=== PATIENT | male | born 1970 | race Caucasian/White ===

== ENCOUNTER 2019-12-05 03:57 | Inpatient (IN) ==
[2019-12-05] MEDS ORDERED: MoRPHine SULFATE 4 MG/ML 1 ML CARP\\VIAL IV STA (04:03)
[2019-12-05] MEDS ORDERED: SODIUM CHLORIDE 0.9% 1000ML 1,000 ML IV ONE ×2 (04:03→04:27)
[2019-12-05] MEDS ORDERED: ONDANSETRON INJ 2 MG/ML 2 ML VIAL IV STA (04:03)
--- NOTE | 2019-12-05 04:09 | Emergency Department Note ---
History of Present Illness General Chief complaint: Abdominal Pain Stated complaint: ABDOMINAL PAIN History of Present Illness This 49 yo presents to the ER complaining of severe abdominal pain with nausea and vomiting today Location: Abdomen Quality: Crampy Severity: Severe Duration: Today Timing: Today Context: Patient was concerned and came in by EMS Modifying factors: better with nothing; worse with activity Patient has an ileostomy from a history of ulcerative colitis. Patient states he only uses medical marijuana and Zoloft for his anxiety. Patient denies chest pain, dyspnea, fevers, flulike illness. He states normal production of his ostomy bag. Home Medications Home Medications Medication Instructions Recorded Confirmed Type Medical Marijuana 1 inh INHALATION DIRECTED PRN 12/05/19 12/05/19 History sertraline 50 mg PO DAILY 12/05/19 12/05/19 History Allergies Allergy/AdvReac Type Severity Reaction Status Date / Time No Known Allergies Allergy Unverified 12/05/19 04:36 Past Med/Surg History Medical History Ulcerative colitis (Chronic) Surgical History H/O ileostomy (Chronic) Social History Preferred Language: Serbian Feels Safe at Home: Yes Smoking Status: Never smoker Hx Substance Use: Yes (Medical marijuana) Review of Systems A total of 10 systems reviewed and were otherwise negative Physical Exam Vital Signs Vital Signs - 24 hr 12/05/19 04:04 12/05/19 04:54 12/05/19 04:58 Temperature 37.4 C Temperature Source Oral Pulse Rate 55 L 68 65 Pulse Rate from SpO2 Sensor 70 Respiratory Rate 20 17 20 Respiratory Effort / Characteristics Non-Labored Respiratory Depth Normal Blood Pressure 120/58 L 139/92 Blood Pressure Mean 78 101 Pulse Oximetry 100 100 100 Oxygen Delivery Method Room Air Room Air Sepsis Recent Fever Within 48 Hours No Sepsis New/Unexplained Change in Mental Status No Sepsis Action Taken by Nursing No Action Required VITALS: Vitals are noted on the nurse's note and reviewed by myself. Vital signs stable. GENERAL: White male who appears in pain, in no acute distress, nondiaphoretic, well-developed well-nourished. SKIN: Capillary reflex less than 2 seconds. HEENT: Normocephalic. PERRLA. EOMI. Nares patent. Mucous membranes moist. Neck is supple without nuchal rigidity. HEART: Regular rate and rhythm LUNGS: Clear to auscultation bilaterally without wheezes, rales or rhonchi. No retractions or accessory muscle use. ABDOMEN: Positive bowel sounds x 4. Normal tympanic percussion. Soft, ileostomy bag right lower quadrant, diffusely tender to palpation with increased pain in the left lower quadrant, without masses or organomegaly. Lester sign negative. No guarding or rebound tenderness. No CVA tenderness MUSCULOSKELETAL: No gross musculoskeletal defects. NEURO: Patient was alert and oriented to person place and time. No focal neurological deficits. Course Administered Medications Sodium Chloride (Nss 1000ml) 1,000 mls @ 999 mls/hr IV .Q1H1M ONE Stop: 12/05/19 05:27 Last Admin: 12/05/19 04:51 Dose: 999 mls/hr Documented by: [id number] Ioversol (Optiray 320 100ml) 100 ml IV ONCE PRN PRN Reason: Interaction Checking Stop: 12/09/19 04:32 Last Admin: 12/05/19 04:33 Dose: 93 ml Documented by: [id number] Discontinued Medications Hydromorphone HCl (Dilaudid) 0.5 mg IV NOW STA Stop: 12/05/19 04:49 Last Admin: 12/05/19 04:51 Dose: 0.5 mg Documented by: [id number] Sodium Chloride (Nss 1000ml) 1,000 mls @ 999 mls/hr IV .Q1H1M ONE Stop: 12/05/19 05:03 Last Admin: 12/05/19 04:13 Dose: 999 mls/hr Documented by: [id number] Morphine Sulfate (Morphine Sulfate) 4 mg IV NOW STA Stop: 12/05/19 04:04 Last Admin: 12/05/19 04:11 Dose: 4 mg Documented by: [id number] Ondansetron HCl (Zofran) 4 mg IV NOW STA Stop: 12/05/19 04:04 Last Admin: 12/05/19 04:51 Dose: 4 mg Documented by: [id number] Medical Decision Making Medical Records Attestation: I reviewed the patient's medical records. Home Medications Current Medication List: was personally reviewed by me Laboratory Data Attestation: I reviewed the patient's lab results. Result diagrams: 12/05/19 04:07 12/05/19 04:07 Lab Results 12/05/19 12/05/19 12/05/19 Range/Units 04:07 04:07 04:10 WBC 15.73 H (4.8-10.8) K/uL RBC 5.17 (4.7-6.1) M/uL Hgb 16.7 (14.0-18.0) g/dL POC Hgb (14.0-18.0) g/dl Hct 45.8 (42-52) % POC Hct (42-52) % MCV 88.6 (80-100) fL MCH 32.3 (25-34) pg MCHC 36.5 H (32-36) g/dL RDW Std Deviation 43.1 (36.4-46.3) fL RDW Coeff of Denise 13.3 (11.5-14.5) % Plt Count 268 (130-400) K/uL MPV 8.7 (7.4-10.4) fL Immature Gran % (Auto) 0.3 % Neut % (Auto) 91.5 % Lymph % (Auto) 5.5 % Screven % (Auto) 2.6 % Eos % (Auto) 0.0 % Baso % (Auto) 0.1 % Neut # (Auto) 14.39 H (1.4-6.5) K/uL Lymph # (Auto) 0.87 L (1.2-3.4) K/uL Screven # (Auto) 0.41 (0.11-0.59) K/uL Eos # (Auto) 0.00 (0-0.5) K/uL Baso # (Auto) 0.01 (0-0.2) K/uL Immature Gran # (Auto) 0.05 H (0.00-0.02) K/uL POC Sodium (135-144) mmol/L Sodium 139 (136-145) mmol/L POC Potassium (3.3-5.0) mmol/L Potassium 3.5 (3.5-5.1) mmol/L POC Chloride (101-112) mmol/L Chloride 105 (98-107) mmol/L Carbon Dioxide 19 L (21-32) mmol/L POC Total CO2 (24-31) mmol/L Anion Gap 15.0 H (3-11) POC Anion Gap (16-25) mmol/L POC BUN (7-18) mg/dl BUN 15 (7-18) mg/dl Creatinine 1.66 H (0.6-1.4) mg/dl POC Creatinine (0.6-1.3) mg/dl Est Cr Clr Drug Dosing 56.8 ml/min Est GFR ( Amer) 56.0 Est GFR (Non-Af Amer) 48.4 BUN/Creatinine Ratio 9.2 L (10-20) Glucose 155 H (70-99) mg/dl POC Glucose (other) (70-99) mg/dl POC Lactic Acid Bipin 3.92 H (0.90-1.70) mmol/L Calcium 9.1 (8.5-10.1) mg/dl POC Ioniz Calcium Tian (1.12-1.32) mmol/l Total Bilirubin 0.7 (0.2-1) mg/dl AST 25 (15-37) U/L ALT 37 (12-78) U/L Alkaline Phosphatase 86 (45-117) U/L Troponin I < 0.015 (0-0.045) ng/ml Total Protein 8.1 (6.4-8.2) gm/dl Albumin 4.1 (3.4-5.0) gm/dl Globulin 4.0 (2.5-4.0) gm/dl Albumin/Globulin Ratio 1.0 (0.9-2) Lipase 119 (73-393) U/L 12/05/19 Range/Units 04:11 WBC (4.8-10.8) K/uL RBC (4.7-6.1) M/uL Hgb (14.0-18.0) g/dL POC Hgb 17.0 (14.0-18.0) g/dl Hct (42-52) % POC Hct 50 (42-52) % MCV (80-100) fL MCH (25-34) pg MCHC (32-36) g/dL RDW Std Deviation (36.4-46.3) fL RDW Coeff of Denise (11.5-14.5) % Plt Count (130-400) K/uL MPV (7.4-10.4) fL Immature Gran % (Auto) % Neut % (Auto) % Lymph % (Auto) % Screven % (Auto) % Eos % (Auto) % Baso % (Auto) % Neut # (Auto) (1.4-6.5) K/uL Lymph # (Auto) (1.2-3.4) K/uL Screven # (Auto) (0.11-0.59) K/uL Eos # (Auto) (0-0.5) K/uL Baso # (Auto) (0-0.2) K/uL Immature Gran # (Auto) (0.00-0.02) K/uL POC Sodium 138 (135-144) mmol/L Sodium (136-145) mmol/L POC Potassium 3.4 (3.3-5.0) mmol/L Potassium (3.5-5.1) mmol/L POC Chloride 102 (101-112) mmol/L Chloride (98-107) mmol/L Carbon Dioxide (21-32) mmol/L POC Total CO2 17 L (24-31) mmol/L Anion Gap (3-11) POC Anion Gap 24.0 (16-25) mmol/L POC BUN 16 (7-18) mg/dl BUN (7-18) mg/dl Creatinine (0.6-1.4) mg/dl POC Creatinine 1.4 H (0.6-1.3) mg/dl Est Cr Clr Drug Dosing ml/min Est GFR ( Amer) Est GFR (Non-Af Amer) BUN/Creatinine Ratio (10-20) Glucose (70-99) mg/dl POC Glucose (other) 161 H (70-99) mg/dl POC Lactic Acid Bipin (0.90-1.70) mmol/L Calcium (8.5-10.1) mg/dl POC Ioniz Calcium Tian 1.12 (1.12-1.32) mmol/l Total Bilirubin (0.2-1) mg/dl AST (15-37) U/L ALT (12-78) U/L Alkaline Phosphatase (45-117) U/L Troponin I (0-0.045) ng/ml Total Protein (6.4-8.2) gm/dl Albumin (3.4-5.0) gm/dl Globulin (2.5-4.0) gm/dl Albumin/Globulin Ratio (0.9-2) Lipase (73-393) U/L Imaging Data Attestation: I personally reviewed and interpreted this imaging study as follows: Blood Pressure Blood Pressure Findings: Normal blood pressure MDM Narrative Prior records/ancillary studies reviewed. Triage Nursing notes reviewed. Additional history obtained from EMS. The patient's history was concerning for abdominal pain. Differential diagnosis: Etiologies such as appendicitis, diverticulitis, PUD, biliary pathology, UTI, pancreatitis, obstruction, mesenteric ischemia, aortic pathology, infections, inflammatory bowel disease, renal colic, as well as others were entertained. Physical examination findings: As above. ER treatment provided: An order was placed for continuous cardiac monitoring. The monitor shows a rate of 50-100 with a normal sinus rhythm. IV fluids, morphine, Zofran On reassessment the patient felt better. Diagnostics interpreted by me: ECG: Ordered for upper abdominal pain EKG: Normal sinus, normal axis, no acute ST-T wave changes, rate of 55. Impression sinus bradycardia interpreted by myself I think arrhythmia is unlikely. EKG shows normal sinus rhythm with no interval abnormalities such as QT prolongation or WPW. There are no findings to suggest Brugada syndrome. Cardiac monitoring in the emergency department reveals no tachycardic or bradycardic dysrhythmia. Hypertrophic cardiomyopathy was consi dered but there are no clear historical elements pointing toward this. EKG is not suggestive. The QRS voltage is not extremely large and there are no suggestive Q waves. The labs revealed leukocytosis, elevated lactic. Creatinine 1.6 Imaging studies: CT ABDOMEN & PELVIS With Contrast: 2 cm hiatal hernia. Mild fatty infiltration of the liver. No focal liver lesion is seen. The gallbladder, pancreas, spleen, adrenal glands, and kidneys are unremarkable. No hydronephrosis or ureterolithiasis is seen. There is a right lower quadrant ileostomy. The colon has been resected. No dilated bowel loops are present. Possible mild wall thickening involving the proximal jejunum. No definite surrounding inflammation. This is nonspecific. Scattered gas fluid levels in the distal small bowel suggest mild ileus. The urinary bladder is partially distended. Skeletal structures are unremarkable. Radiologist: Ryne Still MD Consultation: A consultation was placed with Dr. Fields, hospitalist. The case was discussed and diagnostics were reviewed. The patient was evaluated in the ER for further treatment. Exam and history seem consistent with intractable abdominal pain, ileus and nausea vomiting. Patient was told severe amount of pain. he was given several rounds of pain meds. He has a high lactic acid. Patient will be evaluated by medicine for possible admission. By the evaluation outlined above emergent etiologies such as appendicitis, diverticulitis, PUD, biliary pathology, UTI, pancreatitis, obstruction, aortic pathology, infections, inflammatory bowel disease, renal colic, as well as others were deemed relatively unlikely. The pt informed about the findings as listed above. All questions were answered and pleased with the treatment. The chart was completed utilizing [employer] Speech voice recognition software. Grammatical errors, random word insertions, pronoun errors, and incomplete sentences are an occassional consequence of this system due to software limitations, ambient noise, and hardware issues. Any formal questions or concerns about the content, text, or information contained within the body of this dictation should be directly addressed to the physician assistant office manager for clarification. Impression & Plan Intractable abdominal pain, Nausea & vomiting, Ileus Discharge Plan Visit Data Chief Complaint: Abdominal Pain Stated Complaint: ABDOMINAL PAIN ED Provider: Willie Huffman ED Midlevel Provider: Vijaya Mixon Discharge Problem: Intractable abdominal pain, Nausea & vomiting, Ileus Patient Disposition: Being Evaluated by Hospitalist Condition: Fair Forms Stand Alone Forms: My [employer] Prescriptions Prescriptions: No Action sertraline 50 mg Tablet 50 mg PO DAILY RF: 0 Medical Marijuana 1 inh inhalation DIRECTED PRN (Reason: prn) RF: 0 Referrals Referrals: PCP,NO [Physician] -
[2019-12-05 04:15] LABS: Basophils # (auto) 0.01 K/uL (0-0.2); Basophils % (auto) 0.1 %; Hematocrit (blood only) 45.8 % (42-52); Hemoglobin 16.7 g/dL (14.0-18.0); Immature Granulocytes # (auto) 0.05 K/uL (0.00-0.02); Immature Granulocytes % (auto) 0.3 %; Lymphocytes # (auto) 0.87 K/uL (1.2-3.4); Lymphocytes % (auto) 5.5 %; Mean Corpuscular Hemoglobin 32.3 pg (25-34); Mean Corpuscular Hgb Conc 36.5 g/dL (32-36); Mean Corpuscular Volume 88.6 fL (80-100); Mean Platelet Volume 8.7 fL (7.4-10.4); Monocytes # (auto) 0.41 K/uL (0.11-0.59); Monocytes % (auto) 2.6 %; Neutrophils # (auto) 14.39 K/uL (1.4-6.5); Neutrophils % (auto) 91.5 %; Platelet Count 268 K/uL (130-400); RDW Coefficient of Variation 13.3 % (11.5-14.5); RDW Standard Deviation 43.1 fL (36.4-46.3); Red Blood Count 5.17 M/uL (4.7-6.1); White Blood Count 15.73 K/uL (4.8-10.8)
[2019-12-05 04:24] LABS: iSTAT Creatinine 1.4 mg/dl (0.6-1.3); iSTAT Ionized Calcium 1.12 mmol/l (1.12-1.32); iSTAT Potassium 3.4 mmol/L (3.3-5.0)
[2019-12-05] MEDS ORDERED: IOVERSOL 100ml IV PRN (04:33)
[2019-12-05 04:34] LABS: Alanine Aminotransferase 37 U/L (12-78); Albumin Level 4.1 gm/dl (3.4-5.0); Aspartate Aminotransferase 25 U/L (15-37); BUN Creatinine Ratio 9.2 (10-20); Blood Urea Nitrogen 15 mg/dl (7-18); Calcium 9.1 mg/dl (8.5-10.1); Carbon Dioxide 19 mmol/L (21-32); Chloride 105 mmol/L (98-107); Creatinine Clr Calc Pharmacy 56.8 ml/min; Est GFR (Non-African American) 48.4; Glucose 155 mg/dl (70-99); Lipase 119 U/L (73-393); Potassium 3.5 mmol/L (3.5-5.1); Sodium 139 mmol/L (136-145)
[2019-12-05 04:39] LABS: Alkaline Phosphatase 86 U/L (45-117); Bilirubin,Total 0.7 mg/dl (0.2-1); Total Protein 8.1 gm/dl (6.4-8.2); Troponin I < 0.015 ng/ml (0-0.045)
[2019-12-05] MEDS ORDERED: HYDROmorphone INJ 0.5 MG/0.5 ML SYR IV STA (04:48)
[2019-12-05] MEDS ORDERED: ACETAMINOPHEN 1000 MG/100 ML IV IV STA (05:08)
[2019-12-05] MEDS ORDERED: LACTATED RINGER'S 1,000 ML IV ONE (05:13)
--- NOTE | 2019-12-05 05:57 | History & Physical Report ---
Date of Service December 05, 2019 Assessment & Plan (1) Abdominal pain: hx ulcerative colitis status post surgery ([facility] 2009) Patient nontoxic ARF, AGMA secondary to illness Hyperglycemia rule out DM anxiety/mood disorder, at baseline OBS GMF Baseline UA, monitor creatinine/lactic acid response to IVF Clear liquids for now GI consult RE abdominal pain, abnormal CT, history IBD Check hemoglobin A1c DVT prophylaxis with Heparin subcu Full code Text document was generated using [employer] voice recognition software. It may contain grammatical or spelling errors. Kindly contact undersigned for clarification of any documentation item in question. History of Present Illness Chief Complaint: Abdominal pain Primary Care Provider: Tj Linder PA-C History obtained from patient and records. Medical history significant for ulcerative colitis status post surgery ([facility] 2009), anxiety/mood disorder, hx lattice degeneration/retinal defect as per records, past alcohol abuse as per records. Patient woke up last night with achy abdominal pain going to his chest and back with nausea and bilious emesis. No fever, no chills. No changes with ostomy output. Intractable discomfort at the ER. Medical History as above Surgical History : Eye surgery, colectomy/ileostomy Family History : IBD, alcoholism, OCD Personal/Social history : non-smoker, past alcohol abuse as per records, admits to cannabis intake at home Allergies Allergy/AdvReac Type Severity Reaction Status Date / Time No Known Allergies Allergy Unverified 12/05/19 04:36 Home Medications Home Medications Medication Instructions Recorded Confirmed Type Medical Marijuana 1 inh INHALATION DIRECTED PRN 12/05/19 12/05/19 History sertraline 50 mg PO DAILY 12/05/19 12/05/19 History Past Med/Surg History Medical History Ulcerative colitis (Chronic) Surgical History H/O ileostomy (Chronic) Social History Preferred Language: Korean Communication Ability: Effective Leather Scraper Required: No Beliefs That Will Affect Care: None Current Living Situation: Alone Feels Safe at Home: Yes Safety Concerns: Feels Safe At This Time Smoking Status: Never smoker Hx Alcohol Use: Yes Alcohol type: wine Hx Substance Use: Yes substance use type: marijuana Review of Systems Review of Systems: As per HPI, all 10 systems reviewed, all other ROS negative Physical Exam Physical Exam: GENERAL: Slightly uncomfortable, slightly anxious, no respiratory distress SKIN: Normal color, warm HEENT: Alopecia, pink palpebral conjunctivae, no ptosis, dry buccal mucosa NECK : Supple, no tenderness CHEST : CTA, no tenderness HEART : RRR, no obvious murmurs ABDOMEN: Some distention, ostomy noted, hypogastric tenderness EXTREMITIES : No LE swelling/tenderness, no other conspicuous deformities noted NEUROLOGIC : Coherent, no facial asymmetry, no other gross focality Results & Data Results & Data ([facility]) Vital Signs (Past 12 Hours) Vital Signs Temp Pulse Resp BP Pulse Ox 12/05/19 05:30 20 119/75 100 12/05/19 05:00 92 H 21 107/94 100 12/05/19 04:58 65 20 100 12/05/19 04:54 68 17 139/92 100 12/05/19 04:04 37.4 C 55 L 20 120/58 L 100 Laboratory Results Laboratory Results WBC 15.73 K/uL (4.8-10.8) H 12/05/19 04:07 RBC 5.17 M/uL (4.7-6.1) 12/05/19 04:07 Hgb 16.7 g/dL (14.0-18.0) 12/05/19 04:07 POC Hgb 17.0 g/dl (14.0-18.0) 12/05/19 04:11 Hct 45.8 % (42-52) 12/05/19 04:07 POC Hct 50 % (42-52) 12/05/19 04:11 MCV 88.6 fL (80-100) 12/05/19 04:07 MCH 32.3 pg (25-34) 12/05/19 04:07 MCHC 36.5 g/dL (32-36) H 12/05/19 04:07 RDW Std Deviation 43.1 fL (36.4-46.3) 12/05/19 04:07 RDW Coeff of Denise 13.3 % (11.5-14.5) 12/05/19 04:07 Plt Count 268 K/uL (130-400) 12/05/19 04:07 MPV 8.7 fL (7.4-10.4) 12/05/19 04:07 Immature Gran % (Auto) 0.3 % 12/05/19 04:07 Neut % (Auto) 91.5 % 12/05/19 04:07 Lymph % (Auto) 5.5 % 12/05/19 04:07 Towns % (Auto) 2.6 % 12/05/19 04:07 Eos % (Auto) 0.0 % 12/05/19 04:07 Baso % (Auto) 0.1 % 12/05/19 04:07 Neut # (Auto) 14.39 K/uL (1.4-6.5) H 12/05/19 04:07 Lymph # (Auto) 0.87 K/uL (1.2-3.4) L 12/05/19 04:07 Towns # (Auto) 0.41 K/uL (0.11-0.59) 12/05/19 04:07 Eos # (Auto) 0.00 K/uL (0-0.5) 12/05/19 04:07 Baso # (Auto) 0.01 K/uL (0-0.2) 12/05/19 04:07 Immature Gran # (Auto) 0.05 K/uL (0.00-0.02) H 12/05/19 04:07 POC Sodium 138 mmol/L (135-144) 12/05/19 04:11 Sodium 139 mmol/L (136-145) 12/05/19 04:07 POC Potassium 3.4 mmol/L (3.3-5.0) 12/05/19 04:11 Potassium 3.5 mmol/L (3.5-5.1) 12/05/19 04:07 POC Chloride 102 mmol/L (101-112) 12/05/19 04:11 Chloride 105 mmol/L (98-107) 12/05/19 04:07 Carbon Dioxide 19 mmol/L (21-32) L 12/05/19 04:07 POC Total CO2 17 mmol/L (24-31) L 12/05/19 04:11 Anion Gap 15.0 (3-11) H 12/05/19 04:07 POC Anion Gap 24.0 mmol/L (16-25) 12/05/19 04:11 POC BUN 16 mg/dl (7-18) 12/05/19 04:11 BUN 15 mg/dl (7-18) 12/05/19 04:07 Creatinine 1.66 mg/dl (0.6-1.4) H 12/05/19 04:07 POC Creatinine 1.4 mg/dl (0.6-1.3) H 12/05/19 04:11 Est Cr Clr Drug Dosing 56.8 ml/min 12/05/19 04:07 Est GFR ( Amer) 56.0 12/05/19 04:07 Est GFR (Non-Af Amer) 48.4 12/05/19 04:07 BUN/Creatinine Ratio 9.2 (10-20) L 12/05/19 04:07 Glucose 155 mg/dl (70-99) H 12/05/19 04:07 POC Glucose (other) 161 mg/dl (70-99) H 12/05/19 04:11 POC Lactic Acid Bipin 4.83 mmol/L (0.90-1.70) H 12/05/19 04:38 Calcium 9.1 mg/dl (8.5-10.1) 12/05/19 04:07 POC Ioniz Calcium Tian 1.12 mmol/l (1.12-1.32) 12/05/19 04:11 Total Bilirubin 0.7 mg/dl (0.2-1) 12/05/19 04:07 AST 25 U/L (15-37) 12/05/19 04:07 ALT 37 U/L (12-78) 12/05/19 04:07 Alkaline Phosphatase 86 U/L (45-117) 12/05/19 04:07 Troponin I < 0.015 ng/ml (0-0.045) 12/05/19 04:07 Total Protein 8.1 gm/dl (6.4-8.2) 12/05/19 04:07 Albumin 4.1 gm/dl (3.4-5.0) 12/05/19 04:07 Globulin 4.0 gm/dl (2.5-4.0) 12/05/19 04:07 Albumin/Globulin Ratio 1.0 (0.9-2) 12/05/19 04:07 Lipase 119 U/L (73-393) 12/05/19 04:[address] abdomen pelvis initial read : hiatal hernia, right lower quadrant ileostomy, status post colon resection. Mild wall thickening involving proximal jejunum. Scattered gas fluid levels distal small bowel suggesting mild ileus. Partially distended urinary bladder. Chest x-ray as per my interpretation no congestion
--- NOTE | 2019-12-05 06:38 | CT Scan Report ---
CT OF THE ABDOMEN AND PELVIS WITH CONTRAST CLINICAL HISTORY: Severe lower abdominal pain. COMPARISON STUDY: None. TECHNIQUE: Following IV administration of 93 mL of Optiray-320, axial images of the abdomen and pelvi s were obtained from the lung bases to the proximal femurs. Images were reviewed in the axial, sagitt al, and coronal planes. IV contrast was administered without complication. Automated exposure contro l was utilized for the study. A dose lowering technique was utilized adhering to the principles of A ZARINA. CT DOSE: 342.33 mGy.cm FINDINGS: A small hiatal hernia is noted. No pneumatosis, free air or portal venous gas is present. T he liver, spleen, adrenal glands, kidneys and pancreas are unremarkable. Apparent mild wall thickenin g of several jejunal loops is likely due to underdistention. The patient is status post total proctoc olectomy with right lower quadrant ileostomy. No definite bowel wall thickening is noted. There is no evidence for a bowel obstruction. Fat-containing bilateral deformities are noted. There is no absces s. No lymphadenopathy is present. Major vasculature is patent. There is no hydronephrosis. No biliary or pancreatic ductal dilatation is present. IMPRESSION: 1. No acute process within the abdomen or pelvis. 2. 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 No bowel obstruction. No de finite bowel wall thickening. Apparent mild jejunal wall thickening is likely due to underdistention. 3. Fat-containing bilateral inguinal hernias. ACT 112: Negative or not required by law. Electronically signed by: Cullen Cano M.D. 12/05/2019 6:37 AM
--- NOTE | 2019-12-05 07:48 | XRay Report ---
XR chest 1V portable HISTORY: renal failure COMPARISON: None. FINDINGS: The lungs are clear. Cardiac silhouette is normal in size. No pleural effusions. No pneumot horax. IMPRESSION: No acute process. ACT 112: Negative or not required by law. Electronically signed by: Kyrie Ho M.D. 12/05/2019 7:47 AM
[2019-12-05] MEDS ORDERED: PROMETHAZINE HCL 12.5 MG in SODIUM CHLORIDE 0.9% 50 ML IV PRN (09:03)
[2019-12-05] MEDS ORDERED: ACETAMINOPHEN 325 MG TAB PO PRN (09:03)
[2019-12-05] MEDS ORDERED: LORazepam 0.5 MG/1 ML VIAL IV PRN (09:03)
[2019-12-05] MEDS ORDERED: HYDROmorphone INJ 0.5 MG/0.5 ML SYR IV PRN (09:03)
[2019-12-05 09:04] LABS: Appearance Urine Clear (Clear); Bilirubin Urine Negative (Negative); Blood Urine Negative (Negative); Color Urine Yellow; Glucose Urine UA Negative (Negative); Ketones Urine 1+ (Negative); Leukocyte Esterase Urine Negative (Negative); Nitrite Urine Negative (Negative); Protein Urine Negative (Negative); Specific Gravity Urine > 1.045 (1.000-1.030); Urobilinogen Urine Negative (Negative)
[2019-12-05 09:13] LABS: Amphetamines+Metham, Urine Neg (Neg); Barbiturates, Urine Neg (Neg); Benzodiazepine, Urine Neg (Neg); Cocaine, Urine Neg (Neg); MDMA (Ecstacy), Urine Neg (Neg); Methadone, Urine Neg (Neg); Opiate, Urine Pos (Neg); Phencyclidine, Urine Neg (Neg)
[2019-12-05] MEDS: LACTATED RINGER'S 1,000 ML IV SCH ×2 (09:25→22:23)
[2019-12-05] MEDS: HEPARIN SOD 5,000 UNIT/0.5 ML VIAL SQ SCH ×3 (10:34→21:35)
[2019-12-05] MEDS: SERTRALINE HCL 50 MG TABLET PO SCH (10:34)
--- NOTE | 2019-12-05 10:42 | Gastrointestinal Consultation ---
Date of Consultation December 05, 2019 Assessment & Plan (1) Abdominal pain: 49 year old male with history of anxiety, depression, marijuana use, ulcerative colitis s/p colectomy with end ileostomy in 2007 after admission for IBD flare complicated by a perforation admitted w/ 48 hours of abdominal pain, nausea and bilious emesis. CTAP w/ jejunal wall thickening otherwise negative. DDX discussed to include cannabinoid hyperemesis, medication side effects etc NPO for bowel rest IV PPI BID Stool culture, c.diff Anti emetics PRN Analgesia PRN Endoscopy, timing to be determined Marijuana cessation NSAID cessation Thank you for allowing us to participate in the care of this patient. Please c all with any acute changes, questions or concerns. Please see addendum below with additional recommendation from my supervising physician. (2) Nausea & vomiting: Supervising Physician Co-Signing Physician Notes Saw and evaluated the patient. He presents with nausea and vomiting in the setting of recently starting an antidepressant. Patient does have a history of inflammatory bowel disease and underwent a subtotal colectomy at [facility] several years ago. Physical examination Obvious distress, patient mentions being in pain multiple times asking for different pain medication Impression: Patient presenting with nausea and vomiting which could be related to use of cannabis or perhaps Zoloft. Patient can be left n.p.o. at midnight we could certainly provide upper endoscopy if symptoms are persisting tomorrow History of Present Illness Reason for Consultation: abd pain Requesting Physician: Loni Attending Physician: Blake Ivey MD History of Present Illness 49 year old male with history of anxiety, depression, marijuana use, ulcerative colitis s/p colectomy with end ileostomy in 2007 after admission for IBD flare complicated by a perforation. Pathology at that time showed severe UC w/o dysplasia. Has not been see by GI since. Notes in the past 48 hours generalized abd pain, nausea, vomiting w/ bilious emesis. No change in output from ostomy. Denies any black or bloody emesis. No diarrhea. No black or bloody stools. No fever, chills, CP, SOB. Started Zoloft about 2 weeks ago Using marijuana 1-2 times a week No ETOH No other new meds CTAP: No acute process within the abdomen or pelvis.. 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 No bowel obstruction. No definite bowel wall thickening. Apparent mild jejunal wall thickening is likely due to underdistention.Fat-containing bilateral inguinal hernias. Allergies Allergy/AdvReac Type Severity Reaction Status Date / Time No Known Allergies Allergy Unverified 12/05/19 04:36 Home Medications Home Medications Medication Instructions Recorded Confirmed Type Medical Marijuana 1 inh INHALATION DIRECTED PRN 12/05/19 12/05/19 History sertraline 50 mg PO DAILY 12/05/19 12/05/19 History Patient History Medical History Ulcerative colitis (Chronic) Surgical History H/O ileostomy (Chronic) Social History Preferred Language: Danish Communication Ability: Effective Power Technician Required: No Beliefs That Will Affect Care: None Current Living Situation: Alone Feels Safe at Home: Yes Safety Concerns: Feels Safe At This Time Smoking Status: Never smoker Hx Alcohol Use: Yes Alcohol type: wine Hx Substance Use: Yes substance use type: marijuana Review of Systems Constitutional: no chills, no fatigue and no weakness Respiratory: no cough and no dyspnea Cardiovascular: no chest pain and no dyspnea Gastrointestinal: + abdominal pain and + nausea; no coffee ground emesis, no blood in stools and no melena Physical Exam Constitutional: well developed, well nourished and + ill appearing; no acute distress pt appears uncomfortable, holding emesis bag Neck: trachea midline Respiratory: normal respiratory effort Gastrointestinal (Abdomen): Percussion/Palpation: abdomen soft Skin: no rashes, warm and dry Results & Data ([facility]) Vital Signs (Past 12 Hours) Vital Signs Temp Pulse Resp BP Pulse Ox 12/05/19 07:30 146/92 H 98 12/05/19 07:00 136/111 H 98 12/05/19 06:30 89 20 139/91 99 12/05/19 06:00 20 140/92 98 12/05/19 05:30 20 119/75 100 12/05/19 05:00 92 H 21 107/94 100 12/05/19 04:58 65 20 100 12/05/19 04:54 68 17 139/92 100 12/05/19 04:04 37.4 C 55 L 20 120/58 L 100 Laboratory Results 12/05/19 12/05/19 12/05/19 Range/Units 10:42 10:42 08:30 WBC (4.8-10.8) K/uL RBC (4.7-6.1) M/uL Hgb (14.0-18.0) g/dL POC Hgb (14.0-18.0) g/dl Hct (42-52) % POC Hct (42-52) % MCV (80-100) fL MCH (25-34) pg MCHC (32-36) g/dL RDW Std Deviation (36.4-46.3) fL RDW Coeff of Denise (11.5-14.5) % Plt Count (130-400) K/uL MPV (7.4-10.4) fL Immature Gran % (Auto) % Neut % (Auto) % Lymph % (Auto) % Holt % (Auto) % Eos % (Auto) % Baso % (Auto) % Neut # (Auto) (1.4-6.5) K/uL Lymph # (Auto) (1.2-3.4) K/uL Holt # (Auto) (0.11-0.59) K/uL Eos # (Auto) (0-0.5) K/uL Baso # (Auto) (0-0.2) K/uL Immature Gran # (Auto) (0.00-0.02) K/uL VBG pH Pending VBG pCO2 Pending VBG pO2 Pending VBG HCO3 Pending VBG O2 Saturation Pending VBG Base Excess Pending POC Sodium (135-144) mmol/L Sodium (136-145) mmol/L POC Potassium (3.3-5.0) mmol/L Potassium (3.5-5.1) mmol/L POC Chloride (101-112) mmol/L Chloride (98-107) mmol/L Carbon Dioxide (21-32) mmol/L POC Total CO2 (24-31) mmol/L Anion Gap (3-11) POC Anion Gap (16-25) mmol/L POC BUN (7-18) mg/dl BUN (7-18) mg/dl Creatinine (0.6-1.4) mg/dl POC Creatinine (0.6-1.3) mg/dl Est Cr Clr Drug Dosing ml/min Est GFR ( Amer) Est GFR (Non-Af Amer) BUN/Creatinine Ratio (10-20) Glucose (70-99) mg/dl POC Glucose (other) (70-99) mg/dl Estimat Average Glucose Hemoglobin A1c POC Lactic Acid Bipin (0.90-1.70) mmol/L Lactate Pending Calcium (8.5-10.1) mg/dl POC Ioniz Calcium Tian (1.12-1.32) mmol/l Magnesium (1.8-2.4) mg/dl Total Bilirubin (0.2-1) mg/dl AST (15-37) U/L ALT (12-78) U/L Alkaline Phosphatase (45-117) U/L Troponin I (0-0.045) ng/ml Total Protein (6.4-8.2) gm/dl Albumin (3.4-5.0) gm/dl Globulin (2.5-4.0) gm/dl Albumin/Globulin Ratio (0.9-2) Lipase (73-393) U/L Urine Color Urine Appearance (Clear) Urine pH (4.5-7.5) Ur Specific [place] (1.000-1.030) Urine Protein (Negative) Urine Glucose (UA) (Negative) Urine Ketones (Negative) Urine Blood (Negative) Urine Nitrite (Negative) Urine Bilirubin (Negative) Urine Urobilinogen (Negative) Ur Leukocyte Esterase (Negative) Urine Opiates Screen (Neg) U Codeine Confrm GC/MS Pending Ur Morphine (GC/MS) Pending Ur Hydrocodone (GC/MS) Pending Ur Norhydrocodone Pending Ur Noroxycodone Pending Urine Oxycodone (GC/MS) Pending U Oxymorphone GC/MS Pending Ur Methadone, Qual (Neg) Ur Hydromorphone (GC/MS) Pending Urine Barbiturates (Neg) Ur Phencyclidine (PCP) (Neg) U Amphetamin/Meth Scrn (Neg) MDMA (Ecstasy) Screen (Neg) U Benzodiazepines Scrn (Neg) Ur Cocaine Metabolite (Neg) U Marijuana (THC) Screen (Neg) U Marijuana THC Carboxy Pending Drug Screen Comment Pending 12/05/19 12/05/19 12/05/19 Range/Units 08:30 08:30 04:38 WBC (4.8-10.8) K/uL RBC (4.7-6.1) M/uL Hgb (14.0-18.0) g/dL POC Hgb (14.0-18.0) g/dl Hct (42-52) % POC Hct (42-52) % MCV (80-100) fL MCH (25-34) pg MCHC (32-36) g/dL RDW Std Deviation (36.4-46.3) fL RDW Coeff of Denise (11.5-14.5) % Plt Count (130-400) K/uL MPV (7.4-10.4) fL Immature Gran % (Auto) % Neut % (Auto) % Lymph % (Auto) % Holt % (Auto) % Eos % (Auto) % Baso % (Auto) % Neut # (Auto) (1.4-6.5) K/uL Lymph # (Auto) (1.2-3.4) K/uL Holt # (Auto) (0.11-0.59) K/uL Eos # (Auto) (0-0.5) K/uL Baso # (Auto) (0-0.2) K/uL Immature Gran # (Auto) (0.00-0.02) K/uL VBG pH VBG pCO2 VBG pO2 VBG HCO3 VBG O2 Saturation VBG Base Excess POC Sodium (135-144) mmol/L Sodium (136-145) mmol/L POC Potassium (3.3-5.0) mmol/L Potassium (3.5-5.1) mmol/L POC Chloride (101-112) mmol/L Chloride (98-107) mmol/L Carbon Dioxide (21-32) mmol/L POC Total CO2 (24-31) mmol/L Anion Gap (3-11) POC Anion Gap (16-25) mmol/L POC BUN (7-18) mg/dl BUN (7-18) mg/dl Creatinine (0.6-1.4) mg/dl POC Creatinine (0.6-1.3) mg/dl Est Cr Clr Drug Dosing ml/min Est GFR ( Amer) Est GFR (Non-Af Amer) BUN/Creatinine Ratio (10-20) Glucose (70-99) mg/dl POC Glucose (other) (70-99) mg/dl Estimat Average Glucose Hemoglobin A1c POC Lactic Acid Bipin 4.83 H (0.90-1.70) mmol/L Lactate Calcium (8.5-10.1) mg/dl POC Ioniz Calcium Tian (1.12-1.32) mmol/l Magnesium (1.8-2.4) mg/dl Total Bilirubin (0.2-1) mg/dl AST (15-37) U/L ALT (12-78) U/L Alkaline Phosphatase (45-117) U/L Troponin I (0-0.045) ng/ml Total Protein (6.4-8.2) gm/dl Albumin (3.4-5.0) gm/dl Globulin (2.5-4.0) gm/dl Albumin/Globulin Ratio (0.9-2) Lipase (73-393) U/L Urine Color Yellow Urine Appearance Clear (Clear) Urine pH 5.0 (4.5-7.5) Ur Specific [place] > 1.045 H (1.000-1.030) Urine Protein Negative (Negative) Urine Glucose (UA) Negative (Negative) Urine Ketones 1+ H (Negative) Urine Blood Negative (Negative) Urine Nitrite Negative (Negative) Urine Bilirubin Negative (Negative) Urine Urobilinogen Negative (Negative) Ur Leukocyte Esterase Negative (Negative) Urine Opiates Screen Pos H (Neg) U Codeine Confrm GC/MS Ur Morphine (GC/MS) Ur Hydrocodone (GC/MS) Ur Norhydrocodone Ur Noroxycodone Urine Oxycodone (GC/MS) U Oxymorphone GC/MS Ur Methadone, Qual Neg (Neg) Ur Hydromorphone (GC/MS) Urine Barbiturates Neg (Neg) Ur Phencyclidine (PCP) Neg (Neg) U Amphetamin/Meth Scrn Neg (Neg) MDMA (Ecstasy) Screen Neg (Neg) U Benzodiazepines Scrn Neg (Neg) Ur Cocaine Metabolite Neg (Neg) U Marijuana (THC) Screen Pos H (Neg) U Marijuana THC Carboxy Drug Screen Comment 12/05/19 12/05/19 12/05/19 Range/Units 04:11 04:10 04:07 WBC (4.8-10.8) K/uL RBC (4.7-6.1) M/uL Hgb (14.0-18.0) g/dL POC Hgb 17.0 (14.0-18.0) g/dl Hct (42-52) % POC Hct 50 (42-52) % MCV (80-100) fL MCH (25-34) pg MCHC (32-36) g/dL RDW Std Deviation (36.4-46.3) fL RDW Coeff of Denise (11.5-14.5) % Plt Count (130-400) K/uL MPV (7.4-10.4) fL Immature Gran % (Auto) % Neut % (Auto) % Lymph % (Auto) % Holt % (Auto) % Eos % (Auto) % Baso % (Auto) % Neut # (Auto) (1.4-6.5) K/uL Lymph # (Auto) (1.2-3.4) K/uL Holt # (Auto) (0.11-0.59) K/uL Eos # (Auto) (0-0.5) K/uL Baso # (Auto) (0-0.2) K/uL Immature Gran # (Auto) (0.00-0.02) K/uL VBG pH VBG pCO2 VBG pO2 VBG HCO3 VBG O2 Saturation VBG Base Excess POC Sodium 138 (135-144) mmol/L Sodium (136-145) mmol/L POC Potassium 3.4 (3.3-5.0) mmol/L Potassium (3.5-5.1) mmol/L POC Chloride 102 (101-112) mmol/L Chloride (98-107) mmol/L Carbon Dioxide (21-32) mmol/L POC Total CO2 17 L (24-31) mmol/L Anion Gap (3-11) POC Anion Gap 24.0 (16-25) mmol/L POC BUN 16 (7-18) mg/dl BUN (7-18) mg/dl Creatinine (0.6-1.4) mg/dl POC Creatinine 1.4 H (0.6-1.3) mg/dl Est Cr Clr Drug Dosing ml/min Est GFR ( Amer) Est GFR (Non-Af Amer) BUN/Creatinine Ratio (10-20) Glucose (70-99) mg/dl POC Glucose (other) 161 H (70-99) mg/dl Estimat Average Glucose Hemoglobin A1c POC Lactic Acid Bipin 3.92 H (0.90-1.70) mmol/L Lactate Calcium (8.5-10.1) mg/dl POC Ioniz Calcium Tian 1.12 (1.12-1.32) mmol/l Magnesium 1.7 L (1.8-2.4) mg/dl Total Bilirubin (0.2-1) mg/dl AST (15-37) U/L ALT (12-78) U/L Alkaline Phosphatase (45-117) U/L Troponin I (0-0.045) ng/ml Total Protein (6.4-8.2) gm/dl Albumin (3.4-5.0) gm/dl Globulin (2.5-4.0) gm/dl Albumin/Globulin Ratio (0.9-2) Lipase (73-393) U/L Urine Color Urine Appearance (Clear) Urine pH (4.5-7.5) Ur Specific [place] (1.000-1.030) Urine Protein (Negative) Urine Glucose (UA) (Negative) Urine Ketones (Negative) Urine Blood (Negative) Urine Nitrite (Negative) Urine Bilirubin (Negative) Urine Urobilinogen (Negative) Ur Leukocyte Esterase (Negative) Urine Opiates Screen (Neg) U Codeine Confrm GC/MS Ur Morphine (GC/MS) Ur Hydrocodone (GC/MS) Ur Norhydrocodone Ur Noroxycodone Urine Oxycodone (GC/MS) U Oxymorphone GC/MS Ur Methadone, Qual (Neg) Ur Hydromorphone (GC/MS) Urine Barbiturates (Neg) Ur Phencyclidine (PCP) (Neg) U Amphetamin/Meth Scrn (Neg) MDMA (Ecstasy) Screen (Neg) U Benzodiazepines Scrn (Neg) Ur Cocaine Metabolite (Neg) U Marijuana (THC) Screen (Neg) U Marijuana THC Carboxy Drug Screen Comment 12/05/19 12/05/19 12/05/19 Range/Units 04:07 04:07 04:07 WBC 15.73 H (4.8-10.8) K/uL RBC 5.17 (4.7-6.1) M/uL Hgb 16.7 (14.0-18.0) g/dL POC Hgb (14.0-18.0) g/dl Hct 45.8 (42-52) % POC Hct (42-52) % MCV 88.6 (80-100) fL MCH 32.3 (25-34) pg MCHC 36.5 H (32-36) g/dL RDW Std Deviation 43.1 (36.4-46.3) fL RDW Coeff of Denise 13.3 (11.5-14.5) % Plt Count 268 (130-400) K/uL MPV 8.7 (7.4-10.4) fL Immature Gran % (Auto) 0.3 % Neut % (Auto) 91.5 % Lymph % (Auto) 5.5 % Holt % (Auto) 2.6 % Eos % (Auto) 0.0 % Baso % (Auto) 0.1 % Neut # (Auto) 14.39 H (1.4-6.5) K/uL Lymph # (Auto) 0.87 L (1.2-3.4) K/uL Holt # (Auto) 0.41 (0.11-0.59) K/uL Eos # (Auto) 0.00 (0-0.5) K/uL Baso # (Auto) 0.01 (0-0.2) K/uL Immature Gran # (Auto) 0.05 H (0.00-0.02) K/uL VBG pH VBG pCO2 VBG pO2 VBG HCO3 VBG O2 Saturation VBG Base Excess POC Sodium (135-144) mmol/L Sodium 139 (136-145) mmol/L POC Potassium (3.3-5.0) mmol/L Potassium 3.5 (3.5-5.1) mmol/L POC Chloride (101-112) mmol/L Chloride 105 (98-107) mmol/L Carbon Dioxide 19 L (21-32) mmol/L POC Total CO2 (24-31) mmol/L Anion Gap 15.0 H (3-11) POC Anion Gap (16-25) mmol/L POC BUN (7-18) mg/dl BUN 15 (7-18) mg/dl Creatinine 1.66 H (0.6-1.4) mg/dl POC Creatinine (0.6-1.3) mg/dl Est Cr Clr Drug Dosing 56.8 ml/min Est GFR ( Amer) 56.0 Est GFR (Non-Af Amer) 48.4 BUN/Creatinine Ratio 9.2 L (10-20) Glucose 155 H (70-99) mg/dl POC Glucose (other) (70-99) mg/dl Estimat Average Glucose Pending Hemoglobin A1c Pending POC Lactic Acid Bipin (0.90-1.70) mmol/L Lactate Calcium 9.1 (8.5-10.1) mg/dl POC Ioniz Calcium Tian (1.12-1.32) mmol/l Magnesium (1.8-2.4) mg/dl Total Bilirubin 0.7 (0.2-1) mg/dl AST 25 (15-37) U/L ALT 37 (12-78) U/L Alkaline Phosphatase 86 (45-117) U/L Troponin I < 0.015 (0-0.045) ng/ml Total Protein 8.1 (6.4-8.2) gm/dl Albumin 4.1 (3.4-5.0) gm/dl Globulin 4.0 (2.5-4.0) gm/dl Albumin/Globulin Ratio 1.0 (0.9-2) Lipase 119 (73-393) U/L Urine Color Urine Appearance (Clear) Urine pH (4.5-7.5) Ur Specific [place] (1.000-1.030) Urine Protein (Negative) Urine Glucose (UA) (Negative) Urine Ketones (Negative) Urine Blood (Negative) Urine Nitrite (Negative) Urine Bilirubin (Negative) Urine Urobilinogen (Negative) Ur Leukocyte Esterase (Negative) Urine Opiates Screen (Neg) U Codeine Confrm GC/MS Ur Morphine (GC/MS) Ur Hydrocodone (GC/MS) Ur Norhydrocodone Ur Noroxycodone Urine Oxycodone (GC/MS) U Oxymorphone GC/MS Ur Methadone, Qual (Neg) Ur Hydromorphone (GC/MS) Urine Barbiturates (Neg) Ur Phencyclidine (PCP) (Neg) U Amphetamin/Meth Scrn (Neg) MDMA (Ecstasy) Screen (Neg) U Benzodiazepines Scrn (Neg) Ur Cocaine Metabolite (Neg) U Marijuana (THC) Screen (Neg) U Marijuana THC Carboxy Drug Screen Comment
[2019-12-05 11:02] LABS: Base Excess VBG -1.5 mEq/L; HCO3 VBG 23 mmol/L; PCO2 VBG 37 mmHg (38-50); PO2 VBG 24 mmHg; pH VBG 7.41 (7.36-7.41)
[2019-12-05 11:03] LABS: Oxygen Saturation VBG < 60.0 %
[2019-12-05 11:17] LABS: BUN Creatinine Ratio 9.9 (10-20); Blood Urea Nitrogen 15 mg/dl (7-18); C Reactive Protein < 0.29 mg/dl (0-0.29); Calcium 8.5 mg/dl (8.5-10.1); Carbon Dioxide 22 mmol/L (21-32); Chloride 108 mmol/L (98-107); Creatinine Clr Calc Pharmacy 62.9 ml/min; Est GFR (African American) 63.3; Est GFR (Non-African American) 54.7; Glucose 122 mg/dl (70-99); Potassium 3.7 mmol/L (3.5-5.1); Sodium 139 mmol/L (136-145)
[2019-12-05] MEDS: HYDROmorphone INJ 0.5 MG/0.5 ML SYR IV PRN ×3 (11:46→20:54)
[2019-12-05] MEDS: MAGNESIUM SULFATE / D5W 1 GM/100 ML BAG IV SCH ×2 (11:47→16:14)
[2019-12-05] MEDS: POTASSIUM CHLORIDE / WTR 10 MEQ/100 ML PLCT IV SCH ×5 (11:47→23:45)
[2019-12-05 11:52] LABS: Estimated Average Glucose 105 mg/dl; Hemoglobin A1C 5.3 % (4.5-5.6)
[2019-12-05 12:29] LABS: Basophils # (auto) 0.01 K/uL (0-0.2); Basophils % (auto) 0.1 %; Hemoglobin 15.8 g/dL (14.0-18.0); Immature Granulocytes # (auto) 0.03 K/uL (0.00-0.02); Immature Granulocytes % (auto) 0.2 %; Lymphocytes # (auto) 0.65 K/uL (1.2-3.4); Mean Corpuscular Hemoglobin 32.2 pg (25-34); Mean Corpuscular Hgb Conc 35.9 g/dL (32-36); Mean Corpuscular Volume 89.6 fL (80-100); Mean Platelet Volume 8.8 fL (7.4-10.4); Monocytes # (auto) 0.49 K/uL (0.11-0.59); Monocytes % (auto) 3.8 %; Neutrophils # (auto) 11.78 K/uL (1.4-6.5); Neutrophils % (auto) 90.9 %; Platelet Count 219 K/uL (130-400); RDW Coefficient of Variation 13.4 % (11.5-14.5); RDW Standard Deviation 44.1 fL (36.4-46.3); Red Blood Count 4.91 M/uL (4.7-6.1); White Blood Count 12.96 K/uL (4.8-10.8)
[2019-12-05] MEDS: ACETAMINOPHEN 1,000 MG/100 ML VIAL IV PRN ×2 (13:39→23:56)
[2019-12-05] MEDS: PROCHLORPERAZINE 5 MG in SYRINGE 4 ML IV PRN (14:11)
[2019-12-05 17:39] LABS: BUN Creatinine Ratio 9.5 (10-20); Calcium 8.3 mg/dl (8.5-10.1); Est GFR (African American) 62.3; Est GFR (Non-African American) 53.8; Magnesium 2.6 mg/dl (1.8-2.4); Potassium 3.6 mmol/L (3.5-5.1)
--- NOTE | 2019-12-05 18:59 | Electrocardiogram Report ---
Test Reason : Blood Pressure : / mmHG Vent. Rate : 055 BPM Atrial Rate : 055 BPM P-R Int : 138 ms QRS Dur : 088 ms QT Int : 474 ms P-R-T Axes : 062 069 069 degrees QTc Int : 453 ms Sinus bradycardia with sinus arrhythmia Incomplete right bundle branch block Otherwise normal ECG No previous ECGs available Confirmed by Parmjit Devries ([id number]) on 12/05/2019 6:58:49 PM Referred By: REFERRED SELF Confirmed By:[place]
[2019-12-05] MEDS ORDERED: POTASSIUM CHLORIDE 20 MEQ TABCR PO STA (19:02)
[2019-12-05] MEDS ORDERED: CONSULT PHARMACY STA (19:18)
--- NOTE | 2019-12-05 19:24 | Hospitalist Progress Note ---
Date of Service December 05, 2019 Assessment & Plan Admission and Anticipated Discharge Date Admission Date: December 05, 2019 Subjective Patient seen examined, complains of abdominal pain. Says that maybe Tylenol in ED helped. 0.25 IV Dilaudid did not help for long. Describes pain around his ileostomy. Also states that he cannot take any p.o. otherwise his abdomen starts to hurt more. CT abdomen pelvis negative. GI evaluation pending. Lactic acid persistently elevated despite IV fluids. Will repeat, and will repeat CBC. I will replace electrolytes. We will continue to closely monitor. Stool culture and C. difficile ordered. Elevated white blood cell count, with neutrophil predominance, will consider starting on antibiotics. Results & Data Results & Data ([facility]) Vital Signs (Past 12 Hours) Vital Signs Temp Pulse Resp BP BP Pulse Ox 12/05/19 15:09 37.3 C 64 18 147/86 H 98 12/05/19 08:50 37.0 C 84 16 143/92 H 100 12/05/19 07:30 146/92 H 98
[2019-12-05] MEDS ORDERED: PIPERACILL/TAZOBAC CONSULT ACTIVE PRN (19:27)
[2019-12-05] MEDS ORDERED: PIPERACILLIN/TAZOBACTAM 3.375 GM in DEXTROSE 5% 100 ML IV ONE (19:30)
[2019-12-05] MEDS: PANTOprazole 40 MG in SYRINGE 0 ML IV SCH (20:51)
[2019-12-05] MEDS ORDERED: PANTOprazole 40 MG in SYRINGE 0 ML IV SCH (21:00)
[2019-12-05] MEDS ORDERED: Nursing to Pharmacy Communication SCH (22:45)
[2019-12-06] MEDS: PIPERACILLIN/TAZOBACTAM 3.375 GM in DEXTROSE 5% 100 ML IV SCH ×3 (01:02→17:38)
[2019-12-06] MEDS: HYDROmorphone INJ 0.5 MG/0.5 ML SYR IV PRN ×3 (01:07→14:46)
[2019-12-06] MEDS: PROCHLORPERAZINE 5 MG in SYRINGE 4 ML IV PRN ×2 (01:25→16:39)
[2019-12-06] MEDS: LACTATED RINGER'S 1,000 ML IV SCH (03:41)
[2019-12-06] MEDS: HEPARIN SOD 5,000 UNIT/0.5 ML VIAL SQ SCH ×3 (05:32→21:03)
[2019-12-06] MEDS: NSS + 20MEQ KCL 20 MEQ/1,000 ML BAG IV SCH ×2 (05:32→21:02)
[2019-12-06 07:13] LABS: Basophils # (auto) 0.01 K/uL (0-0.2); Basophils % (auto) 0.1 %; Hematocrit (blood only) 41.9 % (42-52); Hemoglobin 14.7 g/dL (14.0-18.0); Immature Granulocytes # (auto) 0.04 K/uL (0.00-0.02); Immature Granulocytes % (auto) 0.3 %; Lymphocytes # (auto) 1.39 K/uL (1.2-3.4); Lymphocytes % (auto) 10.7 %; Mean Corpuscular Hemoglobin 31.6 pg (25-34); Mean Corpuscular Hgb Conc 35.1 g/dL (32-36); Mean Corpuscular Volume 90.1 fL (80-100); Mean Platelet Volume 8.7 fL (7.4-10.4); Monocytes % (auto) 9.3 %; Neutrophils # (auto) 10.31 K/uL (1.4-6.5); Neutrophils % (auto) 79.6 %; Platelet Count 213 K/uL (130-400); RDW Coefficient of Variation 13.7 % (11.5-14.5); RDW Standard Deviation 44.6 fL (36.4-46.3); Red Blood Count 4.65 M/uL (4.7-6.1); White Blood Count 12.95 K/uL (4.8-10.8)
[2019-12-06 07:45] LABS: BUN Creatinine Ratio 11.6 (10-20); Blood Urea Nitrogen 14 mg/dl (7-18); C Reactive Protein < 0.29 mg/dl (0-0.29); Calcium 8.2 mg/dl (8.5-10.1); Carbon Dioxide 24 mmol/L (21-32); Chloride 109 mmol/L (98-107); Creatinine Clr Calc Pharmacy 77.3 ml/min; Est GFR (African American) 81.3; Est GFR (Non-African American) 70.2; Glucose 100 mg/dl (70-99); Phosphorus 2.7 mg/dl (2.5-4.9); Potassium 3.7 mmol/L (3.5-5.1); Sodium 139 mmol/L (136-145)
[2019-12-06] MEDS: ACETAMINOPHEN 1,000 MG/100 ML VIAL IV PRN (08:09)
[2019-12-06] MEDS: SERTRALINE HCL 50 MG TABLET PO SCH (08:13)
[2019-12-06] MEDS: PANTOprazole 40 MG in SYRINGE 0 ML IV SCH ×2 (08:34→21:03)
--- NOTE | 2019-12-06 08:58 | Anesthesiology Consultation ---
Date of Service December 06, 2019 Assessment & Plan (1) Encounter for pre-operative examination: Chart Review Chart Review: Acceptable Risk for Surgery Consults Requested none ASA ASA2 Proposed Anesthesia Anesthesia Type: MAC Risk / Benefits Reviewed With: PT / POA / Parent / Guardian, Accepts Plan and Informed Consent Obtained History Surgery Operation Date: 12/06/19 16:30 Proposed Procedures p Esophagogastroduodenoscopy Dr Ady Garsia Height/Weight Height: 5 ft 10 in Weight: 73.9 kg Allergies Allergy/AdvReac Type Severity Reaction Status Date / Time No Known Allergies Allergy Unverified 12/05/19 04:36 Medications Home Medications Medication Instructions Recorded Confirmed Last Taken Medical Marijuana 1 inh INHALATION DIRECTED PRN 12/05/19 12/05/19 Unknown sertraline 50 mg PO DAILY 12/05/19 12/05/19 Unknown Active Medications Generic Name Dose Route Start Last Admin Trade Name Freq PRN Reason Stop Dose Admin Heparin Sodium (Porcine) 5,000 units 12/05/19 09:03 12/06/19 05:32 Heparin Sodium (Porcine) SQ 01/04/20 09:02 Not Given Q8 FAUSTINO Hydromorphone HCl 0.5 mg 12/05/19 10:48 12/06/19 06:38 Dilaudid IV 12/19/19 09:02 0.5 mg Q4H PRN Administration Pain Promethazine HCl 12.5 mg/ 50.5 mls @ 202 mls/hr 12/05/19 09:03 12/05/19 11:12 Sodium Chloride IV 01/04/20 09:02 Infused Q6H PRN Infusion Nausea And Vomiting Acetaminophen 1,000 mg in 100 mls @ 400 mls/hr 12/05/19 10:55 12/06/19 08:33 Ofirmev IV 12/08/19 10:54 Infused Q8H PRN Infusion Moderate Pain Prochlorperazine 5 mg/ Syringe 5 mls @ 5 mls/min 12/05/19 11:52 12/06/19 01:25 IV 01/04/20 11:51 5 mls/min Q4H PRN Administration Nausea And Vomiting Piperacillin Sod/Tazobactam 115 mls @ 28.75 mls/hr 12/06/19 02:00 12/06/19 05:02 Sod 3.375 gm/ Dextrose IV 12/16/19 01:59 Infused Q8H FAUSTINO Infusion Protocol Pantoprazole Sodium 40 mg/ 10 mls @ 5 mls/min 12/05/19 20:00 12/06/19 08:34 Syringe IV 01/04/20 19:59 5 mls/min BID FAUSTINO Administration Potassium Chloride/Sodium Chloride 20 meq in 1,000 mls @ 60 mls/hr 12/06/19 04:45 12/06/19 05:32 Normal Saline W/20 Meq Kcl IV 01/05/20 04:44 60 mls/hr .[id number] FAUSTINO Administration Sertraline HCl 50 mg 12/05/19 09:03 12/06/19 08:13 Zoloft PO 01/04/20 09:02 Not Given DAILY FAUSTINO Past Medical History Medical History Ulcerative colitis (Chronic) Exercise / Class Metabolic Activity II 4-5 Yardwork/Stairs/Walk up hill Past Surgical History Surgical History H/O ileostomy (Chronic) Past Anesthesia History No Hx of Anesthesia Complications and No Family Hx of Anesthesia Complications History of PONV No Hx of PONV and No Hx of Motion Sickness Social History Smoking Status: Never smoker Hx Alcohol Use: Yes Alcohol type: wine alcohol intake frequency: a few times a week Hx Substance Use: Yes substance use type: marijuana Physical Exam Vital Signs Last Vital Signs Temp 99.3 F 12/06/19 10:36 Pulse 82 12/06/19 10:36 Resp 18 12/06/19 10:36 BP 137/89 12/06/19 10:36 Pulse Ox 100 12/06/19 10:36 ENMT Mouth: no dentition abnormality Thyromental Distance: > or= 3.5 Finger Breadths Mallampati Class: II Neck normal visual inspection Respiratory normal respiratory effort Auscultation: lungs clear to auscultation bilaterally Cardiovascular Rate/Rhythm: regular rate and regular rhythm Testing Laboratory Results 12/06/19 06:54 12/06/19 06:54 Hemoglobin A1c 5.3 % (4.5-5.6) 12/05/19 04:07 Urine Color Yellow 12/05/19 08:30 Urine Appearance Clear (Clear) 12/05/19 08:30 Urine pH 5.0 (4.5-7.5) 12/05/19 08:30 Ur Specific [place] > 1.045 (1.000-1.030) H 12/05/19 08:30 Urine Protein Negative (Negative) 12/05/19 08:30 Urine Glucose (UA) Negative (Negative) 12/05/19 08:30 Urine Ketones 1+ (Negative) H 12/05/19 08:30 Urine Nitrite Negative (Negative) 12/05/19 08:30 Ur Leukocyte Esterase Negative (Negative) 12/05/19 08:30 Electrocardiogram Date: 12/05/19 Sinus bradycardia with sinus arrhythmia, rate 55 bpm Incomplete right bundle branch block Otherwise normal ECG No previous ECGs available Confirmed by Parmjit Devries ([id number]) on 12/05/2019 6:58:49 PM Chest X-Ray Date: 12/05/19 Findings: + NAD
--- NOTE | 2019-12-06 08:59 | Gastroenterology Progress Note ---
Date of Service December 06, 2019 Assessment & Plan (1) Abdominal pain: 49 year old male with history of anxiety, depression, marijuana use, ulcerative colitis s/p colectomy with end ileostomy in 2007 after admission for IBD flare complicated by a perforation admitted w/ 48 hours of abdominal pain, nausea and bilious emesis. CTAP w/ jejunal wall thickening otherwise negative. DDX discussed to include cannabinoid hyperemesis, medication side effects etc NPO for EGD IV PPI BID Please see prior consultation for additional recommendations Marijuana cessation NSAID cessation Thank you for allowing us to participate in the care of this patient. Please call with any acute changes, questions or concerns. Please see addendum below with additional recommendation from my supervising physician. (2) Nausea & vomiting: Admission and Anticipated Discharge Date Admission Date: December 05, 2019 Supervising Physician Co-Signing Physician Notes I saw and evaluated the patient. He notes that his nausea and vomiting are improved overnight. We are planning to proceed with upper endoscopy to look for evidence of peptic ulcer disease. The risks have been discussed with the patient to include bleeding, infection, perforation and need for follow-up studies. Subjective No vomiting today Less epigastric pain No black or bloody stools Review of Systems Constitutional: no fever, no chills and no fatigue Respiratory: no cough and no dyspnea Cardiovascular: no chest pain and no dyspnea Gastrointestinal: + abdominal pain; no blood in stools and no melena Physical Exam Constitutional: no acute distress and not ill appearing Neck: trachea midline Respiratory: normal respiratory effort Cardiovascular: Rate/Rhythm: regular rhythm Gastrointestinal (Abdomen): Percussion/Palpation: + abdomen tender and abdomen soft Results & Data ([facility]) Vital Signs (Past 12 Hours) Vital Signs Temp Pulse Resp BP BP Pulse Ox 12/06/19 07:10 37.5 C 54 L 19 136/80 99 12/06/19 06:32 133/82 12/05/19 23:37 37.3 C 71 14 123/80 99
--- NOTE | 2019-12-06 10:35 | Hospitalist Progress Note ---
Date of Service December 06, 2019 Assessment & Plan (1) Abdominal pain: hx ulcerative colitis status post surgery ([facility] 2009) Patient nontoxic GI consult RE abdominal pain, history IBD Plan for upper endoscopy by GI CT abdomen - negative Persistent nausea Initially npo, now on clear liquid diet, pt is tolerating ARF, AGMA secondary to illness Baseline UA, monitor creatinine/lactic acid response to IVF Anxiety/mood disorder, at baseline -recently started on zoloft, also uses medical marijuana -both medications can be possibly causing nausea -hot shower seems to be helping w/ nausea Hyperglycemia rule out DM Current hemoglobin A1c 5.3% DVT prophylaxis with Heparin subcu Full code Admission and Anticipated Discharge Date Admission Date: December 05, 2019 Subjective Pt started on IV zosyn d/t persistent elevated lactic acid. Lactic acid now normalized. Abd. pain and nausea only somewhat improved. Plan for upper endoscopy today by GI. No fever, chills, chest pain, shortness of breath. Review of Systems Review of Systems: All systems reviewed & are unremarkable except as noted in HPI & below Constitutional: no fever and no chills Respiratory: no cough and no dyspnea Cardiovascular: no chest pain and no palpitations Gastrointestinal: + abdominal pain and + nausea; no vomiting and no blood in stools Physical Exam Physical Exam: GENERAL: young male slightly uncomfortable d/t pain,in no respiratory distress SKIN: Normal color, warm HEENT: NC/AT, pink palpebral conjunctivae, EOMI NECK : Supple, no tenderness CHEST : CTAB no wheezing, rhonchi, crackles HEART : RRR, no obvious murmurs ABDOMEN: Some distention, ostomy noted, hypogastric tenderness to palpation EXTREMITIES : No LE swelling/tenderness, moves extremities spontaneously NEUROLOGIC : alert and oriented x3, no facial asymmetry, speech fluent, moves extremities spontaneously Results & Data Results & Data ([facility]) Vital Signs (Past 12 Hours) Vital Signs Temp Pulse Resp BP BP Pulse Ox 12/06/19 07:10 37.5 C 54 L 19 136/80 99 12/06/19 06:32 133/82 12/05/19 23:37 37.3 C 71 14 123/80 99 Laboratory Results 12/06/19 12/06/19 12/06/19 Range/Units 06:54 06:54 06:54 WBC 12.95 H (4.8-10.8) K/uL RBC 4.65 L (4.7-6.1) M/uL Hgb 14.7 (14.0-18.0) g/dL Hct 41.9 L (42-52) % MCV 90.1 (80-100) fL MCH 31.6 (25-34) pg MCHC 35.1 (32-36) g/dL RDW Std Deviation 44.6 (36.4-46.3) fL RDW Coeff of Denise 13.7 (11.5-14.5) % Plt Count 213 (130-400) K/uL MPV 8.7 (7.4-10.4) fL Immature Gran % (Auto) 0.3 % Neut % (Auto) 79.6 % Lymph % (Auto) 10.7 % Howard % (Auto) 9.3 % Eos % (Auto) 0.0 % Baso % (Auto) 0.1 % Neut # (Auto) 10.31 H (1.4-6.5) K/uL Lymph # (Auto) 1.39 (1.2-3.4) K/uL Howard # (Auto) 1.20 H (0.11-0.59) K/uL Eos # (Auto) 0.00 (0-0.5) K/uL Baso # (Auto) 0.01 (0-0.2) K/uL Immature Gran # (Auto) 0.04 H (0.00-0.02) K/uL ESR 2 (0-14) mm/hr VBG pH (7.36-7.41) VBG pCO2 (38-50) mmHg VBG pO2 mmHg VBG HCO3 mmol/L VBG O2 Saturation % VBG Base Excess mEq/L Barometric Pressure mm/Hg Sodium 139 (136-145) mmol/L Potassium 3.7 (3.5-5.1) mmol/L Chloride 109 H (98-107) mmol/L Carbon Dioxide 24 (21-32) mmol/L Anion Gap 6.0 (3-11) BUN 14 (7-18) mg/dl Creatinine 1.22 D (0.6-1.4) mg/dl Est Cr Clr Drug Dosing 77.3 ml/min Est GFR ( Amer) 81.3 Est GFR (Non-Af Amer) 70.2 BUN/Creatinine Ratio 11.6 (10-20) Glucose 100 H (70-99) mg/dl Estimat Average Glucose mg/dl Hemoglobin A1c (4.5-5.6) % Lactate (0.4-2.0) mmol/L Calcium 8.2 L (8.5-10.1) mg/dl Phosphorus 2.7 (2.5-4.9) mg/dl Magnesium (1.8-2.4) mg/dl C-Reactive Protein < 0.29 (0-0.29) mg/dl Ethyl Alcohol mg/dL (0-3) mg/dl 12/05/19 12/05/19 12/05/19 Range/Units 19:15 17:13 17:13 WBC (4.8-10.8) K/uL RBC (4.7-6.1) M/uL Hgb (14.0-18.0) g/dL Hct (42-52) % MCV (80-100) fL MCH (25-34) pg MCHC (32-36) g/dL RDW Std Deviation (36.4-46.3) fL RDW Coeff of Denise (11.5-14.5) % Plt Count (130-400) K/uL MPV (7.4-10.4) fL Immature Gran % (Auto) % Neut % (Auto) % Lymph % (Auto) % Howard % (Auto) % Eos % (Auto) % Baso % (Auto) % Neut # (Auto) (1.4-6.5) K/uL Lymph # (Auto) (1.2-3.4) K/uL Howard # (Auto) (0.11-0.59) K/uL Eos # (Auto) (0-0.5) K/uL Baso # (Auto) (0-0.2) K/uL Immature Gran # (Auto) (0.00-0.02) K/uL ESR (0-14) mm/hr VBG pH (7.36-7.41) VBG pCO2 (38-50) mmHg VBG pO2 mmHg VBG HCO3 mmol/L VBG O2 Saturation % VBG Base Excess mEq/L Barometric Pressure mm/Hg Sodium 138 (136-145) mmol/L Potassium 3.6 (3.5-5.1) mmol/L Chloride 109 H (98-107) mmol/L Carbon Dioxide 19 L (21-32) mmol/L Anion Gap 10.0 (3-11) BUN 15 (7-18) mg/dl Creatinine 1.52 H (0.6-1.4) mg/dl Est Cr Clr Drug Dosing 62.0 ml/min Est GFR ( Amer) 62.3 Est GFR (Non-Af Amer) 53.8 BUN/Creatinine Ratio 9.5 L (10-20) Glucose 132 H (70-99) mg/dl Estimat Average Glucose mg/dl Hemoglobin A1c (4.5-5.6) % Lactate 1.6 3.6 H* (0.4-2.0) mmol/L Calcium 8.3 L (8.5-10.1) mg/dl Phosphorus 3.0 (2.5-4.9) mg/dl Magnesium 2.6 H (1.8-2.4) mg/dl C-Reactive Protein (0-0.29) mg/dl Ethyl Alcohol mg/dL (0-3) mg/dl 12/05/19 12/05/19 12/05/19 Range/Units 12:02 10:47 10:42 WBC 12.96 H (4.8-10.8) K/uL RBC 4.91 (4.7-6.1) M/uL Hgb 15.8 (14.0-18.0) g/dL Hct 44.0 (42-52) % MCV 89.6 (80-100) fL MCH 32.2 (25-34) pg MCHC 35.9 (32-36) g/dL RDW Std Deviation 44.1 (36.4-46.3) fL RDW Coeff of Denise 13.4 (11.5-14.5) % Plt Count 219 (130-400) K/uL MPV 8.8 (7.4-10.4) fL Immature Gran % (Auto) 0.2 % Neut % (Auto) 90.9 % Lymph % (Auto) 5.0 % Howard % (Auto) 3.8 % Eos % (Auto) 0.0 % Baso % (Auto) 0.1 % Neut # (Auto) 11.78 H (1.4-6.5) K/uL Lymph # (Auto) 0.65 L (1.2-3.4) K/uL Howard # (Auto) 0.49 (0.11-0.59) K/uL Eos # (Auto) 0.00 (0-0.5) K/uL Baso # (Auto) 0.01 (0-0.2) K/uL Immature Gran # (Auto) 0.03 H (0.00-0.02) K/uL ESR 2 (0-14) mm/hr VBG pH 7.41 (7.36-7.41) VBG pCO2 37 L (38-50) mmHg VBG pO2 24 mmHg VBG HCO3 23 mmol/L VBG O2 Saturation < 60.0 % VBG Base Excess -1.5 mEq/L Barometric Pressure 736.7 mm/Hg Sodium (136-145) mmol/L Potassium (3.5-5.1) mmol/L Chloride (98-107) mmol/L Carbon Dioxide (21-32) mmol/L Anion Gap (3-11) BUN (7-18) mg/dl Creatinine (0.6-1.4) mg/dl Est Cr Clr Drug Dosing ml/min Est GFR ( Amer) Est GFR (Non-Af Amer) BUN/Creatinine Ratio (10-20) Glucose (70-99) mg/dl Estimat Average Glucose mg/dl Hemoglobin A1c (4.5-5.6) % Lactate (0.4-2.0) mmol/L Calcium (8.5-10.1) mg/dl Phosphorus (2.5-4.9) mg/dl Magnesium (1.8-2.4) mg/dl C-Reactive Protein (0-0.29) mg/dl Ethyl Alcohol mg/dL (0-3) mg/dl 12/05/19 12/05/19 12/05/19 Range/Units 10:42 10:42 10:42 WBC (4.8-10.8) K/uL RBC (4.7-6.1) M/uL Hgb (14.0-18.0) g/dL Hct (42-52) % MCV (80-100) fL MCH (25-34) pg MCHC (32-36) g/dL RDW Std Deviation (36.4-46.3) fL RDW Coeff of Denise (11.5-14.5) % Plt Count (130-400) K/uL MPV (7.4-10.4) fL Immature Gran % (Auto) % Neut % (Auto) % Lymph % (Auto) % Howard % (Auto) % Eos % (Auto) % Baso % (Auto) % Neut # (Auto) (1.4-6.5) K/uL Lymph # (Auto) (1.2-3.4) K/uL Howard # (Auto) (0.11-0.59) K/uL Eos # (Auto) (0-0.5) K/uL Baso # (Auto) (0-0.2) K/uL Immature Gran # (Auto) (0.00-0.02) K/uL ESR (0-14) mm/hr VBG pH (7.36-7.41) VBG pCO2 (38-50) mmHg VBG pO2 mmHg VBG HCO3 mmol/L VBG O2 Saturation % VBG Base Excess mEq/L Barometric Pressure mm/Hg Sodium 139 (136-145) mmol/L Potassium 3.7 (3.5-5.1) mmol/L Chloride 108 H (98-107) mmol/L Carbon Dioxide 22 (21-32) mmol/L Anion Gap 9.0 (3-11) BUN 15 (7-18) mg/dl Creatinine 1.50 H (0.6-1.4) mg/dl Est Cr Clr Drug Dosing 62.9 ml/min Est GFR ( Amer) 63.3 Est GFR (Non-Af Amer) 54.7 BUN/Creatinine Ratio 9.9 L (10-20) Glucose 122 H (70-99) mg/dl Estimat Average Glucose mg/dl Hemoglobin A1c (4.5-5.6) % Lactate 3.1 H* (0.4-2.0) mmol/L Calcium 8.5 (8.5-10.1) mg/dl Phosphorus (2.5-4.9) mg/dl Magnesium (1.8-2.4) mg/dl C-Reactive Protein < 0.29 (0-0.29) mg/dl Ethyl Alcohol mg/dL < 3.0 (0-3) mg/dl 07/16/20 07/16/20 Range/Units 04:07 04:07 WBC (4.8-10.8) K/uL RBC (4.7-6.1) M/uL Hgb (14.0-18.0) g/dL Hct (42-52) % MCV (80-100) fL MCH (25-34) pg MCHC (32-36) g/dL RDW Std Deviation (36.4-46.3) fL RDW Coeff of Denise (11.5-14.5) % Plt Count (130-400) K/uL MPV (7.4-10.4) fL Immature Gran % (Auto) % Neut % (Auto) % Lymph % (Auto) % Howard % (Auto) % Eos % (Auto) % Baso % (Auto) % Neut # (Auto) (1.4-6.5) K/uL Lymph # (Auto) (1.2-3.4) K/uL Howard # (Auto) (0.11-0.59) K/uL Eos # (Auto) (0-0.5) K/uL Baso # (Auto) (0-0.2) K/uL Immature Gran # (Auto) (0.00-0.02) K/uL ESR (0-14) mm/hr VBG pH (7.36-7.41) VBG pCO2 (38-50) mmHg VBG pO2 mmHg VBG HCO3 mmol/L VBG O2 Saturation % VBG Base Excess mEq/L Barometric Pressure mm/Hg Sodium (136-145) mmol/L Potassium (3.5-5.1) mmol/L Chloride (98-107) mmol/L Carbon Dioxide (21-32) mmol/L Anion Gap (3-11) BUN (7-18) mg/dl Creatinine (0.6-1.4) mg/dl Est Cr Clr Drug Dosing ml/min Est GFR ( Amer) Est GFR (Non-Af Amer) BUN/Creatinine Ratio (10-20) Glucose (70-99) mg/dl Estimat Average Glucose 105 mg/dl Hemoglobin A1c 5.3 (4.5-5.6) % Lactate (0.4-2.0) mmol/L Calcium (8.5-10.1) mg/dl Phosphorus (2.5-4.9) mg/dl Magnesium 1.7 L (1.8-2.4) mg/dl C-Reactive Protein (0-0.29) mg/dl Ethyl Alcohol mg/dL (0-3) mg/dl Medications Administered Current Inpatient Medications Acetaminophen (Tylenol) 650 mg PO Q4H PRN PRN Reason: pain/fever Stop: 01/04/20 09:02 Heparin Sodium (Porcine) (Heparin Sodium (Porcine)) 5,000 units SQ Q8 FAUSTINO Stop: 01/04/20 09:02 Last Admin: 12/06/19 05:32 Dose: Not Given Documented by: Hydromorphone HCl (Dilaudid) 0.5 mg IV Q4H PRN PRN Reason: Pain Stop: 12/19/19 09:02 Last Admin: 12/06/19 06:38 Dose: 0.5 mg Documented by: Lorazepam (Ativan) 0.5 mg in 1 mls @ 1 mls/min IV Q4H PRN PRN Reason: Anxiety/Agitation Stop: 01/04/20 09:02 Promethazine HCl 12.5 mg/ (Sodium Chloride) 50.5 mls @ 202 mls/hr IV Q6H PRN PRN Reason: Nausea And Vomiting Stop: 01/04/20 09:02 Last Infusion: 12/05/19 11:12 Dose: Infused Documented by: Acetaminophen (Ofirmev) 1,000 mg in 100 mls @ 400 mls/hr IV Q8H PRN PRN Reason: Moderate Pain Stop: 12/08/19 10:54 Last Infusion: 12/06/19 08:33 Dose: Infused Documented by: Prochlorperazine 5 mg/ Syringe 5 mls @ 5 mls/min IV Q4H PRN PRN Reason: Nausea And Vomiting Stop: 01/04/20 11:51 Last Admin: 12/06/19 01:25 Dose: 5 mls/min Documented by: Piperacillin Sod/Tazobactam (Sod 3.375 gm/ Dextrose) 115 mls @ 28.75 mls/hr IV Q8H FAUSTINO; Protocol Stop: 12/16/19 01:59 Last Infusion: 12/06/19 05:02 Dose: Infused Documented by: Pantoprazole Sodium 40 mg/ (Syringe) 10 mls @ 5 mls/min IV BID FAUSTINO Stop: 01/04/20 19:59 Last Admin: 12/06/19 08:34 Dose: 5 mls/min Documented by: Potassium Chloride/Sodium Chloride (Normal Saline W/20 Meq Kcl) 20 meq in 1,000 mls @ 60 mls/hr IV .[id number] FAUSTINO Stop: 01/05/20 04:44 Last Admin: 12/06/19 05:32 Dose: 60 mls/hr Documented by: Potassium Chloride (K Nathen / Wtr) 10 meq in 100 mls @ 100 mls/hr IV Q1H STA Stop: 12/06/19 11:31 Miscellaneous Information (Consult) 1 ea N/A UD PRN PRN Reason: Consult Stop: 01/04/20 19:26 Sertraline HCl (Zoloft) 50 mg PO DAILY [facility] Stop: 01/04/20 09:02 Last Admin: 12/06/19 08:13 Dose: Not Given Documented by: Tramadol HCl (Ultram) 25 - 50 mg PO Q4H PRN PRN Reason: Pain Stop: 01/04/20 09:02
--- NOTE | 2019-12-06 10:46 | History & Physical Bridge Note ---
Date of Service December 06, 2019 History & Physical Bridge Note I have examined the patient, reviewed the History & Physical and in the interval since the performance of the History & Physical I have noted the following changes of clinical significance: no changes noted
[2019-12-06] MEDS ORDERED: PROPOFOL IV EMULSION 10 MG/ML 20 ML VIAL IV ONE (10:57)
[2019-12-06] MEDS ORDERED: LIDOCAINE HCL 2% 2 ML VIAL/AMP(20MG/ML) INFIL ONE (10:57)
[2019-12-06] MEDS ORDERED: KETAMINE HCL INJ 50 MG/ML 10 ML VIAL ONE (11:05)
--- NOTE | 2019-12-06 11:15 | GI REPORT ---
Patient Name: Tim Trent Procedure Date: 12/06/2019 10:43 AM Date of : 1970 Admit Type: Inpatient Age: 49 Gender: Male Attending MD: Marquez Garsia DO Procedure: Upper GI endoscopy Providers: Marquez Garsia DO Referring MD: Blake Ivey Md Indications: Nausea with vomiting Medicines: Monitored Anesthesia Care Complications: No immediate complications. Estimated blood loss: Minimal. Estimated Blood Loss: Estimated blood loss was minimal. Procedure: Pre-Anesthesia Assessment: - Prior to the procedure, a History and Physical was performed, and patient medications, allergies and sensitivities were reviewed. The patient's tolerance of previous anesthesia was reviewed. - The risks and benefits of the procedure and the sedation options and risks were discussed with the patient. All questions were answered and informed consent was obtained. - Patient identification and proposed procedure were verified prior to the procedure by the physician, the nurse and the timber inspector. The procedure was verified in the procedure room. - Pre-procedure physical examination revealed no contraindications to sedation. - ASA Grade Assessment: II - A patient with mild systemic disease. - After reviewing the risks and benefits, the patient was deemed in satisfactory condition to undergo the procedure. - The anesthesia plan was to use monitored anesthesia care (MAC). - Immediately prior to administration of medications, the patient was re-assessed for adequacy to receive sedatives. - The heart rate, respiratory rate, oxygen saturations, blood pressure, adequacy of pulmonary ventilation, and response to care were monitored throughout the procedure. - The physical status of the patient was re-assessed after the procedure. After obtaining informed consent, the endoscope was passed under direct vision. Throughout the procedure, the patient's blood pressure, pulse, and oxygen saturations were monitored continuously. The Endoscope was introduced through the mouth, and advanced to the third part of duodenum. The upper GI endoscopy was accomplished without difficulty. The patient tolerated the procedure well. Findings: The upper third of the esophagus and middle third of the esophagus were normal. The esophagus and gastroesophageal junction were examined with white light. There were esophageal mucosal changes suspicious for Cuevas's esophagus. These changes involved the mucosa at the upper extent of the gastric folds (40 cm from the incisors) extending to the Z-line (38 cm from the incisors). Circumferential salmon-colored mucosa was present from 38 to 40 cm. The maximum longitudinal extent of these esophageal mucosal changes was 2 cm in length. The pathology specimen was placed into Bottle C. Estimated blood loss was minimal. A small hiatal hernia was found. The proximal extent of the gastric folds (end of tubular esophagus) was 40 cm from the incisors. The hiatal narrowing was 42 cm from the incisors. The Z-line was 38 cm from the incisors. The entire examined stomach was normal. Biopsies were taken with a cold forceps for histology. Biopsies were taken with a cold forceps for histology. The pathology specimen was placed into Bottle B. Estimated blood loss was minimal. The examined duodenum was normal. Biopsies were taken with a cold forceps for histology. The pathology specimen was placed into Bottle A. Estimated blood loss was minimal. Impression: - Normal upper third of esophagus and middle third of esophagus. - Esophageal mucosal changes suspicious for Cuevas's esophagus. - Small hiatal hernia. - Normal stomach. Biopsied. - Normal examined duodenum. Biopsied. Recommendation: - Return patient to hospital keys for ongoing care. - Advance diet as tolerated today. - Use Prilosec (omeprazole) 20 mg PO daily. -Symptoms likely related to cannabis use or perhaps Zoloft. Marquez Garsia D.O. Marquez Garsia, 12/06/2019 11:14:53 AM This report has been signed electronically. Note Initiated On: 12/06/2019 10:43 AM Number of Addenda: 0 I attest to the content of the Intraoperative Record and orders documented therein, exceptions below {[id number]}
--- NOTE | 2019-12-06 11:16 | Communication Note ---
Date of Service: December 06, 2019 The patient underwent upper endoscopy this afternoon. Findings were notable for evidence of short segment Cuevas's esophagus, a 2 cm hiatal hernia, otherwise normal appearance to stomach and small intestine. I suspect that the patient's symptoms are related to either use of cannabis or perhaps Zoloft. Recommendations Omeprazole 20 mg/day Repeat upper endoscopy in 3 years if biopsies are consistent with Cuevas's esophagus Consider discontinuation of Zoloft and cannabis use Clinic follow-up with gastroenterology as needed Please call with any questions or concerns, GI to sign off
--- NOTE | 2019-12-06 11:48 | Anesthesiology Progress Note ---
Date of Service December 06, 2019 Anesthesia Post Procedure Vital Signs Vital Signs: Temp Pulse Resp BP BP Pulse Ox 12/06/19 11:30 65 18 141/99 H 100 12/06/19 11:15 81 15 152/98 H 100 12/06/19 10:36 99.3 F 82 18 137/89 100 12/06/19 07:10 99.5 F 54 L 19 136/80 99 12/06/19 06:32 133/82 12/05/19 23:37 99.1 F 71 14 123/80 99 12/05/19 15:09 99.1 F 64 18 147/86 H 98 Pain Intensity Abdomen: Pain Intensity: 2 Transfer of Care Handoff Completed per policy Notes Mental Status: alert / awake / arousable and participated in evaluation Patient Amnestic to Procedure: Yes Nausea / Vomiting: adequately controlled Pain: adequately controlled Airway Patency, RR, SpO2: stable & adequate BP & HR: stable & adequate Hydration State: stable & adequate Anesthetic Complications: no major complications apparent and Pt Satisfied with anesthetic care
[2019-12-06] MEDS: POTASSIUM CHLORIDE / WTR 10 MEQ/100 ML PLCT IV SCH ×3 (12:16→15:11)
[2019-12-06] MEDS ORDERED: POTASSIUM CHLORIDE 20 MEQ TABCR PO STA (16:42)
[2019-12-06] MEDS: TRAMADOL HCL 50 MG TABLET PO PRN (23:45)
[2019-12-07] MEDS: PIPERACILLIN/TAZOBACTAM 3.375 GM in DEXTROSE 5% 100 ML IV SCH ×2 (03:05→11:50)
[2019-12-07] MEDS: TRAMADOL HCL 50 MG TABLET PO PRN ×2 (05:06→10:01)
[2019-12-07] MEDS: HEPARIN SOD 5,000 UNIT/0.5 ML VIAL SQ SCH (06:17)
[2019-12-07 08:39] LABS: Hematocrit (blood only) 43.4 % (42-52); Hemoglobin 15.2 g/dL (14.0-18.0); Immature Granulocytes # (auto) 0.02 K/uL (0.00-0.02); Immature Granulocytes % (auto) 0.2 %; Lymphocytes # (auto) 1.08 K/uL (1.2-3.4); Lymphocytes % (auto) 10.5 %; Mean Corpuscular Hemoglobin 31.5 pg (25-34); Mean Platelet Volume 8.7 fL (7.4-10.4); Monocytes # (auto) 1.08 K/uL (0.11-0.59); Monocytes % (auto) 10.5 %; Neutrophils # (auto) 8.13 K/uL (1.4-6.5); Neutrophils % (auto) 78.8 %; Platelet Count 215 K/uL (130-400); RDW Coefficient of Variation 13.4 % (11.5-14.5); RDW Standard Deviation 44.2 fL (36.4-46.3); Red Blood Count 4.82 M/uL (4.7-6.1); White Blood Count 10.31 K/uL (4.8-10.8)
[2019-12-07 09:04] LABS: BUN Creatinine Ratio 9.7 (10-20); Calcium 8.1 mg/dl (8.5-10.1); Creatinine Clr Calc Pharmacy 81.3 ml/min; Est GFR (African American) 86.4; Est GFR (Non-African American) 74.6
[2019-12-07] MEDS ORDERED: POTASSIUM CHLORIDE 20 MEQ TABCR PO STA (09:28)
--- NOTE | 2019-12-07 09:30 | Hospitalist Progress Note ---
Date of Service December 07, 2019 Assessment & Plan (1) Abdominal pain: 49 year old male with history of anxiety, depression, marijuana use, ulcerative colitis s/p colectomy with end ileostomy in 2007 after admission for IBD flare complicated by a perforation admitted w/ 48 hours of abdominal pain, nausea and bilious emesis. CTAP w/ jejunal wall thickening otherwise negative. DDX discussed to include cannabinoid hyperemesis, medication side effects etc Hx ulcerative colitis status post surgery ([facility] 2009) CT abdomen - jejunal thickening, otherwise negative GI consulted RE abdominal pain, history IBD Pt now s/p upper endoscopy by GI (12/06/19) - Findings were notable for evidence of short segment Cuevas's esophagus, a 2 cm hiatal hernia, otherwise normal appearance to stomach and small intestine. Biopsies were obtained. Suspect that the patient's symptoms are related to either use of cannabis or perhaps Zoloft. Recommendations Omeprazole 20 mg/day Repeat upper endoscopy in 3 years if biopsies are consistent with Cuevas's esophagus Consider discontinuation of Zoloft and cannabis use Clinic follow-up with gastroenterology as needed Presented w/nausea Initially npo, now tolerating clear liquid diet and low fat diet Per GI nausea and abd. pain likely d/t marijuana use and possibly zoloft use Recommend marijuana cessation ARF, AGMA secondary to illness Cr 1.5 on admission, now down to 1.1 UA-negative lactic acid normalized Anxiety/mood disorder, at baseline -recently started on zoloft, also uses medical marijuana -both medications can be possibly causing nausea -hot shower seems to be helping w/ nausea Hyperglycemia rule out DM Current hemoglobin A1c 5.3% DVT prophylaxis with Heparin subcu Full code Admission and Anticipated Discharge Date Admission Date: December 05, 2019 Subjective Pt is feeling well today. Asking about going home. tolerated low fat diet w/o nausea or abd. pain. No fever, chills, chest pain, shortness of breath. Review of Systems Review of Systems: All systems reviewed & are unremarkable except as noted in HPI & below Constitutional: no fever and no chills Respiratory: no cough and no dyspnea Cardiovascular: no chest pain and no palpitations Gastrointestinal: no abdominal pain, no nausea and no vomiting Physical Exam Physical Exam: GENERAL: young male laying in bed,in no distress SKIN: Normal color, warm HEENT: NC/AT, pink palpebral conjunctivae, EOMI NECK : Supple, no tenderness CHEST : CTAB no wheezing, rhonchi, crackles HEART : RRR, no obvious murmurs ABDOMEN: bowel sounds present, no tenderness to palpation, ostomy present EXTREMITIES : No LE swelling/tenderness, moves extremities spontaneously NEUROLOGIC : alert and oriented x3, no facial asymmetry, speech fluent, moves extremities spontaneously Results & Data Results & Data ([facility]) Vital Signs (Past 12 Hours) Vital Signs Temp Pulse Resp BP Pulse Ox 12/07/19 07:40 37.1 C 58 L 16 151/85 H 100 12/06/19 23:17 36.6 C 57 L 14 136/86 99 Laboratory Results 12/07/19 12/07/19 Range/Units 08:14 08:14 WBC 10.31 (4.8-10.8) K/uL RBC 4.82 (4.7-6.1) M/uL Hgb 15.2 (14.0-18.0) g/dL Hct 43.4 (42-52) % MCV 90.0 (80-100) fL MCH 31.5 (25-34) pg MCHC 35.0 (32-36) g/dL RDW Std Deviation 44.2 (36.4-46.3) fL RDW Coeff of Denise 13.4 (11.5-14.5) % Plt Count 215 (130-400) K/uL MPV 8.7 (7.4-10.4) fL Immature Gran % (Auto) 0.2 % Neut % (Auto) 78.8 % Lymph % (Auto) 10.5 % [place] % (Auto) 10.5 % Eos % (Auto) 0.0 % Baso % (Auto) 0.0 % Neut # (Auto) 8.13 H (1.4-6.5) K/uL Lymph # (Auto) 1.08 L (1.2-3.4) K/uL [place] # (Auto) 1.08 H (0.11-0.59) K/uL Eos # (Auto) 0.00 (0-0.5) K/uL Baso # (Auto) 0.00 (0-0.2) K/uL Immature Gran # (Auto) 0.02 (0.00-0.02) K/uL Sodium 138 (136-145) mmol/L Potassium 3.0 L D (3.5-5.1) mmol/L Chloride 107 (98-107) mmol/L Carbon Dioxide 25 (21-32) mmol/L Anion Gap 7.0 (3-11) BUN 11 (7-18) mg/dl Creatinine 1.16 (0.6-1.4) mg/dl Est Cr Clr Drug Dosing 81.3 ml/min Est GFR ( Amer) 86.4 Est GFR (Non-Af Amer) 74.6 BUN/Creatinine Ratio 9.7 L (10-20) Glucose 94 (70-99) mg/dl Calcium 8.1 L (8.5-10.1) mg/dl Medications Administered Current Inpatient Medications Acetaminophen (Tylenol) 650 mg PO Q4H PRN PRN Reason: pain/fever Stop: 01/04/20 09:02 Heparin Sodium (Porcine) (Heparin Sodium (Porcine)) 5,000 units SQ Q8 FAUSTINO Stop: 01/04/20 09:02 Last Admin: 12/07/19 06:17 Dose: Not Given Documented by: Hydromorphone HCl (Dilaudid) 0.5 mg IV Q4H PRN PRN Reason: Pain Stop: 12/19/19 09:02 Last Admin: 12/06/19 14:46 Dose: 0.5 mg Documented by: Lorazepam (Ativan) 0.5 mg in 1 mls @ 1 mls/min IV Q4H PRN PRN Reason: Anxiety/Agitation Stop: 01/04/20 09:02 Promethazine HCl 12.5 mg/ (Sodium Chloride) 50.5 mls @ 202 mls/hr IV Q6H PRN PRN Reason: Nausea And Vomiting Stop: 01/04/20 09:02 Last Infusion: 12/05/19 11:12 Dose: Infused Documented by: Acetaminophen (Ofirmev) 1,000 mg in 100 mls @ 400 mls/hr IV Q8H PRN PRN Reason: Moderate Pain Stop: 12/08/19 10:54 Last Infusion: 12/06/19 08:33 Dose: Infused Documented by: Prochlorperazine 5 mg/ Syringe 5 mls @ 5 mls/min IV Q4H PRN PRN Reason: Nausea And Vomiting Stop: 01/04/20 11:51 Last Admin: 12/06/19 16:39 Dose: 5 mls/min Documented by: Piperacillin Sod/Tazobactam (Sod 3.375 gm/ Dextrose) 115 mls @ 28.75 mls/hr IV Q8H FAUSTINO; Protocol Stop: 12/16/19 01:59 Last Infusion: 12/07/19 07:05 Dose: Infused Documented by: Pantoprazole Sodium 40 mg/ (Syringe) 10 mls @ 5 mls/min IV BID FAUSTINO Stop: 01/04/20 19:59 Last Admin: 12/06/19 21:03 Dose: 5 mls/min Documented by: Potassium Chloride/Sodium Chloride (Normal Saline W/20 Meq Kcl) 20 meq in 1,000 mls @ 60 mls/hr IV .[id number] FAUSTINO Stop: 01/05/20 04:44 Last Admin: 12/06/19 21:02 Dose: 60 mls/hr Documented by: Miscellaneous Information (Consult) 1 ea N/A UD PRN PRN Reason: Consult Stop: 01/04/20 19:26 Potassium Chloride (Klor-Con M20) 40 meq PO NOW STA Stop: 12/07/19 09:29 Sertraline HCl (Zoloft) 50 mg PO DAILY FAUSTINO Stop: 01/04/20 09:02 Last Admin: 12/06/19 08:13 Dose: Not Given Documented by: Tramadol HCl (Ultram) 25 - 50 mg PO Q4H PRN PRN Reason: Pain Stop: 01/04/20 09:02 Last Admin: 12/07/19 05:06 Dose: 50 mg Documented by:
[2019-12-07] MEDS: PANTOprazole 40 MG in SYRINGE 0 ML IV SCH (10:02)
[2019-12-07] MEDS: POTASSIUM CHLORIDE / WTR 10 MEQ/100 ML PLCT IV SCH ×2 (10:03→11:22)
[2019-12-07 10:37] LABS: Magnesium 2.1 mg/dl (1.8-2.4); Phosphorus 2.4 mg/dl (2.5-4.9)
--- NOTE | 2019-12-07 13:44 | Discharge Summary ---
Date of Service December 07, 2019 Admission HPI Per Admitting Provider History obtained from patient and records. Medical history significant for ulcerative colitis status post surgery ([facility], [place] 2009), anxiety/mood disorder, hx lattice degeneration/retinal defect as per records, past alcohol abuse as per records. Patient woke up last night with achy abdominal pain going to his chest and back with nausea and bilious emesis. No fever, no chills. No changes with ostomy output. Intractable discomfort at the ER. Medical History as above Surgical History : Eye surgery, colectomy/ileostomy Family History : IBD, alcoholism, OCD Personal/Social history : non-smoker, past alcohol abuse as per records, admits to cannabis intake at home Admission Exam Per Admitting Provider GENERAL: Slightly uncomfortable, slightly anxious, no respiratory distress SKIN: Normal color, warm HEENT: Alopecia, pink palpebral conjunctivae, no ptosis, dry buccal mucosa NECK : Supple, no tenderness CHEST : CTA, no tenderness HEART : RRR, no obvious murmurs ABDOMEN: Some distention, ostomy noted, hypogastric tenderness EXTREMITIES : No LE swelling/tenderness, no other conspicuous deformities noted NEUROLOGIC : Coherent, no facial asymmetry, no other gross focality Principal Diagnosis Abdominal pain, nausea secondary to medication/marijuana use Possible Cuevas's esophagus KEYANNA Discharge Exam GENERAL: young male laying in bed,in no distress SKIN: Normal color, warm HEENT: NC/AT, pink palpebral conjunctivae, EOMI NECK : Supple, no tenderness CHEST : CTAB no wheezing, rhonchi, crackles HEART : RRR, no obvious murmurs ABDOMEN: bowel sounds present, no tenderness to palpation, ostomy present EXTREMITIES : No LE swelling/tenderness, moves extremities spontaneously NEUROLOGIC : alert and oriented x3, no facial asymmetry, speech fluent, moves extremities spontaneously Discharge Data Allergies Allergy/AdvReac Type Severity Reaction Status Date / Time No Known Allergies Allergy Unverified 12/05/19 04:36 Consultations 12/05/19 05:05 ED Decision to Admit Stat 12/05/19 09:03 Consult Gastroenterology Routine Procedures Performed Operation Date: 12/06/19 16:30 Actual Procedures p EGD Biopsy Cytology - Marquez Garsia Ordered Studies 12/05/19 04:03 CT abd pelvis IV con only Urgent IMPRESSION: 1. No acute process within the abdomen or pelvis. 2. 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 No bowel obstruction. No definite bowel wall thickening. Apparent mild jejunal wall thickening is likely due to underdistention. 3. Fat-containing bilateral inguinal hernias. Hospital Course (1) Abdominal pain: 49 year old male with history of anxiety, depression, marijuana use, ulcerative colitis s/p colectomy with end ileostomy in 2007 after admission for IBD flare complicated by a perforation admitted w/ 48 hours of abdominal pain, nausea and bilious emesis. CTAP w/ jejunal wall thickening otherwise negative. DDX discussed to include cannabinoid hyperemesis, medication side effects etc Hx ulcerative colitis status post surgery ([facility] 2009) CT abdomen - jejunal thickening, otherwise negative GI consulted RE abdominal pain, history IBD Pt now s/p upper endoscopy by GI (12/06/19) - Findings were notable for evidence of short segment Cuevas's esophagus, a 2 cm hiatal hernia, otherwise normal appearance to stomach and small intestine. Biopsies were obtained. Suspect that the patient's symptoms are related to either use of cannabis or perhaps Zoloft. Recommendations Omeprazole 20 mg/day Repeat upper endoscopy in 3 years if biopsies are consistent with Cuevas's esophagus Consider discontinuation of Zoloft and cannabis use Clinic follow-up with gastroenterology as needed Presented w/nausea Initially npo, now tolerating clear liquid diet and low fat diet Per GI nausea and abd. pain likely d/t marijuana use and possibly zoloft use Recommend marijuana cessation ARF, AGMA secondary to illness Cr 1.5 on admission, now down to 1.1 UA-negative lactic acid normalized Anxiety/mood disorder, at baseline -recently started on zoloft, also uses medical marijuana -both medications can be possibly causing nausea -hot shower seems to be helping w/ nausea Hyperglycemia rule out DM Current hemoglobin A1c 5.3% Total Time Total Time Spent Total Time Spent (In Minutes): 35 Total Time Includes: Examination of the Patient, Discharge Planning, Medication Reconciliation and Communication With Other Providers Discharge Plan Discharge Items Patient Disposition: Home - Self-Care Reason For Visit: ABDOMINAL PAIN,ARF Discharge Diagnosis: Abdominal pain, nausea secondary to medication/marijuana use Possible Cuevas's esophagus KEYANNA Activity: Per Instructions section Non-emergency contact: Primary Care Provider and Transcriber Call non-emergency contact if: you have any medication questions and your symptoms worsen Follow-up/Referrals: Tj Linder PA-C [Primary Care Provider] - Diet: Low Fiber and Low Fat Addtl Attending Provider Instructions: Follow-up with primary care provider within 1 week. Take Prilosec as prescribed. Biopsy was done during your endoscopic procedure by gastroenterology, results of your biopsy should be available when you see your primary care doctor. For pain, take Tylenol 1000 mg 3 times a day. For more severe pain, take tramadol as prescribed. For next couple of days, recommend low fiber, low-fat diet. It was recommended to stop using Zoloft and marijuana medications as these can cause nausea and abdominal discomfort. Pending Studies at Discharge: Yes Studies:: Biopsy from endoscopy Stand-Alone Forms: My [facility], Opioid Pain Management, Smoking Cessation Medications and DC Order Prescriptions: New tramadol 50 mg Tablet 25 mg PO Q4H PRN (Reason: pain (scale score 4-6)) Qty: 10 RF: 0 omeprazole 20 mg capsule,delayed release(DR/EC) 20 mg PO DAILY Qty: 30 RF: 0 Discontinued sertraline 50 mg Tablet 50 mg PO DAILY RF: 0 Medical Marijuana 1 inh inhalation DIRECTED PRN (Reason: Pain) RF: 0 Discharge Orders: Discharge Order (Routine); Ordered 12/07/19 Ordered By: Blake Childs/Other Patient Handouts: Low-Fiber Diet Admission Data Admit Date/Time: 12/05/19 19:09 Attending Provider: Blake Ivey Admit Provider: Quinn Fields Primary Care Provider: Tj Linder Other Providers: Marquez Garsia ; Ryne Flor Other Interventions: Discharge Summary Assessment (RN) Last Done: 12/07/19 15:13 DC Date/Time DO NOT enter until pt leaves facility: 12/07/19 16:05
[2019-12-07 16:43] LABS: Codeine Urine NEGATIVE ng/mL (<50); Hydrocodone Urine NEGATIVE ng/mL (<50); Hydromor Urine 254 ng/mL (<50); Marijuana Quant, GCMS Urine 647 ng/mL (<5); Morphine Urine 2290 ng/mL (<50); Norhydrocodone Conf Ur NEGATIVE ng/mL (<50); Noroxycodone Urine NEGATIVE ng/mL (<50); Oxycodone Urine NEGATIVE ng/mL (<50); Oxymorph Urine NEGATIVE ng/mL (<50)
== END 2019-12-07 16:05 | disposition home or self-care (01) | DRG 392 ==
LOC: 3W 03:57 → ED 03:57 → 3W 07:59

== ENCOUNTER 2023-01-03 10:27 | Inpatient (IN) ==
--- NOTE | 2023-01-03 10:44 | Emergency Department Note ---
Impression & Plan Opioid use with withdrawal, Headache, Transaminitis ED Provider Note NAME: ABILIO COREAS AGE: 52 SEX: M : 1970 ARRIVES VIA: Walk-In INFORMANT: Patient, ED PROVIDER(S): Michael Mackey MD CHIEF COMPLAINT: Detox request MEDICAL DECISION MAKING: Patient presents for detox request likely from poppyseed associated tea con sistent with opiate abuse. The patient did have blood work obtained along with urinalysis urine drug screen salicylate Tylenol and alcohol levels. Patient was medically cleared and referrals made for detox facilities. Patient has a normal white count and hemoglobin. Platelet count is unremarkabl e. Kidney function slight elevation in creatinine 1.42. The patient was ordered IV fluids. Mild transaminitis but normal bilirubin. TSH is elevated so free T4 was added. Urinalysis negative for blood or infection patient is toxicology screen is positive for opiates consistent with his poppy tea that he drinks. The patient did start to feel as though he was having some associated symptoms of withdrawal and it was reported that he was having some intermittent garbled speech with associated headache. When I assessed the patient patient was not have any acute symptoms at that time. CT head and CT angiography of the head and neck ordered and patient was ordered IV Ativan IV fluids Zofran and clonidine. I did speak the on-call hospitalist service LESVIA Moreno and the patient was admitted by Dr. Jackson. Patient's CT of the head and CT angiography of the head and neck are negative. Prior /Outside records reviewed: I reviewed a discharge summary from Dr. Brito from November 2019. Patient does have prior history of ulcerative colitis status post surgery anxiety mood disorder. Patient was admitted at that time for abdominal pain nausea and bilious emesis. Patient CT at that time which showed an jejunal wall thickening. Differential diagnosis: Overdose, toxicologic, infection, hypoglycemia, electrolyte abnormalities, cardiac sources, intracerebral event, neurologic, trauma, as well as other pathologies. Diagnostics, as interpreted by me: ECG: None Cardiac monitoring: An order was placed for continuous cardiac monitoring. The monitor shows a rate of 68 with sinus rhythm. Patient was placed on pulse oximetry Medical decision rules: None Imaging studies: See below I informally reviewed the patient's CT noncontrast of the head which does not show obvious ICH. HPI: Patient presents for detox request. The patient states that he drinks 6 to 8 cups twice daily of a poppyseed associated tea which he has been drinking for 10 years. The patient did try to transition from this to medical marijuana back in 2019 but resumed his poppyseed tea when COVID began. Patient denies any SI HI or AVH. The patient states that his sleep and appetite have been poor. Patient does feel safe at home. He is currently unemployed and states that his parents did accompany him here today. Patient does use medical marijuana. The patient has occasionally used alcohol but is not used in several days. Patient denies any chest pains or shortness of breath. He does have occasional nausea but no vomiting. The patient would like to seek rehabilitation and detox treatm ent PAST MEDICAL HISTORY: See Below PAST SURGICAL HISTORY: See Below SOCIAL HISTORY: See Below HOME MEDICATIONS: See Below ALLERGIES: See Below VITALS: See Below PHYSICAL EXAMINATION: GENERAL: NAD, non-toxic. EYE EXAM: Normal conjunctiva. PERRL, no anisocoria and EOM's grossly intact w/o pain. OROPHARYNX: Moist mucus membranes, grossly normal dentition. NECK: Supple, no nuchal rigidity, no adenopathy, non-tender. No signs of meningismus. FROM of the neck with good chin to chest and neck extension. No stridor. LUNGS: Clear to auscultation. Normal chest wall mechanics. HEART: NSR, no MRG. ABDOMEN: Abdomen soft, non-tender, no masses, no rebound or guarding. BACK: No CVA TTP. SKIN: No rashes and no bruising. UPPER EXTREMITIES: Upper extremities are grossly normal. LOWER EXTREMITIES: Grossly normal, no edema. NEURO EXAM: A&O x3, cranial nerves II-XII grossly intact, normal speech, moves all 4 extremities. Psych: Denies SI HI or AVH. 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: No Beliefs That Will Affect Care: None Current Living Situation: Alone Feels Safe at Home: Yes Assistive Devices: None Allergies Allergies Allergy/AdvReac Type Severity Reaction Status Date / Time No Known Allergies Allergy Unverified 12/05/19 04:36 Home Meds Previous Rx's Medication Instructions Recorded omeprazole 20 mg capsule,delayed 20 mg PO DAILY #30 caps 12/07/19 release tramadol 50 mg tablet 25 mg PO Q4H PRN pain (scale score 12/07/19 4-6) #10 tabs Results & Data (ED) Vital Signs Vital Signs - 24 hr 01/03/23 10:31 01/03/23 11:28 01/03/23 11:16 Temperature 36.7 C Temperature Source Temporal Artery Scan Pulse Rate 87 Pulse Rate [Apical] 86 Pulse Rhythm Regular Pulse Rhythm [Apical] Pulse Strength Normal Pulse Strength [Apical] Respiratory Rate 18 16 Respiratory Effort / Characteristics Non-Labored Spontaneous Non-Labored Spontaneous Respiratory Depth Normal Normal Respiratory Pattern Regular Regular Blood Pressure 162/104 H Blood Pressure [Right Arm] 173/121 H Blood Pressure Mean 123 Blood Pressure Mean [Right Arm] 138 Blood Pressure Position Sitting Blood Pressure Position [Right Arm] Pulse Oximetry 100 99 100 Oxygen Delivery Method Room Air Room Air Room Air Sepsis Recent Fever Within 48 Hours No Sepsis New/Unexplained Change in Mental Status No Sepsis Action Taken by Nursing No Action Required 01/03/23 11:47 01/03/23 10:45 01/03/23 13:00 Temperature Temperature Source Pulse Rate 85 84 Pulse Rate [Apical] 78 Pulse Rhythm Pulse Rhythm [Apical] Regular Pulse Strength Pulse Strength [Apical] Normal Respiratory Rate 16 Respiratory Effort / Characteristics Non-Labored Spontaneous Respiratory Depth Normal Respiratory Pattern Regular Blood Pressure Blood Pressure [Right Arm] 176/126 H Blood Pressure Mean Blood Pressure Mean [Right Arm] 142 Blood Pressure Position Blood Pressure Position [Right Arm] Sitting Pulse Oximetry 100 100 Oxygen Delivery Method Room Air Room Air Sepsis Recent Fever Within 48 Hours Sepsis New/Unexplained Change in Mental Status Sepsis Action Taken by Nursing 01/03/23 14:30 01/03/23 15:23 01/03/23 15:29 Temperature Temperature Source Pulse Rate 78 Pulse Rate [Apical] 86 Pulse Rhythm Pulse Rhythm [Apical] Pulse Strength Pulse Strength [Apical] Respiratory Rate 18 Respiratory Effort / Characteristics Non-Labored Spontaneous Respiratory Depth Normal Respiratory Pattern Regular Blood Pressure Blood Pressure [Right Arm] 138/99 Blood Pressure Mean Blood Pressure Mean [Right Arm] 112 Blood Pressure Position Blood Pressure Position [Right Arm] Pulse Oximetry 98 93 Oxygen Delivery Method Room Air Room Air Sepsis Recent Fever Within 48 Hours Sepsis New/Unexplained Change in Mental Status Sepsis Action Taken by Nursing 01/03/23 16:17 Temperature Temperature Source Pulse Rate Pulse Rate [Apical] 76 Pulse Rhythm Pulse Rhythm [Apical] Pulse Strength Pulse Strength [Apical] Respiratory Rate 19 Respiratory Effort / Characteristics Respiratory Depth Respiratory Pattern Blood Pressure Blood Pressure [Right Arm] 133/90 Blood Pressure Mean Blood Pressure Mean [Right Arm] 104 Blood Pressure Position Blood Pressure Position [Right Arm] Pulse Oximetry 95 Oxygen Delivery Method Room Air Sepsis Recent Fever Within 48 Hours Sepsis New/Unexplained Change in Mental Status Sepsis Action Taken by Nursing Laboratory Data 01/03/23 11:24 01/03/23 11:24 Lab Results 01/03/23 01/03/23 01/03/23 Range/Units 11:00 11:00 11:14 WBC (4.8-10.8) K/ul RBC (4.70-6.10) M/uL Hgb (14.0-18.0) g/dl Hct (42.0-52.0) % MCV (80.0-100.0) fL MCH (25.0-34.0) pg MCHC (32.0-36.0) g/dL RDW Std Deviation (36.4-46.3) fL RDW Coeff of Denise (11.5-14.5) % Plt Count (130-400) K/uL MPV (9.4-12.4) fL Immature Gran % (Auto) % Neut % (Auto) % Lymph % (Auto) % Fisher % (Auto) % Eos % (Auto) % Baso % (Auto) % Neut # (Auto) (1.40-6.50) K/uL Lymph # (Auto) (1.2-3.4) K/uL Fisher # (Auto) (0.11-0.59) K/uL Eos # (Auto) (0-0.50) K/uL Baso # (Auto) (0-0.2) K/uL Immature Gran # (Auto) (0.01-0.20) K/uL Sodium (136-145) mmol/L Potassium (3.5-5.1) mmol/L Chloride (98-107) mmol/L Carbon Dioxide (21-32) mmol/L Anion Gap (3-11) BUN (6-23) mg/dl Creatinine (0.6-1.4) mg/dl Est Cr Clr Drug Dosing ml/min Est GFR ( Amer) ml/min Est GFR (Non-Af Amer) ml/min BUN/Creatinine Ratio (10-20) Glucose (70-99(Fasting)) mg/dl Calcium (8.6-10.3) mg/dl Total Bilirubin (0.2-1.0) mg/dl AST (13-39) U/L ALT (7-52) U/L Alkaline Phosphatase (34-104) U/L Total Protein (6.0-8.3) gm/dl Albumin (3.4-5.0) gm/dl Globulin (2.5-4.0) gm/dl Albumin/Globulin Ratio (0.9-2) TSH (0.300-4.500) uIu/ml Free T4 (0.61-1.60) ng/dl Urine Color Yellow Urine Appearance Clear (Clear) Urine pH 6.5 (4.5-7.5) Ur Specific Alden 1.017 (1.000-1.030) Urine Protein Negative (Negative) Urine Glucose (UA) Negative (Negative) Urine Ketones Negative (Negative) Urine Blood Negative (Negative) Urine Nitrite Negative (Negative) Urine Bilirubin Negative (Negative) Urine Urobilinogen Negative (Negative) Ur Leukocyte Esterase Negative (Negative) Salicylates (3.0-30) mg/dl Urine Opiates Screen Pos H (Neg) Ur Methadone, Qual Neg (Neg) Acetaminophen (10-30) ug/ml Urine Barbiturates Neg (Neg) Ur Phencyclidine (PCP) Neg (Neg) U Amphetamin/Meth Scrn Neg (Neg) MDMA (Ecstasy) Screen Neg (Neg) U Benzodiazepines Scrn Pos H (Neg) Ur Cocaine Metabolite Neg (Neg) U Marijuana (THC) Screen Pos H (Neg) Ethyl Alcohol mg/dL (<10.0) mg/dl SARS-CoV-2, RNA, NAAT NEGATIVE (NEGATIVE) 01/03/23 01/03/23 01/03/23 Range/Units 11:24 11:24 11:24 WBC 5.09 (4.8-10.8) K/ul RBC 4.47 L (4.70-6.10) M/uL Hgb 15.7 (14.0-18.0) g/dl Hct 44.9 (42.0-52.0) % MCV 100.4 H (80.0-100.0) fL MCH 35.1 H (25.0-34.0) pg MCHC 35.0 (32.0-36.0) g/dL RDW Std Deviation 44.8 (36.4-46.3) fL RDW Coeff of Denise 11.9 (11.5-14.5) % Plt Count 210 (130-400) K/uL MPV 8.9 L (9.4-12.4) fL Immature Gran % (Auto) 0.4 % Neut % (Auto) 54.4 % Lymph % (Auto) 27.9 % Fisher % (Auto) 16.5 % Eos % (Auto) 0.2 % Baso % (Auto) 0.6 % Neut # (Auto) 2.77 (1.40-6.50) K/uL Lymph # (Auto) 1.42 (1.2-3.4) K/uL Fisher # (Auto) 0.84 H (0.11-0.59) K/uL Eos # (Auto) 0.01 (0-0.50) K/uL Baso # (Auto) 0.03 (0-0.2) K/uL Immature Gran # (Auto) 0.02 (0.01-0.20) K/uL Sodium 136 (136-145) mmol/L Potassium 4.0 (3.5-5.1) mmol/L Chloride 99 (98-107) mmol/L Carbon Dioxide 32 (21-32) mmol/L Anion Gap 5 (3-11) BUN 14 (6-23) mg/dl Creatinine 1.42 H (0.6-1.4) mg/dl Est Cr Clr Drug Dosing 64.3 ml/min Est GFR ( Amer) 66.3 ml/min Est GFR (Non-Af Amer) 57.2 ml/min BUN/Creatinine Ratio 9.9 L (10-20) Glucose 72 (70-99(Fasting)) mg/dl Calcium 9.6 (8.6-10.3) mg/dl Total Bilirubin 0.7 (0.2-1.0) mg/dl AST 59 H (13-39) U/L ALT 55 H (7-52) U/L Alkaline Phosphatase 75 (34-104) U/L Total Protein 7.4 (6.0-8.3) gm/dl Albumin 4.2 (3.4-5.0) gm/dl Globulin 3.2 (2.5-4.0) gm/dl Albumin/Globulin Ratio 1.3 (0.9-2) TSH 6.751 H (0.300-4.500) uIu/ml Free T4 0.86 (0.61-1.60) ng/dl Urine Color Urine Appearance (Clear) Urine pH (4.5-7.5) Ur Specific Alden (1.000-1.030) Urine Protein (Negative) Urine Glucose (UA) (Negative) Urine Ketones (Negative) Urine Blood (Negative) Urine Nitrite (Negative) Urine Bilirubin (Negative) Urine Urobilinogen (Negative) Ur Leukocyte Esterase (Negative) Salicylates (3.0-30) mg/dl Urine Opiates Screen (Neg) Ur Methadone, Qual (Neg) Acetaminophen (10-30) ug/ml Urine Barbiturates (Neg) Ur Phencyclidine (PCP) (Neg) U Amphetamin/Meth Scrn (Neg) MDMA (Ecstasy) Screen (Neg) U Benzodiazepines Scrn (Neg) Ur Cocaine Metabolite (Neg) U Marijuana (THC) Screen (Neg) Ethyl Alcohol mg/dL (<10.0) mg/dl SARS-CoV-2, RNA, NAAT (NEGATIVE) 01/03/23 01/03/23 Range/Units 11:24 11:24 WBC (4.8-10.8) K/ul RBC (4.70-6.10) M/uL Hgb (14.0-18.0) g/dl Hct (42.0-52.0) % MCV (80.0-100.0) fL MCH (25.0-34.0) pg MCHC (32.0-36.0) g/dL RDW Std Deviation (36.4-46.3) fL RDW Coeff of Denise (11.5-14.5) % Plt Count (130-400) K/uL MPV (9.4-12.4) fL Immature Gran % (Auto) % Neut % (Auto) % Lymph % (Auto) % Fisher % (Auto) % Eos % (Auto) % Baso % (Auto) % Neut # (Auto) (1.40-6.50) K/uL Lymph # (Auto) (1.2-3.4) K/uL Fisher # (Auto) (0.11-0.59) K/uL Eos # (Auto) (0-0.50) K/uL Baso # (Auto) (0-0.2) K/uL Immature Gran # (Auto) (0.01-0.20) K/uL Sodium (136-145) mmol/L Potassium (3.5-5.1) mmol/L Chloride (98-107) mmol/L Carbon Dioxide (21-32) mmol/L Anion Gap (3-11) BUN (6-23) mg/dl Creatinine (0.6-1.4) mg/dl Est Cr Clr Drug Dosing ml/min Est GFR ( Amer) ml/min Est GFR (Non-Af Amer) ml/min BUN/Creatinine Ratio (10-20) Glucose (70-99(Fasting)) mg/dl Calcium (8.6-10.3) mg/dl Total Bilirubin (0.2-1.0) mg/dl AST (13-39) U/L ALT (7-52) U/L Alkaline Phosphatase (34-104) U/L Total Protein (6.0-8.3) gm/dl Albumin (3.4-5.0) gm/dl Globulin (2.5-4.0) gm/dl Albumin/Globulin Ratio (0.9-2) TSH (0.300-4.500) uIu/ml Free T4 (0.61-1.60) ng/dl Urine Color Urine Appearance (Clear) Urine pH (4.5-7.5) Ur Specific Alden (1.000-1.030) Urine Protein (Negative) Urine Glucose (UA) (Negative) Urine Ketones (Negative) Urine Blood (Negative) Urine Nitrite (Negative) Urine Bilirubin (Negative) Urine Urobilinogen (Negative) Ur Leukocyte Esterase (Negative) Salicylates < 3.0 L (3.0-30) mg/dl Urine Opiates Screen (Neg) Ur Methadone, Qual (Neg) Acetaminophen < 3 L (10-30) ug/ml Urine Barbiturates (Neg) Ur Phencyclidine (PCP) (Neg) U Amphetamin/Meth Scrn (Neg) MDMA (Ecstasy) Screen (Neg) U Benzodiazepines Scrn (Neg) Ur Cocaine Metabolite (Neg) U Marijuana (THC) Screen (Neg) Ethyl Alcohol mg/dL < 10.0 (<10.0) mg/dl SARS-CoV-2, RNA, NAAT (NEGATIVE) Administered Medications Discontinued Medications Acetaminophen (Acetaminophen 500 Mg Tab) 1,000 mg PO NOW STA Stop: 01/03/23 13:29 Last Admin: 01/03/23 13:46 Dose: Not Given Documented By: Clonidine HCl (Clonidine Hcl 0.1 Mg Tab) 0.2 mg PO NOW ONE Stop: 01/03/23 13:41 Last Admin: 01/03/23 13:53 Dose: 0.2 mg Documented By: Sodium Chloride (Nss) 500 mls @ 999 mls/hr IV .Q31M FAUSTINO Stop: 01/03/23 14:00 Last Infusion: 01/03/23 14:24 Dose: 0 mls/hr Documented By: Admin: 01/03/23 13:53 Dose: 999 mls/hr Documented By: Magnesium Sulfate/Dextrose (Magnesium Sulfate / D5w) 1 gm in 100 mls @ 100 mls/hr IV NOW ONE Stop: 01/03/23 14:27 Last Admin: 01/03/23 14:45 Dose: Not Given Documented By: Ioversol (Ioversol 350 Mg 125ml Prefilled Syringe) 117 ml IV ONCE ONE Stop: 01/03/23 15:16 Last Admin: 01/03/23 15:10 Dose: 117 ml Documented By: TRACE Lorazepam (Lorazepam 2 Mg/1 Ml Vial) 1 mg IV NOW STA Stop: 01/03/23 13:41 Last Admin: 01/03/23 13:54 Dose: 1 mg Documented By: Ondansetron HCl (Ondansetron Inj 2 Mg/Ml 2 Ml Vial) 4 mg IV NOW STA Stop: 01/03/23 13:29 Last Admin: 01/03/23 13:55 Dose: 4 mg Documented By: Imaging Data Radiologist's Impression: Head CT 01/03/23 13:28 CT angio neck with con, CT angio head w con, CT head/brain wo con CLINICAL HISTORY: garbled speech, ward TECHNIQUE: Contiguous axial CT images of the head were acquired from the base of the skull to the vertex without intravenous contrast administration. CT angiography of the head and neck was performed following intravenous administration of iodinated contrast. Coronal and sagittal MIPS were obtained from the axial data set and were submitted for review. Automated dose lowering techniques and/or adjustment according to patient size were utilized for this examination. All measurements were calculated based on NASCET criteria. CT DOSE: 885.44 mGy.cm Comparison: None available at the time of this dictation. FINDINGS: CT head: There is no acute intracranial hemorrhage or evidence of acute territorial infarction. No shift of the midline structures, mass effect, or extra-axial abnormalities are shown. Lungs and soft tissues are unremarkable. CTA Neck: A 3 vessel aortic arch is shown. There is no significant atherosclerotic plaque in the aortic arch or the origins of the innominate, left common carotid, and left subclavian arteries. The common carotid, external carotid, cervical segments of the internal carotid arteries, and the cervical segments of the vertebral arteries are patent without hemodynamically significant stenosis. The left vertebral artery is dominant. CTA Head: The anterior and posterior cerebral circulations are patent. No hemodynamically significant stenosis, aneurysm, dissection, or arteriovenous malformation is shown. IMPRESSION: 1. No acute intracranial hemorrhage, evidence of acute territorial infarction, or other acute intracranial disease process. 2. No occlusion, hemodynamically significant stenosis, or dissection in the major cervical arteries. 3. No occlusion, hemodynamically significant stenosis, aneurysm, dissection, or arteriovenous malformation in the major intracranial arteries. Assessment of stenosis of the internal carotid arteries is based on NASCET criteria. ACT 112: Negative or not required by law. Electronically signed by: Jozef Carrasco M.D. 01/03/2023 3:29 PM Head CTA 01/03/23 13:28 CT angio neck with con, CT angio head w con, CT head/brain wo con CLINICAL HISTORY: garbled speech, ward TECHNIQUE: Contiguous axial CT images of the head were acquired from the base of the skull to the vertex without intravenous contrast administration. CT angiography of the head and neck was performed following intravenous administration of iodinated contrast. Coronal and sagittal MIPS were obtained from the axial data set and were submitted for review. Automated dose lowering techniques and/or adjustment according to patient size were utilized for this examination. All measurements were calculated based on NASCET criteria. CT DOSE: 885.44 mGy.cm Comparison: None available at the time of this dictation. FINDINGS: CT head: There is no acute intracranial hemorrhage or evidence of acute territorial infarction. No shift of the midline structures, mass effect, or extra-axial abnormalities are shown. Lungs and soft tissues are unremarkable. CTA Neck: A 3 vessel aortic arch is shown. There is no significant atherosclerotic plaque in the aortic arch or the origins of the innominate, left common carotid, and left subclavian arteries. The common carotid, external carotid, cervical segments of the internal carotid arteries, and the cervical s egments of the vertebral arteries are patent without hemodynamically significant stenosis. The left vertebral artery is dominant. CTA Head: The anterior and posterior cerebral circulations are patent. No hemodynamically significant stenosis, aneurysm, dissection, or arteriovenous malformation is shown. IMPRESSION: 1. No acute intracranial hemorrhage, evidence of acute territorial infarction, or other acute intracranial disease process. 2. No occlusion, hemodynamically significant stenosis, or dissection in the zaria or cervical arteries. 3. No occlusion, hemodynamically significant stenosis, aneurysm, dissection, or arteriovenous malformation in the major intracranial arteries. Assessment of stenosis of the internal carotid arteries is based on NASCET criteria. ACT 112: Negative or not required by law. Electronically signed by: Jozef Carrasco M.D. 01/03/2023 3:29 PM Neck CTA 01/03/23 13:28 CT angio neck with con, CT angio head w con, CT head/brain wo con CLINICAL HISTORY: ed robison TECHNIQUE: Contiguous axial CT images of the head were acquired from the base of the skull to the vertex without intravenous contrast administration. CT angiography of the head and neck was performed following intravenous administration of iodinated contrast. Coronal and sagittal MIPS were obtained from the axial data set and were submitted for review. Automated dose lowering techniques and/or adjustment according to patient size were utilized for this examination. All measurements were calculated based on NASCET criteria. CT DOSE: 885.44 mGy.cm Comparison: None available at the time of this dictation. FINDINGS: CT head: There is no acute intracranial hemorrhage or evidence of acute territorial infarction. No shift of the midline structures, mass effect, or extra-axial abnormalities are shown. Lungs and soft tissues are unremarkable. CTA Neck: A 3 vessel aortic arch is shown. There is no significant atherosclerotic plaque in the aortic arch or the origins of the innominate, left common carotid, and left subclavian arteries. The common carotid, external carotid, cervical segments of the internal carotid arteries, and the cervical segments of the vertebral arteries are patent without hemodynamically significant stenosis. The left vertebral artery is dominant. CTA Head: The anterior and posterior cerebral circulations are patent. No hemodynamically significant stenosis, aneurysm, dissection, or arteriovenous malformation is shown. IMPRESSION: 1. No acute intracranial hemorrhage, evidence of acute territorial infarction, or other acute intracranial disease process. 2. No occlusion, hemodynamically significant stenosis, or dissection in the major cervical arteries. 3. No occlusion, hemodynamically significant stenosis, aneurysm, dissection, or arteriovenous malformation in the major intracranial arteries. Assessment of stenosis of the internal carotid arteries is based on NASCET criteria. ACT 112: Negative or not required by law. Electronically signed by: Jozef Carrasco M.D. 01/03/2023 3:29 PM Discharge Plan Visit Data Chief Complaint: Detox Request Stated Complaint: MENTAL HEALTH EVAL ED Provider: Michael Mackey Discharge Problem: Opioid use with withdrawal, Headache, Transaminitis Forms Stand Alone Forms: [facility], Suicide Prevention Resources Prescriptions Prescriptions: No Action tramadol 50 mg Tablet 25 mg PO Q4H PRN (Reason: pain (scale score 4-6)) Qty: 10 0RF omeprazole 20 mg capsule,delayed release(DR/EC) 20 mg PO DAILY Qty: 30 0RF Referrals Referrals: Tj Linder PA-C [Primary Care Provider] -
[2023-01-03 11:20] LABS: Appearance Urine Clear (Clear); Bilirubin Urine Negative (Negative); Blood Urine Negative (Negative); Color Urine Yellow; Glucose Urine UA Negative (Negative); Ketones Urine Negative (Negative); Leukocyte Esterase Urine Negative (Negative); Nitrite Urine Negative (Negative); Protein Urine Negative (Negative); Specific Gravity Urine 1.017 (1.000-1.030); Urobilinogen Urine Negative (Negative); pH Urine 6.5 (4.5-7.5)
[2023-01-03 11:53] LABS: Amphetamines+Metham, Urine Neg (Neg); Barbiturates, Urine Neg (Neg); Benzodiazepine, Urine Pos (Neg); Cocaine, Urine Neg (Neg); MDMA (Ecstacy), Urine Neg (Neg); Methadone, Urine Neg (Neg); Opiate, Urine Pos (Neg); Phencyclidine, Urine Neg (Neg)
[2023-01-03 11:59] LABS: Basophils # (auto) 0.03 K/uL (0-0.2); Basophils % (auto) 0.6 %; Eosinophils # (auto) 0.01 K/uL (0-0.50); Eosinophils % (auto) 0.2 %; Hematocrit (blood only) 44.9 % (42.0-52.0); Hemoglobin 15.7 g/dl (14.0-18.0); Immature Granulocytes # (auto) 0.02 K/uL (0.01-0.20); Immature Granulocytes % (auto) 0.4 %; Lymphocytes # (auto) 1.42 K/uL (1.2-3.4); Lymphocytes % (auto) 27.9 %; Mean Corpuscular Hemoglobin 35.1 pg (25.0-34.0); Mean Corpuscular Volume 100.4 fL (80.0-100.0); Mean Platelet Volume 8.9 fL (9.4-12.4); Monocytes # (auto) 0.84 K/uL (0.11-0.59); Monocytes % (auto) 16.5 %; Neutrophils # (auto) 2.77 K/uL (1.40-6.50); Neutrophils % (auto) 54.4 %; Platelet Count 210 K/uL (130-400); RDW Coefficient of Variation 11.9 % (11.5-14.5); RDW Standard Deviation 44.8 fL (36.4-46.3); Red Blood Count 4.47 M/uL (4.70-6.10); White Blood Count 5.09 K/ul (4.8-10.8)
[2023-01-03 12:03] LABS: Albumin Level 4.2 gm/dl (3.4-5.0); Bilirubin,Total 0.7 mg/dl (0.2-1.0); Calcium 9.6 mg/dl (8.6-10.3)
[2023-01-03 12:09] LABS: Albumin Globulin Ratio 1.3 (0.9-2); BUN Creatinine Ratio 9.9 (10-20); Creatinine Clr Calc Pharmacy 64.3 ml/min; Est GFR (African American) 66.3 ml/min; Est GFR (Non-African American) 57.2 ml/min; Globulin 3.2 gm/dl (2.5-4.0); Total Protein 7.4 gm/dl (6.0-8.3)
[2023-01-03 12:10] LABS: Acetaminophen < 3 ug/ml (10-30); Salicylate < 3.0 mg/dl (3.0-30)
[2023-01-03 12:18] LABS: Thyroid Stimulating Hormone 6.751 uIu/ml (0.300-4.500)
[2023-01-03] MEDS ORDERED: ACETAMINOPHEN 500 MG TAB PO STA (13:28)
[2023-01-03] MEDS ORDERED: ONDANSETRON INJ 2 MG/ML 2 ML VIAL IV STA (13:28)
[2023-01-03] MEDS ORDERED: MAGNESIUM SULFATE / D5W 1 GM/100 ML BAG IV ONE (13:28)
[2023-01-03] MEDS ORDERED: SODIUM CHLORIDE 0.9% 500 ML IV SCH (13:30)
[2023-01-03 13:32] LABS: T4 Free Thyroxine 0.86 ng/dl (0.61-1.60)
[2023-01-03] MEDS ORDERED: LORazepam 2 MG/1 ML VIAL IV STA (13:40)
[2023-01-03] MEDS ORDERED: cloNIDine HCL 0.1 MG TAB PO ONE (13:40)
--- NOTE | 2023-01-03 14:24 | History & Physical Report ---
Date of Service January 03, 2023 Assessment & Plan (1) Opioid use with withdrawal: (2) H/O ileostomy: (3) Depression with anxiety: Plan 52 year old male presented to the ED with request to detox from opioids, with HANSON and HTN urgency. Patient has plans to start withdrawal treatment at [facility] in [place] starting on . BP 176/126. Mild KEYANNA creatinine 1.42, Baseline creatinine 1.20 from 2019 outpatient records. TSH 6.751. UDS (+) for opiates, benzos, marijuana. Reports taking Valium prescribed from dental procedure and drinking 4-8 oz of vodka with his tea intermittently. Abdominal pelvis CT negative for SBO; bilateral inguinal hernias and status post total proctoco lectomy with right lower quadrant ileostomy present. CT head negative for acute intracranial process. Lives alone, no children and has increased anxiety and depression. Outpatient records from psychiatry date back to 2019 through telemedicine at [facility]. He was seeing somebody consistently Dr. Mansfield more than 20 years ago. 1 mg Ativan given in ED; Catapress 0.2 mg x1 in ED with good response, IV fluids, Zofran PRN, AWSS scale Opioid use with withdrawal: Admit to PCU tele Plans for inpt rehab at [facility] starting on UDS: (+) opioids, (+) benzo, (+) marijuana Ingesting poppy seed tea x10 years for treatment of his anxiety and depression Ativan 1 mg IV x1 in ED; Ativan 1 mg PRN fall and seizure precaution; not tremulous Zofran PRN IVF at 100mL/hr x2 bags; reassess in AM HTN urgency: BP 217/115 on arrival ED administered 0.2 PO Catapress; with good response Current BP 138/99 Hydralazine x1 PRN for BP > 180; RN to notify provider if administer Alcohol use: Unreliable alcohol use; states he puts 4-8oz of vodka in his poppy tea daily on the weekends, but thinks he had some yesterday Ordered Folic Acid and Thiamine IV daily Ativan 1 mg IV PRN once with provider notification Gabapentin taper AWSS scale with fall and seizure precaution KEYANNA: Creatinine 1.42; Baseline creatinine 1.20 from 2019 outpatient records. Received 1 LNSB in ED: continue 0.9 @ 100mL/hour x2 bags and reassess BMP in AM Depression and Anxiety: Outpatient records from psychiatry date back to 2019 through telemedicine at [facility]. He was seeing somebody consistently Dr. Mansfield more than 20 years ago. He had lived in [place] for the last 10 years. 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 He has been on Effexor in the past and has also tried Prozac, Lexapro and Paxil without positive effect. Was started on Zoloft in 2019 and Hydroxyzine for insomnia. No SI/SA, Ingesting poppy seed tea x10 years for treatment of his anxiety and depression [facility] for depression and anxiety management H/O total proctocolectomy s/p RLQ ileostomy: Surgery 2007 Noticed a bleeding 'bump' on his stoma; WOCN to evaluate No functional issues; dressing changed 01/02/23 Disposition: PCP: Dr. Tj Linder Code Status: Full Code VTE Prophyalxis: Lovenox SQ I spent a total of 87 minutes coordinating, documenting, and providing care for this patient excluding time spent in the performance of separately billed services. All of the aforementioned completed while collaborating with the assigned attending physician for a full treatment plan. Please see their addendum for further details. History of Present Illness Chief Complaint: opioid detox Primary Care Provider: Tj Linder PA-C Mr. Trent is a 52 year old male that presented to the ED with request to detox from opioids. Patient has plans to start withdrawal treatment at [facility] in [place] starting on , but came to the ED today with garbled speech and HTN urgency. BP 176/126. Mild KEYANNA creatinine 1.42, TSH 6.751. UDS (+) for opiates, benzos, marijuana. He stated that he has not had a consistent job or insurance so has not been to the doctor since 2019. He has been able to start medical Marijuana (RHO tincture carpujet) and takes Valium that he received a small amount from a prescription from a dental procedure. No leukocytosis, mild KEYANNA creatinine 1.43; Baseline creatinine 1.20 from [address] outpatient records. 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 CT head negative for acute intracranial process. Lives alone, no children and has increased anxiety and depression. Outpatient records from psychiatry date back to 2019 through telemedicine at [facility]. He was seeing somebody consistently Dr. Mansfield more than 20 years ago. He had lived in [place] for the last 10 years. 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 Reports taking Valium prescribed from dental procedure and drinking 4-8 oz of vodka with his tea intermittently. Denies tobacco or other illicit drug use. He has been on Effexor in the past and has also tried Prozac, Lexapro and Paxil without positive effect. Was started on Zoloft in 2019 and Hydroxyzine for insomnia but is not currently taking any other medications besides Valium and poppy tea. Denies opioid use despite UDS positive. Pt denies SI, SA, visual or auditory hallucinations. Sometimes he sees "shadows" but they are not frightening to him. 1 mg Ativan given in ED; Catapres PO started for hypertensive urgency, IV fluids and Zofran administered. Patient will be admitted for BP management and withdrawal symptoms. Will continue IV fluids and AWSS scale with withdrawal precautions and PRN. At the bedside, patient AAOx4 CN II-XII intact. No garbled speech; pinpoint pupils, no tremulous noted. RLQ ostomy covered with non- transparent bag. Indicates he has a 'lump' on his stoma and is receptive to WOCN evaluation. Patient will be admitted for further evaluation and management. Please see A/P for further details. Allergies Allergy/AdvReac Type Severity Reaction Status Date / Time No Known Allergies Allergy Unverified 12/05/19 04:36 Home Medications Medication Instructions Recorded Confirmed Type omeprazole 20 mg capsule,delayed 20 mg PO DAILY #30 caps 12/07/19 Rx release tramadol 50 mg tablet 25 mg PO Q4H PRN pain (scale score 12/07/19 Rx 4-6) #10 tabs Past Med/Surg History Medical History (Updated 01/03/23 @ 16:31 by Michael Mackey MD) Depression with anxiety Opioid use with withdrawal Ulcerative colitis Surgical History H/O ileostomy Family History (Updated 01/03/23 @ 15:51 by LESVIA Soria) Other Asthma Depression Social History Smoking Status: Former smoker Tobacco Type: E-cigarettes / Vaping Hx Alcohol Use: Yes Alcohol type: hard liquor Hx Substance Use: Yes Last Used Substance Other:: drinking tea out of poppy, valium prescribed for dental work. 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: No Beliefs That Will Affect Care: None Current Living Situation: Alone Other Information That Helps Us Care for You: No Feels Safe at Home: Yes Safety Concerns: Feels Safe At This Time Assistive Devices: Contacts and Glasses Review of Systems Review of Systems: Neuro: (-) Falls, trauma, slurred speech(-) tremors HEENT: (-) HANSON, dizziness, dysphagia, visual or auditory changes CV: (-) CP, palpitations, swelling Resp: (-) SOB GI: (-) appetite changes, N/V/D, bowel changes : (-) urinary changes Skin: (-) rashes Psych: (-) anxiety, depression Physical Exam Physical Exam: Neuro: AAOx4, pinpoint pupils react to light and accommodate, no aphagia, memory changes, CNII-XII grossly intact HEENT: head normocephalic, moist mucus membranes CV: S1/S2, (-) M/G/R, (-) edema, cap refill < 3 seconds Resp: Lungs CTA in all perea. On RA GI: Abdomen S/NT/ND, Ax4 bowel sounds, (-) CVA tenderness (+) RLQ ostomy; bag just changed yesterday Musculoskeletal: 5/5 B/L UE strength, 5/5 B/L LE strength. No gait disturbance Skin: (-) rashes , (-) erythema. Psych: euthymic, but flat and anxious mood Results & Data Results & Data Vital Signs (Past 12 Hours) Vital Signs Temp Pulse Pulse Resp BP BP Pulse Ox 01/03/23 13:00 78 16 176/126 H 100 01/03/23 10:45 84 100 01/03/23 11:47 85 01/03/23 11:16 86 16 173/121 H 100 01/03/23 11:28 99 01/03/23 10:31 36.7 C 87 18 162/104 H 100 O2 Del Method 01/03/23 13:00 Room Air 01/03/23 10:45 Room Air 01/03/23 11:47 01/03/23 11:16 Room Air 01/03/23 11:28 Room Air 01/03/23 10:31 Room Air Laboratory Results Short CBC 01/03/23 Range/Units 11:24 WBC 5.09 (4.8-10.8) K/ul Hgb 15.7 (14.0-18.0) g/dl Hct 44.9 (42.0-52.0) % Plt Count 210 (130-400) K/uL BMP 01/03/23 11:24 Sodium 136 Potassium 4.0 Chloride 99 Carbon Dioxide 32 BUN 14 Creatinine 1.42 H Glucose 72 Calcium 9.6 Liver Function 01/03/23 Range/Units 11:24 Total Bilirubin 0.7 (0.2-1.0) mg/dl AST 59 H (13-39) U/L ALT 55 H (7-52) U/L Alkaline Phosphatase 75 (34-104) U/L Albumin 4.2 (3.4-5.0) gm/dl Urine 01/03/23 Range/Units 11:00 Urine Color Yellow Urine Appearance Clear (Clear) Urine pH 6.5 (4.5-7.5) Ur Specific [place] 1.017 (1.000-1.030) Urine Protein Negative (Negative) Urine Glucose (UA) Negative (Negative) Diagnostic Findings Head CT 01/03/23 13:28 CT angio neck with con, CT angio head w con, CT head/brain wo con CLINICAL HISTORY: garbled speech, hanson TECHNIQUE: Contiguous axial CT images of the head were acquired from the base of the skull to the vertex without intravenous contrast administration. CT angiography of the head and neck was performed following intravenous administration of iodinated contrast. Coronal and sagittal MIPS were obtained from the axial data set and were submitted for review. Automated dose lowering techniques and/or adjustment according to patient size were utilized for this examination. All measurements were calculated based on NASCET criteria. CT DOSE: 885.44 mGy.cm Comparison: None available at the time of this dictation. FINDINGS: CT head: There is no acute intracranial hemorrhage or evidence of acute territorial infarction. No shift of the midline structures, mass effect, or extra-axial abnormalities are shown. Lungs and soft tissues are unremarkable. CTA Neck: A 3 vessel aortic arch is shown. There is no significant atherosclerotic plaque in the aortic arch or the origins of the innominate, left common carotid, and left subclavian arteries. The common carotid, external carotid, cervical segments of the internal carotid arteries, and the cervical segments of the vertebral arteries are patent without hemodynamically significant stenosis. The left vertebral artery is dominant. CTA Head: The anterior and posterior cerebral circulations are patent. No hemodynamically significant stenosis, aneurysm, dissection, or arteriovenous malformation is shown. IMPRESSION: 1. No acute intracranial hemorrhage, evidence of acute territorial infarction, or other acute intracranial disease process. 2. No occlusion, hemodynamically significant stenosis, or dissection in the major cervical arteries. 3. No occlusion, hemodynamically significant stenosis, aneurysm, dissection, or arteriovenous malformation in the major intracranial arteries. Assessment of stenosis of the internal carotid arteries is based on NASCET criteria. ACT 112: Negative or not required by law. Electronically signed by: Jozef Carrasco M.D. 01/03/2023 3:29 PM Head CTA 01/03/23 13:28 CT angio neck with con, CT angio head w con, CT head/brain wo con CLINICAL HISTORY: garbled speech, hanson TECHNIQUE: Contiguous axial CT images of the head were acquired from the base of the skull to the vertex without intravenous contrast administration. CT angiography of the head and neck was performed following intravenous administration of iodinated contrast. Coronal and sagittal MIPS were obtained from the axial data set and were submitted for review. Automated dose lowering techniques and/or adjustment according to patient size were utilized for this examination. All measurements were calculated based on NASCET criteria. CT DOSE: 885.44 mGy.cm Comparison: None available at the time of this dictation. FINDINGS: CT head: There is no acute intracranial hemorrhage or evidence of acute territorial infarction. No shift of the midline structures, mass effect, or extra-axial abnormalities are shown. Lungs and soft tissues are unremarkable. CTA Neck: A 3 vessel aortic arch is shown. There is no significant atherosclerotic plaque in the aortic arch or the origins of the innominate, left common carotid, and left subclavian arteries. The common carotid, external carotid, cervical segments of the internal carotid arteries, and the cervical segments of the vertebral arteries are patent without hemodynamically signific ant stenosis. The left vertebral artery is dominant. CTA Head: The anterior and posterior cerebral circulations are patent. No hemodynamically significant stenosis, aneurysm, dissection, or arteriovenous malformation is shown. IMPRESSION: 1. No acute intracranial hemorrhage, evidence of acute territorial infarction, or other acute intracranial disease process. 2. No occlusion, hemodynamically significant stenosis, or dissection in the major cervical arteries. 3. No occlusion, hemodynamically significant stenosis, aneurysm, dissection, or arteriovenous malformation in the major intracranial arteries. Assessment of stenosis of the internal carotid arteries is based on NASCET criteria. ACT 112: Negative or not required by law. Electronically signed by: Jozef Carrasco M.D. 01/03/2023 3:29 PM Neck CTA 01/03/23 13:28 CT angio neck with con, CT angio head w con, CT head/brain wo con CLINICAL HISTORY: marie bautista, hanson TECHNIQUE: Contiguous axial CT images of the head were acquired from the base of the skull to the vertex without intravenous contrast administration. CT angiography of the head and neck was performed following intravenous administration of iodinated contrast. Coronal and sagittal MIPS were obtained from the axial data set and were submitted for review. Automated dose lowering techniques and/or adjustment according to patient size were utilized for this examination. All measurements were calculated based on NASCET criteria. CT DOSE: 885.44 mGy.cm Comparison: None available at the time of this dictation. FINDINGS: CT head: There is no acute intracranial hemorrhage or evidence of acute territorial infarction. No shift of the midline structures, mass effect, or extra-axial abnormalities are shown. Lungs and soft tissues are unremarkable. CTA Neck: A 3 vessel aortic arch is shown. There is no significant atherosclerotic plaque in the aortic arch or the origins of the innominate, left common carotid, and left subclavian arteries. The common carotid, external carotid, cervical segments of the internal carotid arteries, and the cervical segments of the vertebral arteries are patent without hemodynamically significant stenosis. The left vertebral artery is dominant. CTA Head: The anterior and posterior cerebral circulations are patent. No hemodynamically significant stenosis, aneurysm, dissection, or arteriovenous malformation is shown. IMPRESSION: 1. No acute intracranial hemorrhage, evidence of acute territorial infarction, or other acute intracranial disease process. 2. No occlusion, hemodynamically significant stenosis, or dissection in the major cervical arteries. 3. No occlusion, hemodynamically significant stenosis, aneurysm, dissection, or arteriovenous malformation in the major intracranial arteries. Assessment of stenosis of the internal carotid arteries is based on NASCET criteria. ACT 112: Negative or not required by law. Electronically signed by: Jozef Carrasco M.D. 01/03/2023 3:29 PM Code Status & VTE Plan Code Status Full Code in the event of cardiac or respiratory arrest VTE Prophylaxis Plan VTE Prophylaxis will be ordered: Yes Supervising Physician Co-Signing Physician Notes Pt seen and examined by myself, Hanna Jackson MD on the day of service. Care was coordinated with LESVIA Serna. Please refer to her note for additional information. 52yoM presenting for opioid detoxification after chronic use of poppyseed tea after many years. Also uses occasiionally with alcohol. In no acute distress when examined. AAOx3. RRR AWSS protocol, telemetry monitoring. Hypertensive urgency-Received catapress in the ED and BP in acceptable range. Hydralazine 5mg PRN for SBP>180, with daily lisinopril 10mg. otherwise as above.
[2023-01-03] MEDS ORDERED: POLYETHYLENE (MIRALAX) 17 GM PACK PO PRN (15:05)
[2023-01-03] MEDS ORDERED: MAGNESIUM HYDROXIDE SUSP 30 ML UDC PO PRN (15:05)
[2023-01-03] MEDS ORDERED: ACETAMINOPHEN 325 MG TAB PO PRN (15:05)
[2023-01-03] MEDS ORDERED: IOVERSOL 350 MG 125mL Prefilled Syringe IV ONE (15:15)
[2023-01-03] MEDS ORDERED: LORazepam 2 MG/1 ML VIAL IV PRN (15:27)
[2023-01-03] MEDS ORDERED: GABAPENTIN 600 MG TAB PO ONE (15:27)
[2023-01-03] MEDS ORDERED: GABAPENTIN 1200MG ALCOHOL WITHDRAWAL LOAD PO STA (15:27)
--- NOTE | 2023-01-03 15:30 | CT Scan Report ---
CT angio neck with con, CT angio head w con, CT head/brain wo con CLINICAL HISTORY: garbled speech, ward TECHNIQUE: Contiguous axial CT images of the head were acquired from the base of the skull to the vitaliy ambrose without intravenous contrast administration. CT angiography of the head and neck was performed f ollowing intravenous administration of iodinated contrast. Coronal and sagittal MIPS were obtained fr om the axial data set and were submitted for review. Automated dose lowering techniques and/or adjus tment according to patient size were utilized for this examination. All measurements were calculated based on NASCET criteria. CT DOSE: 885.44 mGy.cm Comparison: None available at the time of this dictation. FINDINGS: CT head: There is no acute intracranial hemorrhage or evidence of acute territorial infarction. No sh ift of the midline structures, mass effect, or extra-axial abnormalities are shown. Lungs and soft tissues are unremarkable. CTA Neck: A 3 vessel aortic arch is shown. There is no significant atherosclerotic plaque in the aor tic arch or the origins of the innominate, left common carotid, and left subclavian arteries. The co mmon carotid, external carotid, cervical segments of the internal carotid arteries, and the cervical segments of the vertebral arteries are patent without hemodynamically significant stenosis. The left vertebral artery is dominant. CTA Head: The anterior and posterior cerebral circulations are patent. No hemodynamically significan t stenosis, aneurysm, dissection, or arteriovenous malformation is shown. IMPRESSION: 1. No acute intracranial hemorrhage, evidence of acute territorial infarction, or other acute intrac ranial disease process. 2. No occlusion, hemodynamically significant stenosis, or dissection in the major cervical arteries. 3. No occlusion, hemodynamically significant stenosis, aneurysm, dissection, or arteriovenous malfor mation in the major intracranial arteries. Assessment of stenosis of the internal carotid arteries is based on NASCET criteria. ACT 112: Negative or not required by law. Electronically signed by: Jozef Carrasco M.D. 01/03/2023 3:29 PM
[2023-01-03] MEDS ORDERED: THIAMINE HCL 100 MG in SYRINGE 9 ML IV ONE (16:00)
[2023-01-03] MEDS ORDERED: FOLIC ACID 1 MG in SYRINGE 9.8 ML IV ONE (16:00)
[2023-01-03] MEDS: SODIUM CHLORIDE 0.9% 1000ML 1,000 ML IV SCH (17:36)
[2023-01-03] MEDS: hydrALAZINE HCL 20 MG/ML VIAL IV PRN (18:10)
[2023-01-03] MEDS ORDERED: lisinopril 10 MG TAB PO STA (19:12)
[2023-01-03] MEDS ORDERED: lisinopril 10 MG TAB PO SCH (19:15)
[2023-01-03] MEDS: GABAPENTIN 600 MG TAB PO SCH (22:26)
[2023-01-04] MEDS: SODIUM CHLORIDE 0.9% 1000ML 1,000 ML IV SCH (03:43)
[2023-01-04] MEDS: GABAPENTIN 600 MG TAB PO SCH ×3 (03:44→20:45)
[2023-01-04] MEDS ORDERED: diazePAM 5 MG TABLET PO ONE (08:06)
[2023-01-04] MEDS: lisinopril 10 MG TAB PO SCH (08:06)
[2023-01-04] MEDS: ENOXAPARIN INJ 40 MG/0.4 ML SYR SQ SCH (08:06)
[2023-01-04] MEDS ORDERED: FOLIC ACID 1 MG in SYRINGE 9.8 ML IV SCH (09:00)
[2023-01-04] MEDS ORDERED: THIAMINE HCL 100 MG in SYRINGE 9 ML IV SCH (09:00)
--- NOTE | 2023-01-04 13:31 | Hospitalist Progress Note ---
Date of Service January 04, 2023 Assessment & Plan (1) Opioid use with withdrawal: (2) H/O ileostomy: (3) Depression with anxiety: Plan 52 year old male presented to the ED with request to detox from opioids, with HANSON and HTN urgency. Patient has plans to start withdrawal treatment at [facility] in [place] starting on . BP 176/126. Mild KEYANNA creatinine 1.42, Baseline creatinine 1.20 from 2019 outpatient records. TSH 6.751. UDS (+) for opiates, benzos, marijuana. Reports taking Valium prescribed from dental procedure and drinking 4-8 oz of vodka with his tea intermittently. Abdominal pelvis CT negative for SBO; bilateral inguinal hernias and status post total proctoco lectomy with right lower quadrant ileostomy present. CT head negative for acute intracranial process. Lives alone, no children and has increased anxiety and depression. Outpatient records from psychiatry date back to 2019 through telemedicine at [facility] [place]. He was seeing somebody consistently Dr. Mansfield more than 20 years ago. 1 mg Ativan given in ED; Catapress 0.2 mg x1 in ED with good response, IV fluids, Zofran PRN, AWSS scale Opioid use with withdrawal: Ingesting poppy seed tea x10 years for treatment of his anxiety and depression UDS: (+) opioids, (+) benzo, (+) marijuana Supportive care with clonidine as needed, Ativan, scheduled Valium, antiemetic. HTN urgency: Likely related with withdrawal. Started on lisinopril. Also on as needed clonidine. Alcohol use: Gabapentin taper AWSS scale with fall and seizure precaution CKD Creatinine at baseline. Monitor Depression and Anxiety: Outpatient records from psychiatry date back to 2019 through telemedicine at [facility] [place]. He had lived in [place] for the last 10 years. 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 He has been on Effexor in the past and has also tried Prozac, Lexapro and Paxil without positive effect. Was started on Zoloft in 2019 and Hydroxyzine for insomnia. No SI/SA, Ingesting poppy seed tea x10 years for treatment of his anxiety and depression [facility] for depression and anxiety management H/O total proctocolectomy s/p RLQ ileostomy: Surgery 2007 Noticed a bleeding 'bump' on his stoma; WOCN to evaluate No functional issues; dressing changed 01/02/23 Disposition: PCP: Dr. Tj Linder Code Status: Full Code VTE Prophyalxis: Lovenox SQ Time spent evaluating patient, direct bedside care, chart review, placing orders, interpretation of diagnostic studies, discussion with consultants, patient, and family members, as well as other required patient management activities is 60 minutes. Please note the above document was generated using voice recognition software. It may contain grammatical, syntax or spelling errors. Any formal questions or concerns about the content, text or information contained within the body of this dictation should be directly addressed to the provider for clarification Admission and Anticipated Discharge Date Admission Date: January 03, 2023 Subjective Patient seen and examined at bedside. Patient reports nausea, vomiting, anxiety, fatigue. Review of Systems Review of Systems: All systems reviewed & are unremarkable except as noted in Subjective Physical Exam Physical Exam: Constitutional: WD/WN, vitals as above, NAD, sitting up in bed, pleasant, conversing easily Respiratory: normal respiratory effort, lungs clear to auscultation, no wheeze, rales, rhonchi. Normal insp/exp effort, no accessory muscle use Cardiovascular: RRR, no murmur, no edema Vessels: no JVD or carotid bruit Chest: normal inspection of chest Abdomen: normal bowel sounds, soft, nontender, no hepatosplenomegaly Musculoskeletal: no cyanosis or clubbing, extremities motor strength 5/5 Skin: no rashes, warm and dry normal turgor Neurologic: PERRL, EOMI, accommodation nl, no face palsy, no dysarthria CN's II- XI intact bilaterally and moves all extremities Psychiatric: A+Ox3, euthymic affect Results & Data Results & Data Vital Signs (Past 12 Hours) Vital Signs Temp Pulse Pulse Resp BP Pulse Ox O2 Del Method 01/04/23 11:56 60 01/04/23 11:33 36.2 C L 77 18 158/114 H 99 Room Air 01/04/23 07:57 36.3 C L 63 16 143/90 H 99 Room Air 01/04/23 02:57 36.7 C 65 18 155/101 H 100 Room Air Laboratory Results Laboratory Results WBC 5.09 K/ul (4.8-10.8) 01/03/23 11:24 RBC 4.47 M/uL (4.70-6.10) L 01/03/23 11:24 Hgb 15.7 g/dl (14.0-18.0) 01/03/23 11:24 Hct 44.9 % (42.0-52.0) 01/03/23 11:24 MCV 100.4 fL (80.0-100.0) H 01/03/23 11:24 MCH 35.1 pg (25.0-34.0) H 01/03/23 11:24 MCHC 35.0 g/dL (32.0-36.0) 01/03/23 11:24 RDW Std Deviation 44.8 fL (36.4-46.3) 01/03/23 11: RDW Coeff of Denise 11.9 % (11.5-14.5) 01/03/23 11:24 Plt Count 210 K/uL (130-400) 01/03/23 11:24 MPV 8.9 fL (9.4-12.4) L 01/03/23 11:24 Immature Gran % (Auto) 0.4 % 01/03/23 11:24 Neut % (Auto) 54.4 % 01/03/23 11:24 Lymph % (Auto) 27.9 % 01/03/23 11:24 [place] % (Auto) 16.5 % 01/03/23 11:24 Eos % (Auto) 0.2 % 01/03/23 11:24 Baso % (Auto) 0.6 % 01/03/23 11:24 Neut # (Auto) 2.77 K/uL (1.40-6.50) 01/03/23 11: Lymph # (Auto) 1.42 K/uL (1.2-3.4) 01/03/23 11:24 [place] # (Auto) 0.84 K/uL (0.11-0.59) H 01/03/23 11:24 Eos # (Auto) 0.01 K/uL (0-0.50) 01/03/23 11:24 Baso # (Auto) 0.03 K/uL (0-0.2) 01/03/23 11: Immature Gran # (Auto) 0.02 K/uL (0.01-0.20) 01/03/23 11:24 Sodium 136 mmol/L (136-145) 01/03/23 11:24 Potassium 4.0 mmol/L (3.5-5.1) 01/03/23 11:24 Chloride 99 mmol/L (98-107) 01/03/23 11:24 Carbon Dioxide 32 mmol/L (21-32) 01/03/23 11:24 Anion Gap 5 (3-11) 01/03/23 11:24 BUN 14 mg/dl (6-23) 01/03/23 11:24 Creatinine 1.42 mg/dl (0.6-1.4) H 01/03/23 11:24 Est Cr Clr Drug Dosing 64.3 ml/min 01/03/23 11:24 Est GFR ( Amer) 66.3 ml/min 01/03/23 11:24 Est GFR (Non-Af Amer) 57.2 ml/min 01/03/23 11:24 BUN/Creatinine Ratio 9.9 (10-20) L 01/03/23 11:24 Glucose 72 mg/dl (70-99(Fasting)) 01/03/23 11:24 Calcium 9.6 mg/dl (8.6-10.3) 01/03/23 11:24 Total Bilirubin 0.7 mg/dl (0.2-1.0) 01/03/23 11:24 AST 59 U/L (13-39) H 01/03/23 11:24 ALT 55 U/L (7-52) H 01/03/23 11:24 Alkaline Phosphatase 75 U/L (34-104) 01/03/23 11:24 Total Protein 7.4 gm/dl (6.0-8.3) 01/03/23 11:24 Albumin 4.2 gm/dl (3.4-5.0) 01/03/23 11:24 Globulin 3.2 gm/dl (2.5-4.0) 01/03/23 11:24 Albumin/Globulin Ratio 1.3 (0.9-2) 01/03/23 11:24 Vitamin B12 468 pg/ml (180-914) 01/03/23 11:24 TSH 6.751 uIu/ml (0.300-4.500) H 01/03/23 11:24 Free T4 0.86 ng/dl (0.61-1.60) 01/03/23 11:24 Urine Color Yellow 01/03/23 11:00 Urine Appearance Clear (Clear) 01/03/23 11:00 Urine pH 6.5 (4.5-7.5) 01/03/23 11:00 Ur Specific [place] 1.017 (1.000-1.030) 01/03/23 11:00 Urine Protein Negative (Negative) 01/03/23 11:00 Urine Glucose (UA) Negative (Negative) 01/03/23 11:00 Urine Ketones Negative (Negative) 01/03/23 11:00 Urine Blood Negative (Negative) 01/03/23 11:00 Urine Nitrite Negative (Negative) 01/03/23 11:00 Urine Bilirubin Negative (Negative) 01/03/23 11:00 Urine Urobilinogen Negative (Negative) 01/03/23 11:00 Ur Leukocyte Esterase Negative (Negative) 01/03/23 11:00 Salicylates < 3.0 mg/dl (3.0-30) L 01/03/23 11:24 Urine Opiates Screen Pos (Neg) H 01/03/23 11:00 Ur Methadone, Qual Neg (Neg) 01/03/23 11:00 Acetaminophen < 3 ug/ml (10-30) L 01/03/23 11:24 Urine Barbiturates Neg (Neg) 01/03/23 11:00 Ur Phencyclidine (PCP) Neg (Neg) 01/03/23 11:00 U Amphetamin/Meth Scrn Neg (Neg) 01/03/23 11:00 MDMA (Ecstasy) Screen Neg (Neg) 01/03/23 11:00 U Benzodiazepines Scrn Pos (Neg) H 01/03/23 11:00 Ur Cocaine Metabolite Neg (Neg) 01/03/23 11:00 U Marijuana (THC) Screen Pos (Neg) H 01/03/23 11:00 Ethyl Alcohol mg/dL < 10.0 mg/dl (<10.0) 01/03/23 11:24 SARS-CoV-2, RNA, NAAT NEGATIVE (NEGATIVE) 01/03/23 11:[address] 01/03/23 13:28 CT angio neck with con, CT angio head w con, CT head/brain wo con CLINICAL HISTORY: garbled speech, hanson TECHNIQUE: Contiguous axial CT images of the head were acquired from the base of the skull to the vertex without intravenous contrast administration. CT angiography of the head and neck was performed following intravenous administration of iodinated contrast. Coronal and sagittal MIPS were obtained from the axial data set and were submitted for review. Automated dose lowering techniques and/or adjustment according to patient size were utilized for this examination. All measurements were calculated based on NASCET criteria. CT DOSE: 885.44 mGy.cm Comparison: None available at the time of this dictation. FINDINGS: CT head: There is no acute intracranial hemorrhage or evidence of acute territorial infarction. No shift of the midline structures, mass effect, or extra-axial abnormalities are shown. Lungs and soft tissues are unremarkable. CTA Neck: A 3 vessel aortic arch is shown. There is no significant atherosclerotic plaque in the aortic arch or the origins of the innominate, left common carotid, and left subclavian arteries. The common carotid, external carotid, cervical segments of the internal carotid arteries, and the cervical segments of the vertebral arteries are patent without hemodynamically significant stenosis. The left vertebral artery is dominant. CTA Head: The anterior and posterior cerebral circulations are patent. No hemodynamically significant stenosis, aneurysm, dissection, or arteriovenous malformation is shown. IMPRESSION: 1. No acute intracranial hemorrhage, evidence of acute territorial infarction, or other acute intracranial disease process. 2. No occlusion, hemodynamically significant stenosis, or dissection in the major cervical arteries. 3. No occlusion, hemodynamically significant stenosis, aneurysm, dissection, or arteriovenous malformation in the major intracranial arteries. Assessment of stenosis of the internal carotid arteries is based on NASCET criteria. ACT 112: Negative or not required by law. Electronically signed by: Jozef Carrasco M.D. 01/03/2023 3:29 PM Head CTA 01/03/23 13:28 CT angio neck with con, CT angio head w con, CT head/brain wo con CLINICAL HISTORY: garbled speech, hanson TECHNIQUE: Contiguous axial CT images of the head were acquired from the base of the skull to the vertex without intravenous contrast administration. CT angiography of the head and neck was performed following intravenous administration of iodinated contrast. Coronal and sagittal MIPS were obtained from the axial data set and were submitted for review. Automated dose lowering techniques and/or adjustment according to patient size were utilized for this examination. All measurements were calculated based on NASCET criteria. CT DOSE: 885.44 mGy.cm Comparison: None available at the time of this dictation. FINDINGS: CT head: There is no acute intracranial hemorrhage or evidence of acute territorial infarction. No shift of the midline structures, mass effect, or extra-axial abnormalities are shown. Lungs and soft tissues are unremarkable. CTA Neck: A 3 vessel aortic arch is shown. There is no significant atherosclerotic plaque in the aortic arch or the origins of the innominate, left common carotid, and left subclavian arteries. The common carotid, external carotid, cervical segments of the internal carotid arteries, and the cervical segments of the vertebral arteries are patent without hemodynamically significant stenosis. The left vertebral artery is dominant. CTA Head: The anterior and posterior cerebral circulations are patent. No hemodynamically significant stenosis, aneurysm, dissection, or arteriovenous ma lformation is shown. IMPRESSION: 1. No acute intracranial hemorrhage, evidence of acute territorial infarction, or other acute intracranial disease process. 2. No occlusion, hemodynamically significant stenosis, or dissection in the major cervical arteries. 3. No occlusion, hemodynamically significant stenosis, aneurysm, dissection, or arteriovenous malformation in the major intracranial arteries. Assessment of stenosis of the internal carotid arteries is based on NASCET criteria. ACT 112: Negative or not required by law. Electronically signed by: Jozef Carrasco M.D. 01/03/2023 3:29 PM Neck CTA 01/03/23 13:28 CT angio neck with con, CT angio head w con, CT head/brain wo con CLINICAL HISTORY: garbled speech, hanson TECHNIQUE: Contiguous axial CT images of the head were acquired from the base of the skull to the vertex without intravenous contrast administration. CT angiography of the head and neck was performed following intravenous administ ration of iodinated contrast. Coronal and sagittal MIPS were obtained from the axial data set and were submitted for review. Automated dose lowering techniques and/or adjustment according to patient size were utilized for this examination. All measurements were calculated based on NASCET criteria. CT DOSE: 885.44 mGy.cm Comparison: None available at the time of this dictation. FINDINGS: CT head: There is no acute intracranial hemorrhage or evidence of acute territorial infarction. No shift of the midline structures, mass effect, or extra-axial abnormalities are shown. Lungs and soft tissues are unremarkable. CTA Neck: A 3 vessel aortic arch is shown. There is no significant atherosclerotic plaque in the aortic arch or the origins of the innominate, left common carotid, and left subclavian arteries. The common carotid, external carotid, cervical segments of the internal carotid arteries, and the cervical segments of the vertebral arteries are patent without hemodynamically significant stenosis. The left vertebral artery is dominant. CTA Head: The anterior and posterior cerebral circulations are patent. No hemodynamically significant stenosis, aneurysm, dissection, or arteriovenous malformation is shown.
[2023-01-04] MEDS: hydrALAZINE HCL 20 MG/ML VIAL IV PRN (13:42)
[2023-01-04] MEDS: ONDANSETRON INJ 2 MG/ML 2 ML VIAL IV PRN ×2 (13:48→20:49)
[2023-01-04] MEDS ORDERED: diazePAM 5 MG TABLET PO SCH (14:00)
[2023-01-04] MEDS ORDERED: cloNIDine HCL 0.1 MG TAB PO ONE (14:08)
[2023-01-04] MEDS ORDERED: Ativan IV Alcohol Withdrawal--Active Protocol IV PRN (14:08)
[2023-01-04] MEDS ORDERED: LORazepam 2 MG/1 ML VIAL IV PRN ×2 (14:08)
[2023-01-04] MEDS: LORazepam 2 MG/1 ML VIAL IV PRN (14:46)
[2023-01-04] MEDS: diazePAM 5 MG TABLET PO SCH ×2 (14:47→20:48)
[2023-01-04] MEDS: ACETAMINOPHEN 1,000 MG/100 ML VIAL IV PRN (15:17)
[2023-01-04] MEDS: D5W AND LACTATED RINGERS 1,000 ML IV SCH (15:41)
[2023-01-05] MEDS: ACETAMINOPHEN 1,000 MG/100 ML VIAL IV PRN ×3 (00:24→19:28)
[2023-01-05] MEDS: diazePAM 5 MG TABLET PO SCH ×4 (02:22→20:21)
[2023-01-05] MEDS: GABAPENTIN 600 MG TAB PO SCH ×2 (04:40→16:05)
[2023-01-05] MEDS: ALUMINUM/MAGNESIUM SUSP 30 ML UDC PO PRN (05:07)
[2023-01-05] MEDS: ONDANSETRON INJ 2 MG/ML 2 ML VIAL IV PRN ×3 (05:14→20:22)
[2023-01-05] MEDS: D5W AND LACTATED RINGERS 1,000 ML IV SCH ×2 (07:27→16:05)
[2023-01-05] MEDS: ENOXAPARIN INJ 40 MG/0.4 ML SYR SQ SCH (08:09)
[2023-01-05] MEDS: lisinopril 10 MG TAB PO SCH (08:09)
[2023-01-05] MEDS: FOLIC ACID 1 MG TAB PO SCH (08:09)
[2023-01-05 08:38] LABS: Red Blood Count 4.91 M/uL (4.70-6.10); White Blood Count 12.25 K/ul (4.8-10.8)
[2023-01-05 08:39] LABS: Basophils # (auto) 0.01 K/uL (0-0.2); Basophils % (auto) 0.1 %; Hematocrit (blood only) 47.5 % (42.0-52.0); Hemoglobin 17.1 g/dl (14.0-18.0); Immature Granulocytes # (auto) 0.08 K/uL (0.01-0.20); Immature Granulocytes % (auto) 0.7 %; Lymphocytes # (auto) 0.56 K/uL (1.2-3.4); Lymphocytes % (auto) 4.6 %; Mean Corpuscular Hemoglobin 34.8 pg (25.0-34.0); Mean Corpuscular Volume 96.7 fL (80.0-100.0); Monocytes # (auto) 0.72 K/uL (0.11-0.59); Monocytes % (auto) 5.9 %; Neutrophils # (auto) 10.88 K/uL (1.40-6.50); Neutrophils % (auto) 88.7 %; Platelet Count 254 K/uL (130-400); RDW Coefficient of Variation 11.7 % (11.5-14.5); RDW Standard Deviation 41.8 fL (36.4-46.3)
[2023-01-05 08:59] LABS: BUN Creatinine Ratio 11.2 (10-20); Calcium 9.1 mg/dl (8.6-10.3); Est GFR (African American) 77.3 ml/min; Est GFR (Non-African American) 66.7 ml/min; Potassium 3.3 mmol/L (3.5-5.1)
[2023-01-05] MEDS: THIAMINE HCL 100 MG TAB PO SCH (10:00)
[2023-01-05 10:33] LABS: 7-Aminoclonaz, Confirm NEGATIVE ng/mL (<25); Codeine Urine 3420 ng/mL (<50); Hydro-Alp Ur, GC/MS NEGATIVE ng/mL (<25); Hydrocodone Urine NEGATIVE ng/mL (<50); Hydromor Urine NEGATIVE ng/mL (<50); Hydroxyethylflurazepam, Conf NEGATIVE ng/mL (<50); Hydroxymidazolam Ur, GC/MS NEGATIVE ng/mL (<50); Hydroxytriazolam NEGATIVE ng/mL (<50); Lorazepam, Ur GC/MS NEGATIVE ng/mL (<50); Marijuana Quant, GCMS Urine 2931 ng/mL (<5); Morphine Urine >10000 ng/mL (<50); Nordiazepam, Confirm 96 ng/mL (<50); Norhydrocodone Conf Ur NEGATIVE ng/mL (<50); Noroxycodone Urine NEGATIVE ng/mL (<50); Oxazepam Ur, GC/MS 761 ng/mL (<50); Oxycodone Urine 71 ng/mL (<50); Oxymorph Urine NEGATIVE ng/mL (<50); Temazepam, Confirm 477 ng/mL (<50)
[2023-01-05] MEDS ORDERED: POTASSIUM CHLORIDE CRTAB 20 MEQ TABCR PO STA ×2 (11:24→12:34)
[2023-01-05] MEDS ORDERED: cloNIDine HCL 0.1 MG TAB PO ONE (11:24)
--- NOTE | 2023-01-05 12:37 | Hospitalist Progress Note ---
Date of Service January 05, 2023 Assessment & Plan (1) Opioid use with withdrawal: (2) H/O ileostomy: (3) Depression with anxiety: Plan 52 year old male presented to the ED with request to detox from opioids, with HANSON and HTN urgency. Patient has plans to start withdrawal treatment at [facility] in [place] starting on . BP 176/126. Mild KEYANNA creatinine 1.42, Baseline creatinine 1.20 from 2019 outpatient records. TSH 6.751. UDS (+) for opiates, benzos, marijuana. Reports taking Valium prescribed from dental procedure and drinking 4-8 oz of vodka with his tea intermittently. Abdominal pelvis CT negative for SBO; bilateral inguinal hernias and status post total proctoco lectomy with right lower quadrant ileostomy present. CT head negative for acute intracranial process. Lives alone, no children and has increased anxiety and depression. Outpatient records from psychiatry date back to 2019 through telemedicine at [facility]. He was seeing somebody consistently Dr. Mansfield more than 20 years ago. 1 mg Ativan given in ED; Catapress 0.2 mg x1 in ED with good response, IV fluids, Zofran PRN, AWSS scale Opioid use with withdrawal: Ingesting poppy seed tea x10 years for treatment of his anxiety and depression UDS: (+) opioids, (+) benzo, (+) marijuana Supportive care with clonidine as needed, Ativan, scheduled Valium, antiemetic. HTN urgency: Likely related with withdrawal. Started on lisinopril. Also on as needed clonidine. Alcohol use disorder: Gabapentin taper AWSS scale with fall and seizure precaution CKD Creatinine at baseline. Monitor Depression and Anxiety: Outpatient records from psychiatry date back to 2019 through telemedicine at [facility]. He had lived in [place] for the last 10 years. 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 He has been on Effexor in the past and has also tried Prozac, Lexapro and Paxil without positive effect. Was started on Zoloft in 2019 and Hydroxyzine for insomnia. No SI/SA, Ingesting poppy seed tea x10 years for treatment of his anxiety and depression [facility] for depression and anxiety management H/O total proctocolectomy s/p RLQ ileostomy: Surgery 2007 Noticed a bleeding 'bump' on his stoma; WOCN to evaluate No functional issues; dressing changed 01/02/23 Disposition: PCP: Dr. Tj Linder Code Status: Full Code VTE Prophyalxis: Lovenox SQ Dispoplan to transfer to go to [facility] when medically stable. Possible DC in a.m. depending on clinical course. Time spent evaluating patient, direct bedside care, chart review, placing orders, interpretation of diagnostic studies, discussion with consultants, patient, and family members, as well as other required patient management activities is 60 minutes. Please note the above document was generated using voice recognition software. It may contain grammatical, syntax or spelling errors. Any formal questions or concerns about the content, text or information contained within the body of this dictation should be directly addressed to the provider for clarification Admission and Anticipated Discharge Date Admission Date: January 03, 2023 Subjective Patient seen and examined at bedside. He reports feeling slightly better compared to yesterday. Reports fatigue and feeling anxious. Reports Valium is helping. Review of Systems Review of Systems: All systems reviewed & are unremarkable except as noted in Subjective Physical Exam Physical Exam: Constitutional: WD/WN, vitals as above, NAD, sitting up in bed, pleasant, conversing easily Respiratory: normal respiratory effort, lungs clear to auscultation, no wheeze, rales, rhonchi. Normal insp/exp effort, no accessory muscle use Cardiovascular: RRR, no murmur, no edema Vessels: no JVD or carotid bruit Chest: normal inspection of chest Abdomen: Soft, ileostomy in place Musculoskeletal: no cyanosis or clubbing, extremities motor strength 5/5 Skin: no rashes, warm and dry normal turgor Neurologic: PERRL, EOMI, accommodation nl, no face palsy, no dysarthria CN's II- XI intact bilaterally and moves all extremities Psychiatric: A+Ox3, euthymic affect Results & Data Results & Data Vital Signs (Past 12 Hours) Vital Signs Temp Pulse Resp BP BP Pulse Ox O2 Del Method 01/05/23 11:44 36.4 C L 70 20 163/121 H 100 Room Air 01/05/23 08:08 36.7 C 88 20 155/90 H 96 Room Air 01/05/23 02:17 36.9 C 85 16 149/95 H 96 Room Air Laboratory Results Laboratory Results WBC 12.25 K/ul (4.8-10.8) H 01/05/23 08:21 RBC 4.91 M/uL (4.70-6.10) 01/05/23 08:21 Hgb 17.1 g/dl (14.0-18.0) 01/05/23 08:21 Hct 47.5 % (42.0-52.0) 01/05/23 08:21 MCV 96.7 fL (80.0-100.0) 01/05/23 08:21 MCH 34.8 pg (25.0-34.0) H 01/05/23 08:21 MCHC 36.0 g/dL (32.0-36.0) 01/05/23 08: RDW Std Deviation 41.8 fL (36.4-46.3) 01/05/23 08: RDW Coeff of Denise 11.7 % (11.5-14.5) 01/05/23 08:21 Plt Count 254 K/uL (130-400) 01/05/23 08:21 MPV 9.0 fL (9.4-12.4) L 01/05/23 08:21 Immature Gran % (Auto) 0.7 % 01/05/23 08:21 Neut % (Auto) 88.7 % 01/05/23 08:21 Lymph % (Auto) 4.6 % 01/05/23 08:21 [place] % (Auto) 5.9 % 01/05/23 08:21 Eos % (Auto) 0.0 % 01/05/23 08: Baso % (Auto) 0.1 % 01/05/23 08: Neut # (Auto) 10.88 K/uL (1.40-6.50) H 01/05/23 08:21 Lymph # (Auto) 0.56 K/uL (1.2-3.4) L 01/05/23 08:21 [place] # (Auto) 0.72 K/uL (0.11-0.59) H 01/05/23 08:21 Eos # (Auto) 0.00 K/uL (0-0.50) 01/05/23 08:21 Baso # (Auto) 0.01 K/uL (0-0.2) 01/05/23 08:21 Immature Gran # (Auto) 0.08 K/uL (0.01-0.20) 01/05/23 08:21 Sodium 135 mmol/L (136-145) L 01/05/23 08:21 Potassium 3.3 mmol/L (3.5-5.1) L 01/05/23 08:21 Chloride 105 mmol/L (98-107) 01/05/23 08:21 Carbon Dioxide 23 mmol/L (21-32) 01/05/23 08:21 Anion Gap 7 (3-11) 01/05/23 08:21 BUN 14 mg/dl (6-23) 01/05/23 08:21 Creatinine 1.25 mg/dl (0.6-1.4) 01/05/23 08:21 Est Cr Clr Drug Dosing 73.0 ml/min 01/05/23 08:21 Est GFR ( Amer) 77.3 ml/min 01/05/23 08:21 Est GFR (Non-Af Amer) 66.7 ml/min 01/05/23 08:21 BUN/Creatinine Ratio 11.2 (10-20) 01/05/23 08:21 Glucose 146 mg/dl (70-99(Fasting)) H 01/05/23 08:21 Calcium 9.1 mg/dl (8.6-10.3) 01/05/23 08:21 Total Bilirubin 0.7 mg/dl (0.2-1.0) 01/03/23 11:24 AST 59 U/L (13-39) H 01/03/23 11:24 ALT 55 U/L (7-52) H 01/03/23 11:24 Alkaline Phosphatase 75 U/L (34-104) 01/03/23 11:24 Total Protein 7.4 gm/dl (6.0-8.3) 01/03/23 11:24 Albumin 4.2 gm/dl (3.4-5.0) 01/03/23 11:24 Globulin 3.2 gm/dl (2.5-4.0) 01/03/23 11:24 Albumin/Globulin Ratio 1.3 (0.9-2) 01/03/23 11:24 Vitamin B12 468 pg/ml (180-914) 01/03/23 11:24 TSH 6.751 uIu/ml (0.300-4.500) H 01/03/23 11:24 Free T4 0.86 ng/dl (0.61-1.60) 01/03/23 11:24 Urine Color Yellow 01/03/23 11:00 Urine Appearance Clear (Clear) 01/03/23 11:00 Urine pH 6.5 (4.5-7.5) 01/03/23 11:00 Ur Specific [place] 1.017 (1.000-1.030) 01/03/23 11:00 Urine Protein Negative (Negative) 01/03/23 11:00 Urine Glucose (UA) Negative (Negative) 01/03/23 11:00 Urine Ketones Negative (Negative) 01/03/23 11:00 Urine Blood Negative (Negative) 01/03/23 11:00 Urine Nitrite Negative (Negative) 01/03/23 11:00 Urine Bilirubin Negative (Negative) 01/03/23 11:00 Urine Urobilinogen Negative (Negative) 01/03/23 11:00 Ur Leukocyte Esterase Negative (Negative) 01/03/23 11:00 Salicylates < 3.0 mg/dl (3.0-30) L 01/03/23 11:24 Urine Opiates Screen Pos (Neg) H 01/03/23 11:00 U Codeine Confrm GC/MS 3420 ng/mL (<50) H 01/03/23 11:00 Ur Morphine (GC/MS) >05881 ng/mL (<50) H 01/03/23 11:00 Ur Hydrocodone (GC/MS) NEGATIVE ng/mL (<50) 01/03/23 11:00 Ur Norhydrocodone NEGATIVE ng/mL (<50) 01/03/23 11:00 Ur Noroxycodone NEGATIVE ng/mL (<50) 01/03/23 11:00 Urine Oxycodone (GC/MS) 71 ng/mL (<50) H 01/03/23 11:00 U Oxymorphone GC/MS NEGATIVE ng/mL (<50) 01/03/23 11:00 Ur Methadone, Qual Neg (Neg) 01/03/23 11:00 Ur Hydromorphone (GC/MS) NEGATIVE ng/mL (<50) 01/03/23 11:00 Acetaminophen < 3 ug/ml (10-30) L 01/03/23 11:24 Urine Barbiturates Neg (Neg) 01/03/23 11:00 Ur Phencyclidine (PCP) Neg (Neg) 01/03/23 11:00 U Amphetamin/Meth Scrn Neg (Neg) 01/03/23 11:00 MDMA (Ecstasy) Screen Neg (Neg) 01/03/23 11:00 U OH-Alprazolam Confrm NEGATIVE ng/mL (<25) 01/03/23 11:00 U Benzodiazepines Scrn Pos (Neg) H 01/03/23 11:00 7-Amino Clonazepam NEGATIVE ng/mL (<25) 01/03/23 11:00 Ur Nordiazepam Confirm 96 ng/mL (<50) H 01/03/23 11:00 U OH-ethylflurazepam NEGATIVE ng/mL (<50) 01/03/23 11:00 U Lorazepam Cnf GC/MS NEGATIVE ng/mL (<50) 01/03/23 11:00 U Oxazepam Confm GC/MS 761 ng/mL (<50) H 01/03/23 11:00 Ur Temazepam Confirm 477 ng/mL (<50) H 01/03/23 11:00 U OH-Triazolam Confirm NEGATIVE ng/mL (<50) 01/03/23 11:00 U OH-Midazolam Confirm NEGATIVE ng/mL (<50) 01/03/23 11:00 Ur Cocaine Metabolite Neg (Neg) 01/03/23 11:00 U Marijuana (THC) Screen Pos (Neg) H 01/03/23 11:00 U Marijuana THC Carboxy 2931 ng/mL (<5) H 01/03/23 11:00 Drug Screen Comment SEE NOTE 01/03/23 11:00 Ethyl Alcohol mg/dL < 10.0 mg/dl (<10.0) 01/03/23 11:24 SARS-CoV-2, RNA, NAAT NEGATIVE (NEGATIVE) 01/03/23 11:[address] 01/03/23 13:28 CT angio neck with con, CT angio head w con, CT head/brain wo con CLINICAL HISTORY: garbled speech, hanson TECHNIQUE: Contiguous axial CT images of the head were acquired from the base of the skull to the vertex without intravenous contrast administration. CT angiography of the head and neck was performed following intravenous administration of iodinated contrast. Coronal and sagittal MIPS were obtained from the axial data set and were submitted for review. Automated dose lowering techniques and/or adjustment according to patient size were utilized for this examination. All measurements were calculated based on NASCET criteria. CT DOSE: 885.44 mGy.cm Comparison: None available at the time of this dictation. FINDINGS: CT head: There is no acute intracranial hemorrhage or evidence of acute territorial infarction. No shift of the midline structures, mass effect, or extra-axial abnormalities are shown. Lungs and soft tissues are unremarkable. CTA Neck: A 3 vessel aortic arch is shown. There is no significant atherosclerotic plaque in the aortic arch or the origins of the innominate, left common carotid, and left subclavian arteries. The common carotid, external carotid, cervical segments of the internal carotid arteries, and the cervical segments of the vertebral arteries are patent without hemodynamically significant stenosis. The left vertebral artery is dominant. CTA Head: The anterior and posterior cerebral circulations are patent. No hemodynamically significant stenosis, aneurysm, dissection, or arteriovenous malformation is shown. IMPRESSION: 1. No acute intracranial hemorrhage, evidence of acute territorial infarction, or other acute intracranial disease process. 2. No occlusion, hemodynamically significant stenosis, or dissection in the major cervical arteries. 3. No occlusion, hemodynamically significant stenosis, aneurysm, dissection, or arteriovenous malformation in the major intracranial arteries. Assessment of stenosis of the internal carotid arteries is based on NASCET criteria. ACT 112: Negative or not required by law. Electronically signed by: Jozef Carrasco M.D. 01/03/2023 3:29 PM Head CTA 01/03/23 13:28 CT angio neck with con, CT angio head w con, CT head/brain wo con CLINICAL HISTORY: garbled speech, hanson TECHNIQUE: Contiguous axial CT images of the head were acquired from the base of the skull to the vertex without intravenous contrast administration. CT angiography of the head and neck was performed following intravenous administration of iodinated contrast. Coronal and sagittal MIPS were obtained from the axial data set and were submitted for review. Automated dose lowering techniques and/or adjustment according to patient size were utilized for this examination. All measurements were calculated based on NASCET criteria. CT DOSE: 885.44 mGy.cm Comparison: None available at the time of this dictation. FINDINGS: CT head: There is no acute intracranial hemorrhage or evidence of acute territorial infarction. No shift of the midline structures, mass effect, or extra-axial abnormalities are shown. Lungs and soft tissues are unremarkable. CTA Neck: A 3 vessel aortic arch is shown. There is no significant atherosclerotic plaque in the aortic arch or the origins of the innominate, left common carotid, and left subclavian arteries. The common carotid, external carotid, cervical segments of the internal carotid arteries, and the cervical segments of the vertebral arteries are patent without hemodynamically significant stenosis. The left vertebral artery is dominant. CTA Head: The anterior and posterior cerebral circulations are patent. No hemodynamically significant stenosis, aneurysm, dissection, or arteriovenous malformation is shown. IMPRESSION: 1. No acute intracranial hemorrhage, evidence of acute territorial infarction, or other acute intracranial disease process. 2. No occlusion, hemodynamically significant stenosis, or dissection in the major cervical arteries. 3. No occlusion, hemodynamically significant stenosis, aneurysm, dissection, or arteriovenous malformation in the major intracranial arteries. Assessment of stenosis of the internal carotid arteries is based on NASCET criteria. ACT 112: Negative or not required by law. Electronically signed by: Jozef Carrasco M.D. 01/03/2023 3:29 PM Neck CTA 01/03/23 13:28 CT angio neck with con, CT angio head w con, CT head/brain wo con CLINICAL HISTORY: garbled speech, hanson TECHNIQUE: Contiguous axial CT images of the head were acquired from the base of the skull to the vertex without intravenous contrast administration. CT angiography of the head and neck was performed following intravenous administration of iodinated contrast. Coronal and sagittal MIPS were obtained from the axial data set and were submitted for review. Automated dose lowering techniques and/or adjustment according to patient size were utilized for this examination. All measurements were calculated based on NASCET criteria. CT DOSE: 885.44 mGy.cm Comparison: None available at the time of this dictation. FINDINGS: CT head: There is no acute intracranial hemorrhage or evidence of acute territorial infarction. No shift of the midline structures, mass effect, or extra-axial abnormalities are shown. Lungs and soft tissues are unremarkable. CTA Neck: A 3 vessel aortic arch is shown. There is no significant atherosclerotic plaque in the aortic arch or the origins of the innominate, left common carotid, and left subclavian arteries. The common carotid, external carotid, cervical segments of the internal carotid arteries, and the cervical segments of the vertebral arteries are patent without hemodynamically signif icant stenosis. The left vertebral artery is dominant. CTA Head: The anterior and posterior cerebral circulations are patent. No hemodynamically significant stenosis, aneurysm, dissection, or arteriovenous malformation is shown.
[2023-01-05] MEDS: LORazepam 2 MG/1 ML VIAL IV PRN (21:54)
[2023-01-06] MEDS: MELATONIN 3 MG TAB PO PRN ×2 (01:21→23:28)
[2023-01-06] MEDS: PROMETHAZINE HCL 12.5 MG in SODIUM CHLORIDE 0.9% 50 ML IV PRN ×3 (01:22→23:23)
[2023-01-06] MEDS: LORazepam 2 MG/1 ML VIAL IV PRN ×3 (03:18→17:19)
[2023-01-06] MEDS: GABAPENTIN 600 MG TAB PO SCH (04:13)
[2023-01-06] MEDS: D5W AND LACTATED RINGERS 1,000 ML IV SCH ×2 (04:14→17:43)
[2023-01-06 06:49] LABS: Basophils # (auto) 0.02 K/uL (0-0.2); Basophils % (auto) 0.2 %; Hematocrit (blood only) 46.6 % (42.0-52.0); Hemoglobin 16.9 g/dl (14.0-18.0); Immature Granulocytes # (auto) 0.06 K/uL (0.01-0.20); Immature Granulocytes % (auto) 0.5 %; Lymphocytes # (auto) 1.01 K/uL (1.2-3.4); Mean Corpuscular Hemoglobin 34.7 pg (25.0-34.0); Mean Corpuscular Hgb Conc 36.3 g/dL (32.0-36.0); Mean Corpuscular Volume 95.7 fL (80.0-100.0); Mean Platelet Volume 9.5 fL (9.4-12.4); Monocytes # (auto) 1.18 K/uL (0.11-0.59); Monocytes % (auto) 10.5 %; Neutrophils # (auto) 8.96 K/uL (1.40-6.50); Neutrophils % (auto) 79.8 %; Platelet Count 271 K/uL (130-400); RDW Coefficient of Variation 11.7 % (11.5-14.5); Red Blood Count 4.87 M/uL (4.70-6.10); White Blood Count 11.23 K/ul (4.8-10.8)
[2023-01-06] MEDS ORDERED: hydrALAZINE HCL 20 MG/ML VIAL IV PRN (07:32)
[2023-01-06 07:38] LABS: BUN Creatinine Ratio 7.9 (10-20); Calcium 9.2 mg/dl (8.6-10.3); Creatinine Clr Calc Pharmacy 72.4 ml/min; Est GFR (African American) 76.6 ml/min; Est GFR (Non-African American) 66.1 ml/min; Potassium 3.5 mmol/L (3.5-5.1)
[2023-01-06] MEDS: FOLIC ACID 1 MG TAB PO SCH (09:28)
[2023-01-06] MEDS: lisinopril 10 MG TAB PO SCH (09:28)
[2023-01-06] MEDS: THIAMINE HCL 100 MG TAB PO SCH (09:28)
[2023-01-06] MEDS: ENOXAPARIN INJ 40 MG/0.4 ML SYR SQ SCH (09:28)
[2023-01-06] MEDS: diazePAM 5 MG TABLET PO SCH ×2 (09:34→20:02)
[2023-01-06] MEDS ORDERED: diazePAM 5 MG TABLET PO ONE (09:45)
--- NOTE | 2023-01-06 12:05 | Hospitalist Progress Note ---
Date of Service January 06, 2023 Assessment & Plan (1) Opioid use with withdrawal: (2) H/O ileostomy: (3) Depression with anxiety: Plan 52 year old male presented to the ED with request to detox from opioids, with HANSON and HTN urgency. Patient has plans to start withdrawal treatment at [facility] in [place] starting on . BP 176/126. Mild KEYANNA creatinine 1.42, Baseline creatinine 1.20 from 2019 outpatient records. TSH 6.751. UDS (+) for opiates, benzos, marijuana. Reports taking Valium prescribed from dental procedure and drinking 4-8 oz of vodka with his tea intermittently. Abdominal pelvis CT negative for SBO; bilateral inguinal hernias and status post total proctoco lectomy with right lower quadrant ileostomy present. CT head negative for acute intracranial process. Lives alone, no children and has increased anxiety and depression. Outpatient records from psychiatry date back to 2019 through telemedicine at [facility] [place] [facility]. He was seeing somebody consistently Dr. Mansfield more than 20 years ago. 1 mg Ativan given in ED; Catapress 0.2 mg x1 in ED with good response, IV fluids, Zofran PRN, AWSS scale Opioid use with withdrawal: Ingesting poppy seed tea x10 years for treatment of his anxiety and depression UDS: (+) opioids, (+) benzo, (+) marijuana Supportive care with clonidine as needed, Ativan, scheduled Valium; tapering., antiemetic. Also on D5 LR for hydration. HTN urgency: Likely related with withdrawal. Started on lisinopril. Also on as needed clonidine. Alcohol use disorder: Gabapentin taper AWSS scale with fall and seizure precaution CKD Creatinine at baseline. Monitor Depression and Anxiety: Outpatient records from psychiatry date back to 2019 through telemedicine at [facility]. He had lived in [place] for the last 10 years. 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 He has been on Effexor in the past and has also tried Prozac, Lexapro and Paxil without positive effect. Was started on Zoloft in 2019 and Hydroxyzine for insomnia. No SI/SA, Ingesting poppy seed tea x10 years for treatment of his anxiety and depression [facility] for depression and anxiety management H/O total proctocolectomy s/p RLQ ileostomy: Surgery 2007 Disposition: PCP: Dr. Tj Linder Code Status: Full Code VTE Prophyalxis: Lovenox SQ Dispoplan to transfer to go to [facility] when medically stable. Patient currently has opioid withdrawal requiring inpatient care. Please note the above document was generated using voice recognition software. It may contain grammatical, syntax or spelling errors. Any formal questions or concerns about the content, text or information contained within the body of this dictation should be directly addressed to the provider for clarification Admission and Anticipated Discharge Date Admission Date: January 03, 2023 Subjective Since seen and examined at bedside. He reports feeling tired and lethargic. Review of Systems Review of Systems: All systems reviewed & are unremarkable except as noted in Subjective Physical Exam Physical Exam: Constitutional: WD/WN, vitals as above, NAD, sitting up in bed, pleasant, conversing easily Respiratory: normal respiratory effort, lungs clear to auscultation, no wheeze, rales, rhonchi. Normal insp/exp effort, no accessory muscle use Cardiovascular: RRR, no murmur, no edema Vessels: no JVD or carotid bruit Chest: normal inspection of chest Abdomen: Soft, ileostomy in place Musculoskeletal: no cyanosis or clubbing, extremities motor strength 5/5 Skin: no rashes, warm and dry normal turgor Neurologic: PERRL, EOMI, accommodation nl, no face palsy, no dysarthria CN's II- XI intact bilaterally and moves all extremities Psychiatric: A+Ox3, euthymic affect Results & Data Results & Data Vital Signs (Past 12 Hours) Vital Signs Temp Pulse Pulse Resp BP BP Pulse Ox 01/06/23 11:12 37 C 57 L 18 156/101 H 97 01/06/23 07:01 37.1 C 79 18 161/99 H 97 01/06/23 07:24 58 L 01/06/23 03:05 36.9 C 61 20 167/114 H 98 O2 Del Method 01/06/23 11:12 Room Air 01/06/23 07:01 Room Air 01/06/23 07:24 01/06/23 03:05 Room Air Laboratory Results Laboratory Results WBC 11.23 K/ul (4.8-10.8) H 01/06/23 06:18 RBC 4.87 M/uL (4.70-6.10) 01/06/23 06:18 Hgb 16.9 g/dl (14.0-18.0) 01/06/23 06:18 Hct 46.6 % (42.0-52.0) 01/06/23 06:18 MCV 95.7 fL (80.0-100.0) 01/06/23 06:18 MCH 34.7 pg (25.0-34.0) H 01/06/23 06:18 MCHC 36.3 g/dL (32.0-36.0) H 01/06/23 06:18 RDW Std Deviation 41.0 fL (36.4-46.3) 01/06/23 06:18 RDW Coeff of Denise 11.7 % (11.5-14.5) 01/06/23 06:18 Plt Count 271 K/uL (130-400) 01/06/23 06:18 MPV 9.5 fL (9.4-12.4) 01/06/23 06:18 Immature Gran % (Auto) 0.5 % 01/06/23 06:18 Neut % (Auto) 79.8 % 01/06/23 06:18 Lymph % (Auto) 9.0 % 01/06/23 06:18 [place] % (Auto) 10.5 % 01/06/23 06:18 Eos % (Auto) 0.0 % 01/06/23 06:18 Baso % (Auto) 0.2 % 01/06/23 06:18 Neut # (Auto) 8.96 K/uL (1.40-6.50) H 01/06/23 06:18 Lymph # (Auto) 1.01 K/uL (1.2-3.4) L 01/06/23 06:18 [place] # (Auto) 1.18 K/uL (0.11-0.59) H 01/06/23 06:18 Eos # (Auto) 0.00 K/uL (0-0.50) 01/06/23 06:18 Baso # (Auto) 0.02 K/uL (0-0.2) 01/06/23 06:18 Immature Gran # (Auto) 0.06 K/uL (0.01-0.20) 01/06/23 06:18 Sodium 136 mmol/L (136-145) 01/06/23 06:18 Potassium 3.5 mmol/L (3.5-5.1) 01/06/23 06:18 Chloride 107 mmol/L (98-107) 01/06/23 06:18 Carbon Dioxide 23 mmol/L (21-32) 01/06/23 06:18 Anion Gap 6 (3-11) 01/06/23 06:18 BUN 10 mg/dl (6-23) 01/06/23 06:18 Creatinine 1.26 mg/dl (0.6-1.4) 01/06/23 06:18 Est Cr Clr Drug Dosing 72.4 ml/min 01/06/23 06:18 Est GFR ( Amer) 76.6 ml/min 01/06/23 06:18 Est GFR (Non-Af Amer) 66.1 ml/min 01/06/23 06:18 BUN/Creatinine Ratio 7.9 (10-20) L 01/06/23 06:18 Glucose 117 mg/dl (70-99(Fasting)) H 01/06/23 06:18 Calcium 9.2 mg/dl (8.6-10.3) 01/06/23 06:18 Total Bilirubin 0.7 mg/dl (0.2-1.0) 01/03/23 11:24 AST 59 U/L (13-39) H 01/03/23 11:24 ALT 55 U/L (7-52) H 01/03/23 11:24 Alkaline Phosphatase 75 U/L (34-104) 01/03/23 11:24 Total Protein 7.4 gm/dl (6.0-8.3) 01/03/23 11:24 Albumin 4.2 gm/dl (3.4-5.0) 01/03/23 11:24 Globulin 3.2 gm/dl (2.5-4.0) 01/03/23 11:24 Albumin/Globulin Ratio 1.3 (0.9-2) 01/03/23 11:24 Vitamin B12 468 pg/ml (180-914) 01/03/23 11:24 TSH 6.751 uIu/ml (0.300-4.500) H 01/03/23 11:24 Free T4 0.86 ng/dl (0.61-1.60) 01/03/23 11:24 Urine Color Yellow 01/03/23 11:00 Urine Appearance Clear (Clear) 01/03/23 11:00 Urine pH 6.5 (4.5-7.5) 01/03/23 11:00 Ur Specific [place] 1.017 (1.000-1.030) 01/03/23 11:00 Urine Protein Negative (Negative) 01/03/23 11:00 Urine Glucose (UA) Negative (Negative) 01/03/23 11:00 Urine Ketones Negative (Negative) 01/03/23 11:00 Urine Blood Negative (Negative) 01/03/23 11:00 Urine Nitrite Negative (Negative) 01/03/23 11:00 Urine Bilirubin Negative (Negative) 01/03/23 11:00 Urine Urobilinogen Negative (Negative) 01/03/23 11:00 Ur Leukocyte Esterase Negative (Negative) 01/03/23 11:00 Salicylates < 3.0 mg/dl (3.0-30) L 01/03/23 11:24 Urine Opiates Screen Pos (Neg) H 01/03/23 11:00 U Codeine Confrm GC/MS 3420 ng/mL (<50) H 01/03/23 11:00 Ur Morphine (GC/MS) >82065 ng/mL (<50) H 01/03/23 11:00 Ur Hydrocodone (GC/MS) NEGATIVE ng/mL (<50) 01/03/23 11:00 Ur Norhydrocodone NEGATIVE ng/mL (<50) 01/03/23 11:00 Ur Noroxycodone NEGATIVE ng/mL (<50) 01/03/23 11:00 Urine Oxycodone (GC/MS) 71 ng/mL (<50) H 01/03/23 11:00 U Oxymorphone GC/MS NEGATIVE ng/mL (<50) 01/03/23 11:00 Ur Methadone, Qual Neg (Neg) 01/03/23 11:00 Ur Hydromorphone (GC/MS) NEGATIVE ng/mL (<50) 01/03/23 11:00 Acetaminophen < 3 ug/ml (10-30) L 01/03/23 11:24 Urine Barbiturates Neg (Neg) 01/03/23 11:00 Ur Phencyclidine (PCP) Neg (Neg) 01/03/23 11:00 U Amphetamin/Meth Scrn Neg (Neg) 01/03/23 11:00 MDMA (Ecstasy) Screen Neg (Neg) 01/03/23 11:00 U OH-Alprazolam Confrm NEGATIVE ng/mL (<25) 01/03/23 11:00 U Benzodiazepines Scrn Pos (Neg) H 01/03/23 11:00 7-Amino Clonazepam NEGATIVE ng/mL (<25) 01/03/23 11:00 Ur Nordiazepam Confirm 96 ng/mL (<50) H 01/03/23 11:00 U OH-ethylflurazepam NEGATIVE ng/mL (<50) 01/03/23 11:00 U Lorazepam Cnf GC/MS NEGATIVE ng/mL (<50) 01/03/23 11:00 U Oxazepam Confm GC/MS 761 ng/mL (<50) H 01/03/23 11:00 Ur Temazepam Confirm 477 ng/mL (<50) H 01/03/23 11:00 U OH-Triazolam Confirm NEGATIVE ng/mL (<50) 01/03/23 11:00 U OH-Midazolam Confirm NEGATIVE ng/mL (<50) 01/03/23 11:00 Ur Cocaine Metabolite Neg (Neg) 01/03/23 11:00 U Marijuana (THC) Screen Pos (Neg) H 01/03/23 11:00 U Marijuana THC Carboxy 2931 ng/mL (<5) H 01/03/23 11:00 Drug Screen Comment SEE NOTE 01/03/23 11:00 Ethyl Alcohol mg/dL < 10.0 mg/dl (<10.0) 01/03/23 11:24 SARS-CoV-2, RNA, NAAT NEGATIVE (NEGATIVE) 01/03/23 11:[address] 01/03/23 13:28 CT angio neck with con, CT angio head w con, CT head/brain wo con CLINICAL HISTORY: garbled speech, hanson TECHNIQUE: Contiguous axial CT images of the head were acquired from the base of the skull to the vertex without intravenous contrast administration. CT angiography of the head and neck was performed following intravenous administration of iodinated contrast. Coronal and sagittal MIPS were obtained from the axial data set and were submitted for review. Automated dose lowering techniques and/or adjustment according to patient size were utilized for this examination. All measurements were calculated based on NASCET criteria. CT DOSE: 885.44 mGy.cm Comparison: None available at the time of this dictation. FINDINGS: CT head: There is no acute intracranial hemorrhage or evidence of acute territorial infarction. No shift of the midline structures, mass effect, or extra-axial abnormalities are shown. Lungs and soft tissues are unremarkable. CTA Neck: A 3 vessel aortic arch is shown. There is no significant atherosclerotic plaque in the aortic arch or the origins of the innominate, left common carotid, and left subclavian arteries. The common carotid, external carotid, cervical segments of the internal carotid arteries, and the cervical segments of the vertebral arteries are patent without hemodynamically significant stenosis. The left vertebral artery is dominant. CTA Head: The anterior and posterior cerebral circulations are patent. No hemodynamically significant stenosis, aneurysm, dissection, or arteriovenous malformation is shown. IMPRESSION: 1. No acute intracranial hemorrhage, evidence of acute territorial infarction, or other acute intracranial disease process. 2. No occlusion, hemodynamically significant stenosis, or dissection in the major cervical arteries. 3. No occlusion, hemodynamically significant stenosis, aneurysm, dissection, or arteriovenous malformation in the major intracranial arteries. Assessment of stenosis of the internal carotid arteries is based on NASCET criteria. ACT 112: Negative or not required by law. Electronically signed by: Jozef Carrasco M.D. 01/03/2023 3:29 PM Head CTA 01/03/23 13:28 CT angio neck with con, CT angio head w con, CT head/brain wo con CLINICAL HISTORY: garbled speech, hanson TECHNIQUE: Contiguous axial CT images of the head were acquired from the base of the skull to the vertex without intravenous contrast administration. CT angiography of the head and neck was performed following intravenous administration of iodinated contrast. Coronal and sagittal MIPS were obtained from the axial data set and were submitted for review. Automated dose lowering techniques and/or adjustment according to patient size were utilized for this examination. All measurements were calculated based on NASCET criteria. CT DOSE: 885.44 mGy.cm Comparison: None available at the time of this dictation. FINDINGS: CT head: There is no acute intracranial hemorrhage or evidence of acute territorial infarction. No shift of the midline structures, mass effect, or extra-axial abnormalities are shown. Lungs and soft tissues are unremarkable. CTA Neck: A 3 vessel aortic arch is shown. There is no significant atherosclerotic plaque in the aortic arch or the origins of the innominate, left common carotid, and left subclavian arteries. The common carotid, external carotid, cervical segments of the internal carotid arteries, and the cervical segments of the vertebral arteries are patent without hemodynamically significant stenosis. The left vertebral artery is dominant. CTA Head: The anterior and posterior cerebral circulations are patent. No hemodynamically significant stenosis, aneurysm, dissection, or arteriovenous malformation is shown. IMPRESSION: 1. No acute intracranial hemorrhage, evidence of acute territorial infarction, or other acute intracranial disease process. 2. No occlusion, hemodynamically significant stenosis, or dissection in the major cervical arteries. 3. No occlusion, hemodynamically significant stenosis, aneurysm, dissection, or arteriovenous malformation in the major intracranial arteries. Assessment of stenosis of the internal carotid arteries is based on NASCET criteria. ACT 112: Negative or not required by law. Electronically signed by: Jozef Carrasco M.D. 01/03/2023 3:29 PM Neck CTA 01/03/23 13:28 CT angio neck with con, CT angio head w con, CT head/brain wo con CLINICAL HISTORY: garbled speech, hanson TECHNIQUE: Contiguous axial CT images of the head were acquired from the base of the skull to the vertex without intravenous contrast administration. CT angiography of the head and neck was performed following intravenous administration of iodinated contrast. Coronal and sagittal MIPS were obtained from the axial data set and were submitted for review. Automated dose lowering techniques and/or adjustment according to patient size were utilized for this examination. All measurements were calculated based on NASCET criteria. CT DOSE: 885.44 mGy.cm Comparison: None available at the time of this dictation. FINDINGS: CT head: There is no acute intracranial hemorrhage or evidence of acute territorial infarction. No shift of the midline structures, mass effect, or extra-axial abnormalities are shown. Lungs and soft tissues are unremarkable. CTA Neck: A 3 vessel aortic arch is shown. There is no significant atherosclerotic plaque in the aortic arch or the origins of the innominate, left common carotid, and left subclavian arteries. The common carotid, external carotid, cervical segments of the internal carotid arteries, and the cervical segments of the vertebral arteries are patent without hemodynamically significant stenosis. The left vertebral artery is dominant. CTA Head: The anterior and posterior cerebral circulations are patent. No hemodynamically significant stenosis, aneurysm, dissection, or arteriovenous malformation is shown.
[2023-01-06] MEDS: ACETAMINOPHEN 1,000 MG/100 ML VIAL IV PRN ×2 (12:51→21:09)
[2023-01-06] MEDS ORDERED: CYCLOBENZAPRINE HCL 10 MG TAB PO STA (19:31)
[2023-01-07] MEDS ORDERED: hydrOXYzine HCl 25 MG TAB PO STA (01:13)
[2023-01-07] MEDS ORDERED: GABAPENTIN 600 MG TAB PO SCH (04:00)
[2023-01-07] MEDS: ACETAMINOPHEN 1,000 MG/100 ML VIAL IV PRN ×2 (05:06→16:25)
[2023-01-07] MEDS ORDERED: CYCLOBENZAPRINE HCL 10 MG TAB PO STA (07:48)
[2023-01-07] MEDS: D5W AND LACTATED RINGERS 1,000 ML IV SCH ×2 (08:18→20:38)
[2023-01-07] MEDS: diazePAM 5 MG TABLET PO SCH ×3 (08:18→20:38)
[2023-01-07] MEDS: FOLIC ACID 1 MG TAB PO SCH (08:19)
[2023-01-07] MEDS: ENOXAPARIN INJ 40 MG/0.4 ML SYR SQ SCH (08:19)
[2023-01-07] MEDS: lisinopril 10 MG TAB PO SCH (08:19)
[2023-01-07] MEDS: THIAMINE HCL 100 MG TAB PO SCH (08:19)
[2023-01-07 08:39] LABS: Basophils # (auto) 0.03 K/uL (0-0.2); Basophils % (auto) 0.3 %; Hematocrit (blood only) 44.7 % (42.0-52.0); Hemoglobin 16.1 g/dl (14.0-18.0); Immature Granulocytes # (auto) 0.04 K/uL (0.01-0.20); Immature Granulocytes % (auto) 0.4 %; Lymphocytes # (auto) 1.21 K/uL (1.2-3.4); Lymphocytes % (auto) 13.3 %; Mean Corpuscular Hemoglobin 34.5 pg (25.0-34.0); Mean Corpuscular Volume 95.7 fL (80.0-100.0); Mean Platelet Volume 9.3 fL (9.4-12.4); Monocytes % (auto) 9.9 %; Neutrophils # (auto) 6.95 K/uL (1.40-6.50); Neutrophils % (auto) 76.1 %; Platelet Count 246 K/uL (130-400); RDW Coefficient of Variation 11.7 % (11.5-14.5); RDW Standard Deviation 40.8 fL (36.4-46.3); Red Blood Count 4.67 M/uL (4.70-6.10); White Blood Count 9.13 K/ul (4.8-10.8)
[2023-01-07 08:59] LABS: BUN Creatinine Ratio 6.9 (10-20); Creatinine Clr Calc Pharmacy 78.7 ml/min; Est GFR (African American) 84.6 ml/min; Potassium 3.2 mmol/L (3.5-5.1)
[2023-01-07] MEDS ORDERED: POTASSIUM CHLORIDE CRTAB 20 MEQ TABCR PO STA (09:16)
[2023-01-07] MEDS: MAGNESIUM SULFATE / D5W 1 GM/100 ML BAG IV SCH ×2 (10:35→12:40)
--- NOTE | 2023-01-07 12:37 | Hospitalist Progress Note ---
Date of Service January 07, 2023 Assessment & Plan (1) Opioid use with withdrawal: (2) H/O ileostomy: (3) Depression with anxiety: Plan 52 year old male presented to the ED with request to detox from opioids, with HANSON and HTN urgency. Patient has plans to start withdrawal treatment at [facility] in [place] starting on . BP 176/126. Mild KEYANNA creatinine 1.42, Baseline creatinine 1.20 from 2019 outpatient records. TSH 6.751. UDS (+) for opiates, benzos, marijuana. Reports taking Valium prescribed from dental procedure and drinking 4-8 oz of vodka with his tea intermittently. Abdominal pelvis CT negative for SBO; bilateral inguinal hernias and status post total proctoco lectomy with right lower quadrant ileostomy present. CT head negative for acute intracranial process. Lives alone, no children and has increased anxiety and depression. Outpatient records from psychiatry date back to 2019 through [place]medicine [place] [facility] He was seeing somebody consistently Dr. Mansfield more than 20 years ago. 1 mg Ativan given in ED; Catapress 0.2 mg x1 in ED with good response, IV fluids, Zofran PRN, AWSS scale Opioid use with withdrawal: Ingesting poppy seed tea x10 years for treatment of his anxiety and depression UDS: (+) opioids, (+) benzo, (+) marijuana Supportive care with clonidine as needed, Ativan, scheduled Valium; tapering., antiemetic. Also on D5 LR for hydration. HTN urgency: Likely related with withdrawal. Started on lisinopril. Also on as needed clonidine. Alcohol use disorder: Gabapentin taper AWSS scale with fall and seizure precaution CKD Creatinine at baseline. Monitor Depression and Anxiety: Outpatient records from psychiatry date back to 2019 through [place]medicine [place] [facility] He had lived in [place] for the last 10 years. 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 He has been on Effexor in the past and has also tried Prozac, Lexapro and Paxil without positive effect. Was started on Zoloft in 2019 and Hydroxyzine for insomnia. No SI/SA, Ingesting poppy seed tea x10 years for treatment of his anxiety and depression [facility] for depression and anxiety management H/O total proctocolectomy s/p RLQ ileostomy: Surgery 2007 Disposition: PCP: Dr. Tj Linder Code Status: Full Code VTE Prophyalxis: Lovenox SQ Dispoplan to transfer to go to opoid rehab when medically stable. Patient currently has opioid withdrawal requiring inpatient care. Please note the above document was generated using voice recognition software. It may contain grammatical, syntax or spelling errors. Any formal questions or concerns about the content, text or information contained within the body of this dictation should be directly addressed to the provider for clarification Admission and Anticipated Discharge Date Admission Date: January 03, 2023 Subjective Patient seen and examined at bedside. He is lying on the bed comfortably. Continues to report feeling anxious and nauseous. 5 beats of NSVT Review of Systems Review of Systems: All systems reviewed & are unremarkable except as noted in Subjective Physical Exam Physical Exam: Constitutional: WD/WN, vitals as above, NAD, sitting up in bed, pleasant, conversing easily Respiratory: normal respiratory effort, lungs clear to auscultation, no wheeze, rales, rhonchi. Normal insp/exp effort, no accessory muscle use Cardiovascular: RRR, no murmur, no edema Vessels: no JVD or carotid bruit Chest: normal inspection of chest Abdomen: Soft, ileostomy in place Musculoskeletal: no cyanosis or clubbing, extremities motor strength 5/5 Skin: no rashes, warm and dry normal turgor Neurologic: PERRL, EOMI, accommodation nl, no face palsy, no dysarthria CN's II- XI intact bilaterally and moves all extremities Psychiatric: A+Ox3, euthymic affect Results & Data Results & Data Vital Signs (Past 12 Hours) Vital Signs Temp Pulse Pulse Resp BP Pulse Ox O2 Del Method 01/07/23 11:57 37.1 C 82 18 157/96 H 97 Room Air 01/07/23 07:45 37.0 C 51 L 18 170/107 H 97 Room Air 01/07/23 07:09 46 L 01/07/23 03:38 37.1 C 51 L 17 170/113 H 98 Room Air 01/07/23 00:58 36.8 C 57 L 18 158/100 H 100 Room Air Laboratory Results Laboratory Results WBC 9.13 K/ul (4.8-10.8) 01/07/23 08:21 RBC 4.67 M/uL (4.70-6.10) L 01/07/23 08:21 Hgb 16.1 g/dl (14.0-18.0) 01/07/23 08:21 Hct 44.7 % (42.0-52.0) 01/07/23 08:21 MCV 95.7 fL (80.0-100.0) 01/07/23 08:21 MCH 34.5 pg (25.0-34.0) H 01/07/23 08:21 MCHC 36.0 g/dL (32.0-36.0) 01/07/23 08:21 RDW Std Deviation 40.8 fL (36.4-46.3) 01/07/23 08:21 RDW Coeff of Denise 11.7 % (11.5-14.5) 01/07/23 08:21 Plt Count 246 K/uL (130-400) 01/07/23 08:21 MPV 9.3 fL (9.4-12.4) L 01/07/23 08:21 Immature Gran % (Auto) 0.4 % 01/07/23 08:21 Neut % (Auto) 76.1 % 01/07/23 08:21 Lymph % (Auto) 13.3 % 01/07/23 08:21 [place] % (Auto) 9.9 % 01/07/23 08:21 Eos % (Auto) 0.0 % 01/07/23 08:21 Baso % (Auto) 0.3 % 01/07/23 08:21 Neut # (Auto) 6.95 K/uL (1.40-6.50) H 01/07/23 08:21 Lymph # (Auto) 1.21 K/uL (1.2-3.4) 01/07/23 08:21 [place] # (Auto) 0.90 K/uL (0.11-0.59) H 01/07/23 08:21 Eos # (Auto) 0.00 K/uL (0-0.50) 01/07/23 08:21 Baso # (Auto) 0.03 K/uL (0-0.2) 01/07/23 08:21 Immature Gran # (Auto) 0.04 K/uL (0.01-0.20) 01/07/23 08:21 Sodium 136 mmol/L (136-145) 01/07/23 08:21 Potassium 3.2 mmol/L (3.5-5.1) L 01/07/23 08:21 Chloride 106 mmol/L (98-107) 01/07/23 08:21 Carbon Dioxide 24 mmol/L (21-32) 01/07/23 08:21 Anion Gap 6 (3-11) 01/07/23 08:21 BUN 8 mg/dl (6-23) 01/07/23 08:21 Creatinine 1.16 mg/dl (0.6-1.4) 01/07/23 08:21 Est Cr Clr Drug Dosing 78.7 ml/min 01/07/23 08:21 Est GFR ( Amer) 84.6 ml/min 01/07/23 08:21 Est GFR (Non-Af Amer) 73.0 ml/min 01/07/23 08:21 BUN/Creatinine Ratio 6.9 (10-20) L 01/07/23 08:21 Glucose 137 mg/dl (70-99(Fasting)) H 01/07/23 08:21 Calcium 9.0 mg/dl (8.6-10.3) 01/07/23 08:21 Total Bilirubin 0.7 mg/dl (0.2-1.0) 01/03/23 11:24 AST 59 U/L (13-39) H 01/03/23 11:24 ALT 55 U/L (7-52) H 01/03/23 11:24 Alkaline Phosphatase 75 U/L (34-104) 01/03/23 11:24 Total Protein 7.4 gm/dl (6.0-8.3) 01/03/23 11:24 Albumin 4.2 gm/dl (3.4-5.0) 01/03/23 11:24 Globulin 3.2 gm/dl (2.5-4.0) 01/03/23 11:24 Albumin/Globulin Ratio 1.3 (0.9-2) 01/03/23 11:24 Vitamin B12 468 pg/ml (180-914) 01/03/23 11:24 TSH 6.751 uIu/ml (0.300-4.500) H 01/03/23 11:24 Free T4 0.86 ng/dl (0.61-1.60) 01/03/23 11:24 Urine Color Yellow 01/03/23 11:00 Urine Appearance Clear (Clear) 01/03/23 11:00 Urine pH 6.5 (4.5-7.5) 01/03/23 11:00 Ur Specific [place] 1.017 (1.000-1.030) 01/03/23 11:00 Urine Protein Negative (Negative) 01/03/23 11:00 Urine Glucose (UA) Negative (Negative) 01/03/23 11:00 Urine Ketones Negative (Negative) 01/03/23 11:00 Urine Blood Negative (Negative) 01/03/23 11:00 Urine Nitrite Negative (Negative) 01/03/23 11:00 Urine Bilirubin Negative (Negative) 01/03/23 11:00 Urine Urobilinogen Negative (Negative) 01/03/23 11:00 Ur Leukocyte Esterase Negative (Negative) 01/03/23 11:00 Salicylates < 3.0 mg/dl (3.0-30) L 01/03/23 11:24 Urine Opiates Screen Pos (Neg) H 01/03/23 11:00 U Codeine Confrm GC/MS 3420 ng/mL (<50) H 01/03/23 11:00 Ur Morphine (GC/MS) >89891 ng/mL (<50) H 01/03/23 11:00 Ur Hydrocodone (GC/MS) NEGATIVE ng/mL (<50) 01/03/23 11:00 Ur Norhydrocodone NEGATIVE ng/mL (<50) 01/03/23 11:00 Ur Noroxycodone NEGATIVE ng/mL (<50) 01/03/23 11:00 Urine Oxycodone (GC/MS) 71 ng/mL (<50) H 01/03/23 11:00 U Oxymorphone GC/MS NEGATIVE ng/mL (<50) 01/03/23 11:00 Ur Methadone, Qual Neg (Neg) 01/03/23 11:00 Ur Hydromorphone (GC/MS) NEGATIVE ng/mL (<50) 01/03/23 11:00 Acetaminophen < 3 ug/ml (10-30) L 01/03/23 11:24 Urine Barbiturates Neg (Neg) 01/03/23 11:00 Ur Phencyclidine (PCP) Neg (Neg) 01/03/23 11:00 U Amphetamin/Meth Scrn Neg (Neg) 01/03/23 11:00 MDMA (Ecstasy) Screen Neg (Neg) 01/03/23 11:00 U OH-Alprazolam Confrm NEGATIVE ng/mL (<25) 01/03/23 11:00 U Benzodiazepines Scrn Pos (Neg) H 01/03/23 11:00 7-Amino Clonazepam NEGATIVE ng/mL (<25) 01/03/23 11:00 Ur Nordiazepam Confirm 96 ng/mL (<50) H 01/03/23 11:00 U OH-ethylflurazepam NEGATIVE ng/mL (<50) 01/03/23 11:00 U Lorazepam Cnf GC/MS NEGATIVE ng/mL (<50) 01/03/23 11:00 U Oxazepam Confm GC/MS 761 ng/mL (<50) H 01/03/23 11:00 Ur Temazepam Confirm 477 ng/mL (<50) H 01/03/23 11:00 U OH-Triazolam Confirm NEGATIVE ng/mL (<50) 01/03/23 11:00 U OH-Midazolam Confirm NEGATIVE ng/mL (<50) 01/03/23 11:00 Ur Cocaine Metabolite Neg (Neg) 01/03/23 11:00 U Marijuana (THC) Screen Pos (Neg) H 01/03/23 11:00 U Marijuana THC Carboxy 2931 ng/mL (<5) H 01/03/23 11:00 Drug Screen Comment SEE NOTE 01/03/23 11:00 Ethyl Alcohol mg/dL < 10.0 mg/dl (<10.0) 01/03/23 11:24 SARS-CoV-2, RNA, NAAT NEGATIVE (NEGATIVE) 01/03/23 11:[address] 01/03/23 13:28 CT angio neck with con, CT angio head w con, CT head/brain wo con CLINICAL HISTORY: garbled speech, hanson TECHNIQUE: Contiguous axial CT images of the head were acquired from the base of the skull to the vertex without intravenous contrast administration. CT angiography of the head and neck was performed following intravenous administration of iodinated contrast. Coronal and sagittal MIPS were obtained from the axial data set and were submitted for review. Automated dose lowering techniques and/or adjustment according to patient size were utilized for this examination. All measurements were calculated based on NASCET criteria. CT DOSE: 885.44 mGy.cm Comparison: None available at the time of this dictation. FINDINGS: CT head: There is no acute intracranial hemorrhage or evidence of acute territor ial infarction. No shift of the midline structures, mass effect, or extra-axial abnormalities are shown. Lungs and soft tissues are unremarkable. CTA Neck: A 3 vessel aortic arch is shown. There is no significant atherosclerotic plaque in the aortic arch or the origins of the innominate, left common carotid, and left subclavian arteries. The common carotid, external carotid, cervical segments of the internal carotid arteries, and the cervical segments of the vertebral arteries are patent without hemodynamically significant stenosis. The left vertebral artery is dominant. CTA Head: The anterior and posterior cerebral circulations are patent. No hemodynamically significant stenosis, aneurysm, dissection, or arteriovenous malformation is shown. IMPRESSION: 1. No acute intracranial hemorrhage, evidence of acute territorial infarction, or other acute intracranial disease process. 2. No occlusion, hemodynamically significant stenosis, or dissection in the major cervical arteries. 3. No occlusion, hemodynamically significant stenosis, aneurysm, dissection, or arteriovenous malformation in the major intracranial arteries. Assessment of stenosis of the internal carotid arteries is based on NASCET criteria. ACT 112: Negative or not required by law. Electronically signed by: Jozef Carrasco M.D. 01/03/2023 3:29 PM Head CTA 01/03/23 13:28 CT angio neck with con, CT angio head w con, CT head/brain wo con CLINICAL HISTORY: garbled speech, hanson TECHNIQUE: Contiguous axial CT images of the head were acquired from the base of the skull to the vertex without intravenous contrast administration. CT angiography of the head and neck was performed following intravenous administration of iodinated contrast. Coronal and sagittal MIPS were obtained from the axial data set and were submitted for review. Automated dose lowering techniques and/or adjustment according to patient size were utilized for this examination. All measurements were calculated based on NASCET criteria. CT DOSE: 885.44 mGy.cm Comparison: None available at the time of this dictation. FINDINGS: CT head: There is no acute intracranial hemorrhage or evidence of acute territorial infarction. No shift of the midline structures, mass effect, or extra-axial abnormalities are shown. Lungs and soft tissues are unremarkable. CTA Neck: A 3 vessel aortic arch is shown. There is no significant atherosclerotic plaque in the aortic arch or the origins of the innominate, left common carotid, and left subclavian arteries. The common carotid, external ca rotid, cervical segments of the internal carotid arteries, and the cervical segments of the vertebral arteries are patent without hemodynamically significant stenosis. The left vertebral artery is dominant. CTA Head: The anterior and posterior cerebral circulations are patent. No hemodynamically significant stenosis, aneurysm, dissection, or arteriovenous malformation is shown. IMPRESSION: 1. No acute intracranial hemorrhage, evidence of acute territorial infarction, or other acute intracranial disease process. 2. No occlusion, hemodynamically significant stenosis, or dissection in the major cervical arteries. 3. No occlusion, hemodynamically significant stenosis, aneurysm, dissection, or arteriovenous malformation in the major intracranial arteries. Assessment of stenosis of the internal carotid arteries is based on NASCET criteria. ACT 112: Negative or not required by law. Electronically signed by: Jozef Carrasco M.D. 01/03/2023 3:29 PM Neck CTA 01/03/23 13:28 CT angio neck with con, CT angio head w con, CT head/brain wo con CLINICAL HISTORY: garbled speech, hanson TECHNIQUE: Contiguous axial CT images of the head were acquired from the base of the skull to the vertex without intravenous contrast administration. CT angiography of the head and neck was performed following intravenous administration of iodinated contrast. Coronal and sagittal MIPS were obtained from the axial data set and were submitted for review. Automated dose lowering techniques and/or adjustment according to patient size were utilized for this examination. All measurements were calculated based on NASCET criteria. CT DOSE: 885.44 mGy.cm Comparison: None available at the time of this dictation. FINDINGS: CT head: There is no acute intracranial hemorrhage or evidence of acute territorial infarction. No shift of the midline structures, mass effect, or extra-axial abnormalities are shown. Lungs and soft tissues are unremarkable. CTA Neck: A 3 vessel aortic arch is shown. There is no significant atherosclerotic plaque in the aortic arch or the origins of the innominate, left common carotid, and left subclavian arteries. The common carotid, external carotid, cervical segments of the internal carotid arteries, and the cervical segments of the vertebral arteries are patent without hemodynamically significant stenosis. The left vertebral artery is dominant. CTA Head: The anterior and posterior cerebral circulations are patent. No hemodynamically significant stenosis, aneurysm, dissection, or arteriovenous malformation is shown.
[2023-01-07] MEDS: MELATONIN 3 MG TAB PO PRN (20:38)
[2023-01-07] MEDS: OLANZAPINE 2.5 MG TAB PO SCH (20:38)
[2023-01-07] MEDS ORDERED: traZODone HCL 50 MG TAB PO ONE (23:52)
[2023-01-08] MEDS: ACETAMINOPHEN 1,000 MG/100 ML VIAL IV PRN ×2 (03:13→11:52)
[2023-01-08] MEDS: PROMETHAZINE HCL 12.5 MG in SODIUM CHLORIDE 0.9% 50 ML IV PRN (03:38)
[2023-01-08] MEDS ORDERED: hydrOXYzine HCl 25 MG TAB PO STA (05:18)
[2023-01-08 08:05] LABS: BUN Creatinine Ratio 6.6 (10-20); Calcium 9.4 mg/dl (8.6-10.3); Creatinine Clr Calc Pharmacy 75.4 ml/min; Est GFR (African American) 80.4 ml/min; Est GFR (Non-African American) 69.4 ml/min; Magnesium 2.1 mg/dl (1.7-2.4); Potassium 3.4 mmol/L (3.5-5.1)
[2023-01-08] MEDS ORDERED: diazePAM 5 MG TABLET PO SCH (09:00)
[2023-01-08] MEDS: D5W AND LACTATED RINGERS 1,000 ML IV SCH ×2 (09:25→22:20)
[2023-01-08] MEDS: lisinopril 10 MG TAB PO SCH (09:26)
[2023-01-08] MEDS: THIAMINE HCL 100 MG TAB PO SCH (09:26)
[2023-01-08] MEDS: ENOXAPARIN INJ 40 MG/0.4 ML SYR SQ SCH (09:26)
[2023-01-08] MEDS: FOLIC ACID 1 MG TAB PO SCH (09:26)
[2023-01-08] MEDS: POTASSIUM CHLORIDE CRTAB 20 MEQ TABCR PO SCH (09:36)
[2023-01-08] MEDS: diazePAM 5 MG TABLET PO PRN ×2 (09:36→21:19)
[2023-01-08] MEDS ORDERED: OPTIRAY 320 100ml IV ONE (10:10)
--- NOTE | 2023-01-08 10:33 | CT Scan Report ---
ABDOMEN AND PELVIS CT WITH IV CONTRAST CT DOSE: 998.59 mGy.cm HISTORY: hx of abdominal surgery, nausea. Vomiting. TECHNIQUE: Multiaxial CT images of the abdomen and pelvis were performed following the use of intrave nous contrast. A dose lowering technique was utilized adhering to the principles of ALARA. COMPARISON STUDY: Abdomen and pelvis CT 12/05/2019. FINDINGS: A few bibasilar linear densities consistent with subsegmental atelectasis or scarring. Ther e is nodular focus within the right major fissure on image 19 measuring 4 mm. There is a punctate moose cified granuloma within the right lower lobe. No pneumoperitoneum. No pneumatosis. No acute fractures identified. There is a tiny hiatus hernia. Mild bilateral gynecomastia is noted. Small subcutaneous focus of gas and fat stranding within the left side of the anterior abdominal wall. This likely repre sents medication injection. There are small fat-containing bilateral inguinal hernias. Small hypodens e foci within the left hepatic lobe adjacent to the falciform ligament favor areas of focal fat. Othe rwise, the liver, gallbladder, pancreas, spleen, adrenal glands, and kidneys are unremarkable. No ure teral stones. No hydronephrosis. The main portal vein is patent. Normal caliber abdominal aorta. No r etroperitoneal or pelvic lymphadenopathy. No pelvic free fluid. The bladder is unremarkable. Postoper ative changes consistent with a total proctocolectomy with the right lower quadrant ileostomy. There is a small parastomal hernia containing a few loops of small bowel. No bowel wall thickening or obstr uction. IMPRESSION: 1. No acute process within the abdomen or pelvis. 2. Postoperative changes consistent with prior total proctocolectomy. There is a small parastomal her monica containing a few loops of small bowel. No evidence for a bowel obstruction. 4. A 4 mm subpleural nodule along the right major fissure. Please refer to below summary of Fleischner criteria recommendations for follow-up of incidental CT n odules (Eric Waters, Guidelines for management of small pulmonary nodules detected on CT scans: A sta tement from the Fleischner Society, Radiology 237: [id number] 2548.) SOLID NODULES Solitary nodule size: <6 mm * Low risk patients: no follow-up needed * high risk patients: optional CT at 12 months Solitary nodule size: 6-8 mm * Low risk patients: follow-up at 6-12 months, then consider further follow-up at 18-24 months * high risk patients: initial follow-up CT at 6-12 months and then at 18-24 months if no change Solitary nodule size: >8 mm * either low or high risk patients - consider follow-up CT at 3 months, and/or CT-PET, and/or biopsy Multiple nodules size: <6 mm * Low risk patients: no routine follow-up * high risk patients: optional CT at 12 months Multiple nodules size: 6-8 mm * Low risk patients: follow-up at 3-6 months, then consider further follow-up at 18-24 months * high risk patients: follow-up at 3-6 months, then at 18-24 months if no change Multiple nodules size: >8 mm * Low risk patients: follow-up at 3-6 months, then consider further follow-up at 18-24 months * high risk patients: follow-up at 3-6 months, then at 18-24 months if no change Note: newly detected indeterminate nodule in persons 35 years of age or older. * Low risk patients: minimal or absent history of smoking and/or other known risk factors * high risk patients: history of smoking or of other known risk factors (e.g. first degree relative with lung cancer, or exposure to asbestos, radon, uranium) * if a nodule up to 8 mm is partly solid or is ground glass further follow-up is required after 24 m onths to exclude possible slow growing adenocarcinoma (LIANG) SUBSOLID NODULES Solitary pure ground-glass nodule * nodule size <6 mm - no CT follow-up required * nodule size >=6 mm - follow-up CT at 6-12 months, then every 2 years until 5 years Solitary part-solid nodule * nodule size <6 mm - no CT follow-up required * nodule size >=6 mm - follow-up CT at 3-6 months. If unchanged, and solid component remains <6 mm, then annual follow-up for 5 years Multiple subsolid nodules * nodule size <6 mm - follow-up CT at 3-6 months, consider further follow-up at 2 and 4 years if sta ble * nodule size >=6 mm - follow-up CT at 3-6 months, subsequent management based on the most suspiciou s nodule(s) ACT 112: Positive. There are findings on this exam that require communication between the performing entity and the patient following Patient Test Result Information Act ([place] Act 112) guidelines. Electronically signed by: Kyrie Ho M.D. 01/08/2023 10:31 AM
[2023-01-08] MEDS: ALUMINUM/MAGNESIUM SUSP 30 ML UDC PO PRN (13:27)
--- NOTE | 2023-01-08 13:56 | Hospitalist Progress Note ---
Date of Service January 08, 2023 Assessment & Plan (1) Opioid use with withdrawal: (2) H/O ileostomy: (3) Depression with anxiety: Plan 52 year old male presented to the ED with request to detox from opioids, with HANSON and HTN urgency. Patient has plans to start withdrawal treatment at [facility] in [place] starting on . BP 176/126. Mild KEYANNA creatinine 1.42, Baseline creatinine 1.20 from 2019 outpatient records. TSH 6.751. UDS (+) for opiates, benzos, marijuana. Reports taking Valium prescribed from dental procedure and drinking 4-8 oz of vodka with his tea intermittently. Abdominal pelvis CT negative for SBO; bilateral inguinal hernias and status post total proctoco lectomy with right lower quadrant ileostomy present. CT head negative for acute intracranial process. Lives alone, no children and has increased anxiety and depression. Outpatient records from psychiatry date back to 2019 through telemedicine at [facility]. He was seeing somebody consistently Dr. Mansfield more than 20 years ago. 1 mg Ativan given in ED; Catapress 0.2 mg x1 in ED with good response, IV fluids, Zofran PRN, AWSS scale Opioid use with withdrawal: Ingesting poppy seed tea x10 years for treatment of his anxiety and depression UDS: (+) opioids, (+) benzo, (+) marijuana Supportive care with clonidine as needed, Ativan, Valium, antiemetic. Also on D5 LR for hydration. Also started on Zyprexa for persistent nausea HTN urgency: Likely related with withdrawal. Started on lisinopril. Also on as needed clonidine. Alcohol use disorder: Gabapentin taper AWSS scale with fall and seizure precaution CKD Creatinine at baseline. Monitor Depression and Anxiety: Outpatient records from psychiatry date back to 2019 through telemedicine at [facility]. He had lived in [place] for the last 10 years. 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 He has been on Effexor in the past and has also tried Prozac, Lexapro and Paxil without positive effect. Was started on Zoloft in 2019 and Hydroxyzine for insomnia. No SI/SA, Ingesting poppy seed tea x10 years for treatment of his anxiety and depression [facility] for depression and anxiety management H/O total proctocolectomy s/p RLQ ileostomy: Surgery 2008 Reported nausea and vomiting. CT abdomen and pelvis does not show any acute process in the abdomen/pelvis. An incidental 4 mm subpleural nodule seen along the right major fissure. Patient will need follow-up CT chest in 12 months. Disposition: PCP: Dr. Tj Linder Code Status: Full Code VTE Prophyalxis: Lovenox SQ Dispoplan to transfer to go to opoid rehab when medically stable. Patient currently has opioid withdrawal requiring inpatient care. Please note the above document was generated using voice recognition software. It may contain grammatical, syntax or spelling errors. Any formal questions or concerns about the content, text or information contained within the body of this dictation should be directly addressed to the provider for clarification Admission and Anticipated Discharge Date Admission Date: January 03, 2023 Subjective Patient seen and examined at bedside. Continues to report fatigue and tiredness. Requesting more Ativan and Valium Review of Systems Review of Systems: All systems reviewed & are unremarkable except as noted in Subjective Physical Exam Physical Exam: Constitutional: WD/WN, vitals as above, NAD, sitting up in bed, pleasant, conversing easily Respiratory: normal respiratory effort, lungs clear to auscultation, no wheeze, rales, rhonchi. Normal insp/exp effort, no accessory muscle use Cardiovascular: RRR, no murmur, no edema Vessels: no JVD or carotid bruit Chest: normal inspection of chest Abdomen: Soft, ileostomy in place Musculoskeletal: no cyanosis or clubbing, extremities motor strength 5/5 Skin: no rashes, warm and dry normal turgor Neurologic: PERRL, EOMI, accommodation nl, no face palsy, no dysarthria CN's II- XI intact bilaterally and moves all extremities Psychiatric: A+Ox3, euthymic affect Results & Data Results & Data Vital Signs (Past 12 Hours) Vital Signs Temp Pulse Pulse Resp BP Pulse Ox O2 Del Method 01/08/23 12:10 37 C 73 16 168/107 H 96 Room Air 01/08/23 10:37 Room Air 01/08/23 07:54 36.6 C 57 L 16 171/115 H 100 Room Air 01/08/23 03:00 36.9 C 54 L 21 179/109 H 100 Room Air Laboratory Results Laboratory Results WBC 9.13 K/ul (4.8-10.8) 01/07/23 08:21 RBC 4.67 M/uL (4.70-6.10) L 01/07/23 08:21 Hgb 16.1 g/dl (14.0-18.0) 01/07/23 08:21 Hct 44.7 % (42.0-52.0) 01/07/23 08:21 MCV 95.7 fL (80.0-100.0) 01/07/23 08:21 MCH 34.5 pg (25.0-34.0) H 01/07/23 08:21 MCHC 36.0 g/dL (32.0-36.0) 01/07/23 08:21 RDW Std Deviation 40.8 fL (36.4-46.3) 01/07/23 08:21 RDW Coeff of Denise 11.7 % (11.5-14.5) 01/07/23 08:21 Plt Count 246 K/uL (130-400) 01/07/23 08:21 MPV 9.3 fL (9.4-12.4) L 01/07/23 08:21 Immature Gran % (Auto) 0.4 % 01/07/23 08:21 Neut % (Auto) 76.1 % 01/07/23 08:21 Lymph % (Auto) 13.3 % 01/07/23 08:21 Yancey % (Auto) 9.9 % 01/07/23 08:21 Eos % (Auto) 0.0 % 01/07/23 08:21 Baso % (Auto) 0.3 % 01/07/23 08:21 Neut # (Auto) 6.95 K/uL (1.40-6.50) H 01/07/23 08:21 Lymph # (Auto) 1.21 K/uL (1.2-3.4) 01/07/23 08:21 Yancey # (Auto) 0.90 K/uL (0.11-0.59) H 01/07/23 08:21 Eos # (Auto) 0.00 K/uL (0-0.50) 01/07/23 08:21 Baso # (Auto) 0.03 K/uL (0-0.2) 01/07/23 08:21 Immature Gran # (Auto) 0.04 K/uL (0.01-0.20) 01/07/23 08:21 Sodium 136 mmol/L (136-145) 01/08/23 07:12 Potassium 3.4 mmol/L (3.5-5.1) L 01/08/23 07:12 Chloride 103 mmol/L (98-107) 01/08/23 07:12 Carbon Dioxide 27 mmol/L (21-32) 01/08/23 07:12 Anion Gap 6 (3-11) 01/08/23 07:12 BUN 8 mg/dl (6-23) 01/08/23 07:12 Creatinine 1.21 mg/dl (0.6-1.4) 01/08/23 07:12 Est Cr Clr Drug Dosing 75.4 ml/min 01/08/23 07:12 Est GFR ( Amer) 80.4 ml/min 01/08/23 07:12 Est GFR (Non-Af Amer) 69.4 ml/min 01/08/23 07:12 BUN/Creatinine Ratio 6.6 (10-20) L 01/08/23 07:12 Glucose 106 mg/dl (70-99(Fasting)) H 01/08/23 07:12 Calcium 9.4 mg/dl (8.6-10.3) 01/08/23 07:12 Magnesium 2.1 mg/dl (1.7-2.4) 01/08/23 07:12 Total Bilirubin 0.7 mg/dl (0.2-1.0) 01/03/23 11:24 AST 59 U/L (13-39) H 01/03/23 11:24 ALT 55 U/L (7-52) H 01/03/23 11:24 Alkaline Phosphatase 75 U/L (34-104) 01/03/23 11:24 Total Protein 7.4 gm/dl (6.0-8.3) 01/03/23 11:24 Albumin 4.2 gm/dl (3.4-5.0) 01/03/23 11:24 Globulin 3.2 gm/dl (2.5-4.0) 01/03/23 11:24 Albumin/Globulin Ratio 1.3 (0.9-2) 01/03/23 11:24 Vitamin B12 468 pg/ml (180-914) 01/03/23 11:24 TSH 6.751 uIu/ml (0.300-4.500) H 01/03/23 11:24 Free T4 0.86 ng/dl (0.61-1.60) 01/03/23 11:24 Urine Color Yellow 01/03/23 11:00 Urine Appearance Clear (Clear) 01/03/23 11:00 Urine pH 6.5 (4.5-7.5) 01/03/23 11:00 Ur Specific [place] 1.017 (1.000-1.030) 01/03/23 11:00 Urine Protein Negative (Negative) 01/03/23 11:00 Urine Glucose (UA) Negative (Negative) 01/03/23 11:00 Urine Ketones Negative (Negative) 01/03/23 11:00 Urine Blood Negative (Negative) 01/03/23 11:00 Urine Nitrite Negative (Negative) 01/03/23 11:00 Urine Bilirubin Negative (Negative) 01/03/23 11:00 Urine Urobilinogen Negative (Negative) 01/03/23 11:00 Ur Leukocyte Esterase Negative (Negative) 01/03/23 11:00 Salicylates < 3.0 mg/dl (3.0-30) L 01/03/23 11:24 Urine Opiates Screen Pos (Neg) H 01/03/23 11:00 U Codeine Confrm GC/MS 3420 ng/mL (<50) H 01/03/23 11:00 Ur Morphine (GC/MS) >06099 ng/mL (<50) H 01/03/23 11:00 Ur Hydrocodone (GC/MS) NEGATIVE ng/mL (<50) 01/03/23 11:00 Ur Norhydrocodone NEGATIVE ng/mL (<50) 01/03/23 11:00 Ur Noroxycodone NEGATIVE ng/mL (<50) 01/03/23 11:00 Urine Oxycodone (GC/MS) 71 ng/mL (<50) H 01/03/23 11:00 U Oxymorphone GC/MS NEGATIVE ng/mL (<50) 01/03/23 11:00 Ur Methadone, Qual Neg (Neg) 01/03/23 11:00 Ur Hydromorphone (GC/MS) NEGATIVE ng/mL (<50) 01/03/23 11:00 Acetaminophen < 3 ug/ml (10-30) L 01/03/23 11:24 Urine Barbiturates Neg (Neg) 01/03/23 11:00 Ur Phencyclidine (PCP) Neg (Neg) 01/03/23 11:00 U Amphetamin/Meth Scrn Neg (Neg) 01/03/23 11:00 MDMA (Ecstasy) Screen Neg (Neg) 01/03/23 11:00 U OH-Alprazolam Confrm NEGATIVE ng/mL (<25) 01/03/23 11:00 U Benzodiazepines Scrn Pos (Neg) H 01/03/23 11:00 7-Amino Clonazepam NEGATIVE ng/mL (<25) 01/03/23 11:00 Ur Nordiazepam Confirm 96 ng/mL (<50) H 01/03/23 11:00 U OH-ethylflurazepam NEGATIVE ng/mL (<50) 01/03/23 11:00 U Lorazepam Cnf GC/MS NEGATIVE ng/mL (<50) 01/03/23 11:00 U Oxazepam Confm GC/MS 761 ng/mL (<50) H 01/03/23 11:00 Ur Temazepam Confirm 477 ng/mL (<50) H 01/03/23 11:00 U OH-Triazolam Confirm NEGATIVE ng/mL (<50) 01/03/23 11:00 U OH-Midazolam Confirm NEGATIVE ng/mL (<50) 01/03/23 11:00 Ur Cocaine Metabolite Neg (Neg) 01/03/23 11:00 U Marijuana (THC) Screen Pos (Neg) H 01/03/23 11:00 U Marijuana THC Carboxy 2931 ng/mL (<5) H 01/03/23 11:00 Drug Screen Comment SEE NOTE 01/03/23 11:00 Ethyl Alcohol mg/dL < 10.0 mg/dl (<10.0) 01/03/23 11:24 SARS-CoV-2, RNA, NAAT NEGATIVE (NEGATIVE) 01/03/23 11:[address] 01/03/23 13:28 CT angio neck with con, CT angio head w con, CT head/brain wo con CLINICAL HISTORY: garbled speech, hanson TECHNIQUE: Contiguous axial CT images of the head were acquired from the base of the skull to the vertex without intravenous contrast administration. CT angiography of the head and neck was performed following intravenous administration of iodinated contrast. Coronal and sagittal MIPS were obtained from the axial data set and were submitted for review. Automated dose lowering techniques and/or adjustment according to patient size were utilized for this examination. All measurements were calculated based on NASCET criteria. CT DOSE: 885.44 mGy.cm Comparison: None available at the time of this dictation. FINDINGS: CT head: There is no acute intracranial hemorrhage or evidence of acute territorial infarction. No shift of the midline structures, mass effect, or extra-axial abnormalities are shown. Lungs and soft tissues are unremarkable. CTA Neck: A 3 vessel aortic arch is shown. There is no significant atherosclerotic plaque in the aortic arch or the origins of the innominate, left common carotid, and left subclavian arteries. The common carotid, external carotid, cervical segments of the internal carotid arteries, and the cervical segments of the vertebral arteries are patent without hemodynamically significant stenosis. The left vertebral artery is dominant. CTA Head: The anterior and posterior cerebral circulations are patent. No hemodynamically significant stenosis, aneurysm, dissection, or arteriovenous malformation is shown. IMPRESSION: 1. No acute intracranial hemorrhage, evidence of acute territorial infarction, or other acute intracranial disease process. 2. No occlusion, hemodynamically significant stenosis, or dissection in the major cervical arteries. 3. No occlusion, hemodynamically significant stenosis, aneurysm, dissection, or arteriovenous malformation in the major intracranial arteries. Assessment of stenosis of the internal carotid arteries is based on NASCET criteria. ACT 112: Negative or not required by law. Electronically signed by: Jozef Carrasco M.D. 01/03/2023 3:29 PM Head CTA 01/03/23 13:28 CT angio neck with con, CT angio head w con, CT head/brain wo con CLINICAL HISTORY: garbled speech, hanson TECHNIQUE: Contiguous axial CT images of the head were acquired from the base of the skull to the vertex without intravenous contrast administration. CT angiography of the head and neck was performed following intravenous administration of iodinated contrast. Coronal and sagittal MIPS were obtained from the axial data set and were submitted for review. Automated dose lowering techniques and/or adjustment according to patient size were utilized for this ex amination. All measurements were calculated based on NASCET criteria. CT DOSE: 885.44 mGy.cm Comparison: None available at the time of this dictation. FINDINGS: CT head: There is no acute intracranial hemorrhage or evidence of acute territorial infarction. No shift of the midline structures, mass effect, or extra-axial abnormalities are shown. Lungs and soft tissues are unremarkable. CTA Neck: A 3 vessel aortic arch is shown. There is no significant atherosclerotic plaque in the aortic arch or the origins of the innominate, left common carotid, and left subclavian arteries. The common carotid, external carotid, cervical segments of the internal carotid arteries, and the cervical segments of the vertebral arteries are patent without hemodynamically significant stenosis. The left vertebral artery is dominant. CTA Head: The anterior and posterior cerebral circulations are patent. No hemodynamically significant stenosis, aneurysm, dissection, or arteriovenous malformation is shown. IMPRESSION: 1. No acute intracranial hemorrhage, evidence of acute territorial infarction, or other acute intracranial disease process. 2. No occlusion, hemodynamically significant stenosis, or dissection in the major cervical arteries. 3. No occlusion, hemodynamically significant stenosis, aneurysm, dissection, or arteriovenous malformation in the major intracranial arteries. Assessment of stenosis of the internal carotid arteries is based on NASCET criteria. ACT 112: Negative or not required by law. Electronically signed by: Jozef Carrasco M.D. 01/03/2023 3:29 PM Neck CTA 01/03/23 13:28 CT angio neck with con, CT angio head w con, CT head/brain wo con CLINICAL HISTORY: garbled speech, hanson TECHNIQUE: Contiguous axial CT images of the head were acquired from the base of the skull to the vertex without intravenous contrast administration. CT angiography of the head and neck was performed following intravenous administration of iodinated contrast. Coronal and sagittal MIPS were obtained from the axial data set and were submitted for review. Automated dose lowering techniques and/or adjustment according to patient size were utilized for this examination. All measurements were calculated based on NASCET criteria. CT DOSE: 885.44 mGy.cm Comparison: None available at the time of this dictation. FINDINGS: CT head: There is no acute intracranial hemorrhage or evidence of acute territorial infarction. No shift of the midline structures, mass effect, or extra-axial abnormalities are shown. Lungs and soft tissues are unremarkable. CTA Neck: A 3 vessel aortic arch is shown. There is no significant atherosclerotic plaque in the aortic arch or the origins of the innominate, left common carotid, and left subclavian arteries. The common carotid, external carotid, cervical segments of the internal carotid arteries, and the cervical segments of the vertebral arteries are patent without hemodynamically si gnificant stenosis. The left vertebral artery is dominant. CTA Head: The anterior and posterior cerebral circulations are patent. No hemodynamically significant stenosis, aneurysm, dissection, or arteriovenous malformation is shown. IMPRESSION: 1. No acute intracranial hemorrhage, evidence of acute territorial infarction, or other acute intracranial disease process. 2. No occlusion, hemodynamically significant stenosis, or dissection in the major cervical arteries. 3. No occlusion, hemodynamically significant stenosis, aneurysm, dissection, or arteriovenous malformation in the major intracranial arteries. Assessment of stenosis of the internal carotid arteries is based on NASCET criteria. ACT 112: Negative or not required by law. Electronically signed by: Jozef Carrasco M.D. 01/03/2023 3:29 PM Abdomen/Pelvis CT 01/08/23 09:[address] WITH IV CONTRAST CT DOSE: 998.59 mGy.cm HISTORY: hx of abdominal surgery, nausea. Vomiting. TECHNIQUE: Multiaxial CT images of the abdomen and pelvis were performed following the use of intravenous contrast. A dose lowering technique was utilized adhering to the principles of ALARA. COMPARISON STUDY: Abdomen and pelvis CT 12/05/2019. FINDINGS: A few bibasilar linear densities consistent with subsegmental atelectasis or scarring. There is nodular focus within the right major fissure on image 19 measuring 4 mm. There is a punctate calcified granuloma within the right lower lobe. No pneumoperitoneum. No pneumatosis. No acute fractures identified. There is a tiny hiatus hernia. Mild bilateral gynecomastia is noted. Small subcutaneous focus of gas and fat stranding within the left side of the anterior abdominal wall. This likely represents medication injection. There are small fat-containing bilateral inguinal hernias. Small hypodense foci within the left hepatic lobe adjacent to the falciform ligament favor areas of focal fat. Otherwise, the liver, gallbladder, pancreas, spleen, adrenal glands, and kidneys are unremarkable. No ureteral stones. No hydronephrosis. The main portal vein is patent. Normal caliber abdominal aorta. No retroperitoneal or pelvic lymphadenopathy. No pelvic free fluid. The bladder is unremarkable. Postoperative changes consistent with a total proctocolectomy with the right lower quadrant ileostomy. There is a small parastomal hernia containing a few loops of small bowel. No bowel wall thickening or obstruction. IMPRESSION: 1. No acute process within the abdomen or pelvis. 2. Postoperative changes consistent with prior total proctocolectomy. There is a small parastomal hernia containing a few loops of small bowel. No evidence for a bowel obstruction. 4. A 4 mm subpleural nodule along the right major fissure. Please refer to below summary of Fleischner criteria recommendations for follow- up of incidental CT nodules (Eric Waters, Guidelines for management of small pulmonary nodules detected on CT scans: A statement from the Fleischner Society, Radiology 237: [phone].) SOLID NODULES Solitary nodule size: <6 mm * Low risk patients: no follow-up needed * high risk patients: optional CT at 12 months Solitary nodule size: 6-8 mm * Low risk patients: follow-up at 6-12 months, then consider further follow-up at 18-24 months * high risk patients: initial follow-up CT at 6-12 months and then at 18-24 months if no change Solitary nodule size: >8 mm * either low or high risk patients - consider follow-up CT at 3 months, and/or CT-PET, and/or biopsy Multiple nodules size: <6 mm * Low risk patients: no routine follow-up * high risk patients: optional CT at 12 months Multiple nodules size: 6-8 mm * Low risk patients: follow-up at 3-6 months, then consider further follow-up at 18-24 months * high risk patients: follow-up at 3-6 months, then at 18-24 months if no change Multiple nodules size: >8 mm * Low risk patients: follow-up at 3-6 months, then consider further follow-up at 18-24 months * high risk patients: follow-up at 3-6 months, then at 18-24 months if no change Note: newly detected indeterminate nodule in persons 35 years of age or older. * Low risk patients: minimal or absent history of smoking and/or other known risk factors * high risk patients: history of smoking or of other known risk factors (e.g. first degree relative with lung cancer, or exposure to asbestos, radon, uranium) * if a nodule up to 8 mm is partly solid or is ground glass further follow-up is required after 24 months to exclude possible slow growing adenocarcinoma (LIANG) SUBSOLID NODULES Solitary pure ground-glass nodule * nodule size <6 mm - no CT follow-up required * nodule size >=6 mm - follow-up CT at 6-12 months, then every 2 years until 5 years Solitary part-solid nodule * nodule size <6 mm - no CT follow-up required * nodule size >=6 mm - follow-up CT at 3-6 months. If unchanged, and solid component remains <6 mm, then annual follow-up for 5 years Multiple subsolid nodules * nodule size <6 mm - follow-up CT at 3-6 months, consider further follow-up at 2 and 4 years if stable * nodule size >=6 mm - follow-up CT at 3-6 months, subsequent management based on the most suspicious nodule(s) ACT 112: Positive. There are findings on this exam that require communication between the performing entity and the patient following Patient Test Result Information Act ([place] Act 112) guidelines. Electronically signed by: Kyrie Ho M.D. 01/08/2023 10:31 AM
[2023-01-08 14:43] LABS: Med Match Butylone DNR; Med Match MDPV DNR; Med Match Mephedrone DNR; Med Match Methylone DNR; Synthetic Cannabinoid Qual Ur NEGATIVE (Negative)
[2023-01-08] MEDS: CYCLOBENZAPRINE HCL 10 MG TAB PO PRN (16:53)
[2023-01-08] MEDS: OLANZAPINE 2.5 MG TAB PO SCH (21:19)
[2023-01-08] MEDS: ONDANSETRON INJ 2 MG/ML 2 ML VIAL IV PRN (23:44)
[2023-01-09] MEDS ORDERED: hydrOXYzine HCl 25 MG TAB PO STA (03:42)
[2023-01-09] MEDS: ACETAMINOPHEN 1,000 MG/100 ML VIAL IV PRN ×3 (04:01→21:32)
[2023-01-09 07:59] LABS: BUN Creatinine Ratio 6.2 (10-20); Calcium 8.9 mg/dl (8.6-10.3); Creatinine Clr Calc Pharmacy 70.7 ml/min; Est GFR (African American) 74.4 ml/min; Est GFR (Non-African American) 64.2 ml/min; Magnesium 2.1 mg/dl (1.7-2.4); Potassium 3.3 mmol/L (3.5-5.1)
[2023-01-09] MEDS: D5W AND LACTATED RINGERS 1,000 ML IV SCH (09:13)
[2023-01-09] MEDS: ENOXAPARIN INJ 40 MG/0.4 ML SYR SQ SCH (09:13)
[2023-01-09] MEDS: POTASSIUM CHLORIDE CRTAB 20 MEQ TABCR PO SCH (09:13)
[2023-01-09] MEDS: THIAMINE HCL 100 MG TAB PO SCH (09:13)
[2023-01-09] MEDS: FOLIC ACID 1 MG TAB PO SCH (09:13)
[2023-01-09] MEDS: lisinopril 10 MG TAB PO SCH (09:13)
[2023-01-09] MEDS: IBUPROFEN 600 MG TAB PO PRN (12:47)
--- NOTE | 2023-01-09 15:53 | Hospitalist Progress Note ---
Date of Service January 09, 2023 Assessment & Plan (1) Opioid use with withdrawal: (2) H/O ileostomy: (3) Depression with anxiety: Plan 52 year old male presented to the ED with request to detox from opioids, with HANSON and HTN urgency. Patient has plans to start withdrawal treatment at [facility] in [place] starting on . BP 176/126. Mild KEYANNA creatinine 1.42, Baseline creatinine 1.20 from 2019 outpatient records. TSH 6.751. UDS (+) for opiates, benzos, marijuana. Reports taking Valium prescribed from dental procedure and drinking 4-8 oz of vodka with his tea intermittently. Abdominal pelvis CT negative for SBO; bilateral inguinal hernias and status post total proctoco lectomy with right lower quadrant ileostomy present. CT head negative for acute intracranial process. Lives alone, no children and has increased anxiety and depression. Outpatient records from psychiatry date back to 2019 through telemedicine at [facility]. He was seeing somebody consistently Dr. Mansfield more than 20 years ago. 1 mg Ativan given in ED; Catapress 0.2 mg x1 in ED with good response, IV fluids, Zofran PRN, AWSS scale Opioid use with withdrawal: Ingesting poppy seed tea x10 years for treatment of his anxiety and depression UDS: (+) opioids, (+) benzo, (+) marijuana Supportive care. Benzodiazepine was stopped for placement. Continue D5 LR for hydration. Also started on Zyprexa at this for persistent nausea HTN urgency: Likely related with withdrawal. Started on lisinopril. Alcohol use disorder: Completed gabapentin taper AWSS scale with fall and seizure precaution No longer having withdrawal symptoms. CKD Creatinine at baseline. Monitor Depression and Anxiety: Outpatient records from psychiatry date back to 2019 through telemedicine at [facility]. He had lived in [place] for the last 10 years. 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 He has been on Effexor in the past and has also tried Prozac, Lexapro and Paxil without positive effect. Was started on Zoloft in 2019 and Hydroxyzine for insomnia. No SI/SA, Ingesting poppy seed tea x10 years for treatment of his anxiety and depression [facility] for depression and anxiety management H/O total proctocolectomy s/p RLQ ileostomy: Surgery 2007 Reported nausea and vomiting. CT abdomen and pelvis does not show any acute process in the abdomen/pelvis. An incidental 4 mm subpleural nodule seen along the right major fissure. Patient will need follow-up CT chest in 12 months. Discussed with patient. Disposition: PCP: Dr. Tj Linder Code Status: Full Code VTE Prophyalxis: Lovenox SQ Dispo patient medically stable for transfer to rehab. Possible discharge on Monday. Please note the above document was generated using voice recognition software. It may contain grammatical, syntax or spelling errors. Any formal questions or concerns about the content, text or information contained within the body of this dictation should be directly addressed to the provider for clarification Admission and Anticipated Discharge Date Admission Date: January 03, 2023 Subjective Patient reports that his withdrawal symptoms are under control. Comfortable; vital stable and saturating well on room air. Review of Systems Review of Systems: All systems reviewed & are unremarkable except as noted in Subjective Physical Exam Physical Exam: Constitutional: WD/WN, vitals as above, NAD, sitting up in bed, pleasant, conversing easily Respiratory: normal respiratory effort, lungs clear to auscultation, no wheeze, rales, rhonchi. Normal insp/exp effort, no accessory muscle use Cardiovascular: RRR, no murmur, no edema Vessels: no JVD or carotid bruit Chest: normal inspection of chest Abdomen: Soft, ileostomy in place Musculoskeletal: no cyanosis or clubbing, extremities motor strength 5/5 Skin: no rashes, warm and dry normal turgor Neurologic: PERRL, EOMI, accommodation nl, no face palsy, no dysarthria CN's II- XI intact bilaterally and moves all extremities Psychiatric: A+Ox3, euthymic affect Results & Data Results & Data Vital Signs (Past 12 Hours) Vital Signs Temp Pulse Resp BP BP Pulse Ox O2 Del Method 01/09/23 11:46 36.7 C 80 20 158/112 H 160/110 H 98 Room Air 01/09/23 07:40 36.6 C 64 18 171/104 H 100 Room Air 01/09/23 03:56 37.1 C 91 H 17 176/105 H 100 Room Air Laboratory Results Laboratory Results WBC 9.13 K/ul (4.8-10.8) 01/07/23 08:21 RBC 4.67 M/uL (4.70-6.10) L 01/07/23 08:21 Hgb 16.1 g/dl (14.0-18.0) 01/07/23 08:21 Hct 44.7 % (42.0-52.0) 01/07/23 08:21 MCV 95.7 fL (80.0-100.0) 01/07/23 08:21 MCH 34.5 pg (25.0-34.0) H 01/07/23 08:21 MCHC 36.0 g/dL (32.0-36.0) 01/07/23 08:21 RDW Std Deviation 40.8 fL (36.4-46.3) 01/07/23 08:21 RDW Coeff of Denise 11.7 % (11.5-14.5) 01/07/23 08:21 Plt Count 246 K/uL (130-400) 01/07/23 08:21 MPV 9.3 fL (9.4-12.4) L 01/07/23 08:21 Immature Gran % (Auto) 0.4 % 01/07/23 08:21 Neut % (Auto) 76.1 % 01/07/23 08:21 Lymph % (Auto) 13.3 % 01/07/23 08:21 [place] % (Auto) 9.9 % 01/07/23 08:21 Eos % (Auto) 0.0 % 01/07/23 08:21 Baso % (Auto) 0.3 % 01/07/23 08:21 Neut # (Auto) 6.95 K/uL (1.40-6.50) H 01/07/23 08:21 Lymph # (Auto) 1.21 K/uL (1.2-3.4) 01/07/23 08:21 [place] # (Auto) 0.90 K/uL (0.11-0.59) H 01/07/23 08:21 Eos # (Auto) 0.00 K/uL (0-0.50) 01/07/23 08:21 Baso # (Auto) 0.03 K/uL (0-0.2) 01/07/23 08:21 Immature Gran # (Auto) 0.04 K/uL (0.01-0.20) 01/07/23 08:21 Sodium 137 mmol/L (136-145) 01/09/23 06:59 Potassium 3.3 mmol/L (3.5-5.1) L 01/09/23 06:59 Chloride 103 mmol/L (98-107) 01/09/23 06:59 Carbon Dioxide 29 mmol/L (21-32) 01/09/23 06:59 Anion Gap 5 (3-11) 01/09/23 06:59 BUN 8 mg/dl (6-23) 01/09/23 06:59 Creatinine 1.29 mg/dl (0.6-1.4) 01/09/23 06:59 Est Cr Clr Drug Dosing 70.7 ml/min 01/09/23 06:59 Est GFR ( Amer) 74.4 ml/min 01/09/23 06:59 Est GFR (Non-Af Amer) 64.2 ml/min 01/09/23 06:59 BUN/Creatinine Ratio 6.2 (10-20) L 01/09/23 06:59 Glucose 119 mg/dl (70-99(Fasting)) H 01/09/23 06:59 Calcium 8.9 mg/dl (8.6-10.3) 01/09/23 06:59 Magnesium 2.1 mg/dl (1.7-2.4) 01/09/23 06:59 Total Bilirubin 0.7 mg/dl (0.2-1.0) 01/03/23 11:24 AST 59 U/L (13-39) H 01/03/23 11:24 ALT 55 U/L (7-52) H 01/03/23 11:24 Alkaline Phosphatase 75 U/L (34-104) 01/03/23 11:24 Total Protein 7.4 gm/dl (6.0-8.3) 01/03/23 11:24 Albumin 4.2 gm/dl (3.4-5.0) 01/03/23 11:24 Globulin 3.2 gm/dl (2.5-4.0) 01/03/23 11:24 Albumin/Globulin Ratio 1.3 (0.9-2) 01/03/23 11:24 Vitamin B12 468 pg/ml (180-914) 01/03/23 11:24 TSH 6.751 uIu/ml (0.300-4.500) H 01/03/23 11:24 Free T4 0.86 ng/dl (0.61-1.60) 01/03/23 11:24 Urine Color Yellow 01/03/23 11:00 Urine Appearance Clear (Clear) 01/03/23 11:00 Urine pH 6.5 (4.5-7.5) 01/03/23 11:00 Ur Specific [place] 1.017 (1.000-1.030) 01/03/23 11:00 Urine Protein Negative (Negative) 01/03/23 11:00 Urine Glucose (UA) Negative (Negative) 01/03/23 11:00 Urine Ketones Negative (Negative) 01/03/23 11:00 Urine Blood Negative (Negative) 01/03/23 11:00 Urine Nitrite Negative (Negative) 01/03/23 11:00 Urine Bilirubin Negative (Negative) 01/03/23 11:00 Urine Urobilinogen Negative (Negative) 01/03/23 11:00 Ur Leukocyte Esterase Negative (Negative) 01/03/23 11:00 Urine Comment DNR 01/03/23 11:00 Urine Comment DNR 01/03/23 11:00 Urine Comment DNR 01/03/23 11:00 Urine Comment DNR 01/03/23 11:00 Urine Synthetic Stimulants SEE NOTE 01/03/23 11:00 Urine Butylone NEGATIVE ng/mL (<50) 01/03/23 11:00 Salicylates < 3.0 mg/dl (3.0-30) L 01/03/23 11:24 Urine Opiates Screen Pos (Neg) H 01/03/23 11:00 U Codeine Confrm GC/MS 3420 ng/mL (<50) H 01/03/23 11:00 Ur Morphine (GC/MS) >85971 ng/mL (<50) H 01/03/23 11:00 Ur Hydrocodone (GC/MS) NEGATIVE ng/mL (<50) 01/03/23 11:00 Ur Norhydrocodone NEGATIVE ng/mL (<50) 01/03/23 11:00 Ur Noroxycodone NEGATIVE ng/mL (<50) 01/03/23 11:00 Urine Oxycodone (GC/MS) 71 ng/mL (<50) H 01/03/23 11:00 U Oxymorphone GC/MS NEGATIVE ng/mL (<50) 01/03/23 11:00 Ur Methadone, Qual Neg (Neg) 01/03/23 11:00 Ur Hydromorphone (GC/MS) NEGATIVE ng/mL (<50) 01/03/23 11:00 Acetaminophen < 3 ug/ml (10-30) L 01/03/23 11:24 Urine Barbiturates Neg (Neg) 01/03/23 11:00 Ur Phencyclidine (PCP) Neg (Neg) 01/03/23 11:00 Ur Mephedrone Scrn NEGATIVE ng/mL (<50) 01/03/23 11:00 Urine MDPV NEGATIVE ng/mL (<50) 01/03/23 11:00 Urine Methylone NEGATIVE ng/mL (<50) 01/03/23 11:00 U Amphetamin/Meth Scrn Neg (Neg) 01/03/23 11:00 MDMA (Ecstasy) Screen Neg (Neg) 01/03/23 11:00 U OH-Alprazolam Confrm NEGATIVE ng/mL (<25) 01/03/23 11:00 U Benzodiazepines Scrn Pos (Neg) H 01/03/23 11:00 7-Amino Clonazepam NEGATIVE ng/mL (<25) 01/03/23 11:00 Ur Nordiazepam Confirm 96 ng/mL (<50) H 01/03/23 11:00 U OH-ethylflurazepam NEGATIVE ng/mL (<50) 01/03/23 11:00 U Lorazepam Cnf GC/MS NEGATIVE ng/mL (<50) 01/03/23 11:00 U Oxazepam Confm GC/MS 761 ng/mL (<50) H 01/03/23 11:00 Ur Temazepam Confirm 477 ng/mL (<50) H 01/03/23 11:00 U OH-Triazolam Confirm NEGATIVE ng/mL (<50) 01/03/23 11:00 U OH-Midazolam Confirm NEGATIVE ng/mL (<50) 01/03/23 11:00 Ur Cocaine Metabolite Neg (Neg) 01/03/23 11:00 Cannabinoids Comment see note 01/03/23 11:00 U Synth Cannabinoids NEGATIVE (Negative) 01/03/23 11:00 U Synth Cannabinoid Conf TNP 01/03/23 11:00 U Marijuana (THC) Screen Pos (Neg) H 01/03/23 11:00 U Marijuana THC Carboxy 2931 ng/mL (<5) H 01/03/23 11:00 Drug Screen Comment SEE NOTE 01/03/23 11:00 Ethyl Alcohol mg/dL < 10.0 mg/dl (<10.0) 01/03/23 11:24 SARS-CoV-2, RNA, NAAT NEGATIVE (NEGATIVE) 01/03/23 11:[address] 01/03/23 13:28 CT angio neck with con, CT angio head w con, CT head/brain wo con CLINICAL HISTORY: garbled speech, hanson TECHNIQUE: Contiguous axial CT images of the head were acquired from the base of the skull to the vertex without intravenous contrast administration. CT angiography of the head and neck was performed following intravenous administration of iodinated contrast. Coronal and sagittal MIPS were obtained from the axial data set and were submitted for review. Automated dose lowering techniques and/or adjustment according to patient size were utilized for this examination. All measurements were calculated based on NASCET criteria. CT DOSE: 885.44 mGy.cm Comparison: None available at the time of this dictation. FINDINGS: CT head: There is no acute intracranial hemorrhage or evidence of acute territorial infarction. No shift of the midline structures, mass effect, or extra-axial abnormalities are shown. Lungs and soft tissues are unremarkable. CTA Neck: A 3 vessel aortic arch is shown. There is no significant atherosclerotic plaque in the aortic arch or the origins of the innominate, left common carotid, and left subclavian arteries. The common carotid, external carotid, cervical segments of the internal carotid arteries, and the cervical segments of the vertebral arteries are patent without hemodynamically significant stenosis. The left vertebral artery is dominant. CTA Head: The anterior and posterior cerebral circulations are patent. No hemodynamically significant stenosis, aneurysm, dissection, or arteriovenous malformation is shown. IMPRESSION: 1. No acute intracranial hemorrhage, evidence of acute territorial infarction, or other acute intracranial disease process. 2. No occlusion, hemodynamically significant stenosis, or dissection in the major cervical arteries. 3. No occlusion, hemodynamically significant stenosis, aneurysm, dissection, or arteriovenous malformation in the major intracranial arteries. Assessment of stenosis of the internal carotid arteries is based on NASCET criteria. ACT 112: Negative or not required by law. Electronically signed by: Jozef Carrasco M.D. 01/03/2023 3:29 PM Head CTA 01/03/23 13:28 CT angio neck with con, CT angio head w con, CT head/brain wo con CLINICAL HISTORY: garbled speech, hanson TECHNIQUE: Contiguous axial CT images of the head were acquired from the base of the skull to the vertex without intravenous contrast administration. CT angiography of the head and neck was performed following intravenous admin istration of iodinated contrast. Coronal and sagittal MIPS were obtained from the axial data set and were submitted for review. Automated dose lowering techniques and/or adjustment according to patient size were utilized for this examination. All measurements were calculated based on NASCET criteria. CT DOSE: 885.44 mGy.cm Comparison: None available at the time of this dictation. FINDINGS: CT head: There is no acute intracranial hemorrhage or evidence of acute territorial infarction. No shift of the midline structures, mass effect, or extra-axial abnormalities are shown. Lungs and soft tissues are unremarkable. CTA Neck: A 3 vessel aortic arch is shown. There is no significant atherosclerotic plaque in the aortic arch or the origins of the innominate, left common carotid, and left subclavian arteries. The common carotid, external carotid, cervical segments of the internal carotid arteries, and the cervical segments of the vertebral arteries are patent without hemodynamically significant stenosis. The left vertebral artery is dominant. CTA Head: The anterior and posterior cerebral circulations are patent. No hemodynamically significant stenosis, aneurysm, dissection, or arteriovenous malformation is shown. IMPRESSION: 1. No acute intracranial hemorrhage, evidence of acute territorial infarction, or other acute intracranial disease process. 2. No occlusion, hemodynamically significant stenosis, or dissection in the major cervical arteries. 3. No occlusion, hemodynamically significant stenosis, aneurysm, dissection, or arteriovenous malformation in the major intracranial arteries. Assessment of stenosis of the internal carotid arteries is based on NASCET criteria. ACT 112: Negative or not required by law. Electronically signed by: Jozef Carrasco M.D. 01/03/2023 3:29 PM Neck CTA 01/03/23 13:28 CT angio neck with con, CT angio head w con, CT head/brain wo con CLINICAL HISTORY: garbled speech, hanson TECHNIQUE: Contiguous axial CT images of the head were acquired from the base of the skull to the vertex without intravenous contrast administration. CT angiography of the head and neck was performed following intravenous administration of iodinated contrast. Coronal and sagittal MIPS were obtained from the axial data set and were submitted for review. Automated dose lowering techniques and/or adjustment according to patient size were utilized for this examination. All measurements were calculated based on NASCET criteria. CT DOSE: 885.44 mGy.cm Comparison: None available at the time of this dictation. FINDINGS: CT head: There is no acute intracranial hemorrhage or evidence of acute territorial infarction. No shift of the midline structures, mass effect, or extra-axial abnormalities are shown. Lungs and soft tissues are unremarkable. CTA Neck: A 3 vessel aortic arch is shown. There is no significant atherosclerotic plaque in the aortic arch or the origins of the innominate, left common carotid, and left subclavian arteries. The common carotid, external carotid, cervical segments of the internal carotid arteries, and the cervical segments of the vertebral arteries are patent without hemodynamically significant stenosis. The left vertebral artery is dominant. CTA Head: The anterior and posterior cerebral circulations are patent. No hemodynamically significant stenosis, aneurysm, dissection, or arteriovenous malformation is shown. IMPRESSION: 1. No acute intracranial hemorrhage, evidence of acute territorial infarction, or other acute intracranial disease process. 2. No occlusion, hemodynamically significant stenosis, or dissection in the major cervical arteries. 3. No occlusion, hemodynamically significant stenosis, aneurysm, dissection, or arteriovenous malformation in the major intracranial arteries. Assessment of stenosis of the internal carotid arteries is based on NASCET criteria. ACT 112: Negative or not required by law. Electronically signed by: Jozef Carrasco M.D. 01/03/2023 3:29 PM Abdomen/Pelvis CT 01/08/23 09:[address] WITH IV CONTRAST CT DOSE: 998.59 mGy.cm HISTORY: hx of abdominal surgery, nausea. Vomiting. TECHNIQUE: Multiaxial CT images of the abdomen and pelvis were performed following the use of intravenous contrast. A dose lowering technique was utilized adhering to the principles of ALARA. COMPARISON STUDY: Abdomen and pelvis CT 12/05/2019. FINDINGS: A few bibasilar linear densities consistent with subsegmental atelectasis or scarring. There is nodular focus within the right major fissure on image 19 measuring 4 mm. There is a punctate calcified granuloma within the right lower lobe. No pneumoperitoneum. No pneumatosis. No acute fractures identified. There is a tiny hiatus hernia. Mild bilateral gynecomastia is noted. Small subcutaneous focus of gas and fat stranding within the left side of the anterior abdominal wall. This likely represents medication injection. There are small fat-containing bilateral inguinal hernias. Small hypodense foci within the left hepatic lobe adjacent to the falciform ligament favor areas of focal fat. Otherwise, the liver, gallbladder, pancreas, spleen, adrenal glands, and kidneys are unremarkable. No ureteral stones. No hydronephrosis. The main portal vein is patent. Normal caliber abdominal aorta. No retroperitoneal or pelvic lymphadenopathy. No pelvic free fluid. The bladder is unremarkable. Postoperative changes consistent with a total proctocolectomy with the right lower quadrant ileostomy. There is a small parastomal hernia containing a few loops of small bowel. No bowel wall thickening or obstruction. IMPRESSION: 1. No acute process within the abdomen or pelvis. 2. Postoperative changes consistent with prior total proctocolectomy. There is a small parastomal hernia containing a few loops of small bowel. No evidence for a bowel obstruction. 4. A 4 mm subpleural nodule along the right major fissure. Please refer to below summary of Fleischner criteria recommendations for follow- up of incidental CT nodules (Eric Waters, Guidelines for management of small pulmonary nodules detected on CT scans: A statement from the Fleischner Society, Radiology 237: [phone].) SOLID NODULES Solitary nodule size: <6 mm * Low risk patients: no follow-up needed * high risk patients: optional CT at 12 months Solitary nodule size: 6-8 mm * Low risk patients: follow-up at 6-12 months, then consider further follow-up at 18-24 months * high risk patients: initial follow-up CT at 6-12 months and then at 18-24 months if no change Solitary nodule size: >8 mm * either low or high risk patients - consider follow-up CT at 3 months, and/or CT-PET, and/or biopsy Multiple nodules size: <6 mm * Low risk patients: no routine follow-up * high risk patients: optional CT at 12 months Multiple nodules size: 6-8 mm * Low risk patients: follow-up at 3-6 months, then consider further follow-up at 18-24 months * high risk patients: follow-up at 3-6 months, then at 18-24 months if no change Multiple nodules size: >8 mm * Low risk patients: follow-up at 3-6 months, then consider further follow-up at 18-24 months * high risk patients: follow-up at 3-6 months, then at 18-24 months if no change Note: newly detected indeterminate nodule in persons 35 years of age or older. * Low risk patients: minimal or absent history of smoking and/or other known risk factors * high risk patients: history of smoking or of other known risk factors (e.g. first degree relative with lung cancer, or exposure to asbestos, radon, uranium) * if a nodule up to 8 mm is partly solid or is ground glass further follow-up is required after 24 months to exclude possible slow growing adenocarcinoma (LIANG) SUBSOLID NODULES Solitary pure ground-glass nodule * nodule size <6 mm - no CT follow-up required * nodule size >=6 mm - follow-up CT at 6-12 months, then every 2 years until 5 years Solitary part-solid nodule * nodule size <6 mm - no CT follow-up required * nodule size >=6 mm - follow-up CT at 3-6 months. If unchanged, and solid component remains <6 mm, then annual follow-up for 5 years Multiple subsolid nodules * nodule size <6 mm - follow-up CT at 3-6 months, consider further follow-up at 2 and 4 years if stable * nodule size >=6 mm - follow-up CT at 3-6 months, subsequent management based on the most suspicious nodule(s) ACT 112: Positive. There are findings on this exam that require communication between the performing entity and the patient following Patient Test Result Information Act ([place] Act 112) guidelines. Electronically signed by: Kyrie Ho M.D. 01/08/2023 10:31 AM
[2023-01-09] MEDS: OLANZAPINE 2.5 MG TAB PO SCH (21:33)
[2023-01-10] MEDS ORDERED: hydrOXYzine HCl 25 MG TAB PO STA (00:15)
[2023-01-10] MEDS: IBUPROFEN 600 MG TAB PO PRN ×3 (02:13→21:01)
[2023-01-10] MEDS: ALUMINUM/MAGNESIUM SUSP 30 ML UDC PO PRN ×2 (02:13→07:31)
[2023-01-10] MEDS: ACETAMINOPHEN 1,000 MG/100 ML VIAL IV PRN (06:12)
[2023-01-10 07:51] LABS: BUN Creatinine Ratio 9.4 (10-20); Calcium 9.1 mg/dl (8.6-10.3); Creatinine Clr Calc Pharmacy 71.3 ml/min; Est GFR (African American) 75.1 ml/min; Est GFR (Non-African American) 64.8 ml/min; Magnesium 2.1 mg/dl (1.7-2.4); Potassium 3.4 mmol/L (3.5-5.1)
[2023-01-10] MEDS: ENOXAPARIN INJ 40 MG/0.4 ML SYR SQ SCH (08:21)
[2023-01-10] MEDS: lisinopril 10 MG TAB PO SCH (08:21)
[2023-01-10] MEDS: FOLIC ACID 1 MG TAB PO SCH (08:21)
[2023-01-10] MEDS: THIAMINE HCL 100 MG TAB PO SCH (08:21)
[2023-01-10] MEDS: POTASSIUM CHLORIDE CRTAB 20 MEQ TABCR PO SCH (08:21)
[2023-01-10] MEDS ORDERED: hydrALAZINE HCL 20 MG/ML VIAL IV PRN (09:09)
[2023-01-10] MEDS ORDERED: lisinopril 10 MG TAB PO ONE (09:10)
[2023-01-10] MEDS: ACETAMINOPHEN 325 MG TAB PO PRN (16:33)
--- NOTE | 2023-01-10 16:46 | Hospitalist Progress Note ---
Date of Service January 10, 2023 Assessment & Plan (1) Opioid use with withdrawal: (2) H/O ileostomy: (3) Depression with anxiety: Plan Patient is a 52 yr male who presented to the ED with request to detox from opioids, with HANSON and HTN urgency. Patient has plans to start withdrawal treatment at [facility] in [place] starting on . BP 176/126. Mild KEYANNA creatinine 1.42, Baseline creatinine 1.20 from 2019 outpatient records. TSH 6.751. UDS (+) for opiates, benzos, marijuana. Reports taking Valium prescribed from dental procedure and drinking 4-8 oz of vodka with his tea intermittently. 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 CT head negative for acute intracranial process. Lives alone, no children and has increased anxiety and depression. Outpatient records from psychiatry date back to 2019 through telemedicine at [facility]. He was seeing somebody consistently Dr. Mansfield more than 20 years ago. 1 mg Ativan given in ED; Catapress 0.2 mg x1 in ED with good response, IV fluids, Zofran PRN, AWSS scale Opioid use with withdrawal: Ingesting poppy seed tea pods x10 years for treatment of his anxiety and depression UDS: (+) opioids, (+) benzo, (+) marijuana Supportive care Benzodiazepines discontinued IV fluids as needed Antiemetics as needed Tolerating current diet HTN urgency: Likely related with withdrawal. Increase lisinopril to 20 mg daily IV hydralazine as needed Monitor BP Alcohol use disorder: Completed gabapentin taper AWSS scale with fall and seizure precaution Monitor Hypokalemia Replete electrolytes as needed CKD Creatinine at baseline Monitor renal function Depression and Anxiety: Outpatient records from psychiatry date back to 2019 through telemedicine at [facility]. He has been on Effexor in the past and has also tried Prozac, Lexapro and Paxil without positive effect. Was started on Zoloft in 2019 and Hydroxyzine for insomnia. No SI/SA, Ingesting poppy seed tea x10 years for treatment of his anxiety and depression [facility] for depression and anxiety management Plan to discharge to rehab facility as able H/O total proctocolectomy s/p RLQ ileostomy in 2007: H/O ulcerative colitis --CT abdomen and pelvis does not show any acute process in the abdomen/pelvis. An incidental 4 mm subpleural nodule seen along the right major fissure. Patient will need follow-up CT chest in 12 months. Discussed with patient. Monitor DVT Px: Thaniax SQ Code Status: Full Code Admission and Anticipated Discharge Date Admission Date: January 03, 2023 Subjective Patient is seen and examined at bedside States feeling anxious/flatus overnight No complaints this morning Denies any chest pain, dyspnea, dizziness, nausea, vomiting, abdominal pain Waiting for rehab placement Review of Systems Review of Systems: All systems reviewed & are unremarkable except as noted in Subjective Physical Exam Physical Exam: Physical Exam: Vitals signs as noted above General Appearance:Moderately built and nourished, no apparent distress Head: normocephalic, Atraumatic Eyes: normal inspection, EOMI Neck: supple, Trachea midline Respiratory/Chest: Normal breath sounds, CTA, No accessory muscle use Cardiovascular: S1, S2, No murmur Abdomen/GI:Soft, Non tender, Bowel sounds present,+Ileostomy Extremities/Musculoskeletal:normal inspection, no edema Neurologic/Psych:AAOX3, grossly no focal neurological deficits Skin: normal color, warm Results & Data Results & Data Vital Signs (Past 12 Hours) Vital Signs Temp Pulse Pulse Resp BP BP Pulse Ox 01/10/23 16:23 36.6 C 72 16 105/102 H 98 01/10/23 15:11 72 01/10/23 07:30 64 01/10/23 11:44 37.0 C 72 18 197/131 H 151/109 H 100 01/10/23 07:49 37.2 C 67 17 169/113 H 100 O2 Del Method 01/10/23 16:23 Room Air 01/10/23 15:11 01/10/23 07:30 01/10/23 11:44 Room Air 01/10/23 07:49 Room Air Laboratory Results BMP 01/10/23 07:01 Sodium 135 L Potassium 3.4 L Chloride 103 Carbon Dioxide 24 BUN 12 Creatinine 1.28 Glucose 107 H Calcium 9.1
[2023-01-10] MEDS: OLANZAPINE 2.5 MG TAB PO SCH (21:02)
[2023-01-10] MEDS: MELATONIN 3 MG TAB PO PRN (21:05)
[2023-01-11] MEDS: ACETAMINOPHEN 325 MG TAB PO PRN ×3 (00:42→20:30)
[2023-01-11] MEDS: hydrALAZINE HCL 20 MG/ML VIAL IV PRN ×2 (02:09→19:37)
[2023-01-11] MEDS ORDERED: hydrOXYzine HCl 25 MG TAB PO STA (04:44)
[2023-01-11] MEDS: IBUPROFEN 600 MG TAB PO PRN ×2 (06:28→17:08)
[2023-01-11 08:35] LABS: Hematocrit (blood only) 49.1 % (42.0-52.0); Mean Corpuscular Hemoglobin 34.7 pg (25.0-34.0); Mean Corpuscular Hgb Conc 36.7 g/dL (32.0-36.0); Mean Corpuscular Volume 94.8 fL (80.0-100.0); Mean Platelet Volume 9.4 fL (9.4-12.4); Platelet Count 382 K/uL (130-400); RDW Coefficient of Variation 11.9 % (11.5-14.5); RDW Standard Deviation 41.8 fL (36.4-46.3); Red Blood Count 5.18 M/uL (4.70-6.10); White Blood Count 14.78 K/ul (4.8-10.8)
[2023-01-11 08:56] LABS: BUN Creatinine Ratio 12.3 (10-20); Est GFR (African American) 86.4 ml/min; Est GFR (Non-African American) 74.6 ml/min
[2023-01-11] MEDS: lisinopril 20 MG TAB PO SCH (08:58)
[2023-01-11] MEDS: THIAMINE HCL 100 MG TAB PO SCH (08:58)
[2023-01-11] MEDS: ENOXAPARIN INJ 40 MG/0.4 ML SYR SQ SCH (08:58)
[2023-01-11] MEDS: FOLIC ACID 1 MG TAB PO SCH (08:58)
[2023-01-11] MEDS: POTASSIUM CHLORIDE CRTAB 20 MEQ TABCR PO SCH (08:58)
[2023-01-11] MEDS ORDERED: amLODIPine BESYLATE 5 MG TAB PO SCH (09:00)
[2023-01-11 09:11] LABS: Potassium 3.5 mmol/L (3.5-5.1)
[2023-01-11] MEDS ORDERED: amLODIPine BESYLATE 5 MG TAB PO ONE (16:28)
--- NOTE | 2023-01-11 16:32 | Hospitalist Progress Note ---
Date of Service January 11, 2023 Assessment & Plan (1) Opioid use with withdrawal: (2) H/O ileostomy: (3) Depression with anxiety: Plan Patient is a 52 yr male who presented to the ED with request to detox from opioids, with HANSON and HTN urgency. Patient has plans to start withdrawal treatment at [facility] in [place] starting on . BP 176/126. Mild KEYANNA creatinine 1.42, Baseline creatinine 1.20 from 2019 outpatient records. TSH 6.751. UDS (+) for opiates, benzos, marijuana. Reports taking Valium prescribed from dental procedure and drinking 4-8 oz of vodka with his tea intermittently. 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 CT head negative for acute intracranial process. Lives alone, no children and has increased anxiety and depression. Outpatient records from psychiatry date back to 2019 through telemedicine at [facility]. He was seeing somebody consistently Dr. Mansfield more than 20 years ago. 1 mg Ativan given in ED; Catapress 0.2 mg x1 in ED with good response, IV fluids, Zofran PRN, AWSS scale Opioid use with withdrawal: Ingesting poppy seed tea pods x10 years for treatment of his anxiety and depression UDS: (+) opioids, (+) benzo, (+) marijuana Supportive care Benzodiazepines discontinued IV fluids as needed Antiemetics as needed Tolerating regular diet Needs drug rehab placement HTN urgency: Likely related with withdrawal. Increase lisinopril to 20 mg daily Started on amlodipine 5 mg daily IV hydralazine as needed Monitor BP Check resting echo Leukocytosis No obvious source of infection Monitor Afebrile today Alcohol use disorder: Completed gabapentin taper AWSS scale with fall and seizure precaution Monitor Hypokalemia Replete electrolytes as needed CKD Creatinine at baseline Monitor renal function Depression and Anxiety: Outpatient records from psychiatry date back to 2019 through telemedicine at [facility]. He has been on Effexor in the past and has also tried Prozac, Lexapro and Paxil without positive effect. Was started on Zoloft in 2019 and Hydroxyzine for insomnia. No SI/SA, Ingesting poppy seed tea x10 years for treatment of his anxiety and depression [facility] for depression and anxiety management Plan to discharge to rehab facility as able H/O total proctocolectomy s/p RLQ ileostomy in 2007: H/O ulcerative colitis --CT abdomen and pelvis does not show any acute process in the abdomen/pelvis. An incidental 4 mm subpleural nodule seen along the right major fissure. Patient will need follow-up CT chest in 12 months. Discussed with patient. Monitor DVT Px: Lovenox SQ Code Status: Full Code Admission and Anticipated Discharge Date Admission Date: January 03, 2023 Subjective Patient is seen and examined at bedside States having poor sleep overnight Reports headache this morning BP remains elevated Denies any chest pain, dyspnea, dizziness, nausea, vomiting, abdominal pain Review of Systems Review of Systems: All systems reviewed & are unremarkable except as noted in Subjective Physical Exam Physical Exam: Physical Exam: Vitals signs as noted above General Appearance:Moderately built and nourished, no apparent distress Head: normocephalic, Atraumatic Eyes: normal inspection, EOMI Neck: supple, Trachea midline Respiratory/Chest: Normal breath sounds, CTA, No accessory muscle use Cardiovascular: S1, S2, No murmur Abdomen/GI:Soft, Non tender, Bowel sounds present,+Ileostomy Extremities/Musculoskeletal:normal inspection, no edema Neurologic/Psych:AAOX3, grossly no focal neurological deficits Skin: normal color, warm Results & Data Results & Data Vital Signs (Past 12 Hours) Vital Signs Temp Pulse Pulse Resp BP Pulse Ox O2 Del Method 01/11/23 16:00 36.4 C L 73 18 174/111 H 100 Room Air 01/11/23 11:02 36.5 C 89 18 151/106 H 99 Room Air 01/11/23 10:35 81 01/11/23 10:35 Room Air 01/11/23 07:08 36.9 C 94 H 18 156/109 H 98 Room Air Laboratory Results Short CBC 01/11/23 Range/Units 08:13 WBC 14.78 H (4.8-10.8) K/ul Hgb 18.0 (14.0-18.0) g/dl Hct 49.1 (42.0-52.0) % Plt Count 382 (130-400) K/uL BMP 01/11/23 08:13 Sodium 131 L Potassium 3.5 Chloride 102 Carbon Dioxide 20 L BUN 14 Creatinine 1.14 Glucose 128 H Calcium 9.0
[2023-01-11] MEDS: ALUMINUM/MAGNESIUM SUSP 30 ML UDC PO PRN (17:08)
[2023-01-11] MEDS: OLANZAPINE 2.5 MG TAB PO SCH (20:29)
[2023-01-11] MEDS: hydrOXYzine HCl 10 MG TAB PO PRN (22:54)
[2023-01-11] MEDS: MELATONIN 3 MG TAB PO PRN (22:56)
[2023-01-12] MEDS: CYCLOBENZAPRINE HCL 10 MG TAB PO PRN (01:27)
[2023-01-12] MEDS: IBUPROFEN 600 MG TAB PO PRN ×3 (01:27→21:49)
[2023-01-12 08:06] LABS: Hematocrit (blood only) 54.4 % (42.0-52.0); Hemoglobin 19.4 g/dl (14.0-18.0); Mean Corpuscular Hemoglobin 34.5 pg (25.0-34.0); Mean Corpuscular Hgb Conc 35.7 g/dL (32.0-36.0); Mean Corpuscular Volume 96.8 fL (80.0-100.0); Mean Platelet Volume 9.4 fL (9.4-12.4); Platelet Count 397 K/uL (130-400); RDW Coefficient of Variation 12.1 % (11.5-14.5); RDW Standard Deviation 43.2 fL (36.4-46.3); Red Blood Count 5.62 M/uL (4.70-6.10); White Blood Count 11.33 K/ul (4.8-10.8)
[2023-01-12 08:27] LABS: BUN Creatinine Ratio 11.4 (10-20); Calcium 9.5 mg/dl (8.6-10.3); Creatinine Clr Calc Pharmacy 74.2 ml/min; Est GFR (African American) 78.8 ml/min; Magnesium 2.3 mg/dl (1.7-2.4); Potassium 3.7 mmol/L (3.5-5.1)
[2023-01-12] MEDS: FOLIC ACID 1 MG TAB PO SCH (08:30)
[2023-01-12] MEDS: amLODIPine BESYLATE 5 MG TAB PO SCH (08:30)
[2023-01-12] MEDS: THIAMINE HCL 100 MG TAB PO SCH (08:30)
[2023-01-12] MEDS: POTASSIUM CHLORIDE CRTAB 20 MEQ TABCR PO SCH (08:33)
[2023-01-12] MEDS: lisinopril 20 MG TAB PO SCH (08:33)
[2023-01-12] MEDS: ENOXAPARIN INJ 40 MG/0.4 ML SYR SQ SCH (08:33)
[2023-01-12] MEDS: ACETAMINOPHEN 325 MG TAB PO PRN ×2 (08:40→17:01)
[2023-01-12] MEDS ORDERED: LACTATED RINGER'S 1,000 ML IV SCH (09:45)
--- NOTE | 2023-01-12 16:36 | Hospitalist Progress Note ---
Date of Service January 12, 2023 Assessment & Plan (1) Opioid use with withdrawal: (2) H/O ileostomy: (3) Depression with anxiety: Plan Patient is a 52 yr male who presented to the ED with request to detox from opioids, with HANSON and HTN urgency. Patient has plans to start withdrawal treatment at [facility] in [place] starting on . BP 176/126. Mild KEYANNA creatinine 1.42, Baseline creatinine 1.20 from 2019 outpatient records. TSH 6.751. UDS (+) for opiates, benzos, marijuana. Reports taking Valium prescribed from dental procedure and drinking 4-8 oz of vodka with his tea intermittently. 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 CT head negative for acute intracranial process. Lives alone, no children and has increased anxiety and depression. Outpatient records from psychiatry date back to 2019 through telemedicine at [facility]. He was seeing somebody consistently Dr. Mansfield more than 20 years ago. 1 mg Ativan given in ED; Catapress 0.2 mg x1 in ED with good response, IV fluids, Zofran PRN, AWSS scale Opioid use with withdrawal: Ingesting poppy seed tea pods x10 years for treatment of his anxiety and depression UDS: (+) opioids, (+) benzo, (+) marijuana Supportive care Benzodiazepines discontinued IV fluids as needed Antiemetics as needed Tolerating regular diet Needs drug rehab placement HTN urgency: Likely related with withdrawal. Could have underlying uncontrolled hypertension at baseline --ECHO: Left ventricle is hyperdynamic. EF greater than 70. Mild concentric LVH. Grade 1 diastolic dysfunction. Mild aortic root dilation Increase lisinopril to 20 mg daily Started on amlodipine 5 mg daily IV hydralazine as needed Monitor BP Dehydration In setting of ileostomy Denies any increased ileostomy output IV fluids as needed Leukocytosis No obvious source of infection Monitor Remains Afebrile No indication for antibiotics currently Alcohol use disorder: Completed gabapentin taper AWSS scale with fall and seizure precaution Monitor Hypokalemia Replete electrolytes as needed CKD Creatinine at baseline Monitor renal function Depression and Anxiety: Outpatient records from psychiatry date back to 2019 through telemedicine at [facility]. He has been on Effexor in the past and has also tried Prozac, Lexapro and Paxil without positive effect. Was started on Zoloft in 2019 and Hydroxyzine for insomnia. No SI/SA, Ingesting poppy seed tea x10 years for treatment of his anxiety and depression [facility] for depression and anxiety management Plan to discharge to rehab facility as able H/O total proctocolectomy s/p RLQ ileostomy in 2007: H/O ulcerative colitis --CT abdomen and pelvis does not show any acute process in the abdomen/pelvis. An incidental 4 mm subpleural nodule seen along the right major fissure. Patient will need follow-up CT chest in 12 months. Discussed with patient. Monitor DVT Px: Lovenox SQ Code Status: Full Code Disposition Rehab facility when accepted Admission and Anticipated Discharge Date Admission Date: January 03, 2023 Subjective Patient is seen and examined at bedside No new complaints States feeling well today Denies any chest pain, dyspnea, dizziness, nausea, vomiting, abdominal pain Waiting for rehab placement Review of Systems Review of Systems: All systems reviewed & are unremarkable except as noted in Subjective Physical Exam Physical Exam: Physical Exam: Vitals signs as noted above General Appearance:Moderately built and nourished, no apparent distress Head: normocephalic, Atraumatic Eyes: normal inspection, EOMI Neck: supple, Trachea midline Respiratory/Chest: Normal breath sounds, CTA, No accessory muscle use Cardiovascular: S1, S2, No murmur Abdomen/GI:Soft, Non tender, Bowel sounds present,+Ileostomy Extremities/Musculoskeletal:normal inspection, no edema Neurologic/Psych:AAOX3, grossly no focal neurological deficits Skin: normal color, warm Results & Data Results & Data Vital Signs (Past 12 Hours) Vital Signs Temp Pulse Pulse Resp BP BP Pulse Ox 01/12/23 16:06 37.1 C 92 H 18 138/98 100 01/12/23 11:01 36.6 C 97 H 16 137/95 99 01/12/23 07:56 36.6 C 102 H 18 125/89 99 01/12/23 07:47 85 01/12/23 04:57 36.7 C 98 H 18 143/98 H 98 O2 Del Method 01/12/23 16:06 Room Air 01/12/23 11:01 Room Air 01/12/23 07:56 Room Air 01/12/23 07:47 01/12/23 04:57 Room Air Laboratory Results Short CBC 01/12/23 Range/Units 07:31 WBC 11.33 H (4.8-10.8) K/ul Hgb 19.4 H (14.0-18.0) g/dl Hct 54.4 H (42.0-52.0) % Plt Count 397 (130-400) K/uL BMP 01/12/23 07:31 Sodium 135 L Potassium 3.7 Chloride 104 Carbon Dioxide 24 BUN 14 Creatinine 1.23 Glucose 93 Calcium 9.5
[2023-01-12] MEDS: OLANZAPINE 2.5 MG TAB PO SCH (21:49)
[2023-01-12] MEDS: ALUMINUM/MAGNESIUM SUSP 30 ML UDC PO PRN (21:50)
[2023-01-13] MEDS: MELATONIN 3 MG TAB PO PRN (00:15)
[2023-01-13] MEDS: hydrOXYzine HCl 10 MG TAB PO PRN (00:15)
[2023-01-13] MEDS: CYCLOBENZAPRINE HCL 10 MG TAB PO PRN (02:52)
[2023-01-13 03:10] VITALS: O2SAT 99
[2023-01-13 07:28] LABS: Hematocrit (blood only) 51.9 % (42.0-52.0); Hemoglobin 18.5 g/dl (14.0-18.0); Mean Corpuscular Hemoglobin 34.3 pg (25.0-34.0); Mean Corpuscular Hgb Conc 35.6 g/dL (32.0-36.0); Mean Corpuscular Volume 96.1 fL (80.0-100.0); Mean Platelet Volume 9.1 fL (9.4-12.4); Platelet Count 401 K/uL (130-400); RDW Coefficient of Variation 12.1 % (11.5-14.5); White Blood Count 10.95 K/ul (4.8-10.8)
[2023-01-13 07:49] LABS: BUN Creatinine Ratio 14.2 (10-20); Calcium 9.8 mg/dl (8.6-10.3); Est GFR (African American) 81.2 ml/min; Est GFR (Non-African American) 70.1 ml/min; Potassium 4.3 mmol/L (3.5-5.1)
[2023-01-13] MEDS: FOLIC ACID 1 MG TAB PO SCH (08:11)
[2023-01-13] MEDS: THIAMINE HCL 100 MG TAB PO SCH (08:11)
[2023-01-13] MEDS: lisinopril 20 MG TAB PO SCH (08:11)
[2023-01-13] MEDS: amLODIPine BESYLATE 5 MG TAB PO SCH (08:11)
[2023-01-13] MEDS: ENOXAPARIN INJ 40 MG/0.4 ML SYR SQ SCH (08:12)
[2023-01-13] MEDS ORDERED: POTASSIUM CHLORIDE 20 MEQ/15 ML UDC PO SCH (09:00)
[2023-01-13] MEDS: ALUMINUM/MAGNESIUM SUSP 30 ML UDC PO PRN (10:20)
[2023-01-13 12:33] VITALS: TEMP 97.9
--- NOTE | 2023-01-13 12:59 | Hospitalist Progress Note ---
Date of Service January 13, 2023 Assessment & Plan (1) Opioid use with withdrawal: (2) H/O ileostomy: (3) Depression with anxiety: Plan Patient is a 52 yr male who presented to the ED with request to detox from opioids, with HANSON and HTN urgency. Patient has plans to start withdrawal treatment at [facility] in [place] starting on . BP 176/126. Mild KEYANNA creatinine 1.42, Baseline creatinine 1.20 from 2019 outpatient records. TSH 6.751. UDS (+) for opiates, benzos, marijuana. Reports taking Valium prescribed from dental procedure and drinking 4-8 oz of vodka with his tea intermittently. 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 CT head negative for acute intracranial process. Lives alone, no children and has increased anxiety and depression. Outpatient records from psychiatry date back to 2019 through telemedicine at [facility]. He was seeing somebody consistently Dr. Mansfield more than 20 years ago. 1 mg Ativan given in ED; Catapress 0.2 mg x1 in ED with good response, IV fluids, Zofran PRN, AWSS scale Opioid use with withdrawal: Ingesting poppy seed tea pods x10 years for treatment of his anxiety and depression UDS: (+) opioids, (+) benzo, (+) marijuana Supportive care Benzodiazepines discontinued IV fluids as needed Antiemetics as needed Tolerating regular diet Patient was denied for placement to drug rehab placement of his preference Patient preferred to be discharged home and plans to follow up as outpatient Patient prefers to be discharged home HTN urgency: Likely related with withdrawal. Could have underlying uncontrolled hypertension at baseline --ECHO: Left ventricle is hyperdynamic. EF greater than 70. Mild concentric LVH. Grade 1 diastolic dysfunction. Mild aortic root dilation Increase lisinopril to 20 mg daily Started on amlodipine 5 mg daily IV hydralazine as needed BP better Dehydration In setting of ileostomy Denies any increased ileostomy output IV fluids as needed Leukocytosis No obvious source of infection Monitor Remains Afebrile No indication for antibiotics currently Alcohol use disorder: Completed gabapentin taper AWSS scale with fall and seizure precaution Monitor Hypokalemia Replete electrolytes as needed CKD Creatinine at baseline Monitor renal function Depression and Anxiety: Outpatient records from psychiatry date back to 2019 through telemedicine at [facility]. He has been on Effexor in the past and has also tried Prozac, Lexapro and Paxil without positive effect. Was started on Zoloft in 2019 and Hydroxyzine for insomnia. No SI/SA, Ingesting poppy seed tea x10 years for treatment of his anxiety and depression [facility] for depression and anxiety management H/O Total proctocolectomy s/p RLQ ileostomy in 2007: H/O ulcerative colitis --CT abdomen and pelvis does not show any acute process in the abdomen/pelvis. An incidental 4 mm subpleural nodule seen along the right major fissure. Patient will need follow-up CT chest in 12 months. Discussed with patient. Monitor DVT Px: Lovenox SQ Code Status: Full Code Disposition Home Admission and Anticipated Discharge Date Admission Date: January 03, 2023 Subjective Patient is seen and examined at bedside Reports having poor sleep overnight No other complaints Headache resolved Denies any chest pain, dyspnea, dizziness, nausea, vomiting, abdominal pain Plan to discharge home today Review of Systems Review of Systems: All systems reviewed & are unremarkable except as noted in Subjective Physical Exam Physical Exam: Physical Exam: Vitals signs as noted above General Appearance:Moderately built and nourished, no apparent distress Head: normocephalic, Atraumatic Eyes: normal inspection, EOMI Neck: supple, Trachea midline Respiratory/Chest: Normal breath sounds, CTA, No accessory muscle use Cardiovascular: S1, S2, No murmur Abdomen/GI:Soft, Non tender, Bowel sounds present,+Ileostomy Extremities/Musculoskeletal:normal inspection, no edema Neurologic/Psych:AAOX3, grossly no focal neurological deficits Skin: normal color, warm Results & Data Results & Data Vital Signs (Past 12 Hours) Vital Signs Temp Pulse Pulse Resp BP BP Pulse Ox 01/13/23 12:32 36.6 C 109 H 16 128/88 99 01/13/23 07:30 113 H 01/13/23 07:07 36.7 C 95 H 16 128/91 99 01/13/23 03:08 36.4 C L 104 H 19 126/88 99 O2 Del Method 01/13/23 12:32 Room Air 01/13/23 07:30 01/13/23 07:07 Room Air 01/13/23 03:08 Room Air Laboratory Results Short CBC 01/13/23 Range/Units 07:12 WBC 10.95 H (4.8-10.8) K/ul Hgb 18.5 H (14.0-18.0) g/dl Hct 51.9 (42.0-52.0) % Plt Count 401 H (130-400) K/uL [facility] 01/13/23 07:12 Sodium 132 L Potassium 4.3 Chloride 105 Carbon Dioxide 20 L BUN 17 Creatinine 1.20 Glucose 98 Calcium 9.8
--- NOTE | 2023-01-13 13:13 | Discharge Summary ---
Date of Service January 13, 2023 Admission HPI Per Admitting Provider Mr. Trent is a 52 year old male that presented to the ED with request to detox from opioids. Patient has plans to start withdrawal treatment at [facility] in [place] starting on , but came to the ED today with garbled speech and HTN urgency. BP 176/126. Mild KEYANNA creatinine 1.42, TSH 6.751. UDS (+) for opiates, benzos, marijuana. He stated that he has not had a consistent job or insurance so has not been to the doctor since 2019. He has been able to start medical Marijuana (RHO tincture carpujet) and takes Valium that he received a small amount from a prescription from a dental procedure. No leukocytosis, mild KEYANNA creatinine 1.43; Baseline creatinine 1.20 from [address]. 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 CT head negative for acute intracranial process. Lives alone, no children and has increased anxiety and depression. Outpatient records from psychiatry date back to 2019 through telemedicine [place] [facility] [place] He was seeing somebody consistently Dr. Mansfield more than 20 years ago. He had lived in [place] for the last 10 years. 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 Reports taking Valium prescribed from dental procedure and drinking 4-8 oz of vodka with his tea intermittently. Denies tobacco or other illicit drug use. He has been on Effexor in the past and has also tried Prozac, Lexapro and Paxil without positive effect. Was started on Zoloft in 2019 and Hydroxyzine for insomnia but is not currently taking any other medications besides Valium and poppy tea. Denies opioid use despite UDS positive. Pt denies SI, SA, visual or auditory hallucinations. Sometimes he sees "shadows" but they are not frightening to him. 1 mg Ativan given in ED; Catapres PO started for hypertensive urgency, IV fluids and Zofran administered. Patient will be admitted for BP management and withdrawal symptoms. Will continue IV fluids and AWSS scale with withdrawal precautions and PRN. At the bedside, patient AAOx4 CN II-XII intact. No garbled speech; pinpoint pupils, no tremulous noted. RLQ ostomy covered with non- transparent bag. Indicates he has a 'lump' on his stoma and is receptive to WOCN evaluation. Patient will be admitted for further evaluation and management. Please see A/P for further details. Admission Exam Per Admitting Provider Neuro: AAOx4, pinpoint pupils react to light and accommodate, no aphagia, memory changes, CNII-XII grossly intact HEENT: head normocephalic, moist mucus membranes CV: S1/S2, (-) M/G/R, (-) edema, cap refill < 3 seconds Resp: Lungs CTA in all perea. On RA GI: Abdomen S/NT/ND, Ax4 bowel sounds, (-) CVA tenderness (+) RLQ ostomy; bag just changed yesterday Musculoskeletal: 5/5 B/L UE strength, 5/5 B/L LE strength. No gait disturbance Skin: (-) rashes , (-) erythema. Psych: euthymic, but flat and anxious mood Principal Diagnosis Opioid withdrawal Hypertensive urgency Hypokalemia Hyponatremia Pulmonary nodule Discharge Data Allergies Allergy/AdvReac Type Severity Reaction Status Date / Time No Known Allergies Allergy Unverified 12/05/19 04:36 Consultations 01/03/23 13:59 ED Decision to Admit Stat 01/03/23 15:56 Consult Behavioral Health Liaison Routine Procedures Performed Laboratory Results WBC 10.95 K/ul (4.8-10.8) H 01/13/23 07:12 RBC 5.40 M/uL (4.70-6.10) 01/13/23 07:12 Hgb 18.5 g/dl (14.0-18.0) H 01/13/23 07:12 Hct 51.9 % (42.0-52.0) 01/13/23 07:12 MCV 96.1 fL (80.0-100.0) 01/13/23 07:12 MCH 34.3 pg (25.0-34.0) H 01/13/23 07:12 MCHC 35.6 g/dL (32.0-36.0) 01/13/23 07:12 RDW Std Deviation 43.0 fL (36.4-46.3) 01/13/23 07:12 RDW Coeff of Denise 12.1 % (11.5-14.5) 01/13/23 07:12 Plt Count 401 K/uL (130-400) H 01/13/23 07:12 MPV 9.1 fL (9.4-12.4) L 01/13/23 07:12 Immature Gran % (Auto) 0.4 % 01/07/23 08:21 Neut % (Auto) 76.1 % 01/07/23 08:21 Lymph % (Auto) 13.3 % 01/07/23 08:21 Doniphan % (Auto) 9.9 % 01/07/23 08:21 Eos % (Auto) 0.0 % 01/07/23 08:21 Baso % (Auto) 0.3 % 01/07/23 08:21 Neut # (Auto) 6.95 K/uL (1.40-6.50) H 01/07/23 08:21 Lymph # (Auto) 1.21 K/uL (1.2-3.4) 01/07/23 08:21 Doniphan # (Auto) 0.90 K/uL (0.11-0.59) H 01/07/23 08:21 Eos # (Auto) 0.00 K/uL (0-0.50) 01/07/23 08:21 Baso # (Auto) 0.03 K/uL (0-0.2) 01/07/23 08:21 Immature Gran # (Auto) 0.04 K/uL (0.01-0.20) 01/07/23 08:21 Sodium 132 mmol/L (136-145) L 01/13/23 07:12 Potassium 4.3 mmol/L (3.5-5.1) 01/13/23 07:12 Chloride 105 mmol/L (98-107) 01/13/23 07:12 Carbon Dioxide 20 mmol/L (21-32) L 01/13/23 07:12 Anion Gap 7 (3-11) 01/13/23 07:12 BUN 17 mg/dl (6-23) 01/13/23 07:12 Creatinine 1.20 mg/dl (0.6-1.4) 01/13/23 07:12 Est Cr Clr Drug Dosing 76.0 ml/min 01/13/23 07:12 Est GFR ( Amer) 81.2 ml/min 01/13/23 07:12 Est GFR (Non-Af Amer) 70.1 ml/min 01/13/23 07:12 BUN/Creatinine Ratio 14.2 (10-20) 01/13/23 07:12 Glucose 98 mg/dl (70-99(Fasting)) 01/13/23 07:12 Calcium 9.8 mg/dl (8.6-10.3) 01/13/23 07:12 Magnesium 2.3 mg/dl (1.7-2.4) 01/12/23 07:31 Total Bilirubin 0.7 mg/dl (0.2-1.0) 01/03/23 11:24 AST 59 U/L (13-39) H 01/03/23 11:24 ALT 55 U/L (7-52) H 01/03/23 11:24 Alkaline Phosphatase 75 U/L (34-104) 01/03/23 11:24 Total Protein 7.4 gm/dl (6.0-8.3) 01/03/23 11:24 Albumin 4.2 gm/dl (3.4-5.0) 01/03/23 11:24 Globulin 3.2 gm/dl (2.5-4.0) 01/03/23 11:24 Albumin/Globulin Ratio 1.3 (0.9-2) 01/03/23 11:24 Vitamin B12 468 pg/ml (180-914) 01/03/23 11:24 TSH 6.751 uIu/ml (0.300-4.500) H 01/03/23 11:24 Free T4 0.86 ng/dl (0.61-1.60) 01/03/23 11:24 Urine Color Yellow 01/03/23 11:00 Urine Appearance Clear (Clear) 01/03/23 11:00 Urine pH 6.5 (4.5-7.5) 01/03/23 11:00 Ur Specific [place] 1.017 (1.000-1.030) 01/03/23 11:00 Urine Protein Negative (Negative) 01/03/23 11:00 Urine Glucose (UA) Negative (Negative) 01/03/23 11:00 Urine Ketones Negative (Negative) 01/03/23 11:00 Urine Blood Negative (Negative) 01/03/23 11:00 Urine Nitrite Negative (Negative) 01/03/23 11:00 Urine Bilirubin Negative (Negative) 01/03/23 11:00 Urine Urobilinogen Negative (Negative) 01/03/23 11:00 Ur Leukocyte Esterase Negative (Negative) 01/03/23 11:00 Urine Comment DNR 01/03/23 11:00 Urine Comment DNR 01/03/23 11:00 Urine Comment DNR 01/03/23 11:00 Urine Comment DNR 01/03/23 11:00 Urine Synthetic Stimulants SEE NOTE 01/03/23 11:00 Urine Butylone NEGATIVE ng/mL (<50) 01/03/23 11:00 Salicylates < 3.0 mg/dl (3.0-30) L 01/03/23 11:24 Urine Opiates Screen Pos (Neg) H 01/03/23 11:00 U Codeine Confrm GC/MS 3420 ng/mL (<50) H 01/03/23 11:00 Ur Morphine (GC/MS) >70666 ng/mL (<50) H 01/03/23 11:00 Ur Hydrocodone (GC/MS) NEGATIVE ng/mL (<50) 01/03/23 11:00 Ur Norhydrocodone NEGATIVE ng/mL (<50) 01/03/23 11:00 Ur Noroxycodone NEGATIVE ng/mL (<50) 01/03/23 11:00 Urine Oxycodone (GC/MS) 71 ng/mL (<50) H 01/03/23 11:00 U Oxymorphone GC/MS NEGATIVE ng/mL (<50) 01/03/23 11:00 Ur Methadone, Qual Neg (Neg) 01/03/23 11:00 Ur Hydromorphone (GC/MS) NEGATIVE ng/mL (<50) 01/03/23 11:00 Acetaminophen < 3 ug/ml (10-30) L 01/03/23 11:24 Urine Barbiturates Neg (Neg) 01/03/23 11:00 Ur Phencyclidine (PCP) Neg (Neg) 01/03/23 11:00 Ur Mephedrone Scrn NEGATIVE ng/mL (<50) 01/03/23 11:00 Urine MDPV NEGATIVE ng/mL (<50) 01/03/23 11:00 Urine Methylone NEGATIVE ng/mL (<50) 01/03/23 11:00 U Amphetamin/Meth Scrn Neg (Neg) 01/03/23 11:00 MDMA (Ecstasy) Screen Neg (Neg) 01/03/23 11:00 U OH-Alprazolam Confrm NEGATIVE ng/mL (<25) 01/03/23 11:00 U Benzodiazepines Scrn Pos (Neg) H 01/03/23 11:00 7-Amino Clonazepam NEGATIVE ng/mL (<25) 01/03/23 11:00 Ur Nordiazepam Confirm 96 ng/mL (<50) H 01/03/23 11:00 U OH-ethylflurazepam NEGATIVE ng/mL (<50) 01/03/23 11:00 U Lorazepam Cnf GC/MS NEGATIVE ng/mL (<50) 01/03/23 11:00 U Oxazepam Confm GC/MS 761 ng/mL (<50) H 01/03/23 11:00 Ur Temazepam Confirm 477 ng/mL (<50) H 01/03/23 11:00 U OH-Triazolam Confirm NEGATIVE ng/mL (<50) 01/03/23 11:00 U OH-Midazolam Confirm NEGATIVE ng/mL (<50) 01/03/23 11:00 Ur Cocaine Metabolite Neg (Neg) 01/03/23 11:00 Cannabinoids Comment see note 01/03/23 11:00 U Synth Cannabinoids NEGATIVE (Negative) 01/03/23 11:00 U Synth Cannabinoid Conf TNP 01/03/23 11:00 U Marijuana (THC) Screen Pos (Neg) H 01/03/23 11:00 U Marijuana THC Carboxy 2931 ng/mL (<5) H 01/03/23 11:00 Drug Screen Comment SEE NOTE 01/03/23 11:00 Ethyl Alcohol mg/dL < 10.0 mg/dl (<10.0) 01/03/23 11:24 SARS-CoV-2, RNA, NAAT NEGATIVE (NEGATIVE) 01/03/23 11:[address] 01/03/23 13:28 CT angio neck with con, CT angio head w con, CT head/brain wo con CLINICAL HISTORY: garbled speech, hanson TECHNIQUE: Contiguous axial CT images of the head were acquired from the base of the skull to the vertex without intravenous contrast administration. CT angiography of the head and neck was performed following intravenous administration of iodinated contrast. Coronal and sagittal MIPS were obtained from the axial data set and were submitted for review. Automated dose lowering techniques and/or adjustment according to patient size were utilized for this examination. All measurements were calculated based on NASCET criteria. CT DOSE: 885.44 mGy.cm Comparison: None available at the time of this dictation. FINDINGS: CT head: There is no acute intracranial hemorrhage or evidence of acute territorial infarction. No shift of the midline structures, mass effect, or extra-axial abnormalities are shown. Lungs and soft tissues are unremarkable. CTA Neck: A 3 vessel aortic arch is shown. There is no significant atherosclerotic plaque in the aortic arch or the origins of the innominate, left common carotid, and left subclavian arteries. The common carotid, external carotid, cervical segments of the internal carotid arteries, and the cervical segments of the vertebral arteries are patent without hemodynamically significant stenosis. The left vertebral artery is dominant. CTA Head: The anterior and posterior cerebral circulations are patent. No hemodynamically significant stenosis, aneurysm, dissection, or arteriovenous malformation is shown. IMPRESSION: 1. No acute intracranial hemorrhage, evidence of acute territorial infarction, or other acute intracranial disease process. 2. No occlusion, hemodynamically significant stenosis, or dissection in the major cervical arteries. 3. No occlusion, hemodynamically significant stenosis, aneurysm, dissection, or arteriovenous malformation in the major intracranial arteries. Assessment of stenosis of the internal carotid arteries is based on NASCET criteria. ACT 112: Negative or not required by law. Electronically signed by: Jozef Carrasco M.D. 01/03/2023 3:29 PM Head CTA 01/03/23 13:28 CT angio neck with con, CT angio head w con, CT head/brain wo con CLINICAL HISTORY: garbled speech, hanson TECHNIQUE: Contiguous axial CT images of the head were acquired from the base of the skull to the vertex without intravenous contrast administration. CT angiography of the head and neck was performed following intravenous administration of iodinated contrast. Coronal and sagittal MIPS were obtained f rom the axial data set and were submitted for review. Automated dose lowering techniques and/or adjustment according to patient size were utilized for this examination. All measurements were calculated based on NASCET criteria. CT DOSE: 885.44 mGy.cm Comparison: None available at the time of this dictation. FINDINGS: CT head: There is no acute intracranial hemorrhage or evidence of acute territorial infarction. No shift of the midline structures, mass effect, or extra-axial abnormalities are shown. Lungs and soft tissues are unremarkable. CTA Neck: A 3 vessel aortic arch is shown. There is no significant atherosclerotic plaque in the aortic arch or the origins of the innominate, left common carotid, and left subclavian arteries. The common carotid, external carotid, cervical segments of the internal carotid arteries, and the cervical segments of the vertebral arteries are patent without hemodynamically significant stenosis. The left vertebral artery is dominant. CTA Head: The anterior and posterior cerebral circulations are patent. No hemodynamically significant stenosis, aneurysm, dissection, or arteriovenous malformation is shown. IMPRESSION: 1. No acute intracranial hemorrhage, evidence of acute territorial infarction, or other acute intracranial disease process. 2. No occlusion, hemodynamically significant stenosis, or dissection in the major cervical arteries. 3. No occlusion, hemodynamically significant stenosis, aneurysm, dissection, or arteriovenous malformation in the major intracranial arteries. Assessment of stenosis of the internal carotid arteries is based on NASCET criteria. ACT 112: Negative or not required by law. Electronically signed by: Jozef Carrasco M.D. 01/03/2023 3:29 PM Neck CTA 01/03/23 13:28 CT angio neck with con, CT angio head w con, CT head/brain wo con CLINICAL HISTORY: garbled speech, hanson TECHNIQUE: Contiguous axial CT images of the head were acquired from the base of the skull to the vertex without intravenous contrast administration. CT angiography of the head and neck was performed following intravenous administration of iodinated contrast. Coronal and sagittal MIPS were obtained from the axial data set and were submitted for review. Automated dose lowering techniques and/or adjustment according to patient size were utilized for this examination. All measurements were calculated based on NASCET criteria. CT DOSE: 885.44 mGy.cm Comparison: None available at the time of this dictation. FINDINGS: CT head: There is no acute intracranial hemorrhage or evidence of acute territorial infarction. No shift of the midline structures, mass effect, or extra-axial abnormalities are shown. Lungs and soft tissues are unremarkable. CTA Neck: A 3 vessel aortic arch is shown. There is no significant atherosclerotic plaque in the aortic arch or the origins of the innominate, left common carotid, and left subclavian arteries. The common carotid, external carotid, cervical segments of the internal carotid arteries, and the cervical segments of the vertebral arteries are patent without hemodynamically significant stenosis. The left vertebral artery is dominant. CTA Head: The anterior and posterior cerebral circulations are patent. No hemodynamically significant stenosis, aneurysm, dissection, or arteriovenous malformation is shown. IMPRESSION: 1. No acute intracranial hemorrhage, evidence of acute territorial infarction, or other acute intracranial disease process. 2. No occlusion, hemodynamically significant stenosis, or dissection in the major cervical arteries. 3. No occlusion, hemodynamically significant stenosis, aneurysm, dissection, or arteriovenous malformation in the major intracranial arteries. Assessment of stenosis of the internal carotid arteries is based on NASCET criteria. ACT 112: Negative or not required by law. Electronically signed by: Jozef Carrasco M.D. 01/03/2023 3:29 PM Abdomen/Pelvis CT 01/08/23 09:[address] WITH IV CONTRAST CT DOSE: 998.59 mGy.cm HISTORY: hx of abdominal surgery, nausea. Vomiting. TECHNIQUE: Multiaxial CT images of the abdomen and pelvis were performed following the use of intravenous contrast. A dose lowering technique was utilized adhering to the principles of ALARA. COMPARISON STUDY: Abdomen and pelvis CT 12/05/2019. FINDINGS: A few bibasilar linear densities consistent with subsegmental atelectasis or scarring. There is nodular focus within the right major fissure on image 19 measuring 4 mm. There is a punctate calcified granuloma within the right lower lobe. No pneumoperitoneum. No pneumatosis. No acute fractures identified. There is a tiny hiatus hernia. Mild bilateral gynecomastia is noted. Small subcutaneous focus of gas and fat stranding within the left side of the anterior abdominal wall. This likely represents medication injection. There are small fat-containing bilateral inguinal hernias. Small hypodense foci within the left hepatic lobe adjacent to the falciform ligament favor areas of focal fat. Otherwise, the liver, gallbladder, pancreas, spleen, adrenal glands, and kidneys are unremarkable. No ureteral stones. No hydronephrosis. The main portal vein is patent. Normal caliber abdominal aorta. No retroperitoneal or pelvic lymphadenopathy. No pelvic free fluid. The bladder is unremarkable. Postoperative changes consistent with a total proctocolectomy with the right lower quadrant ileostomy. There is a small parastomal hernia containing a few loops of small bowel. No bowel wall thickening or obstruction. IMPRESSION: 1. No acute process within the abdomen or pelvis. 2. Postoperative changes consistent with prior total proctocolectomy. There is a small parastomal hernia containing a few loops of small bowel. No evidence for a bowel obstruction. 4. A 4 mm subpleural nodule along the right major fissure. Please refer to below summary of Fleischner criteria recommendations for follow- up of incidental CT nodules (Eric Waters, Guidelines for management of small pulmonary nodules detected on CT scans: A statement from the Fleischner Society, Radiology 237: [id number] [id number].) SOLID NODULES Solitary nodule size: <6 mm * Low risk patients: no follow-up needed * high risk patients: optional CT at 12 months Solitary nodule size: 6-8 mm * Low risk patients: follow-up at 6-12 months, then consider further follow-up at 18-24 months * high risk patients: initial follow-up CT at 6-12 months and then at 18-24 months if no change Solitary nodule size: >8 mm * either low or high risk patients - consider follow-up CT at 3 months, and/or CT-PET, and/or biopsy Multiple nodules size: <6 mm * Low risk patients: no routine follow-up * high risk patients: optional CT at 12 months Multiple nodules size: 6-8 mm * Low risk patients: follow-up at 3-6 months, then consider further follow-up at 18-24 months * high risk patients: follow-up at 3-6 months, then at 18-24 months if no change Multiple nodules size: >8 mm * Low risk patients: follow-up at 3-6 months, then consider further follow-up at 18-24 months * high risk patients: follow-up at 3-6 months, then at 18-24 months if no change Note: newly detected indeterminate nodule in persons 35 years of age or older. * Low risk patients: minimal or absent history of smoking and/or other known risk factors * high risk patients: history of smoking or of other known risk factors (e.g. first degree relative with lung cancer, or exposure to asbestos, radon, uranium) * if a nodule up to 8 mm is partly solid or is ground glass further follow-up is required after 24 months to exclude possible slow growing adenocarcinoma (LIANG) SUBSOLID NODULES Solitary pure ground-glass nodule * nodule size <6 mm - no CT follow-up required * nodule size >=6 mm - follow-up CT at 6-12 months, then every 2 years until 5 years Solitary part-solid nodule * nodule size <6 mm - no CT follow-up required * nodule size >=6 mm - follow-up CT at 3-6 months. If unchanged, and solid component remains <6 mm, then annual follow-up for 5 years Multiple subsolid nodules * nodule size <6 mm - follow-up CT at 3-6 months, consider further follow-up at 2 and 4 years if stable * nodule size >=6 mm - follow-up CT at 3-6 months, subsequent management based on the most suspicious nodule(s) ACT 112: Positive. There are findings on this exam that require communication between the performing entity and the patient following Patient Test Result Information Act ([place] Act 112) guidelines. Electronically signed by: Kyrie Ho M.D. 01/08/2023 10:31 AM Ordered Studies 01/03/23 13:28 CT angio head w con Stat CT angio neck with con Stat CT head/brain wo con Stat 01/08/23 09:16 CT abd pelvis IV con only Routine Hospital Course (1) Opioid use with withdrawal: (2) H/O ileostomy: (3) Depression with anxiety: Plan Patient is a 52 yr male who presented to the ED with request to detox from opioids, with HANSON and HTN urgency. Patient has plans to start withdrawal treatment at [facility] in [place] starting on . BP 176/126. Mild KEYANNA creatinine 1.42, Baseline creatinine 1.20 from 2019 outpatient records. TSH 6.751. UDS (+) for opiates, benzos, marijuana. Reports taking Valium prescribed from dental procedure and drinking 4-8 oz of vodka with his tea intermittently. 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 CT head negative for acute intracranial process. Lives alone, no children and has incre ased anxiety and depression. Outpatient records from psychiatry date back to 2019 through telemedicine at [facility]. He was seeing somebody consistently Dr. Mansfield more than 20 years ago. 1 mg Ativan given in ED; Catapress 0.2 mg x1 in ED with good response, IV fluids, Zofran PRN, AWSS scale Opioid use with withdrawal: Ingesting poppy seed tea pods x10 years for treatment of his anxiety and depression UDS: (+) opioids, (+) benzo, (+) marijuana Supportive care Benzodiazepines discontinued IV fluids as needed Antiemetics as needed Tolerating regular diet Patient was denied for placement to drug rehab placement of his preference Patient preferred to be discharged home and plans to follow up as outpatient Patient prefers to be discharged home HTN urgency: Likely related with withdrawal. Could have underlying uncontrolled hypertension at baseline --ECHO: Left ventricle is hyperdynamic. EF greater than 70. Mild concentric LVH. Grade 1 diastolic dysfunction. Mild aortic root dilation Increase lisinopril to 20 mg daily Started on amlodipine 5 mg daily IV hydralazine as needed BP better Dehydration In setting of ileostomy Denies any increased ileostomy output IV fluids as needed Leukocytosis No obvious source of infection Monitor Remains Afebrile No indication for antibiotics currently Alcohol use disorder: Completed gabapentin taper AWSS scale with fall and seizure precaution Monitor Hypokalemia Replete electrolytes as needed CKD Creatinine at baseline Monitor renal function Depression and Anxiety: Outpatient records from psychiatry date back to 2019 through telemedicine at [facility]. He has been on Effexor in the past and has also tried Prozac, Lexapro and Paxil without positive effect. Was started on Zoloft in 2019 and Hydroxyzine for insomnia. No SI/SA, Ingesting poppy seed tea x10 years for treatment of his anxiety and depression Behavioral Health Liason for depression and anxiety management H/O Total proctocolectomy s/p RLQ ileostomy in 2007: H/O ulcerative colitis --CT abdomen and pelvis does not show any acute process in the abdomen/pelvis. An incidental 4 mm subpleural nodule seen along the right major fissure. Patient will need follow-up CT chest in 12 months. Discussed with patient. Monitor DVT Px: Lovenox SQ Code Status: Full Code Disposition Home Total Time Total Time Spent Total Time Spent (In Minutes): 55 minutes Discharge Plan Discharge Items Patient Disposition: Home - Self-Care Reason For Visit: OPIOD WITHDRAWAL Discharge Diagnosis: Opioid withdrawal Hypertensive urgency Hypokalemia Hyponatremia Pulmonary nodule Activity: Per Instructions section Exercise/Sports: Gradually increase as tolerated Non-emergency contact: Primary Care Provider Call non-emergency contact if: you have any medication questions, your symptoms worsen, your pain is concerning for you and you have a fever Follow-up/Referrals: Eufemia Chiu MD [Outside Practitioners] - (Date & Time 01/17/2023 2:00 PM Provider Eufemia Chiu MD Department General Internal Medicine [facility] ) Diet: Regular Addtl Attending Provider Instructions: Follow-up with your primary care physician in 1 week -Get Blood Test (basic metabolic panel) in 1 week to monitor your sodium, potassium levels. -- Monitor your blood pressure regularly at home. Discuss with your primary care physician for further adjustment of your medications as needed. -- You are incidentally noted to have 4 mm pulmonary nodule on CT scan. Will need repeat CT scan in 6 to 12 months for further evaluation. Seek immediate medical attention if your symptoms reoccur or worsen Please take all medications as instructed on discharge list below. Please call if you have any questions or problems. You can reach a [facility] hospitalist on duty at [facility] 24 hours a day by calling [phone] Pending Studies at Discharge: No Stand-Alone Forms: My [facility] QCoefficient, Smoking Cessation Medications and DC Order Prescriptions: New lisinopril 20 mg Tablet 20 mg PO QAM Qty: 30 1RF amlodipine [Norvasc] 5 mg Tablet 5 mg PO QAM Qty: 30 1RF hydroxyzine HCl 10 mg Tablet 10 mg PO QID PRN (Reason: anxiety) Qty: 20 0RF thiamine HCl (vitamin B1) 100 mg Tablet 100 mg PO DAILY Qty: 30 0RF folic acid 1 mg Tablet 1 mg PO DAILY Qty: 30 0RF Continued tramadol 50 mg Tablet 25 mg PO Q4H PRN (Reason: pain (scale score 4-6)) Qty: 10 0RF omeprazole 20 mg capsule,delayed release(DR/EC) 20 mg PO DAILY Qty: 30 0RF Discharge Orders: Discharge Order (Routine); Ordered 01/13/23 Ordered By: cJ Tesfaye Admission Data Admit Date/Time: 01/03/23 15:05 Attending Provider: Jc Tesfaye Admit Provider: Hanna Jackson Primary Care Provider: Tj Linder Other Providers: Hanna Jackson
[2023-01-13 13:44] VITALS: BP 128/91; PULSE 54
== END 2023-01-13 14:57 | disposition home or self-care (01) | DRG 897 ==
LOC: ED 10:27 → SUATTDRO 15:05 → 2S 15:05

== ENCOUNTER 2023-03-17 10:07 | Inpatient (IN) ==
[2023-03-17 11:39] LABS: Basophils # (auto) 0.04 K/uL (0.00-0.20); Basophils % (auto) 0.5 %; Eosinophils # (auto) 0.03 K/uL (0.00-0.50); Eosinophils % (auto) 0.4 %; Hemoglobin 11.7 g/dl (14.0-18.0); Immature Granulocytes # (auto) 0.04 K/uL (0.01-0.20); Immature Granulocytes % (auto) 0.5 %; Lymphocytes # (auto) 1.93 K/uL (1.20-3.40); Lymphocytes % (auto) 22.8 %; Mean Corpuscular Hemoglobin 34.9 pg (25.0-34.0); Mean Corpuscular Hgb Conc 35.5 g/dL (32.0-36.0); Mean Corpuscular Volume 98.5 fL (80.0-100.0); Mean Platelet Volume 8.7 fL (9.4-12.4); Monocytes # (auto) 1.08 K/uL (0.11-0.59); Monocytes % (auto) 12.8 %; Neutrophils # (auto) 5.33 K/uL (1.40-6.50); Platelet Count 222 K/uL (130-400); RDW Coefficient of Variation 16.5 % (11.5-14.5); Red Blood Count 3.35 M/uL (4.70-6.10); White Blood Count 8.45 K/ul (4.8-10.8)
[2023-03-17 11:45] LABS: Appearance Urine Clear (Clear); Bacteria Urine Automated Negative (Negative); Bilirubin Urine Negative (Negative); Blood Urine Trace (Negative); Cast Urine Automated 0 /lpf (0-5); Color Urine Yellow; Epithelial Cell Urine Auto 0-5 /lpf (0-5); Glucose Urine UA Negative (Negative); Ketones Urine Negative (Negative); Leukocyte Esterase Urine Trace (Negative); Nitrite Urine Negative (Negative); Protein Urine Negative (Negative); RBC Urine Automated 0-4 /hpf (0-4); Specific Gravity Urine 1.006 (1.000-1.030); Urobilinogen Urine Negative (Negative); pH Urine 6.5 (4.5-7.5)
[2023-03-17 11:58] LABS: Alanine Aminotransferase 62 U/L (7-52); Albumin Globulin Ratio 1.3 (0.9-2); Albumin Level 3.8 gm/dl (3.4-5.0); Alkaline Phosphatase 99 U/L (34-104); Anion Gap 9 (3-11); Aspartate Aminotransferase 59 U/L (13-39); BUN Creatinine Ratio 5.9 (10-20); Bilirubin,Total 0.6 mg/dl (0.2-1.0); Blood Urea Nitrogen 7 mg/dl (6-23); Calcium 8.1 mg/dl (8.6-10.3); Carbon Dioxide 27 mmol/L (21-32); Chloride 101 mmol/L (98-107); Est GFR (African American) 82.1 ml/min; Est GFR (Non-African American) 70.8 ml/min; Globulin 2.9 gm/dl (2.5-4.0); Glucose 99 mg/dl (70-99(Fasting)); Potassium 3.4 mmol/L (3.5-5.1); Sodium 137 mmol/L (136-145); Total Protein 6.7 gm/dl (6.0-8.3)
--- NOTE | 2023-03-17 12:02 | CT Scan Report ---
CT head/brain wo con CLINICAL HISTORY: 52 years-old Male with fall from standing. Acute head trauma status post fall TECHNIQUE: Multiple axial CT images of the head were obtained without contrast. A dose lowering tech nique was utilized adhering to the principles of ALARA. CT DOSE: 547.75 mGy.cm COMPARISON: 01/03/2023. FINDINGS: No acute intracranial hemorrhage, midline shift, intracranial mass, hydrocephalus, territorial ischem ia or abnormal extra-axial collection. Mild involutional changes. The calvarium is intact. Small contusion with laceration of the anterior forehead. The paranasal sinu ses, mastoid air cells, and middle ear cavities are clear. IMPRESSION: 1. No acute intracranial abnormality or calvarial fracture. 2. Small contusion with laceration of the forehead. ACT 112: Negative or not required by law. The above report was generated using voice recognition software. It may contain grammatical, syntax o r spelling errors. Electronically signed by: Phan Dallas M.D. 03/17/2023 12:01 PM
[2023-03-17 12:55] LABS: Acetaminophen < 3 ug/ml (10-30); Salicylate < 3.0 mg/dl (3.0-30)
[2023-03-17 13:01] LABS: Amphetamines+Metham, Urine Neg (Neg); Barbiturates, Urine Neg (Neg); Benzodiazepine, Urine Pos (Neg); Cocaine, Urine Neg (Neg); MDMA (Ecstacy), Urine Neg (Neg); Methadone, Urine Neg (Neg); Opiate, Urine Neg (Neg); Phencyclidine, Urine Neg (Neg)
--- NOTE | 2023-03-17 13:45 | Emergency Department Note ---
Impression & Plan Alcohol withdrawal ED Provider Note HISTORY OF PRESENT ILLNESS: Patient is a 52-year-old male presenting requesting assistance with alcohol detox. Patient reports that 2 months ago he presented to the hospital to detox from opioids. He states that since being discharged state of using opioids he has been drinking alcohol. He reports that he drinks 3 L of vodka a week. Reports that he drinks daily. Denies any history of withdrawal seizures. He reports his last drink was last night. He denies any chest pain or shortness of breath. He reports feeling tremulous at this time. Denies any chest pain or shortness of breath ROS: as above PHYSICAL EXAM: Constitutional: Patient appears in no acute distress. HENT: Head: Normocephalic. Patient has a 3 cm linear laceration to the frontal forehead Eyes: EOMI, PERRL Mouth/Throat: Mucous membranes moist. Neck: Trachea midline. Neck supple. Cardiovascular: Tachycardic with regular rhythm. No murmurs, rubs or gallops. Intact distal pulses. Pulmonary/Chest: No respiratory distress. Breath sounds clear and equal bilaterally. No wheezes or rales. Abdominal: Abdomen soft, no tenderness, rebound or guarding. Musculoskeletal: No edema, tenderness or deformity noted. Skin: Warm and dry. No rash, erythema, pallor or cyanosis Psychiatric: Appropriate mood and affect for situation. Neurological: Alert and keenly responsive. CN II-XII grossly intact, moving all extremities equally and fully. Patient speaking in complete sentences. No slurring of words. MDM: - Vitals signs showed tachycardia. - History obtained via patient. Patient presents requesting alcohol detox. Patient reports that he has been drinking 3 L of vodka a week for the last few months. He denies any history of withdrawal seizures. He reports his last drink was last night. Denies any chest pain or shortness of breath. He is feeling tremulous at this time. - Chronic conditions affecting care: depression/anxiety - Differential diagnoses include, but are not limited to: Alcohol withdrawal; recreational drug use;; electrolyte abnormality dysrhythmia - Order placed for continuous cardiac monitoring. At this time, monitor showed rate of 99 bpm with normal sinus rhythm, per my interpretation. - External medical records reviewed. Discharge summary dated 01/13/2023 was reviewed. Patient was admitted for opiate detox. - Laboratory workup interpreted by myself showed normal WBC; hypokalemia (K 3.4); slight transaminitis (AST 59; ALT 62); negative salicylate/acetaminophen levels; elevated ethanol level (225.2) - UA negative for infection - UDS positive for benzos and THC. - CT head wo contrast obtained to assess intracranial pathology, given the patient fell while intoxicated. CT was negative for any acute intracranial pathology - Discussion was had with social sciences research scientist about patient's case and need for admission - Hospitalist consulted for admission - Patient admitted to [facility] service for further evaluation and management. ASSESSMENT AND PLAN: Diagnosis: alcohol withdrawal; alcohol intoxication Plan: admit Past Med/Surg History Medical History (Updated 03/17/23 @ 14:32 by Cinda Simpson MD) Depression with anxiety Opioid use with withdrawal Ulcerative colitis Surgical History H/O ileostomy Family History (Updated 01/03/23 @ 15:51 by LESVIA Soria) Other Asthma Depression Social History Smoking Status: Never smoker Tobacco Type: E-cigarettes / Vaping Hx Alcohol Use: Yes Alcohol type: hard liquor Hx Substance Use: Yes Last Used Substance Other:: drinking tea out of poppy, valium prescribed for dental work. Preferred Language: Kyrgyz Communication Ability: Effective District Recruiter Required: No Beliefs That Will Affect Care: None Current Living Situation: Alone Feels Safe at Home: Yes Assistive Devices: None Allergies Allergies Allergy/AdvReac Type Severity Reaction Status Date / Time No Known Allergies Allergy Unverified 12/05/19 04:36 Home Meds Home Medications Medication Instructions Recorded Confirmed multivitamin 1 tab PO DAILY 03/17/23 03/17/23 Previous Rx's Medication Instructions Recorded amlodipine 5 mg tablet (Norvasc) 5 mg PO QAM #30 tabs 01/13/23 lisinopril 20 mg tablet 20 mg PO QAM #30 tabs 01/13/23 Results & Data (ED) Vital Signs Vital Signs - 24 hr 03/17/23 10:10 03/17/23 13:44 Temperature 36.4 C L Temperature Source Temporal Artery Scan Pulse Rate 99 H 99 H Respiratory Rate 16 Respiratory Depth Normal Blood Pressure 115/78 Blood Pressure Mean 90 Pulse Oximetry 99 Oxygen Delivery Method Room Air Sepsis Recent Fever Within 48 Hours No Sepsis New/Unexplained Change in Mental Status No Sepsis Action Taken by Nursing No Action Required Laboratory Data 03/17/23 11:11 03/17/23 11:11 Lab Results 03/17/23 03/17/23 03/17/23 Range/Units 11:11 11:11 11:11 WBC 8.45 (4.8-10.8) K/ul RBC 3.35 L (4.70-6.10) M/uL Hgb 11.7 L (14.0-18.0) g/dl Hct 33.0 L (42.0-52.0) % MCV 98.5 (80.0-100.0) fL MCH 34.9 H (25.0-34.0) pg MCHC 35.5 (32.0-36.0) g/dL RDW Std Deviation 59.0 H (36.4-46.3) fL RDW Coeff of Denise 16.5 H (11.5-14.5) % Plt Count 222 (130-400) K/uL MPV 8.7 L (9.4-12.4) fL Immature Gran % (Auto) 0.5 % Neut % (Auto) 63.0 % Lymph % (Auto) 22.8 % [place] % (Auto) 12.8 % Eos % (Auto) 0.4 % Baso % (Auto) 0.5 % Neut # (Auto) 5.33 (1.40-6.50) K/uL Lymph # (Auto) 1.93 (1.20-3.40) K/uL [place] # (Auto) 1.08 H (0.11-0.59) K/uL Eos # (Auto) 0.03 (0.00-0.50) K/uL Baso # (Auto) 0.04 (0.00-0.20) K/uL Immature Gran # (Auto) 0.04 (0.01-0.20) K/uL Sodium 137 (136-145) mmol/L Potassium 3.4 L (3.5-5.1) mmol/L Chloride 101 (98-107) mmol/L Carbon Dioxide 27 (21-32) mmol/L Anion Gap 9 (3-11) BUN 7 (6-23) mg/dl Creatinine 1.19 (0.6-1.4) mg/dl Est Cr Clr Drug Dosing Not Reportable Est GFR ( Amer) 82.1 ml/min Est GFR (Non-Af Amer) 70.8 ml/min BUN/Creatinine Ratio 5.9 L (10-20) Glucose 99 (70-99(Fasting)) mg/dl Calcium 8.1 L (8.6-10.3) mg/dl Total Bilirubin 0.6 (0.2-1.0) mg/dl AST 59 H (13-39) U/L ALT 62 H (7-52) U/L Alkaline Phosphatase 99 (34-104) U/L Total Protein 6.7 (6.0-8.3) gm/dl Albumin 3.8 (3.4-5.0) gm/dl Globulin 2.9 (2.5-4.0) gm/dl Albumin/Globulin Ratio 1.3 (0.9-2) Urine Color Urine Appearance (Clear) Urine pH (4.5-7.5) Ur Specific [place] (1.000-1.030) Urine Protein (Negative) Urine Glucose (UA) (Negative) Urine Ketones (Negative) Urine Blood (Negative) Urine Nitrite (Negative) Urine Bilirubin (Negative) Urine Urobilinogen (Negative) Ur Leukocyte Esterase (Negative) Urine WBC (Auto) (0-5) /hpf Urine RBC (Auto) (0-4) /hpf U Hyaline Cast (Auto) (0-5) /lpf U Epithel Cells (Auto) (0-5) /lpf Urine Bacteria (Auto) (Negative) Salicylates < 3.0 L (3.0-30) mg/dl Urine Opiates Screen (Neg) Ur Methadone, Qual (Neg) Acetaminophen < 3 L (10-30) ug/ml Urine Barbiturates (Neg) Ur Phencyclidine (PCP) (Neg) U Amphetamin/Meth Scrn (Neg) MDMA (Ecstasy) Screen (Neg) U Benzodiazepines Scrn (Neg) Ur Cocaine Metabolite (Neg) U Marijuana (THC) Screen (Neg) Ethyl Alcohol mg/dL (<10.0) mg/dl 03/17/23 03/17/23 03/17/23 Range/Units 11:11 11:19 11:19 WBC (4.8-10.8) K/ul RBC (4.70-6.10) M/uL Hgb (14.0-18.0) g/dl Hct (42.0-52.0) % MCV (80.0-100.0) fL MCH (25.0-34.0) pg MCHC (32.0-36.0) g/dL RDW Std Deviation (36.4-46.3) fL RDW Coeff of Denise (11.5-14.5) % Plt Count (130-400) K/uL MPV (9.4-12.4) fL Immature Gran % (Auto) % Neut % (Auto) % Lymph % (Auto) % [place] % (Auto) % Eos % (Auto) % Baso % (Auto) % Neut # (Auto) (1.40-6.50) K/uL Lymph # (Auto) (1.20-3.40) K/uL [place] # (Auto) (0.11-0.59) K/uL Eos # (Auto) (0.00-0.50) K/uL Baso # (Auto) (0.00-0.20) K/uL Immature Gran # (Auto) (0.01-0.20) K/uL Sodium (136-145) mmol/L Potassium (3.5-5.1) mmol/L Chloride (98-107) mmol/L Carbon Dioxide (21-32) mmol/L Anion Gap (3-11) BUN (6-23) mg/dl Creatinine (0.6-1.4) mg/dl Est Cr Clr Drug Dosing Est GFR ( Amer) ml/min Est GFR (Non-Af Amer) ml/min BUN/Creatinine Ratio (10-20) Glucose (70-99(Fasting)) mg/dl Calcium (8.6-10.3) mg/dl Total Bilirubin (0.2-1.0) mg/dl AST (13-39) U/L ALT (7-52) U/L Alkaline Phosphatase (34-104) U/L Total Protein (6.0-8.3) gm/dl Albumin (3.4-5.0) gm/dl Globulin (2.5-4.0) gm/dl Albumin/Globulin Ratio (0.9-2) Urine Color Yellow Urine Appearance Clear (Clear) Urine pH 6.5 (4.5-7.5) Ur Specific [place] 1.006 (1.000-1.030) Urine Protein Negative (Negative) Urine Glucose (UA) Negative (Negative) Urine Ketones Negative (Negative) Urine Blood Trace H (Negative) Urine Nitrite Negative (Negative) Urine Bilirubin Negative (Negative) Urine Urobilinogen Negative (Negative) Ur Leukocyte Esterase Trace H (Negative) Urine WBC (Auto) 1-5 (0-5) /hpf Urine RBC (Auto) 0-4 (0-4) /hpf U Hyaline Cast (Auto) 0 (0-5) /lpf U Epithel Cells (Auto) 0-5 (0-5) /lpf Urine Bacteria (Auto) Negative (Negative) Salicylates (3.0-30) mg/dl Urine Opiates Screen Neg (Neg) Ur Methadone, Qual Neg (Neg) Acetaminophen (10-30) ug/ml Urine Barbiturates Neg (Neg) Ur Phencyclidine (PCP) Neg (Neg) U Amphetamin/Meth Scrn Neg (Neg) MDMA (Ecstasy) Screen Neg (Neg) U Benzodiazepines Scrn Pos H (Neg) Ur Cocaine Metabolite Neg (Neg) U Marijuana (THC) Screen Pos H (Neg) Ethyl Alcohol mg/dL 225.2 H (<10.0) mg/dl Imaging Data Radiologist's Impression: Head CT 03/17/23 10:53 CT head/brain wo con CLINICAL HISTORY: 52 years-old Male with fall from standing. Acute head trauma status post fall TECHNIQUE: Multiple axial CT images of the head were obtained without contrast. A dose lowering technique was utilized adhering to the principles of ALARA. CT DOSE: 547.75 mGy.cm COMPARISON: 01/03/2023. FINDINGS: No acute intracranial hemorrhage, midline shift, intracranial mass, hydrocephalus, territorial ischemia or abnormal extra-axial collection. Mild involutional changes. The calvarium is intact. Small contusion with laceration of the anterior forehead. The paranasal sinuses, mastoid air cells, and middle ear cavities are clear. IMPRESSION: 1. No acute intracranial abnormality or calvarial fracture. 2. Small contusion with laceration of the forehead. ACT 112: Negative or not required by law. The above report was generated using voice recognition software. It may contain grammatical, syntax or spelling errors. Electronically signed by: Phan Dallas M.D. 03/17/2023 12:01 PM Discharge Plan Visit Data Chief Complaint: Detox Request Stated Complaint: FALL, LAC ONHEAD ED Provider: Cinda Simpson Discharge Problem: Alcohol withdrawal Forms Stand Alone Forms: [facility], Suicide Prevention Resources Prescriptions Prescriptions: No Action lisinopril 20 mg Tablet 20 mg PO QAM Qty: 30 1RF amlodipine [Norvasc] 5 mg Tablet 5 mg PO QAM Qty: 30 1RF multivitamin [Multi-Vitamin] Tablet 1 tab PO DAILY Referrals Referrals: Tj Linder PA-C [Primary Care Provider] -
--- NOTE | 2023-03-17 14:16 | History & Physical Report ---
Date of Service March 17, 2023 Assessment & Plan (1) Alcohol withdrawal: (2) Depression with anxiety: Plan: - Admit to med tele - Alcohol level of 225 on admission - AWASS scoring system - Start gabapentin and ativan po protocol - Pt admits he is using alcohol as a substitution for opiod dependence currently. Denies opiod use since Jan 03, 2023. - Will obtain psych consultation - previously has seen multiple psychiatrists, last was prescribed sertraline, and this was in 2019. Reports did not tolerate sertraline, ended up in the hospital with severe abdominal pain and states was a precipitating factor. - Previously tried prozac, effexor xr (states this one previously worked and helped improved lows but it eliminated the highs and he didn't like feeling that). Pt reports sleeping but not well, reports insomnia. he started drinking to help to insomnia and he feels his memories he has are bad ones and wants to eliminate those. Admits to anhedonia, lack of caring for his house/hygeine. Feels depressed currently. When asked about code status initially states DNR/DNI, however admits he feels this way due to depression and agrees to be FULL code with parents in the room. He denies suicidal or homicidal ideations. - Encourage continued follow up with [facility] and concurrent management, pt would benefit from addition support outpt -- he is interested in inpatient rehab for withdrawal, alcohol recovery, and depression. - Noted tox screen positive for marijuana and benzodiazepine. - He admits to using Valium for anxiety pre-dental procedure, last appt was in December and states was given a Rx. PDMP reviewed, no apparent rx in system for valium. (3) Ulcerative colitis: (4) H/O ileostomy: Plan: - Hx of ileostomy creation in 2009 - no signs of GI bleed currently, hgb is 11.7, will monitor - Pt denies hematemesis, coffee ground emesis with drinking or changes in stool output - Consider anemia workup if hgb trends downward, follow with am labs - Continue banana bag x 1 for now and then Continue folic acid, MVI, thiamine PO daily - Allow HH diet DVT ppx: teds, scds, encourage ambulation Lines: 2 PIV GI/FEN: HH diet, allow banana bag x 1 CODE: FULL Dispo: From home, likely to remain in the hospital x 1-2 days. CM and psych medicine to assist with dc planning, pt would like to do inpatient rehab if possible. History of Present Illness Chief Complaint: Alcohol detoxification Primary Care Provider: Tj Linder PA-C This is a 52 year old male with PMHx of HTN, previous opioid use and withdrawal, hypokalemia, CKD, depression and anxiety, Ulcerative colitis s/p ileostomy creation in 2009, that presented to the ED with request to detox from alcohol. Parents, Tanja and Tim, are present at bedside and support the history. Patient was recently admitted in December for detox from opioids. At that point time the patient was on medical marijuana(RHO tincture carpujet) and takes Valium- reports that he got this from a recent dental appointment and was using it for such. PT reports he has not been using opioids, last use was January 03, prior to his last admission. Pt reports that he was drinking last evening, and at some point he fell, but cannot recall this event. He thinks he may have tripped over a kitchen chair at home, denies falling down steps. He thought that he could stay up all night and go to the appointment today at [facility], and when his parents arrived, he was asleep on the cough and knew something was wrong, and brought him to the ER. Pt has ileostomy which he notes has been leaking, but is unsure if there is blood coming from the ostomy. He reports no abdominal pain, no nausea, vomiting. Pt follows with [facility] and is working to get an appointment with psychiatry. Pt admits he is using alcohol as a substitution for opiod dependence currently. Denies opioid use since Jan 03, 2023. Previously has seen multiple psychiatrists, last was prescribed sertraline, and this was in 2019. Reports did not tolerate sertraline, ended up in the hospital with severe abdominal pain and states was a precipitating factor. Previously tried prozac, effexor xr (states this one previously worked and helped improved lows but it eliminated the highs and he didn't like feeling that). Pt reports sleeping but not well, reports insomnia. He started drinking to help to insomnia and he feels his memories he has are bad ones and wants to eliminate those. Admits to anhedonia, lack of caring for his house/hygiene. Feels depressed currently. When asked about code status initially states DNR/DNI, however admits he feels this way due to depression and agrees to be FULL code with parents in the room. He denies suicidal or homicidal ideations. He is amiable to follow up with [facility] and concurrent management. He is interested in inpatient rehab for withdrawal, alcohol recovery, and depression and notes this was discussed during previous admission but ended up not getting placed due to multiple factors including bed availability. Social Hx: Pt has been unemployed since July. Drinks vodka, about 1 L per week. Last drink was ~11pm on 03/16. Pt uses medical marijuana to help avoid drinking alcohol. Family Hx: Sister from alcoholism, Uncle from alcoholism Allergies Allergy/AdvReac Type Severity Reaction Status Date / Time No Known Allergies Allergy Unverified 12/05/19 04:36 Home Medications Medication Instructions Recorded Confirmed Type amlodipine 5 mg tablet (Norvasc) 5 mg PO QAM #30 tabs 01/13/23 03/17/23 Rx lisinopril 20 mg tablet 20 mg PO QAM #30 tabs 01/13/23 03/17/23 Rx hydroxyzine HCl 10 mg tablet 10 mg PO QID 03/17/23 03/17/23 History multivitamin 1 tab PO DAILY 03/17/23 03/17/23 History Past Med/Surg History Medical History (Updated 03/17/23 @ 14:32 by Cinda Simpson MD) Depression with anxiety Opioid use with withdrawal Ulcerative colitis Surgical History H/O ileostomy Family History (Updated 03/17/23 @ 15:16 by Sharyn Lowe PA-C) Other Alcoholism Asthma Depression Social History Smoking Status: Never smoker Tobacco Type: E-cigarettes / Vaping Hx Alcohol Use: Yes Alcohol type: hard liquor Hx Substance Use: Yes Last Used Substance Other:: drinking tea out of poppy, valium prescribed for dental work. Preferred Language: Slovak Communication Ability: Effective Irrigationist Required: No Beliefs That Will Affect Care: None Current Living Situation: Alone Feels Safe at Home: Yes Assistive Devices: None Review of Systems Review of Systems: Constitutional: No fever, sweats or chills Eyes: No diplopia, no worsening or blurred vision ENT: normal hearing, no trouble swallowing Respiratory: No cough, sputum, dyspnea at rest or on exertion Cardiovascular: No chest pain, tightness or palpitations Abdomen: No pain, nausea, vomiting, diarrhea or constipation Musculoskeletal: No joint pain, calf pain, swelling Neurologic: No weakness, numbness/tingling, or balance problems Psychiatric: No anxiety or depression Skin: No rash or itch Physical Exam Physical Exam: General: awake, alert, no apparent distress Head: Normocephalic, forehead laceration s/p fall, ecchymosis around the R posterior ear, dried blood over face in areas. ENT: PERRL, EOMI, no pharyngeal exudate, mucous membranes moist Chest: on room air, no adventitious breath sounds Cardiac: +Sinus tachycardia, no murmur, no JVD, normal peripheral pulses, good capillary refill Abdominal: NABS x 4 quadrants, + ostomy in RLQ, +open scabbed lesion over the RLQ, soft, nondistended, nontender to palpation, no rebound or guarding Back: small areas of scrapes, no obvious area of ecchymosis Extremities: Normal inspection, no peripheral edema or erythema, calfs nontender to palpation Psych: Depressed mood and affect Neuro: AAO x 3, strength intact bilaterally and rated 5/5, no motor deficits, speech is clear, no peripheral sensory deficits Results & Data Results & Data Vital Signs (Past 12 Hours) Vital Signs Temp Pulse Resp BP Pulse Ox O2 Del Method 03/17/23 13:44 99 H 03/17/23 10:10 36.4 C L 99 H 16 115/78 99 Room Air Laboratory Results 03/17/23 03/17/23 03/17/23 11:19 11:19 11:11 WBC RBC Hgb Hct MCV MCH MCHC RDW Std Deviation RDW Coeff of Denise Plt Count MPV Immature Gran % (Auto) Neut % (Auto) Lymph % (Auto) Powell % (Auto) Eos % (Auto) Baso % (Auto) Neut # (Auto) Lymph # (Auto) Powell # (Auto) Eos # (Auto) Baso # (Auto) Immature Gran # (Auto) Sodium Potassium Chloride Carbon Dioxide Anion Gap BUN Creatinine Est Cr Clr Drug Dosing Est GFR ( Amer) Est GFR (Non-Af Amer) BUN/Creatinine Ratio Glucose Calcium Total Bilirubin AST ALT Alkaline Phosphatase Total Protein Albumin Globulin Albumin/Globulin Ratio Urine Color Yellow Urine Appearance Clear Urine pH 6.5 Ur Specific Hackett 1.006 Urine Protein Negative Urine Glucose (UA) Negative Urine Ketones Negative Urine Blood Trace H Urine Nitrite Negative Urine Bilirubin Negative Urine Urobilinogen Negative Ur Leukocyte Esterase Trace H Urine WBC (Auto) 1-5 Urine RBC (Auto) 0-4 U Hyaline Cast (Auto) 0 U Epithel Cells (Auto) 0-5 Urine Bacteria (Auto) Negative Salicylates Urine Opiates Screen Neg Ur Methadone, Qual Neg Acetaminophen Urine Barbiturates Neg Ur Phencyclidine (PCP) Neg U Amphetamin/Meth Scrn Neg MDMA (Ecstasy) Screen Neg U Benzodiazepines Scrn Pos H Ur Cocaine Metabolite Neg U Marijuana (THC) Screen Pos H Ethyl Alcohol mg/dL 225.2 H 03/17/23 03/17/23 03/17/23 11:11 11:11 11:11 WBC 8.45 RBC 3.35 L Hgb 11.7 L Hct 33.0 L MCV 98.5 MCH 34.9 H MCHC 35.5 RDW Std Deviation 59.0 H RDW Coeff of Denise 16.5 H Plt Count 222 MPV 8.7 L Immature Gran % (Auto) 0.5 Neut % (Auto) 63.0 Lymph % (Auto) 22.8 Powell % (Auto) 12.8 Eos % (Auto) 0.4 Baso % (Auto) 0.5 Neut # (Auto) 5.33 Lymph # (Auto) 1.93 Powell # (Auto) 1.08 H Eos # (Auto) 0.03 Baso # (Auto) 0.04 Immature Gran # (Auto) 0.04 Sodium 137 Potassium 3.4 L Chloride 101 Carbon Dioxide 27 Anion Gap 9 BUN 7 Creatinine 1.19 Est Cr Clr Drug Dosing Not Reportable Est GFR ( Amer) 82.1 Est GFR (Non-Af Amer) 70.8 BUN/Creatinine Ratio 5.9 L Glucose 99 Calcium 8.1 L Total Bilirubin 0.6 AST 59 H ALT 62 H Alkaline Phosphatase 99 Total Protein 6.7 Albumin 3.8 Globulin 2.9 Albumin/Globulin Ratio 1.3 Urine Color Urine Appearance Urine pH Ur Specific Hackett Urine Protein Urine Glucose (UA) Urine Ketones Urine Blood Urine Nitrite Urine Bilirubin Urine Urobilinogen Ur Leukocyte Esterase Urine WBC (Auto) Urine RBC (Auto) U Hyaline Cast (Auto) U Epithel Cells (Auto) Urine Bacteria (Auto) Salicylates < 3.0 L Urine Opiates Screen Ur Methadone, Qual Acetaminophen < 3 L Urine Barbiturates Ur Phencyclidine (PCP) U Amphetamin/Meth Scrn MDMA (Ecstasy) Screen U Benzodiazepines Scrn Ur Cocaine Metabolite U Marijuana (THC) Screen Ethyl Alcohol mg/dL Diagnostic Findings Head CT 03/17/23 10:53 CT head/brain wo con CLINICAL HISTORY: 52 years-old Male with fall from standing. Acute head trauma status post fall TECHNIQUE: Multiple axial CT images of the head were obtained without contrast. A dose lowering technique was utilized adhering to the principles of ALARA. CT DOSE: 547.75 mGy.cm COMPARISON: 01/03/2023. FINDINGS: No acute intracranial hemorrhage, midline shift, intracranial mass, hydrocephalus, territorial ischemia or abnormal extra-axial collection. Mild involutional changes. The calvarium is intact. Small contusion with laceration of the anterior forehead. The paranasal sinuses, mastoid air cells, and middle ear cavities are clear. IMPRESSION: 1. No acute intracranial abnormality or calvarial fracture. 2. Small contusion with laceration of the forehead. ACT 112: Negative or not required by law. The above report was generated using voice recognition software. It may contain grammatical, syntax or spelling errors. Electronically signed by: Phan Dallas M.D. 03/17/2023 12:01 PM Code Status & VTE Plan Code Status Full code - discussed with pt at bedside Supervising Physician Co-Signing Physician Notes 52 year old man with PMHx of HTN, previous opioid use and withdrawal, hypokalemia, CKD, depression and anxiety, Ulcerative colitis s/p ileostomy creation in 2009, that presented to the ED with request to detox from alcohol Last drink was yesterday after which he fell and does not recall much of yesterday Exam notable for forehead laceration, bruise behind right ear, RLQ wound from fall, Ostomy bag, mild tremors of outstretched hands Alcohol abuse, Alcohol withdrawal Counseled regarding alcohol cessation [facility] protocol CM to provide resources Psych c/s UDS showed valium and marijuana. Reported valium was recently prescribed as needed by his dentist due to anxiety with recent dental procedure. Stop this for now Monitor electrolytes and replete as needed
[2023-03-17] MEDS ORDERED: LORazepam 1 MG TAB PO PRN ×2 (17:08)
[2023-03-17] MEDS ORDERED: GABAPENTIN 1200MG ALCOHOL WITHDRAWAL LOAD PO STA (17:08)
[2023-03-17] MEDS ORDERED: ONDANSETRON INJ 2 MG/ML 2 ML VIAL IV PRN (17:08)
[2023-03-17] MEDS ORDERED: Ativan PO Alcohol Withdrawal--Active Protocol PO PRN (17:08)
[2023-03-17] MEDS ORDERED: MULTI-VITAMIN INFUSION 10 ML, THIAMINE HCL 100 MG, FOLIC ACID 1 MG in SODIUM CHLORIDE 0... IV ONE (17:15)
[2023-03-17] MEDS ORDERED: GABAPENTIN 600 MG TAB PO ONE (17:15)
[2023-03-17] MEDS: hydrOXYzine HCl 10 MG TAB PO SCH ×2 (18:36→20:03)
[2023-03-17] MEDS: GABAPENTIN 600 MG TAB PO SCH (20:05)
[2023-03-18] MEDS: LORazepam 1 MG TAB PO PRN ×2 (00:32→03:27)
[2023-03-18] MEDS: GABAPENTIN 600 MG TAB PO SCH ×3 (03:28→20:32)
[2023-03-18] MEDS: ACETAMINOPHEN 325 MG TAB PO PRN (06:10)
[2023-03-18 06:29] LABS: Hematocrit (blood only) 33.4 % (42.0-52.0); Hemoglobin 11.5 g/dl (14.0-18.0); Mean Corpuscular Hemoglobin 34.7 pg (25.0-34.0); Mean Corpuscular Hgb Conc 34.4 g/dL (32.0-36.0); Mean Corpuscular Volume 100.9 fL (80.0-100.0); Mean Platelet Volume 8.9 fL (9.4-12.4); Platelet Count 197 K/uL (130-400); RDW Coefficient of Variation 16.5 % (11.5-14.5); RDW Standard Deviation 60.8 fL (36.4-46.3); Red Blood Count 3.31 M/uL (4.70-6.10); White Blood Count 7.44 K/ul (4.8-10.8)
[2023-03-18 07:02] LABS: Albumin Globulin Ratio 1.3 (0.9-2); Albumin Level 3.7 gm/dl (3.4-5.0); BUN Creatinine Ratio 7.3 (10-20); Bilirubin,Total 1.1 mg/dl (0.2-1.0); Calcium 8.1 mg/dl (8.6-10.3); Creatinine Clr Calc Pharmacy 74.2 ml/min; Est GFR (African American) 78.8 ml/min; Globulin 2.9 gm/dl (2.5-4.0); Potassium 3.5 mmol/L (3.5-5.1); Total Protein 6.6 gm/dl (6.0-8.3)
[2023-03-18] MEDS: diazePAM 5 MG TABLET PO SCH ×3 (09:55→20:31)
[2023-03-18] MEDS: MULTIVITAMIN TAB PO SCH (09:55)
[2023-03-18] MEDS: amLODIPine BESYLATE 5 MG TAB PO SCH (09:55)
[2023-03-18] MEDS: hydrOXYzine HCl 10 MG TAB PO SCH ×4 (09:55→20:31)
[2023-03-18] MEDS: FOLIC ACID 400 MCG TAB PO SCH (09:56)
[2023-03-18] MEDS: lisinopril 20 MG TAB PO SCH (09:56)
[2023-03-18] MEDS: THIAMINE HCL 100 MG TAB PO SCH (09:56)
--- NOTE | 2023-03-18 11:21 | Psychiatric Consultation ---
Date of Consultation March 18, 2023 Impression / Recommendations Impression Diagnostically consistent with alcohol use disorder as well as unspecified depression and anxiety likely a combination of substance-induced as well as MDD and social anxiety. Acute risk of self-harm is low given denial of SI and no longer with intoxication. Chronic risk of self-harm and harm to others is slightly increased due to substance use with substance use treatment being the most significant modifiable risk factor to reduce acute and chronic risk. Recommendation is for dual diagnosis/residential substance use treatment which he is motivated for and interested in. Na+ stable, QTc normal in the past, no recent EKG; Liver enzymes reviewed and stable for treatment with naltrexone and no concurrent opioids. Overall, I spent a total of 65 minutes with this case including review of chart records, review of labwork, review of EKG QTc, direct evaluation of the patient at bedside, counseling the patient, discussion of the patient with the hospitalist provider, discussion with the psychiatric liason during clinical rounds and documentation in the electronic health record. (1) Alcohol use disorder: (2) Depression with anxiety: Plan -Psychiatric liason will provide resources on local mental health services for option following residential treatment -CM to help with residential substance use tx referrals once he is medically stable -Patient is not an imminent danger to self or others and does not meet criteria for involuntary psychiatric commitment -Continue AWSS as well as thiamine and folic acid -Consider starting naltrexone 50mg qd for alcohol use disorder -Consider starting mirtazapine 15mg HS for depression, anxiety and insomnia -Consider using gabapentin 100mg TID prn for anxiety once AWSS protocol is complete as data this can also help with alcohol use disorder (and dose could be titrated overtime as tolerated as needed) Psych History Identifying Data 52 yo man with history of polysubstance use disorder (opioids, benzodiazepines, alcohol, marijuana), HTN, KEYANNA, depression, anxiety, and with ileostomy s/p total proctocolectomy admitted medically for alcohol withdrawal. Psychiatry consulted for "severe anxiety and depression". Chief Complaint "I don't think I ever got over the ostomy". History of Present Illness Admitted for worsening alcohol use since his medical admission in late December for opioid use. He was unable to go to residential treatment at that time but has been able to avoid opioid use since Jan 03. Though notes he has used an old script for tramadol " a few times" since then but last at least a few weeks ago. Feels he has instead shifted to increased alcohol use (about 1 L hard liquor per week, mostly in evenings but has been drinking earlier into the day) and reported depressed mood with anhedonia and lack of self care. Adamantly denies any current passive nor active SI. Has consistently denied any active suicidal ideation but has reported periods of passive SI and initially told medical provider admitting him that he wished to be DNR/DNI for code status before adjusting this to full code. Counseling done regarding recommendation to remove the gun from his home if he ever has SI in the future while at home. UDS initial screen positive for benzodiazepines, he reported recent script for dental procedure in December, per PDMP last script was by a dental provider but in August 2022 and only for 4 pills of triazolam. He states he last took one of these leftover pills "a few weeks ago" denies any recent benzo or other recreational substance use. Previously used poppy seed tea in terms of opioid use, denies any history of heroin or other opioid use. Uses recreational marijuana, denies any other recreational substance use. Has never tried AA. Just started with [facility], had two appointments so far. Additional recent and remote history per psych liason note from 03/17/2023: "Patient seen for initial visit. Psychiatric consult requested for depression with severe anxiety. The patient appears calm, is somewhat tremulous and is able to answer questions to him. He states "I have been hiding my drinking from my parents." He presented to the ED earlier for help with detox from alcohol. He states he was here a month ago to detox from opioids but was unable to go to rehab; he feels that him having an ostomy was a deterrent from them accepting him. He states he started drinking alcohol after he was discharged. He states he is willing to go to rehab. He reports seeing multiple psychiatrists in the past with med trials. He did feel Effexor was helpful and that it "raised the lows but reduced the highs". he has no current psychiatrist but does have [facility] counselor and a Partner Management Consultant with [facility]. He reports insomnia, anhedonia, poor concentration and severe social anxiety. 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 He has been unemployed since July. He states his parents are his main support. He scored a 23 on PHQ 9. He states he is not feeling suicidal or homicidal." Psych history of various past medication trials including: sertraline (caused severe GI distress leading to hospitalization), Paxil, fluoxetine, Luvox, Effexor XR, Wellbutrin, hydroxyzine. Currently seeing dual diagnosis therapist via [facility] History of working with psychiatry via [facility]. 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 Significant family history of alcohol use disorder. Does have gun at home. No history of prior suicide attempts. Allergies Allergy/AdvReac Type Severity Reaction Status Date / Time No Known Allergies Allergy Unverified 12/05/19 04:36 Home Medications Medication Instructions Recorded Confirmed Type amlodipine 5 mg tablet (Norvasc) 5 mg PO QAM #30 tabs 01/13/23 03/17/23 Rx lisinopril 20 mg tablet 20 mg PO QAM #30 tabs 01/13/23 03/17/23 Rx hydroxyzine HCl 10 mg tablet 10 mg PO QID 03/17/23 03/17/23 History multivitamin 1 tab PO DAILY 03/17/23 03/17/23 History Patient History Medical History Depression with anxiety Opioid use with withdrawal Ulcerative colitis Surgical History H/O ileostomy Family History Other Alcoholism Asthma Depression Social History Smoking Status: Former smoker Tobacco Type: E-cigarettes / Vaping Second Hand Exposure: No; Do You Dip or Chew Tobacco: No; Tobacco Cessation Education Requested by Patient: No Hx Alcohol Use: Yes Alcohol type: beer and hard liquor Hx Substance Use: Yes Last Used Substance: Unknown Last Used Substance Other:: drinking tea out of poppy, valium prescribed for dental work. Preferred Language: Cameroonian Communication Ability: Effective Grout Machine Tender Required: No Beliefs That Will Affect Care: None Current Living Situation: Family Other Information That Helps Us Care for You: No Feels Safe at Home: Yes Safety Concerns: Feels Safe At This Time Assistive Devices: None Physical Exam Psychiatric: Orientation: alert and oriented x 3 Apperance: appropriately dressed and appropriately groomed Eye Contact: good eye contact Motor Behavior: no abnormal motor movements Speech: normal rate/rhythm/volume of speech Affect: + constricted affect Mood: + depressed mood and + anxious mood Thought Process: goal directed thought process Thought Content: reality based without delusions Suicidal Thoughts: denies suicidal thoughts Homicidal Thoughts: denies homicidal thoughts Hallucinations: no auditory hallucinations and no visual hallucinations Cognition: attention grossly intact and language grossly intact Estimated Intelligence: consistent with education level Insight: + fair insight Judgment: + fair judgement Vital Signs (Past 24 Hours): Last Vital Signs Temp 36.5 C 03/18/23 07:50 Pulse 92 H 03/18/23 07:50 Resp 18 03/18/23 07:50 BP 111/75 03/18/23 07:50 Pulse Ox 98 03/18/23 07:50 O2 Del Method Room Air 03/18/23 07:50 Review of Systems All systems reviewed & are unremarkable except as noted in HPI & below Results & Data (PSY) Medications Administered Acetaminophen (Acetaminophen 325 Mg Tab) 650 mg PO Q4H PRN PRN Reason: Moderate Pain (Scale 4, 5, 6) Stop: 04/16/23 17:07 Last Admin: 03/18/23 06:10 Dose: 650 mg Documented By: EFARIN Amlodipine Besylate (Amlodipine Besylate 5 Mg Tab) 5 mg PO QAM [facility] Stop: 04/17/23 08:59 Last Admin: 03/18/23 09:55 Dose: 5 mg Documented By: JAM Diazepam (Diazepam 5 Mg Tablet) 5 mg PO Q6H [facility] Stop: 04/17/23 09:29 Last Admin: 03/18/23 09:55 Dose: 5 mg Documented By: JAM Folic Acid (Folic Acid 400 Mcg Tab) 400 mcg PO QAM [facility] Stop: 04/17/23 08:59 Last Admin: 03/18/23 09:56 Dose: 400 mcg Documented By: JAM Gabapentin (Gabapentin 600 Mg Tab) 600 mg PO Q24H [facility] Stop: 03/21/23 03:01 Last Admin: 03/17/23 20:05 Dose: 600 mg Documented By: EFRAIN Hydroxyzine HCl (Hydroxyzine Hcl 10 Mg Tab) 10 mg PO QID [facility] Stop: 04/16/23 17:29 Last Admin: 03/18/23 09:55 Dose: 10 mg Documented By: Admin: 03/17/23 20:03 Dose: 10 mg Documented By: Admin: 03/17/23 18:36 Dose: 10 mg Documented By: DRAGAN Lisinopril (Lisinopril 20 Mg Tab) 20 mg PO QAM [facility] Stop: 04/17/23 08:59 Last Admin: 03/18/23 09:56 Dose: 20 mg Documented By: JAM Lorazepam (Lorazepam 1 Mg Tab) 2 mg PO UD PRN; Protocol PRN Reason: EtOH Withdrawal AWSS Score 8,9 Stop: 04/16/23 17:07 Last Admin: 03/17/23 17:25 Dose: 2 mg Documented By: DRAGAN Lorazepam (Lorazepam 1 Mg Tab) 1 mg PO UD PRN; Protocol PRN Reason: EtOH Withdrawal AWSS Score 6,7 Stop: 04/16/23 17:07 Last Admin: 03/18/23 03:27 Dose: 1 mg Documented By: Admin: 03/18/23 00:32 Dose: 1 mg Documented By: EFRAIN Multivitamins (Multivitamin Tab) 1 tab PO DAILY [facility] Stop: 04/17/23 08:59 Last Admin: 03/18/23 09:55 Dose: 1 tab Documented By: JAM Thiamine HCl (Thiamine Hcl 100 Mg Tab) 100 mg PO QAM [facility] Stop: 04/17/23 08:59 Last Admin: 03/18/23 09:56 Dose: 100 mg Documented By: JAM Coding Level of Care Code 29655 IN/OBS CONSULT LVL 4,60M Diagnoses Alcohol use disorder F10.90 Depression with anxiety F41.8
--- NOTE | 2023-03-18 11:54 | Hospitalist Progress Note ---
Date of Service March 18, 2023 Assessment & Plan (1) Alcohol withdrawal: (2) Depression with anxiety: Plan: - Alcohol level of 225 on admission - AWASS scoring system - Start gabapentin and ativan po protocol - Started on Valium taper; restarted on 5 mg every 6 hours; wean down gradually. -Continue thiamine and folic acid Psych on board; appreciate visitor use assistant for management of depression/anxiety. (3) Ulcerative colitis: (4) H/O ileostomy: Plan: - Hx of ileostomy creation in 2009 - no signs of GI bleed currently, hgb is 11.7, will monitor - Pt denies hematemesis, coffee ground emesis with drinking or changes in stool output DVT ppx: Lovenox Lines: 2 PIV GI/FEN: HH diet, allow banana bag x 1 CODE: FULL Dispo: From home. CM and psych medicine to assist with dc planning, pt would like to do inpatient rehab if possible. Please note the above document was generated using voice recognition software. It may contain grammatical, syntax or spelling errors. Any formal questions or concerns about the content, text or information contained within the body of this dictation should be directly addressed to the provider for clarification Admission and Anticipated Discharge Date Admission Date: March 17, 2023 Subjective Patient seen and examined at bedside. Is lying in the bed comfortably. He reports feeling anxious and tremors. Vital stable. Review of Systems Review of Systems: All systems reviewed & are unremarkable except as noted in Subjective Physical Exam Physical Exam: General: awake, alert, seems slightly tremorous. Head: Normocephalic, forehead laceration s/p fall, ecchymosis around the R posterior ear, dried blood over face in areas. ENT: PERRL, EOMI, no pharyngeal exudate, mucous membranes moist Chest: on room air, no adventitious breath sounds Cardiac: +Sinus tachycardia, no murmur, no JVD, normal peripheral pulses, good capillary refill Abdominal: NABS x 4 quadrants, + ostomy in RLQ, +open scabbed lesion over the RLQ, soft, nondistended, nontender to palpation, no rebound or guarding Back: small areas of scrapes, no obvious area of ecchymosis Extremities: Normal inspection, no peripheral edema or erythema, calfs nontender to palpation Psych: Depressed mood and affect Neuro: AAO x 3, strength intact bilaterally and rated 5/5, no motor deficits, speech is clear, no peripheral sensory deficits Results & Data Results & Data Vital Signs (Past 12 Hours) Vital Signs Temp Pulse Pulse Resp BP BP Pulse Ox 03/18/23 11:46 102 H 03/18/23 11:36 36.8 C 99 H 18 126/85 99 03/18/23 07:50 36.5 C 92 H 18 111/75 98 03/18/23 04:00 36.6 C 86 18 130/88 98 03/18/23 00:00 36.6 C 102 H 18 131/84 99 O2 Del Method 03/18/23 11:46 03/18/23 11:36 Room Air 03/18/23 07:50 Room Air 03/18/23 04:00 Room Air 03/18/23 00:00 Room Air Laboratory Results Laboratory Results WBC 7.44 K/ul (4.8-10.8) 03/18/23 05:25 RBC 3.31 M/uL (4.70-6.10) L 03/18/23 05:25 Hgb 11.5 g/dl (14.0-18.0) L 03/18/23 05:25 Hct 33.4 % (42.0-52.0) L 03/18/23 05:25 MCV 100.9 fL (80.0-100.0) H 03/18/23 05:25 MCH 34.7 pg (25.0-34.0) H 03/18/23 05:25 MCHC 34.4 g/dL (32.0-36.0) 03/18/23 05:25 RDW Std Deviation 60.8 fL (36.4-46.3) H 03/18/23 05:25 RDW Coeff of Denise 16.5 % (11.5-14.5) H 03/18/23 05:25 Plt Count 197 K/uL (130-400) 03/18/23 05:25 MPV 8.9 fL (9.4-12.4) L 03/18/23 05:25 Immature Gran % (Auto) 0.5 % 03/17/23 11:11 Neut % (Auto) 63.0 % 03/17/23 11:11 Lymph % (Auto) 22.8 % 03/17/23 11:11 [place] % (Auto) 12.8 % 03/17/23 11:11 Eos % (Auto) 0.4 % 03/17/23 11:11 Baso % (Auto) 0.5 % 03/17/23 11:11 Neut # (Auto) 5.33 K/uL (1.40-6.50) 03/17/23 11:11 Lymph # (Auto) 1.93 K/uL (1.20-3.40) 03/17/23 11:11 [place] # (Auto) 1.08 K/uL (0.11-0.59) H 03/17/23 11:11 Eos # (Auto) 0.03 K/uL (0.00-0.50) 03/17/23 11:11 Baso # (Auto) 0.04 K/uL (0.00-0.20) 03/17/23 11:11 Immature Gran # (Auto) 0.04 K/uL (0.01-0.20) 03/17/23 11:11 Sodium 138 mmol/L (136-145) 03/18/23 05:25 Potassium 3.5 mmol/L (3.5-5.1) 03/18/23 05:25 Chloride 103 mmol/L (98-107) 03/18/23 05:25 Carbon Dioxide 28 mmol/L (21-32) 03/18/23 05:25 Anion Gap 7 (3-11) 03/18/23 05:25 BUN 9 mg/dl (6-23) 03/18/23 05:25 Creatinine 1.23 mg/dl (0.6-1.4) 03/18/23 05:25 Est Cr Clr Drug Dosing 74.2 ml/min 03/18/23 05:25 Est GFR ( Amer) 78.8 ml/min 03/18/23 05:25 Est GFR (Non-Af Amer) 68.0 ml/min 03/18/23 05:25 BUN/Creatinine Ratio 7.3 (10-20) L 03/18/23 05:25 Glucose 90 mg/dl (70-99(Fasting)) 03/18/23 05:25 Calcium 8.1 mg/dl (8.6-10.3) L 03/18/23 05:25 Total Bilirubin 1.1 mg/dl (0.2-1.0) H D 03/18/23 05:25 AST 47 U/L (13-39) H 03/18/23 05:25 ALT 49 U/L (7-52) 03/18/23 05:25 Alkaline Phosphatase 89 U/L (34-104) 03/18/23 05:25 Total Protein 6.6 gm/dl (6.0-8.3) 03/18/23 05:25 Albumin 3.7 gm/dl (3.4-5.0) 03/18/23 05:25 Globulin 2.9 gm/dl (2.5-4.0) 03/18/23 05:25 Albumin/Globulin Ratio 1.3 (0.9-2) 03/18/23 05:25 Urine Color Yellow 03/17/23 11:19 Urine Appearance Clear (Clear) 03/17/23 11:19 Urine pH 6.5 (4.5-7.5) 03/17/23 11:19 Ur Specific [place] 1.006 (1.000-1.030) 03/17/23 11:19 Urine Protein Negative (Negative) 03/17/23 11:19 Urine Glucose (UA) Negative (Negative) 03/17/23 11:19 Urine Ketones Negative (Negative) 03/17/23 11:19 Urine Blood Trace (Negative) H 03/17/23 11:19 Urine Nitrite Negative (Negative) 03/17/23 11:19 Urine Bilirubin Negative (Negative) 03/17/23 11:19 Urine Urobilinogen Negative (Negative) 03/17/23 11:19 Ur Leukocyte Esterase Trace (Negative) H 03/17/23 11:19 Urine WBC (Auto) 1-5 /hpf (0-5) 03/17/23 11:19 Urine RBC (Auto) 0-4 /hpf (0-4) 03/17/23 11:19 U Hyaline Cast (Auto) 0 /lpf (0-5) 03/17/23 11:19 U Epithel Cells (Auto) 0-5 /lpf (0-5) 03/17/23 11:19 Urine Bacteria (Auto) Negative (Negative) 03/17/23 11:19 Salicylates < 3.0 mg/dl (3.0-30) L 03/17/23 11:11 Urine Opiates Screen Neg (Neg) 03/17/23 11:19 Ur Methadone, Qual Neg (Neg) 03/17/23 11:19 Acetaminophen < 3 ug/ml (10-30) L 03/17/23 11:11 Urine Barbiturates Neg (Neg) 03/17/23 11:19 Ur Phencyclidine (PCP) Neg (Neg) 03/17/23 11:19 U Amphetamin/Meth Scrn Neg (Neg) 03/17/23 11:19 MDMA (Ecstasy) Screen Neg (Neg) 03/17/23 11:19 U Benzodiazepines Scrn Pos (Neg) H 03/17/23 11:19 Ur Cocaine Metabolite Neg (Neg) 03/17/23 11:19 U Marijuana (THC) Screen Pos (Neg) H 03/17/23 11:19 Ethyl Alcohol mg/dL 225.2 mg/dl (<10.0) H 03/17/23 11:[address] 03/17/23 10:53 CT head/brain wo con CLINICAL HISTORY: 52 years-old Male with fall from standing. Acute head trauma status post fall TECHNIQUE: Multiple axial CT images of the head were obtained without contrast. A dose lowering technique was utilized adhering to the principles of ALARA. CT DOSE: 547.75 mGy.cm COMPARISON: 01/03/2023. FINDINGS: No acute intracranial hemorrhage, midline shift, intracranial mass, hydrocephalus, territorial ischemia or abnormal extra-axial collection. Mild involutional changes. The calvarium is intact. Small contusion with laceration of the anterior forehead. The paranasal sinuses, mastoid air cells, and middle ear cavities are clear. IMPRESSION: 1. No acute intracranial abnormality or calvarial fracture. 2. Small contusion with laceration of the forehead. ACT 112: Negative or not required by law. The above report was generated using voice recognition software. It may contain grammatical, syntax or spelling errors. Electronically signed by: Phan Dallas M.D. 03/17/2023 12:01 PM
[2023-03-19] MEDS: diazePAM 5 MG TABLET PO SCH ×3 (02:26→15:40)
[2023-03-19] MEDS: GABAPENTIN 600 MG TAB PO SCH ×2 (02:27→15:07)
[2023-03-19] MEDS: hydrOXYzine HCl 10 MG TAB PO SCH ×4 (09:37→21:20)
[2023-03-19] MEDS: amLODIPine BESYLATE 5 MG TAB PO SCH (09:37)
[2023-03-19] MEDS: FOLIC ACID 400 MCG TAB PO SCH (09:37)
[2023-03-19] MEDS: ENOXAPARIN INJ 40 MG/0.4 ML SYR SQ SCH (09:42)
[2023-03-19] MEDS: lisinopril 20 MG TAB PO SCH (09:43)
[2023-03-19] MEDS: MULTIVITAMIN TAB PO SCH (09:43)
[2023-03-19] MEDS: THIAMINE HCL 100 MG TAB PO SCH (09:44)
[2023-03-19] MEDS: ACETAMINOPHEN 325 MG TAB PO PRN (11:16)
--- NOTE | 2023-03-19 13:15 | Hospitalist Progress Note ---
Date of Service March 19, 2023 Assessment & Plan (1) Alcohol withdrawal: (2) Depression with anxiety: Plan: - Alcohol level of 225 on admission - AWASS scoring system - Start gabapentin and ativan po protocol - Started on Valium taper; started on 5 mg every 6 hours; will decrease down to every 8 hours today -Continue thiamine and folic acid Psych on board; started on mirtazapine 15 mg at bedtime. Discussed with patient regarding starting naltrexone as outpatient to decrease craving for alcohol use disorder. Patient agreeable with plan (3) Ulcerative colitis: (4) H/O ileostomy: Plan: - Hx of ileostomy creation in 2009 - no signs of GI bleed currently, hgb is 11.7, will monitor - Pt denies hematemesis, coffee ground emesis with drinking or changes in stool output DVT ppx: Lovenox Lines: 2 PIV GI/FEN: HH diet, CODE: FULL Dispo: From home. CM and psych medicine to assist with dc planning, pt would like to do inpatient rehab if possible. Please note the above document was generated using voice recognition software. It may contain grammatical, syntax or spelling errors. Any formal questions or concerns about the content, text or information contained within the body of this dictation should be directly addressed to the provider for clarification Admission and Anticipated Discharge Date Admission Date: March 17, 2023 Subjective Patient seen and examined at bedside. He reports his symptoms have slightly improved compared to admission He is ambulating well in the hallway Review of Systems Review of Systems: All systems reviewed & are unremarkable except as noted in Subjective Physical Exam Physical Exam: General: awake, alert, oriented x3 Head: Normocephalic, forehead laceration s/p fall, ecchymosis around the R posterior ear, dried blood over face in areas. ENT: PERRL, EOMI, no pharyngeal exudate, mucous membranes moist Chest: on room air, no adventitious breath sounds Cardiac: +Sinus tachycardia, no murmur, no JVD, normal peripheral pulses, good capillary refill Abdominal: NABS x 4 quadrants, + ostomy in RLQ, dressing in place over the RLQ, soft, nondistended, nontender to palpation, no rebound or guarding Back: small areas of scrapes, no obvious area of ecchymosis Extremities: Normal inspection, no peripheral edema or erythema, calfs nontender to palpation Psych: Depressed mood and affect Neuro: AAO x 3, strength intact bilaterally and rated 5/5, no motor deficits, speech is clear, no peripheral sensory deficits Results & Data Results & Data Vital Signs (Past 12 Hours) Vital Signs Temp Pulse Pulse Resp BP Pulse Ox O2 Del Method 03/19/23 11:28 36.6 C 103 H 98 H 105/70 03/19/23 07:38 36.6 C 87 18 110/76 99 Room Air 03/19/23 06:50 100 H 03/19/23 04:00 36.8 C 93 H 18 127/89 100 Room Air 03/19/23 04:18 103 H Laboratory Results Laboratory Results WBC 7.44 K/ul (4.8-10.8) 03/18/23 05:25 RBC 3.31 M/uL (4.70-6.10) L 03/18/23 05:25 Hgb 11.5 g/dl (14.0-18.0) L 03/18/23 05:25 Hct 33.4 % (42.0-52.0) L 03/18/23 05:25 MCV 100.9 fL (80.0-100.0) H 03/18/23 05:25 MCH 34.7 pg (25.0-34.0) H 03/18/23 05:25 MCHC 34.4 g/dL (32.0-36.0) 03/18/23 05:25 RDW Std Deviation 60.8 fL (36.4-46.3) H 03/18/23 05:25 RDW Coeff of Denise 16.5 % (11.5-14.5) H 03/18/23 05:25 Plt Count 197 K/uL (130-400) 03/18/23 05:25 MPV 8.9 fL (9.4-12.4) L 03/18/23 05:25 Immature Gran % (Auto) 0.5 % 03/17/23 11:11 Neut % (Auto) 63.0 % 03/17/23 11:11 Lymph % (Auto) 22.8 % 03/17/23 11:11 [place] % (Auto) 12.8 % 03/17/23 11:11 Eos % (Auto) 0.4 % 03/17/23 11:11 Baso % (Auto) 0.5 % 03/17/23 11:11 Neut # (Auto) 5.33 K/uL (1.40-6.50) 03/17/23 11:11 Lymph # (Auto) 1.93 K/uL (1.20-3.40) 03/17/23 11:11 [place] # (Auto) 1.08 K/uL (0.11-0.59) H 03/17/23 11:11 Eos # (Auto) 0.03 K/uL (0.00-0.50) 03/17/23 11:11 Baso # (Auto) 0.04 K/uL (0.00-0.20) 03/17/23 11:11 Immature Gran # (Auto) 0.04 K/uL (0.01-0.20) 03/17/23 11:11 Sodium 138 mmol/L (136-145) 03/18/23 05:25 Potassium 3.5 mmol/L (3.5-5.1) 03/18/23 05:25 Chloride 103 mmol/L (98-107) 03/18/23 05:25 Carbon Dioxide 28 mmol/L (21-32) 03/18/23 05:25 Anion Gap 7 (3-11) 03/18/23 05:25 BUN 9 mg/dl (6-23) 03/18/23 05:25 Creatinine 1.23 mg/dl (0.6-1.4) 03/18/23 05:25 Est Cr Clr Drug Dosing 74.2 ml/min 03/18/23 05:25 Est GFR ( Amer) 78.8 ml/min 03/18/23 05:25 Est GFR (Non-Af Amer) 68.0 ml/min 03/18/23 05:25 BUN/Creatinine Ratio 7.3 (10-20) L 03/18/23 05:25 Glucose 90 mg/dl (70-99(Fasting)) 03/18/23 05:25 Calcium 8.1 mg/dl (8.6-10.3) L 03/18/23 05:25 Total Bilirubin 1.1 mg/dl (0.2-1.0) H D 03/18/23 05:25 AST 47 U/L (13-39) H 03/18/23 05:25 ALT 49 U/L (7-52) 03/18/23 05:25 Alkaline Phosphatase 89 U/L (34-104) 03/18/23 05:25 Total Protein 6.6 gm/dl (6.0-8.3) 03/18/23 05:25 Albumin 3.7 gm/dl (3.4-5.0) 03/18/23 05:25 Globulin 2.9 gm/dl (2.5-4.0) 03/18/23 05:25 Albumin/Globulin Ratio 1.3 (0.9-2) 03/18/23 05:25 Urine Color Yellow 03/17/23 11:19 Urine Appearance Clear (Clear) 03/17/23 11:19 Urine pH 6.5 (4.5-7.5) 03/17/23 11:19 Ur Specific [place] 1.006 (1.000-1.030) 03/17/23 11:19 Urine Protein Negative (Negative) 03/17/23 11:19 Urine Glucose (UA) Negative (Negative) 03/17/23 11:19 Urine Ketones Negative (Negative) 03/17/23 11:19 Urine Blood Trace (Negative) H 03/17/23 11:19 Urine Nitrite Negative (Negative) 03/17/23 11:19 Urine Bilirubin Negative (Negative) 03/17/23 11:19 Urine Urobilinogen Negative (Negative) 03/17/23 11:19 Ur Leukocyte Esterase Trace (Negative) H 03/17/23 11:19 Urine WBC (Auto) 1-5 /hpf (0-5) 03/17/23 11:19 Urine RBC (Auto) 0-4 /hpf (0-4) 03/17/23 11:19 U Hyaline Cast (Auto) 0 /lpf (0-5) 03/17/23 11:19 U Epithel Cells (Auto) 0-5 /lpf (0-5) 03/17/23 11:19 Urine Bacteria (Auto) Negative (Negative) 03/17/23 11:19 Salicylates < 3.0 mg/dl (3.0-30) L 03/17/23 11:11 Urine Opiates Screen Neg (Neg) 03/17/23 11:19 Ur Methadone, Qual Neg (Neg) 03/17/23 11:19 Acetaminophen < 3 ug/ml (10-30) L 03/17/23 11:11 Urine Barbiturates Neg (Neg) 03/17/23 11:19 Ur Phencyclidine (PCP) Neg (Neg) 03/17/23 11:19 U Amphetamin/Meth Scrn Neg (Neg) 03/17/23 11:19 MDMA (Ecstasy) Screen Neg (Neg) 03/17/23 11:19 U Benzodiazepines Scrn Pos (Neg) H 03/17/23 11:19 Ur Cocaine Metabolite Neg (Neg) 03/17/23 11:19 U Marijuana (THC) Screen Pos (Neg) H 03/17/23 11:19 Ethyl Alcohol mg/dL 225.2 mg/dl (<10.0) H 03/17/23 11:[address] 03/17/23 10:53 CT head/brain wo con CLINICAL HISTORY: 52 years-old Male with fall from standing. Acute head trauma status post fall TECHNIQUE: Multiple axial CT images of the head were obtained without contrast. A dose lowering technique was utilized adhering to the principles of ALARA. CT DOSE: 547.75 mGy.cm COMPARISON: 01/03/2023. FINDINGS: No acute intracranial hemorrhage, midline shift, intracranial mass, hydrocephalus, territorial ischemia or abnormal extra-axial collection. Mild involutional changes. The calvarium is intact. Small contusion with laceration of the anterior forehead. The paranasal sinuses, mastoid air cells, and middle ear cavities are clear. IMPRESSION: 1. No acute intracranial abnormality or calvarial fracture. 2. Small contusion with laceration of the forehead. ACT 112: Negative or not required by law. The above report was generated using voice recognition software. It may contain grammatical, syntax or spelling errors. Electronically signed by: Phan Dallas M.D. 03/17/2023 12:01 PM
[2023-03-19] MEDS ORDERED: ZOLPIDEM TARTRATE 5 MG TAB PO SCH (21:00)
[2023-03-19] MEDS ORDERED: MIRTAZAPINE TAB 15 MG TAB PO SCH (21:00)
[2023-03-20] MEDS: diazePAM 5 MG TABLET PO SCH ×2 (00:19→05:32)
[2023-03-20] MEDS: GABAPENTIN 600 MG TAB PO SCH (02:23)
[2023-03-20] MEDS: ACETAMINOPHEN 325 MG TAB PO PRN (02:26)
[2023-03-20] MEDS: LORazepam 1 MG TAB PO PRN (02:27)
[2023-03-20 07:52] LABS: 7-Aminoclonaz, Confirm NEGATIVE ng/mL (<25); Hydro-Alp Ur, GC/MS NEGATIVE ng/mL (<25); Hydroxyethylflurazepam, Conf NEGATIVE ng/mL (<50); Hydroxymidazolam Ur, GC/MS NEGATIVE ng/mL (<50); Hydroxytriazolam NEGATIVE ng/mL (<50); Lorazepam, Ur GC/MS NEGATIVE ng/mL (<50); Marijuana Quant, GCMS Urine 144 ng/mL (<5); Nordiazepam, Confirm 322 ng/mL (<50); Oxazepam Ur, GC/MS 528 ng/mL (<50); Temazepam, Confirm 1620 ng/mL (<50)
[2023-03-20] MEDS: MULTIVITAMIN TAB PO SCH (08:56)
[2023-03-20] MEDS: amLODIPine BESYLATE 5 MG TAB PO SCH (08:56)
[2023-03-20] MEDS: lisinopril 20 MG TAB PO SCH (08:57)
[2023-03-20] MEDS: FOLIC ACID 400 MCG TAB PO SCH (08:57)
[2023-03-20] MEDS: hydrOXYzine HCl 10 MG TAB PO SCH (08:57)
[2023-03-20] MEDS: THIAMINE HCL 100 MG TAB PO SCH (08:57)
[2023-03-20] MEDS: ENOXAPARIN INJ 40 MG/0.4 ML SYR SQ SCH (08:58)
[2023-03-20] MEDS ORDERED: diazePAM 5 MG TABLET PO SCH (09:00)
--- NOTE | 2023-03-20 13:06 | Discharge Summary ---
Date of Service March 20, 2023 Admission HPI Per Admitting Provider This is a 52 year old male with PMHx of HTN, previous opioid use and withdrawal, hypokalemia, CKD, depression and anxiety, Ulcerative colitis s/p ileostomy creation in 2009, that presented to the ED with request to detox from alcohol. Parents, Tanja and Tim, are present at bedside and support the history. Patient was recently admitted in December for detox from opioids. At that point time the patient was on medical marijuana(RHO tincture carpujet) and takes Valium- reports that he got this from a recent dental appointment and was using it for such. PT reports he has not been using opioids, last use was January 03, prior to his last admission. Pt reports that he was drinking last evening, and at some point he fell, but cannot recall this event. He thinks he may have tripped over a kitchen chair at home, denies falling down steps. He thought that he could stay up all night and go to the appointment today at [facility], and when his parents arrived, he was asleep on the cough and knew something was wrong, and brought him to the ER. Pt has ileostomy which he notes has been leaking, but is unsure if there is blood coming from the ostomy. He reports no abdominal pain, no nausea, vomiting. Pt follows with [facility] and is working to get an appointment with psychiatry. Pt admits he is using alcohol as a substitution for opiod dependence currently. Denies opioid use since Jan 03, 2023. Previously has seen multiple psychiatrists, last was prescribed sertraline, and this was in 2019. Reports did not tolerate sertraline, ended up in the hospital with severe abdominal pain and states was a precipitating factor. Previously tried prozac, effexor xr (states this one previously worked and helped improved lows but it eliminated the highs and he didn't like feeling that). Pt reports sleeping but not well, reports insomnia. He started drinking to help to insomnia and he feels his memories he has are bad ones and wants to eliminate those. Admits to anhedonia, lack of caring for his house/hygiene. Feels depressed currently. When asked about code status initially states DNR/DNI, however admits he feels this way due to depression and agrees to be FULL code with parents in the room. He denies suicidal or homicidal ideations. He is amiable to follow up with [facility] and concurrent management. He is interested in inpatient rehab for withdrawal, alcohol recovery, and depression and notes this was discussed during previous admission but ended up not getting placed due to multiple factors including bed availability. Social Hx: Pt has been unemployed since July. Drinks vodka, about 1 L per week. Last drink was ~11pm on 03/16. Pt uses medical marijuana to help avoid drinking alcohol. Family Hx: Sister from alcoholism, Uncle from alcoholism Admission Exam Per Admitting Provider General: awake, alert, no apparent distress Head: Normocephalic, forehead laceration s/p fall, ecchymosis around the R posterior ear, dried blood over face in areas. ENT: PERRL, EOMI, no pharyngeal exudate, mucous membranes moist Chest: on room air, no adventitious breath sounds Cardiac: +Sinus tachycardia, no murmur, no JVD, normal peripheral pulses, good capillary refill Abdominal: NABS x 4 quadrants, + ostomy in RLQ, +open scabbed lesion over the RLQ, soft, nondistended, nontender to palpation, no rebound or guarding Back: small areas of scrapes, no obvious area of ecchymosis Extremities: Normal inspection, no peripheral edema or erythema, calfs nontender to palpation Psych: Depressed mood and affect Neuro: AAO x 3, strength intact bilaterally and rated 5/5, no motor deficits, speech is clear, no peripheral sensory deficits Principal Diagnosis Alcohol use disorder Alcohol withdrawal Discharge Exam General: awake, alert, oriented x3 Head: Normocephalic, forehead laceration s/p fall, ecchymosis around the R posterior ear, dried blood over face in areas. ENT: PERRL, EOMI, no pharyngeal exudate, mucous membranes moist Chest: on room air, no adventitious breath sounds Cardiac: RRR no murmur, no JVD, normal peripheral pulses, good capillary refill Abdominal: NABS x 4 quadrants, + ostomy in RLQ, dressing in place over the RLQ, soft, nondistended, nontender to palpation, no rebound or guarding Back: small areas of scrapes, no obvious area of ecchymosis Extremities: Normal inspection, no peripheral edema or erythema, calfs nontender to palpation Psych: Depressed mood and affect Neuro: AAO x 3, strength intact bilaterally and rated 5/5, no motor deficits, speech is clear, no peripheral sensory deficits Discharge Data Allergies Allergy/AdvReac Type Severity Reaction Status Date / Time No Known Allergies Allergy Unverified 12/05/19 04:36 Consultations 03/17/23 14:03 ED Decision to Admit Stat 03/17/23 14:48 Consult Psychiatry Routine Ordered Studies 03/17/23 10:53 CT head/brain wo con Stat Hospital Course (1) Alcohol withdrawal: (2) Depression with anxiety: (3) Ulcerative colitis: (4) H/O ileostomy: Patient is a 52-year-old male who presented to the hospital for alcohol detox Patient was admitted to telemetry floor for further management. He was started on gabapentin, oral Ativan and tapering dose of Valium Over the course of the hospitalization, patient showed improved signs and symptoms from alcohol withdrawal standpoint. At discharge, he did not have any symptoms of alcohol withdrawal He was also evaluated by psychiatry during the hospitalization; recommended to be started on mirtazapine 15 mg at this for depression. Patient was asked to follow-up with his primary care doctor and obtain addiction medicine referral for alcohol use disorder. Patient will likely benefit from being started on naltrexone. Please note the above document was generated using voice recognition software. It may contain grammatical, syntax or spelling errors. Any formal questions or concerns about the content, text or information contained within the body of this dictation should be directly addressed to the provider for clarification Total Time Total Time Spent Total Time Spent (In Minutes): 45 Total Time Includes: Examination of the Patient, Discharge Planning, Medication Reconciliation, Communication With Other Providers and Other Discharge Plan Discharge Items Patient Disposition: Home - Self-Care Reason For Visit: ALCOHOL DETOX Discharge Diagnosis: Alcohol withdrawal Alcohol use disorder Depression Activity: Resume your previous activity Non-emergency contact: Primary Care Provider Call non-emergency contact if: you have any medication questions and your symptoms worsen Follow-up/Referrals: Tj Linder PA-C [Primary Care Provider] - (Date & Time 03/22/2023 11:00 AM Provider Moira Jaimes MD Department General Internal Medicine [facility] ) Diet: Regular Addtl Attending Provider Instructions: You were admitted to the hospital due to concern of alcohol withdrawal. You underwent detox with Valium and gabapentin. An appointment will be set up with your primary care doctor. Please discussed regarding medications for alcohol use disorder. If possible, obtain addiction medicine referral. For depression, you were seen by psychiatry during the hospitalization. They recommend to be started on mirtazapine 15 mg. An prescription has been sent to your pharmacy Pending Studies at Discharge: No Stand-Alone Forms: My [facility], Smoking Cessation Medications and DC Order Prescriptions: New folic acid 400 mcg Tablet 400 mcg PO QAM Qty: 30 0RF mirtazapine 15 mg Tablet 15 mg PO HS Qty: 30 0RF thiamine HCl (vitamin B1) 100 mg Tablet 100 mg PO QAM Qty: 30 0RF Continued lisinopril 20 mg Tablet 20 mg PO QAM Qty: 30 1RF amlodipine [Norvasc] 5 mg Tablet 5 mg PO QAM Qty: 30 1RF multivitamin Tablet 1 tab PO DAILY hydroxyzine HCl 10 mg tablet 10 mg PO QID Discharge Orders: Discharge Order (Routine); Ordered 03/20/23 Ordered By: Randy Hernandez Admission Data Admit Date/Time: 03/17/23 14:19 Attending Provider: Randy Hernandez Admit Provider: Griselda Osborn I. Primary Care Provider: Tj Linder Other Providers: Griselda Osborn I. ; Whitney Ang ; Bea Nguyen ; Nick Love Other Interventions: Discharge Summary Assessment (RN) Last Done: 03/20/23 11:36
[2023-03-21] MEDS ORDERED: GABAPENTIN 600 MG TAB PO SCH (03:00)
== END 2023-03-20 13:15 | disposition home or self-care (01) | DRG 897 ==
LOC: ED 10:07 → 2W 14:19 → SUATTDRO 14:19 → 2W 16:41

== ENCOUNTER 2023-08-25 14:04 | Inpatient (IN) ==
--- NOTE | 2023-08-25 14:15 | ED Triage Note ---
Date of Service August 25, 2023 Provider in Triage Author: Ryne Syed History of Present Illness This patient was briefly evaluated while in triage. An abbreviated physical exam was performed. This patient is a 53-year-old Male, history of hypertension, who presents to the ED for evaluation of a syncopal episode. The patient was at the when he became diaphoretic and had a brief loss of consciousness. When EMS arrived on scene, the patient was alert and oriented with pale appearance and diaphoresis. Vital signs have been normal since EMS arrival. Patient reports persistent nausea. BSG on scene was 127. Patient reports a similar episode of syncope 2 months ago. Patient reports that he was able to resolve his symptoms at home while lying down. He did not follow-up with his family doctor, Dr. Chiu at [facility]. Patient denies history of heart disease or diabetes. Patient currently has an ileostomy for prior history of ulcerative colitis with bowel resection. Physical Exam CONSTITUTIONAL: Healthy and well nourished. Alert and oriented X 3. GCS 15. HEENT: No scleral icterus or conjunctival injection. NECK: Full active range of motion without discomfort. RESPIRATORY: Clear to auscultation bilaterally with no wheezing, crackles, rhonchi or stridor. CARDIOVASCULAR: Regular rate and rhythm with no murmurs, rubs or gallops. INTEGUMENTARY: No rash or other significant dermatologic conditions noted. HEMATOLOGIC: No ecchymosis or petechiae. PSYCHIATRIC: Positive affect. NEUROLOGIC: Cranial nerves II-XII grossly intact. No focal neurologic deficits noted. Initial orders for labs and / or imaging were placed and patient was placed in the waiting area until a bed is available. Please see further documentation for the full ED course.
[2023-08-25 14:58] LABS: Basophils # (auto) 0.06 K/uL (0.00-0.20); Basophils % (auto) 0.4 %; Eosinophils # (auto) 0.01 K/uL (0.00-0.50); Eosinophils % (auto) 0.1 %; Hematocrit (blood only) 51.1 % (42.0-52.0); Hemoglobin 17.6 g/dl (14.0-18.0); Immature Granulocytes # (auto) 0.12 K/uL (0.01-0.20); Immature Granulocytes % (auto) 0.7 %; Lymphocytes # (auto) 0.73 K/uL (1.20-3.40); Lymphocytes % (auto) 4.4 %; Mean Corpuscular Hemoglobin 30.5 pg (25.0-34.0); Mean Corpuscular Hgb Conc 34.4 g/dL (32.0-36.0); Mean Corpuscular Volume 88.6 fL (80.0-100.0); Mean Platelet Volume 8.4 fL (9.4-12.4); Monocytes # (auto) 1.03 K/uL (0.11-0.59); Monocytes % (auto) 6.2 %; Neutrophils # (auto) 14.62 K/uL (1.40-6.50); Neutrophils % (auto) 88.2 %; Platelet Count 408 K/uL (130-400); RDW Coefficient of Variation 19.3 % (11.5-14.5); RDW Standard Deviation 60.8 fL (36.4-46.3); Red Blood Count 5.77 M/uL (4.70-6.10); White Blood Count 16.57 K/ul (4.8-10.8)
[2023-08-25 15:09] LABS: Partial Thromboplastin Time 27 Seconds (21-31)
[2023-08-25 15:22] LABS: Troponin I High Sensitivity 3.9 pg/ml (0-20)
[2023-08-25 15:31] LABS: Thyroid Stimulating Hormone 5.124 uIu/ml (0.300-4.500)
[2023-08-25 15:54] LABS: Albumin Level 5.1 gm/dl (3.4-5.0); Anion Gap 16 (3-11); Bilirubin,Total 0.7 mg/dl (0.2-1.0); Calcium 10.2 mg/dl (8.6-10.3); Carbon Dioxide 17 mmol/L (21-32); Chloride 100 mmol/L (98-107); Magnesium 1.8 mg/dl (1.7-2.4); Potassium 4.1 mmol/L (3.5-5.1); Sodium 133 mmol/L (136-145)
[2023-08-25 16:00] LABS: Alanine Aminotransferase 31 U/L (7-52); Albumin Globulin Ratio 1.2 (0.9-2); Alkaline Phosphatase 95 U/L (34-104); Aspartate Aminotransferase 29 U/L (13-39); Blood Urea Nitrogen 21 mg/dl (6-23); Est GFR (African American) 51.1 ml/min; Est GFR (Non-African American) 44.1 ml/min; Globulin 4.1 gm/dl (2.5-4.0); Glucose 107 mg/dl (70-99(Fasting)); Lipase 46 U/L (11-82); Total Protein 9.2 gm/dl (6.0-8.3)
--- NOTE | 2023-08-25 16:13 | XRay Report ---
XR chest 1V not portable CLINICAL HISTORY: Syncope. COMPARISON STUDY: Chest radiograph December 05, 2019. FINDINGS: There is mild elevation of the right hemidiaphragm. Lungs are clear. There is no pneumothor ax or pleural effusion. Cardiac size is normal. Mediastinal contours are normal. There is no evidence for pulmonary edema. IMPRESSION: No acute cardiopulmonary findings. ACT 112: Negative or not required by law. Electronically signed by: Cullen Cano M.D. 08/25/2023 4:11 PM
[2023-08-25] MEDS: SODIUM CHLORIDE 0.9% 500 ML IV ONE (16:14)
[2023-08-25 16:27] LABS: T4 Free Thyroxine 0.95 ng/dl (0.61-1.60)
--- NOTE | 2023-08-25 16:29 | Emergency Department Note ---
Impression & Plan Syncope and collapse, Acute dehydration, Acute on chronic renal insufficiency ED Provider Note Name: ABILIO COREAS Age: 53 Sex: Male Arrives Via: Ambulance Informant: Patient and parents who also witnessed the event ED Provider: Saud Jackson MD Chief Complaint: Syncope Impression: As per impressions above Medical Decision Makin-year-old male with history of ulcerative colitis leading to ileostomy along with chronic abdominal pain, depression, anxiety, as well as a history of alcohol abuse. Arrives for evaluation following a 5-minute syncopal episode which occurred at rest while sitting. Was sitting with family when he got diaphoretic and went unresponsive. Continued having pulses and breathing throughout. As he came to continue to be a bit pale and diaphoretic. On arrival he is dehydrated appearing mildly tachycardic though not significant distress. He was given IV fluids. Laboratory workup is consistent with dehydration state. Patient admits that he periodically drinks alcohol but never drinks heavily and no longer has withdrawal symptoms. Denies recent alcohol use or drug use. Not having any abdominal pain or tenderness palpation. Laboratory workup chest x-ray and EKG unremarkable other than the findings for acute dehydration. Syncope may be secondary to dehydration though it is a bit concerning that it occurred at rest given his multiple other comorbidities I think further monitoring is indicated. Patient is not hypoxic he has not short of breath and he is not having any chest pain or palpitations I do not think that CT PE scan would be indicated to rule out PE at this time. There is no evidence of ACS at this point either. Triage/Nursing Notes reviewed by Me Differential:Vasovagal event, dehydration, infection, hypoglycemia, electrolyte abnormalities, cardiac sources, intracerebral event, pulmonary embolism, seizure, toxicologic, neurologic, as well as other pathologies. Vital Signs: reviewed and remarkable for mild tachycardia Interventions: 1.5 L IV normal saline bolus Labs:ED labs Reviewed by me and remarkable for bump in creatinine Imagin view chest x-ray as per my interpretation no infiltrate effusion or pneumothorax appreciated EKG:As per my interpretation. Indication syncope. Normal sinus rhythm at 96 bpm QTc of 432. There is no ectopy nor ischemia. When compared to EKG of December 05, 2019 heart rate has increased. Cardiac/Tele Monitoring: Cardiac Monitoring: An Order was placed for continuous cardiac monitoring. The monitor shows a rate of 90 with a normal sinus rhythm. Consults:[facility] Hospitalist consulted who will bring in patient for further monitoring/management Plan: Disposition:Hospitalization. Condition: Good History of Present Illness: 53-year-old gentleman arrives for evaluation of syncope. Patient notes he had gone out to a light breakfast with his parents. While they were sitting awaiting food patient had a syncopal event. This is about 15-20 minutes after they had sat down. He said he was feeling fine prior to this. Ambulating without issue. He has taken his typical morning medications including lisinopril and amlodipine without eating anything this morning. Patient apparently appeared quite diaphoretic pale and then went unresponsive. He was reportedly unresponsive for almost 5 minutes. When he came to was gradual he was diaphoretic and pale. Mildly confused. No seizure- like activity. Did not strike his head. Denies any headache, neck pain, chest pain, shortness of breath. States he had an episode like this previously a few years ago. Primarily has issues with dehydration and his ostomy. Patient lives alone. His parents were visiting from out of town. Denies any blood in ostomy. Past Medical History: Ileostomy secondary to ulcerative colitis, hypertension, intractable abdominal pain, depression with anxiety, Home Medications:Lisinopril, amlodipine, folic acid, hydroxyzine, thiamine, multivitamin, mirtazapine Allergies:No known drug allergy Vitals:Blood Pressure: 121/83, Pulse 94, RR 16, T 36.1C, O2 100% on RA Physical Exam: GENERAL: Patient is dehydrated appearing and in no acute distress. Mildly tremulous RESPIRATORY: No dyspnea. Clear to auscultation and equal bilaterally. CARDIOVASCULAR: Regular rate and rhythm.No murmur appreciated. GASTROINTESTINAL: Abdomen soft, non-tender, no peritonitis. Extensive abdominal scarring noted along with right lower abdominal ostomy EXTREMITIES: Normal motion all extremities, no cyanosis, no edema. NEUROLOGIC: Alert and oriented. No focal neurologic deficits appreciated SKIN: No rash, no jaundice, no diaphoresis. PSYCH: Appropriate GCS: 15 ED Course: Times/Reassessments: Patient does appear a bit better with fluids though remains a bit tachycardic. Discussed with hospitalist for further management Sadu Jackson MD Past Med/Surg History Medical History (Updated 08/25/23 @ 23:38 by Saud Jackson MD) Leukocytosis HTN (hypertension) Syncope Depression with anxiety Opioid use with withdrawal Ulcerative colitis Surgical History H/O ileostomy Family History Other Alcoholism Asthma Depression Social History Smoking Status: Never smoker Tobacco Type: E-cigarettes / Vaping Second Hand Exposure: No; Do You Dip or Chew Tobacco: No; Hx Alcohol Use: Yes Alcohol type: wine and hard liquor Hx Substance Use: Yes Last Used Substance: Days (ago) Last Used Substance Other:: marijuana Preferred Language: Nepali Communication Ability: Effective Syrup Maker Required: No Beliefs That Will Affect Care: None Current Living Situation: Alone Feels Safe at Home: Yes Safety Concerns: Feels Safe At This Time Assistive Devices: None Allergies Allergies Allergy/AdvReac Type Severity Reaction Status Date / Time No Known Allergies Allergy Unverified 08/25/23 17:12 Home Meds Home Medications Medication Instructions Recorded Confirmed multivitamin 1 tab PO DAILY 03/17/23 08/25/23 hydroxyzine HCl 25 mg tablet 25 mg PO Q6H PRN Anxiety 08/25/23 08/25/23 mirtazapine 30 mg tablet 30 mg PO HS 08/25/23 08/25/23 vortioxetine 5 mg tablet 5 mg PO DAILY 08/25/23 08/25/23 (Trintellix) Previous Rx's Medication Instructions Recorded amlodipine 5 mg tablet (Norvasc) 5 mg PO QAM #30 tabs 01/13/23 lisinopril 20 mg tablet 20 mg PO QAM #30 tabs 01/13/23 thiamine HCl (vitamin B1) 100 mg 100 mg PO QAM #30 tabs 03/20/23 tablet Results & Data (ED) Vital Signs Vital Signs - 24 hr 08/25/23 14:11 08/25/23 16:10 08/25/23 16:16 Temperature 36.1 C L Temperature Source Temporal Artery Scan Pulse Rate 94 H Respiratory Rate 16 Respiratory Effort / Characteristics Non-Labored Respiratory Depth Normal Blood Pressure 121/83 Blood Pressure Mean 95 Pulse Oximetry 100 Oxygen Delivery Method Room Air Room Air Room Air Sepsis Recent Fever Within 48 Hours No Sepsis New/Unexplained Change in Mental Status No Sepsis Action Taken by Nursing No Action Required 08/25/23 16:41 08/25/23 16:50 Temperature Temperature Source Pulse Rate 96 H 99 H Respiratory Rate 17 16 Respiratory Effort / Characteristics Respiratory Depth Blood Pressure Blood Pressure Mean Pulse Oximetry Oxygen Delivery Method Sepsis Recent Fever Within 48 Hours Sepsis New/Unexplained Change in Mental Status Sepsis Action Taken by Nursing Laboratory Data 08/25/23 14:36 08/25/23 22:27 Lab Results 08/25/23 Range/Units 14:36 WBC 16.57 H (4.8-10.8) K/ul RBC 5.77 (4.70-6.10) M/uL Hgb 17.6 (14.0-18.0) g/dl Hct 51.1 (42.0-52.0) % MCV 88.6 (80.0-100.0) fL MCH 30.5 (25.0-34.0) pg MCHC 34.4 (32.0-36.0) g/dL RDW Std Deviation 60.8 H (36.4-46.3) fL RDW Coeff of Denise 19.3 H (11.5-14.5) % Plt Count 408 H (130-400) K/uL MPV 8.4 L (9.4-12.4) fL Immature Gran % (Auto) 0.7 % Neut % (Auto) 88.2 % Lymph % (Auto) 4.4 % [place] % (Auto) 6.2 % Eos % (Auto) 0.1 % Baso % (Auto) 0.4 % Neut # (Auto) 14.62 H (1.40-6.50) K/uL Lymph # (Auto) 0.73 L (1.20-3.40) K/uL [place] # (Auto) 1.03 H (0.11-0.59) K/uL Eos # (Auto) 0.01 (0.00-0.50) K/uL Baso # (Auto) 0.06 (0.00-0.20) K/uL Immature Gran # (Auto) 0.12 (0.01-0.20) K/uL PT 11.0 (9.0-12.0) Seconds INR 1.0 (0.9-1.1) APTT 27 (21-31) Seconds PTT Ratio 1.0 Sodium 133 L (136-145) mmol/L Potassium 4.1 (3.5-5.1) mmol/L Chloride 100 (98-107) mmol/L Carbon Dioxide 17 L (21-32) mmol/L Anion Gap 16 H (3-11) BUN 21 (6-23) mg/dl Creatinine 1.75 H (0.6-1.4) mg/dl Est Cr Clr Drug Dosing Not Reportable Est GFR ( Amer) 51.1 ml/min Est GFR (Non-Af Amer) 44.1 ml/min BUN/Creatinine Ratio 12.0 (10-20) Glucose 107 H (70-99(Fasting)) mg/dl Calcium 10.2 (8.6-10.3) mg/dl Phosphorus 2.9 (2.5-4.9) mg/dl Magnesium 1.8 (1.7-2.4) mg/dl Total Bilirubin 0.7 (0.2-1.0) mg/dl AST 29 (13-39) U/L ALT 31 (7-52) U/L Alkaline Phosphatase 95 (34-104) U/L Troponin I High Sens 3.9 (0-20) pg/ml Total Protein 9.2 H (6.0-8.3) gm/dl Albumin 5.1 H (3.4-5.0) gm/dl Globulin 4.1 H (2.5-4.0) gm/dl Albumin/Globulin Ratio 1.2 (0.9-2) Lipase 46 (11-82) U/L TSH 5.124 H (0.300-4.500) uIu/ml Free T4 0.95 (0.61-1.60) ng/dl Administered Medications Acetaminophen (Acetaminophen 325 Mg Tab) 650 mg PO Q4H PRN PRN Reason: Pain or Fever Stop: 09/24/23 16:57 Last Admin: 08/25/23 20:11 Dose: 650 mg Documented By: HB Al Hydrox/Mg Hydrox/Simethicone (Aluminum/Magnesium Susp 30 Ml Udc) 15 ml PO Q4H PRN PRN Reason: Dyspepsia Stop: 09/24/23 16:57 Last Admin: 08/25/23 20:11 Dose: 15 ml Documented By: HB Sodium Chloride (Nss) 1,000 mls @ 100 mls/hr IV .Q10H FAUSTINO Stop: 08/26/23 13:59 Last Admin: 08/25/23 18:45 Dose: 100 mls/hr Documented By: HB Thiamine HCl 100 mg/ Syringe 10 mls @ 2 mls/min IV QAM FAUSTINO Stop: 09/24/23 17:59 Last Admin: 08/25/23 19:02 Dose: 2 mls/min Documented By: HB Folic Acid 1 mg/ Syringe 10 mls @ 5 mls/min IV QAM FAUSTINO Stop: 09/24/23 17:59 Last Admin: 08/25/23 19:02 Dose: 5 mls/min Documented By: HB Mirtazapine (Mirtazapine Tab 15 Mg Tab) 30 mg PO HS FAUSTINO Stop: 09/24/23 20:59 Last Admin: 08/25/23 21:49 Dose: 30 mg Documented By: CAROL Discontinued Medications Sodium Chloride (Nss) 500 mls @ 999 mls/hr IV .Q31M ONE Stop: 08/25/23 16:18 Last Infusion: 08/25/23 16:50 Dose: Infused Documented By: Admin: 08/25/23 16:14 Dose: 999 mls/hr Documented By: DEBORA Sodium Chloride (Nss) 1,000 mls @ 999 mls/hr IV .Q1H1M ONE Stop: 08/25/23 17:27 Last Infusion: 08/25/23 17:57 Dose: Infused Documented By: Admin: 08/25/23 16:39 Dose: 999 mls/hr Documented By: DEBORA Imaging Data Radiologist's Impression: Chest X-Ray 08/25/23 14:22 XR chest 1V not portable CLINICAL HISTORY: Syncope. COMPARISON STUDY: Chest radiograph December 05, 2019. FINDINGS: There is mild elevation of the right hemidiaphragm. Lungs are clear. There is no pneumothorax or pleural effusion. Cardiac size is normal. Mediastinal contours are normal. There is no evidence for pulmonary edema. IMPRESSION: No acute cardiopulmonary findings. ACT 112: Negative or not required by law. Electronically signed by: Cullen Cano M.D. 08/25/2023 4:11 PM Discharge Plan Visit Data Chief Complaint: Syncope Stated Complaint: SYNCOPE ED Provider: Saud Jackson Discharge Problem: Syncope and collapse, Acute dehydration, Acute on chronic renal insufficiency Patient Disposition: Admitted As Inpatient Discharge Instructions Interventions: ED Discharge Assessment Last Done: 08/25/23 23:06
[2023-08-25] MEDS: SODIUM CHLORIDE 0.9% 1,000 ML IV ONE (16:39)
[2023-08-25] MEDS ORDERED: MAGNESIUM HYDROXIDE SUSP 30 ML UDC PO PRN (16:58)
[2023-08-25] MEDS ORDERED: POLYETHYLENE (MIRALAX) 17 GM PACK PO PRN (16:58)
[2023-08-25] MEDS ORDERED: ONDANSETRON INJ 2 MG/ML 2 ML VIAL IV PRN (16:58)
--- NOTE | 2023-08-25 17:12 | History & Physical Report ---
Date of Service August 25, 2023 Assessment & Plan (1) Syncope: (2) Alcohol use disorder: (3) Ulcerative colitis: (4) H/O ileostomy: (5) Depression with anxiety: (6) HTN (hypertension): (7) Leukocytosis: Plan Mr. Trent is a 53-year-old male who presented to the ED after he experienced a syncopal episode this morning. He woke up this AM as usual and took his Amlodipine and Lisinopril as usual. His parents were visiting from out of town and they proceeded to go to lunch at the [employer]. He felt a little 'hot' in the car, but continued to feel ok. They arrived at the [employer] and sat down at a snow and ordered food. He started to feel "woozy" and slumped over to his left side. No aphagia or slurred speech leading up to this event. His parents, also at bedside, stated that he was 'out of it' for a few minutes, up to 4 minutes. He felt tired when he woke. No tremors, seizure like activity or concerns for stroke when he woke. He was able to walk afterwards as well on his feet. He states this has happened one time a few months ago; he did not seek medical attention. Past medical history includes ulcerative colitis s/p ileostomy 2007 @ [facility] s/p microperforation and peritonitis, HTN, anxiety and depression, history of substance use, to include opioid use as well as excessive alcohol use in 2022. He was hospitalized twice for detox in 2022 to come off of these substances. He denies tobacco use, drinks alcohol; initially he denied alcohol use; but I returned to his room later and he stated his last drink was last night; a liquor shot. Chest x-ray negative. Leukocytosis 16.57, creatinine 1.75, lactate and blood cultures pending. Troponin negative. Patient will be admitted for further evaluation of his syncope, unexplained leukocytosis, and KEYANNA. Will obtain ECHO given audible unknown murmur, blood c ultures, lactate, stool and urinalysis, C-Diff, provide gentle fluid resuscitation, obtain an abdominal/pelvis CT without contrast, WOCN for management of ostomy and to evaluate the stoma growth, AWSS for ETOH withdrawl and check UDS. Will hold Lisinopril for KEYANNA. Syncope: Acute Suspect related to dehydration, eating later than usual and BP meds Troponin negative Check Orthostatic BPs ordered Consider ACEI as possible cause; hold also due to KEYANNA ECHO ordered; audible murmur; patient states new for him UDS ordered and pending collection CXR negative Leukocytosis: Acute Unclear origin; afebrile and on RA WBC 16.57, slightly tachycardic 103 tachycardia likely secondary to dehydration blood cultures ordered Lactate pending Check UA, stool, CD to rule out infectious cause Abd/pelvis CT ordered without contrast Acute on chronic CKD: Acute Serum creatinine 1.75; baseline 1.2-1.5 Suspect related to dehydration Recheck BMP @ 2200 to trend creatinine Alcohol use disorder: Chronic Drinks a 4 oz shot of liquor most days; last drink last evening Went through an alcohol detox last year AWSS scale ordered with PRN Ativan x1 Takes Thiamine and Folic Acid; continue Ulcerative Colitis: S/P ileostomy: Chronic 2007: [facility] s/p microperforations and peritonitis WOCN for changing ostomy liquid output; increased flatulence Obtain stool culture and CD based on leukocytosis Growth noted on left upper part of stoma; evaluate HTN: Chronic Takes Lisinopril; hold due to KEYANNA takes Amlodipine;continue Depression and anxiety: Chronic Recently started seeing psych as an outpatient Takes Remeron; continue Disposition: PCP: Dr. Chiu Code Status: Full code VTE Prophylaxis: Lovenox SQ I spent a total of 87 minutes coordinating, documenting, and providing care for this patient excluding time spent in the performance of separately billed services. All of the aforementioned completed while collaborating with the assigned attending physician for a full treatment plan. Please see their addendum for further details. History of Present Illness Chief Complaint: syncope Primary Care Provider: Eufemia Chiu MD Mr. Trent is a 53-year-old male who presented to the ED after he experienced a syncopal episode this morning. He woke up this AM as usual and took his Amlodipine and Lisinopril as usual. His parents were visiting from out of town and they proceeded to go to lunch at the [employer]. He felt a little 'hot' in the car, but continued to feel ok. They arrived at the [employer] and sat down at a snow and ordered food. He started to feel "woozy" and slumped over to his left side. No aphagia or slurred speech leading up to this event. His parents, also at bedside, stated that he was 'out of it' for a few minutes, up to 4 minutes. He felt tired when he woke. No tremors, seizure like activity or concerns for stroke when he woke. He was able to walk afterwards as well on his feet. He states this has happened one time a few months ago; he did not seek medical attention. Past medical history includes ulcerative colitis s/p ileostomy 2007 @ [facility] s/p microperforation and peritonitis, HTN, anxiety and depression, history of substance use, to include opioid use as well as excessive alcohol use in 2022. He was hospitalized twice for detox in 2022 to come off of these substances.. He denies tobacco use, drinks alcohol; initially he denied alcohol use; but I returned to his room later and he stated his last drink was last night; a liquor shot. Chest x-ray negative. Leukocytosis 16.57, creatinine 1.75, lactate and blood cultures pending. Troponin negative. Patient will be admitted for further evaluation of his syncope, unexplained leukocytosis, and KEYANNA. Will obtain ECHO given audible unknown murmer, blood cu ltures, lactate, stool and urinalysis, C-Diff, provide gentle fluid resuscitation, obtain an abdominal/pelvis CT without contrast, WOCN for management of ostomy and to evaluate the stoma growth, AWSS for ETOH withdrawl and check UDS. Will hold Lisinopril for KEYANNA. Allergies Allergy/AdvReac Type Severity Reaction Status Date / Time No Known Allergies Allergy Unverified 08/25/23 17:12 Home Medications Medication Instructions Recorded Confirmed Type amlodipine 5 mg tablet (Norvasc) 5 mg PO QAM #30 tabs 01/13/23 08/25/23 Rx lisinopril 20 mg tablet 20 mg PO QAM #30 tabs 01/13/23 08/25/23 Rx multivitamin 1 tab PO DAILY 03/17/23 08/25/23 History thiamine HCl (vitamin B1) 100 mg 100 mg PO QAM #30 tabs 03/20/23 08/25/23 Rx tablet hydroxyzine HCl 25 mg tablet 25 mg PO Q6H PRN Anxiety 08/25/23 08/25/23 History mirtazapine 30 mg tablet 30 mg PO HS 08/25/23 08/25/23 History vortioxetine 5 mg tablet 5 mg PO DAILY 08/25/23 08/25/23 History (Trintellix) Past Med/Surg History Medical History (Updated 08/25/23 @ 18:22 by LESVIA Soria) Leukocytosis HTN (hypertension) Syncope Depression with anxiety Opioid use with withdrawal Ulcerative colitis Surgical History H/O ileostomy Family History Other Alcoholism Asthma Depression Social History Smoking Status: Never smoker Tobacco Type: E-cigarettes / Vaping Second Hand Exposure: No; Do You Dip or Chew Tobacco: No; Hx Alcohol Use: Yes Alcohol type: beer and hard liquor Hx Substance Use: Yes Last Used Substance: Unknown Last Used Substance Other:: drinking tea out of poppy, valium prescribed for dental work. 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 [employer] Work Required: No Beliefs That Will Affect Care: None Current Living Situation: Family Feels Safe at Home: Yes Assistive Devices: None Review of Systems Review of Systems: Neuro: (-) Falls, trauma, slurred speech HEENT: (-) HANSON, dizziness, dysphagia, visual or auditory changes CV: (-) CP, (+) palpitations, (-) swelling Resp: (-) SOB GI: (-) appetite changes, N/V/D, (+) flatulence increase, increase stool output : (-) urinary changes, Skin: (-) rashes Psych: (+) anxiety, depression Physical Exam Physical Exam: Neuro: AAOx4, PERRLA, no aphagia, memory changes, CNII-XII grossly intact HEENT: head normocephalic, moist mucus membranes CV: S1/S2, (-) M/G/R, (-) edema, cap refill < 3 seconds Resp: Lungs CTA in all perea. On RA GI: Abdomen tender mid abdomen on palpation, soft and not distended. ileostomy with beefy red stoma with growth noted on medial aspect of stoma, liquid dark output mixed with urine, S/ND, Ax4 bowel sounds, (-) CVA tenderness Musculoskeletal: 5/5 B/L UE strength, 5/5 B/L LE strength. No gait disturbance Skin: (-) rashes , (-) erythema. Psych: euthymic yet depressive mood Results & Data Results & Data Vital Signs (Past 12 Hours) Vital Signs Temp Pulse Resp BP Pulse Ox O2 Del Method 08/25/23 16:16 Room Air 08/25/23 16:10 Room Air 08/25/23 14:11 36.1 C L 94 H 16 121/83 100 Room Air Laboratory Results Short CBC 08/25/23 Range/Units 14:36 WBC 16.57 H (4.8-10.8) K/ul Hgb 17.6 (14.0-18.0) g/dl Hct 51.1 (42.0-52.0) % Plt Count 408 H (130-400) K/uL BMP 08/25/23 14:36 Sodium 133 L Potassium 4.1 Chloride 100 Carbon Dioxide 17 L BUN 21 Creatinine 1.75 H Glucose 107 H Calcium 10.2 Liver Function 08/25/23 Range/Units 14:36 Total Bilirubin 0.7 (0.2-1.0) mg/dl AST 29 (13-39) U/L ALT 31 (7-52) U/L Alkaline Phosphatase 95 (34-104) U/L Albumin 5.1 H (3.4-5.0) gm/dl Diagnostic Findings Chest X-Ray 08/25/23 14:22 XR chest 1V not portable CLINICAL HISTORY: Syncope. COMPARISON STUDY: Chest radiograph December 05, 2019. FINDINGS: There is mild elevation of the right hemidiaphragm. Lungs are clear. There is no pneumothorax or pleural effusion. Cardiac size is normal. Mediastinal contours are normal. There is no evidence for pulmonary edema. IMPRESSION: No acute cardiopulmonary findings. ACT 112: Negative or not required by law. Electronically signed by: Cullen Cano M.D. 08/25/2023 4:11 PM Code Status & VTE Plan Code Status Full Code in the event of cardiac or respiratory arrest VTE Prophylaxis Plan VTE Prophylaxis will be ordered: Yes Supervising Physician Co-Signing Physician Notes Patient was seen and examined independently at bedside. Chart reviewed. Case discussed with Lu LAKHANI and agree with the documentation above. In summary, this is a 53 year old male with h/o UC s/p surgeries for microperforation and ileostomy, HTN, depression/anxiety, intermittent alcohol use who presented to the ED with episode of syncope today. Had a presyncopal episode about 3 months back, similar scenario. States he took his antihypertensive in the morning, and went out for [employer] with his parents. The car was too hot for him (normally he has it cold). While sitting at the [employer], he became pale and diaphoretic and passed out. Upon waking up, he was still diaphoretic and nauseous. No other cardiac or neurological symptoms or seizure like activities. He had couple shots of vodka last night but he states he does not drink regularly. Also notes increased ileostomy output (changing about 6-7 times a day), normally about 5 times a day. Admits he might not have been hydrating himself enough. No fever, chills, CP, SOB, N/V. Per EMS, his BP and BG were good. He had not had anything to eat this morning except for couple cups of water. He feels a lot better during my encounter after the iv fluids in ED. Seems more like vasovagal compounded by dehydration with excess heat, increased ileostomy output with inadequate oral intake/alc use. TFTs okay. Noted KEYANNA with some leucocytosis and mild acidosis in the labs. Will continue IVF, tele, orthostatic vitals, echo, WOCN ostomy evaluation. Leucocytosis could be reactive- no focal source of infection, hence will monitor off of antibiotics. Recheck labs in am. Per my discussion with him, he does not drink alc regularly, so low suspicion that he will go into withdrawal, however will have AWSS in place. Rest as per the note above On exam- General: Lying comfortably in bed, not in distress, on room air HEENT: EOMI, HAYLEE, MMM Chest: Clear breath sounds bilaterally, no wheezes or crackles CVS: Regular rate and rhythm, normal heart sounds Abdomen: Soft, non tender, not distended, normal bowel sounds. Ileostomy noted with liquid output Neuro: Awake, alert, oriented, conversing well, non focal Extremities: No cyanosis, clubbing or edema ve.
[2023-08-25] MEDS ORDERED: LORazepam 1 MG in SYRINGE 0.5 ML IV PRN (17:52)
[2023-08-25 18:05] LABS: Phosphorus 2.9 mg/dl (2.5-4.9)
[2023-08-25] MEDS: SODIUM CHLORIDE 0.9% 1,000 ML IV SCH (18:45)
--- NOTE | 2023-08-25 18:58 | CT Scan Report ---
CT abdomen wo con HISTORY: 53 years-old Male abdominal tenderness/ileostomy acute abdominal pain COMPARISON: 01/08/2023 TECHNIQUE: Multiple axial CT images of the abdomen were obtained without the use of contrast. A dose lowering technique was used consistent with the principals of JADON. FINDINGS: Unchanged likely benign 4 mm fissural nodule right lung base on image 37. No free air. Gynecomastia. Unremarkable unenhanced spleen, pancreas and adrenal glands. The gallbladder is unremarkable. Hepatic steatosis. No evidence of cirrhosis. Unremarkable kidneys without hydronephrosis. Aorta and IVC are unremarkable. Mild distal esophageal wall thickening with small hiatal hernia and subcentimeter periesophageal lymp h nodes. The patient has a history of prior total proctocolectomy with right lower quadrant ileostomy . The previously described small right parastomal hernia is partially imaged. No ascites or mesenteri c inflammation. No acute fracture or destructive bone lesion. Healing subacute nondisplaced mid cervantes al body fracture. IMPRESSION: 1. No bowel obstruction or bowel wall thickening.. Degenerative changes of the bowel redemonstrated w ith partially imaged parastomal hernia. 2. Small hiatal hernia with distal esophageal wall thickening redemonstrated. 3. Healing subacute nondisplaced sternal body fracture. 4. Hepatic steatosis. ACT 112: Negative or not required by law. The above report was generated using voice recognition software. It may contain grammatical, syntax o r spelling errors. Electronically signed by: Phan Dallas M.D. 08/25/2023 6:56 PM
[2023-08-25] MEDS: THIAMINE HCL 100 MG in SYRINGE 9 ML IV SCH (19:02)
[2023-08-25] MEDS: FOLIC ACID 1 MG in SYRINGE 9.8 ML IV SCH (19:02)
[2023-08-25 20:06] LABS: Appearance Urine Clear (Clear); Bacteria Urine Automated Negative (Negative); Bilirubin Urine Negative (Negative); Blood Urine Negative (Negative); Color Urine Yellow; Glucose Urine UA Negative (Negative); Ketones Urine Negative (Negative); Leukocyte Esterase Urine Negative (Negative); Nitrite Urine Negative (Negative); Protein Urine Trace (Negative); RBC Urine Automated 0-4 /hpf (0-4); Specific Gravity Urine 1.022 (1.000-1.030); Urobilinogen Urine Negative (Negative); pH Urine 5.5 (4.5-7.5)
[2023-08-25] MEDS: ALUMINUM/MAGNESIUM SUSP 30 ML UDC PO PRN (20:11)
[2023-08-25] MEDS: ACETAMINOPHEN 325 MG TAB PO PRN (20:11)
[2023-08-25 20:42] LABS: Amphetamines+Metham, Urine Neg (Neg); Barbiturates, Urine Neg (Neg); Benzodiazepine, Urine Neg (Neg); Cocaine, Urine Neg (Neg); MDMA (Ecstacy), Urine Neg (Neg); Marijuana, Urine Pos (Neg); Methadone, Urine Neg (Neg); Opiate, Urine Neg (Neg); Phencyclidine, Urine Neg (Neg)
[2023-08-25] MEDS: MIRTAZAPINE TAB 15 MG TAB PO SCH (21:49)
[2023-08-25 23:27] LABS: BUN Creatinine Ratio 16.8 (10-20); Calcium 8.4 mg/dl (8.6-10.3); Creatinine Clr Calc Pharmacy 63.5 ml/min; Est GFR (African American) 62.1 ml/min; Est GFR (Non-African American) 53.6 ml/min; Potassium 4.4 mmol/L (3.5-5.1)
[2023-08-26] MEDS ORDERED: PROMETHAZINE HCL 12.5 MG in SODIUM CHLORIDE 0.9% 50 ML IV PRN (00:10)
[2023-08-26] MEDS: hydrOXYzine HCl 25 MG TAB PO PRN (01:23)
[2023-08-26 01:53] LABS: Adenovirus F 40/41 PCR Not Detected (NotDetected); Astrovirus PCR Not Detected (NotDetected); Campylobacter PCR Not Detected (NotDetected); Cryptosporidium PCR Not Detected (NotDetected); Cyclospora cayetanensis PCR Not Detected (NotDetected); Entamoeba histolytica PCR Not Detected (NotDetected); Enteroaggregative E.coli(EAEC) Not Detected (NotDetected); Enteropathogenic E.coli (EPEC) Not Detected (NotDetected); Enterotoxigenic E.coli (ETEC) Not Detected (NotDetected); Giardia lamblia PCR Not Detected (NotDetected); Norovirus GI/GII PCR Not Detected (NotDetected); Plesiomonas shigelloides PCR Not Detected (NotDetected); Rotavirus A PCR Not Detected (NotDetected); Salmonella PCR Not Detected (NotDetected); Sapovirus PCR Not Detected (NotDetected); Shiga-like Toxin E.coli (STEC) Not Detected (NotDetected); Shigella/Enteroinvasive E.coli Not Detected (NotDetected); Vibrio cholerae PCR Not Detected (NotDetected); Vibrio species PCR Not Detected (NotDetected); Yersinia enterocolitica PCR Not Detected (NotDetected)
--- OUTSIDE RECORDS SUMMARY | 2023-08-26 04:21 | External Medical Summary | Summary of Care ---
Author Name Unknown Organization [facility] Address [address] [place] [address] Phone [phone] Care Team Providers Care Field Crew Chief Name Role Phone Eufemia Chiu MD Primary Care Provider + Reason for Referral * Ancillary Services (Within 30 days (routine)) - Pending Review Specialty Diagnoses / Procedures Referred By Contac t Referred To Contact Gastroenterology Diagnoses Iron deficiency anemia, unspecified iron deficiency anemia type Eufemia Chiu MD [address] [facility] [place] [address] Referral ID Status Reason Start Date Expiration Date Visits Requested Visits Authorized [id number] Pending Review Ancillary Services Required 08/03/[phone] Question Answer Referral Priority Within 30 days (routine) Where should this appointment be scheduled? [facility] Comments ALERT: Do not order for pediatric patients (18 years or younger). Cancel off screen and order PEDS GASTROENTEROLOGY CONSULT (Type: 1 visit only-Evaluate and Treat) The following Pt. Instructions are available: - Gastro Colonoscopy Prep Instructions [[id number]] - Gastro Colonoscopy Prep Instructions (Armenian Version) [[id number]] Go to the Pt. Instructions section within the Visit Navigator to access. Colonoscopy ASGE Guidelines: Iron deficiency anemia and Average risk screening (begin at age 50, 10 year intervals) ADDITIONAL INFORMATION 1. Is the patient on Coumadin? No 2. Is the patient on Pradaxa? No Reason for Visit * Reason Onset Date Comments Test Results 08/01/2023 Encounter Details Date Type Department Care Team ([facility] Contact Info) Description 08/01/2023 Telephone General Internal Medicine [facility] [place] [address] [place] [address] Eufemia Chiu MD [address] [facility] [place], [place] [address] Test Results Allergies Active Allergy Reactions Criticality Noted Date Comments Dust Low 07/15/2019 documented as of this encounter (statuses as of 08/03/2023) Medications Medication Sig Dispensed Refills Start Date End Date Status Folic Acid 1 MG Oral Tablet Take 1 Tablet by mouth in the morning. 0 Active RA Vitamin B-1 100 MG Oral Tablet Take 1 Tablet by mouth in the morning. 0 01/13/2023 Active amLODIPine Besylate 5 MG Oral Tablet (Norvasc) Take 1 Tablet by mouth in the morning. 90 Tablet 0 04/28/2023 Active Lisinopril 20 MG Oral Tablet (Prinivil) Take 1 Tablet by mouth in the morning. 90 Tablet 0 04/28/2023 Active Multivitamin Adult Oral Tablet Take by mouth. 0 Active hydrOXYzine HCl 25 MG Oral TabletIndications:Margie ramon insomnia Take 1 Tablet by mouth every 6 hours as needed for Anxiety. 40 Tablet 2 2023 Active Mirtazapine 30 MG Oral Tablet (Remeron) Take 1 Tablet by mouth at bedtime. 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 10/11/2013 documented as of this encounter (statuses as of 08/03/2023) Resolved Problems Problem Noted Date Diagnosed Date Resolved Date Food insecurity 12/28/2020 05/04/2023 Overview: Per [facility] Protocol documented as of this encounter (statuses as of 08/03/2023) Social History Tobacco Use Types Packs/Day Years Used Date Smoking Tobacco: Never Smokeless Tobacco: Never Alcohol Use Standard Drinks/Week Comments Yes 0 (1 standard drink = 0.6 oz pur e alcohol) PHQ-2 Answer Date Recorded PHQ Adult Total Score 12 06/21/2023 Hunger Vital Sign Answer Date Recorded Within the past 12 months, y ou worried that your food would run out before you got the money to buy more. Sometimes true Within the past 12 months, t he food you bought just didn't last and you didn't have money to get more. Never true Sex and Gender Information Value Date Recorded Sex Assigned at Male 07/15/2019 11:58 AM EST Gender Identity Male 07/15/2019 11:58 AM EST Sexual Orientation Straight 01/14/2023 4: 02 PM EDT Job Start Date Occupation Industry Not on file Not on file Not on file documented as of this encounter Miscellaneous Notes * Telephone Encounter - Anna Marie Mills MED ASSIST - 08/01/2023 12:34 PM EDT Patient aware and verbalized understanding Agreeable to colonoscopy, pended * Telephone Encounter - Anna Marie Mills MED ASSIST - 08/01/2023 12:32 PM EDT ----- Message from Eufemia Chiu MD sent at 08/01/2023 12:29 PM EDT ----- All labs fine excep thas anemia. Advise on colonoscopy.let me know if agreeable. Kidney function is still low with sight improvement. Avoid Nsaids, continue hydration, low salt. documented in this encounter Plan of Treatment Upcoming Encounters Date Type Department Care Team (Late st Contact Info) Description 09/05/2023 2:00 PM EDT Telemedicine Psychiatry, [facility] [place] [address] Luz Tellez CRNP [address] [place] [id number] 12/21/2023 2:00 PM EDT Office Visit General Internal Medicine [facility] [place] [address] [facility] [place] [address] Eufemia Chiu MD [address] [facility] [place] [address] Scheduled Referrals Name Type Priority Associated Diagnoses Orde r Schedule COLONOSCOPY, GI REFERRAL OP Referral Within 30 days (routine) Iron deficiency anemia, unspecified iron deficiency anemia type Ordered: 08/03/2023 Health Maintenance Due Date Last Done Comments HIV Screening 07/26/1987 Hepatitis C Screening 1990 DTaP,Tdap,and Td Vaccines (1 - Tdap) 07/26/1991 Hepatitis B (1 of 3 - 19+ 3-dose series) 07/26/1991 Zoster Vaccines (1 of 2) 2022 COVID-19 Vaccine (1 - 2022- season) 2023 Influenza Vaccine (FLU shot) (#1) 2023 Depression, Most Recent Score >= 10 (will fire each visit until score < 10) 06/22/2023 06/21/2023 Lipid Panel 07/16/2024 07/16/2019 Diabetes Screening 07/24/2026 2023, 0 06/15/2023, 01/17/2023, Additional history exists GARDASIL-HPV IMMUNIZATION SERIES Aged Out No longer eligible based on patient's age to complete this topic MENINGOCOCCAL (MENACTRA/MENVEO) Aged Out No longer eligible based on patient's age to complete this topic Pneumococcal Vaccine: Pediatrics (0 to 5 Years) and At-Risk Patients (6 to 64 Years) Aged Out No longer eligible based on patient's age to complete this topic documented as of this encounter Medical Devices Not on filedocumented as of this encounter Visit Diagnoses Diagnosis Iron deficiency anemia, unspecified iron deficiency anemia type- Primary documented in this encounter Care Teams Field Crew Chief Relationship Specialty Start Date End Date Eufemia Chiu MD [address] [facility] [place] [id number] PCP - General Internal Medicine 02/06/23 documented as of this encounter
--- OUTSIDE RECORDS SUMMARY | 2023-08-26 04:21 | External Medical Summary | Summary of Care ---
Author Name Unknown Organization [facility] Address [address] [place] [address] Phone [phone] Care Team Providers Care Rn Advice Name Role Phone Eufemia Chiu MD Primary Care Provider + Reason for Visit * Reason Onset Date Comments Precert Approved 07/26/2023 TRINTELLIX 5 MG TABLET Encounter Details Date Type Department Care Team (Late st Contact Info) Description 07/26/2023 Telephone Psychiatry, [place] [address], [place] [id number] Luz Tellez CRNP [address] [place] [address] Precert Approved (TRINTELLIX 5 MG TABLET) Allergies Active Allergy Reactions Criticality Noted Date Comments Dust Low 07/15/2019 documented as of this encounter (statuses as of 07/31/2023) Medications Medication Sig Dispensed Refills Start Date [...] Adult Oral Tablet Take by mouth. 0 Act oscar hydrOXYzine HCl 25 MG Oral TabletIndications :Primary insomnia Take 1 Tablet by mouth every 6 hours as needed for Anxiety. 40 Tablet 2 2023 Active Mirtazapine 30 MG Oral Tablet (Remeron) Take 1 Tablet by mouth at bedtime. 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 10/11/2013 documented as of this encounter (statuses as of 07/31/2023) Resolved Problems Problem Noted Date Diagnosed Date Resolved Date Food insecurity 12/28/2020 05/04/2023 Overview: Per [facility] Protocol documented as of this encounter (statuses as of 07/31/2023) Social History Tobacco Use Types Packs/Day Years [...] encounter Miscellaneous Notes * Telephone Encounter - Cheli Ch OSA - 07/31/2023 10:57 AM EDT [facility] Authorization Submission Submission Information: Medication: TRINTELLIX 5 MG TABLET [facility] family Authorization #/Denny: [id number] Cheli Ch Medication Therapeutic Dietitian [facility] 07/31/23,10:53 AM * Telephone Encounter - Estela Romero LPN - 07/26/2023 11:06 AM EST Psychiatry Pre-Cert Request Medication/Disease State Information: Medication: Vortioxetine (Trintellix)- take 10 mg [place] P [id number] ;individual strength:5 mg tablet Diagnosis (including ICD-10): F33.2 Medication(s) Tried/Failed/Contraindicated: Prozac Luvox Lexapro - "felt strange", ineffective Wellbutrin Sertraline - GI distress Effexor - has tried multiple times, does endorse a positive response but also reports it "dulled" his emotions, also reports withdrawal effects See corresponding visit note(s) for additional supporting clinical information. Office Information: Prescriber: LESVIA Whatley [facility]: [id number] SIG: take 1 tablet by mouth daily for one week, can then increase to two tablets by mouth daily documented in this encounter Plan of Treatment Upcoming Encounters Date Type Department Care Team (Late st Contact Info) Description 09/05/2023 2:00 PM EDT [facility] [address] [place] [address] Luz Tellez CRNP [address] [place] [address] [place] [phone] 12/21/2023 2:00 PM EDT Office Visit General Internal Medicine [place] Em[place] Love [address] [place] [address] Eufemia Chiu MD [address] [place] [address] Health Maintenance Due Date Last Done Comments [...] Not on filedocumented as of this encounter Care Teams Rn Advice Relationship Specialty Start Date End Date Eufemia Chiu MD [address] [place], [place] [address] PCP - General Internal Medicine 02/06/23 documented as of this encounter
--- OUTSIDE RECORDS SUMMARY | 2023-08-26 04:21 | External Medical Summary ---
Author Name Unknown Address Unknown Organization [id number]:[facility]ATORY [facility] [place] [address] [place] [address] Laboratory Report Ordering Provider Test Date Status LESTER FLORES 2023 13:45:14 Final Observation Date Value Abnormality Reference (Units ) Status Ferritin 2023 13:45:14 67 30-400 (ng /mL) Final Performing Location [facility]ORY [facility] - [address] [place] [address]
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
--- OUTSIDE RECORDS SUMMARY | 2023-08-26 04:21 | External Medical Summary ---
Author Name Unknown Address Unknown Organization K01:LABORATORY [facility] [place] - [address] [place] [address] Laboratory Report Ordering Provider Test Date Status LESTER FLORES 2023 13:45:14 Final Deficient: <20 ng/mL
Ins ufficient: 20-29 ng/mL
Recommended/Optimum:30-50 ng/mL

Vitamin D intoxication is rare. If suspicious of Vitamin D toxicity, evaluation of serum Calcium and PTH is recommended. Observation Date Value Abnormality Reference (Units ) Status 25-OH Vitamin D total 2023 13:45:14 43 >19 (ng/mL) Final Performing Location LABORATORY [facility] - [address] [place] [address]
--- OUTSIDE RECORDS SUMMARY | 2023-08-26 04:21 | External Medical Summary ---
Author Name Unknown Address Unknown Organization K09:LABORATORY [facility] [address] Laboratory Report Ordering Provider Test Date Status LESTER FLORES 2023 13:45:14 Final Observation Date Value Abnormality Reference (Units ) Status WBC, Total 2023 13:45:14 7.83 4.00-10.8 0 (K/uL) Final RBC 2023 13:45:14 4.71 4.50-5.25 (M/uL) Final Hemoglobin 2023 13:45:14 13.0 Below low normal 14 .0-16.8 (g/dL) Final HCT 2023 13:45:14 40.6 40.0-48.4 (%) Final MCV 2023 13:45:14 86.2 82.0-99.5 (fL) Final MCH 2023 13:45:14 27.6 27.0-34.0 (pg) Final MCHC 2023 13:45:14 32.0 32.0-36.0 (g/dL) Final RDW 2023 13:45:14 23.2 11.5-15.5 (%) Final Platelets 2023 13:45:14 340 140-400 (K /uL) Final MPV 2023 13:45:14 8.8 6.6-11.1 ( fL) Final Performing Location [facility] [address]
--- OUTSIDE RECORDS SUMMARY | 2023-08-26 04:21 | External Medical Summary | Summary of Care ---
Author Name Unknown Organization [facility] Address [address] [facility] [place] [address] Phone [phone] Care Team Providers Care Sheet Ironworker Name Role Phone Sandra Chiu MD Primary Care Provider + Reason for Visit * Reason Onset Date Comments Medication Refill 06/28/2023 Encounter Details Date Type Department Care Team (Late st Contact Info) Description 06/28/2023 Refill General Internal Medicine [facility] [address] [facility] [place] [address] Tj Linder PA-C [address] [facility] [place] [address] Major depressive disorder in partial remission, unspecified whether recurrent (HCC) Allergies Active Allergy Reactions Criticality Noted Date Comments Dust Low 07/15/2019 documented as of this encounter (statuses as of 06/29/2023) Medications Medication Sig Dispensed Refills Start Date [...] 0 Active hydrOXYzine HCl 25 MG Oral TabletIndications: Primary insomnia Take 1 Tablet by mouth every 6 hours as needed for Anxiety. 40 Tablet 2 06/15/2023 Active Mirtazapine 15 MG Oral Tablet (Remeron)Indicatio ns:Major depressive disorder in partial remission, unspecified whether recurrent (HCC) Take 1 Tablet by mouth at bedtime. 30 Tablet 3 06/29/2023 Active Mirtazapine 15 MG Oral Tablet (Remeron)Indicatio ns:Major depressive disorder in partial remission, unspecified whether recurrent (HCC) Take 1 Tablet by mouth at bedtime. 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 Authorizing Provider: SANDRA CHIU * Telephone Encounter - Adeline Chavez [facility] - 06/29/2023 8:03 AM ESTPending Prescriptions: Disp Refills Mirtazapine 15 MG Oral Tablet (Remeron) 30 Tab*3 Sig: Take 1 Tablet by mouth at bedtime. * Telephone Encounter - Adeline Chavez [facility] - 06/29/2023 8:02 AM EST Patient comment: I have about four left. Seems to be helping. No unwanted side effects have been noticed. Please approve with added refills if agreeable to continuing medication. Thank You, Adeline Chavez [facility] Clinical Pharmacist [facility] (formerly [facility]pharm[facility]) [phone] 06/29/2023, 8:03 AM documented in this encounter Plan of Treatment Upcoming Encounters Date Type Department Care Team (Late st Contact Info) Description 07/04/2023 9:00 AM EST Office Visit Psychiatry, [address] [place] [address] Luz Tellez CRNP [address] [facility] [place] [phone] 07/20/2023 1:00 PM EST Nurse Only Ancillary [facility] [address] [facility] [place], [place] [address] Nurse, Int Med [address] [facility] [place], [place] [address] 07/20/2023 2:00 PM EST Laboratory Laboratory [facility] [address] [facility] [place], [place] [phone] Park, Lab [facility] [address] [facility] [place], [place] [address] 12/21/2023 2:00 PM EDT Office Visit General Internal Medicine [facility] [address] [facility] [place], [place] [address] Sandra Chiu MD 200 [facility] [place], [place] [address] Health Maintenance Due Date Last Done Comments [...] as of this encounter Visit Diagnoses Diagnosis Major depressive disorder in partial remission, unspecified whether recurrent (HCC) documented in this encounter Care Teams Sheet Ironworker Relationship Specialty Start Date End Date Sandra Chiu MD [address] [facility] [place] [address] PCP - General Internal Medicine 02/06/23 documented as of this encounter
--- OUTSIDE RECORDS SUMMARY | 2023-08-26 04:21 | External Medical Summary | Summary of Care ---
Author Name Unknown Organization [facility] Address [address] [facility] [place] [address] Phone [phone] Care Team Providers Care Wire Harness Assembler Name Role Phone Eufemia Chiu MD Primary Care Provider + Reason for Visit * Reason Comments Outpatient Testing Encounter Details Date Type Department Care Team (Late st Contact Info) Description 2023 1:50 PM EST Laboratory Laboratory [facility] [place] [address] [place] [phone] [facility] [address] [place] [address] H/O total colectomy; Hypercalcemia; Iron deficiency anemia, unspecified iron deficiency anemia type; B12 deficiency; Vitamin D deficiency Allergies Active Allergy Reactions Criticality Noted Date Comments Dust Low 07/15/2019 documented as of this encounter (statuses as of 2023) Medications Medication Sig Dispensed Refills Start Date [...] 06/15/2023 Active Mirtazapine 15 MG Oral Tablet (Remeron)Indications:M ajor depressive disorder in partial remission, unspecified whether recurrent (HCC) Take 1 Tablet by mouth at bedtime. 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 10/11/2013 documented as of this encounter (statuses as of 2023) Resolved Problems Problem Noted Date Diagnosed Date Resolved Date Food insecurity 12/28/2020 05/04/2023 Overview: Per [facility] Protocol documented as of this encounter (statuses as of 2023) Social History Tobacco Use Types Packs/Day Years [...] on file documented as of this encounter Plan of Treatment Upcoming Encounters Date Type Department Care Team (Late st Contact Info) Description 2023 2:30 PM EST Office Visit Psychiatry, [facility] [address] [place] [address] Luz Tellez CRNP 200 [facility] [place] [address] Arrived 12/21/2023 2:00 PM EDT Office Visit General Internal Medicine [facility] [place] [address] [facility] [place] [address] Eufemia Chiu MD 200 [facility] [place] [address] Pending Results Name Type Priority Associated Diagnoses Date /Time COMPREHENSIVE METABOLIC PANEL Lab Routine H/O total colectomy Hypercalcemia 2023 1:45 PM EST CBC WITH WBC DIFFERENTIAL Lab Routine Iron deficiency anemia, unspecified iron deficiency anemia type 2023 1:45 PM EST FERRITIN Lab Routine Iron deficiency anemia, unspecified iron deficiency anemia type 2023 1:45 PM EST IRON SCREEN, INCLUDING TIBC Lab Routine Iron deficiency anemia, unspecified iron deficiency anemia type 2023 1:45 PM EST PTH Lab Routine Hypercalcemia 2023 1:45 PM EST VITAMIN B12 Lab Routine B12 deficiency 2023 1:45 PM EST 25-HYDROXY VITAMIN D Lab Routine Vitamin D deficiency 2023 1:45 PM EST CBC Lab Routine Iron deficiency anemia, unspecified iron deficiency anemia type 2023 1:45 PM EST DIFFERENTIAL, AUTOMATED Lab Routine Iron deficiency anemia, unspecified iron deficiency anemia type 2023 1:45 PM EST Health Maintenance Due Date Last Done Comments HIV Screening 07/26/1987 Hepatitis C Screening 1990 DTaP,Tdap,and Td Vaccines (1 - Tdap) 07/26/1991 Hepatitis B (1 of 3 - 19+ 3-dose series) 07/26/1991 Zoster Vaccines (1 of 2) 2022 COVID-19 Vaccine (1 - 2022-2 4 season) 2023 Influenza Vaccine (FLU shot) (#1) [...] as of this encounter Visit Diagnoses Diagnosis H/O total colectomy Other postprocedural status Hypercalcemia Iron deficiency anemia, unspecified iron deficiency anemia type B12 deficiency Other B-complex deficiencies Vitamin D deficiency Unspecified vitamin D deficiency documented in this encounter Care Teams Wire Harness Assembler Relationship Specialty Start Date End Date Eufemia Chiu MD [address] [place] [address] PCP - General Internal Medicine 02/06/23 documented as of this encounter
--- OUTSIDE RECORDS SUMMARY | 2023-08-26 04:21 | External Medical Summary ---
Author Name Unknown Address Unknown Organization [id number]:[facility] [place] - [address] [facility] [address] Laboratory Report Ordering Provider Test Date Status LESTER FLORES 2023 13:45:14 Final Observation Date Value Abnormality Reference (Units ) Status Parathyrin.intact [Mass/volume] in Serum or Plasma 2023 13:45:14 35 15-65 (pg/mL) Final Performing Location [facility] [place] - [address] [place] [address]
--- OUTSIDE RECORDS SUMMARY | 2023-08-26 04:21 | External Medical Summary ---
Author Name Unknown Address Unknown Organization [id number]:[facility] [place] [address] Laboratory Report Ordering Provider Test Date Status LESTER FLORES 2023 13:45:14 Final Observation Date Value Abnormality Reference (Units ) Status SYNC LEUKOCYTES IN BLOOD BY AUTOMATED COUNT 2023 13:45:14 7.83 4.00-10.80 (K/uL) Final Segs 2023 13:45:14 53.9 40.0-75.0 (%) Final Lymphs % 2023 13:45:14 21.2 18.0-42.0 (%) Final Monos 2023 13:45:14 14.0 Above high normal 1.0-11.0 (%) Final Eosinophils 2023 13:45:14 10.1 Above high normal 0.0-6.0 (%) Final Basos 2023 13:45:14 0.8 0.0-2.0 (%) Final Absolute Segs 2023 13:45:14 4.22 1.80-7.70 (K/uL) Final Lymphs, absolute 2023 13:45:14 1.66 1.00-4.80 (K/ul) Final Monos, Abs 2023 13:45:14 1.10 0.00-1.10 (K/uL) Final Eos, Abs 2023 13:45:14 0.79 Above high normal 0.00-0.70 (K/uL) Final Basos, Abs 2023 13:45:14 0.06 0.00-0.20 (K/uL) Final Performing Location [facility] [place] [address]
--- OUTSIDE RECORDS SUMMARY | 2023-08-26 04:21 | External Medical Summary ---
Author Name Unknown Address Unknown Organization [id number]:[facility] [place] [address] Laboratory Report Ordering Provider Test Date Status SANDRA,BATISTA 2023 13:45:14 Final Observation Date Value Abnormality Reference (Units ) Status Nucleated erythrocytes/100 leukocytes [Ratio] in Blood by Automated count 2023 13:45:14 Final Performing Location [facility] [address]
--- OUTSIDE RECORDS SUMMARY | 2023-08-26 04:21 | External Medical Summary | Summary of Care ---
Author Name Unknown Organization [facility] Address [address] [place] [address] Phone [phone] Care Team Providers Care Pin Cleaner Name Role Phone Sandra Chiu MD Primary Care Provider + Reason for Visit * Reason Onset Date Comments Medication Refill 08/07/2023 Encounter Details Date Type Department Care Team (Late st Contact Info) Description 08/07/2023 Refill General Internal Medicine [facility] 200 [facility] [place] [address] Sandra Chiu MD 200 [place] [address] Allergies Active Allergy Reactions Criticality Noted Date Comments Dust Low 07/15/2019 documented as of this encounter (statuses as of 08/08/2023) Medications Medication Sig Dispensed Refills Start Date End Date Status Folic Acid 1 MG Oral Tablet Take 1 Tablet by mouth in the morning. 0 Active RA Vitamin B-1 100 MG Oral Tablet Take 1 Tablet by mouth in the morning. 0 01/13/2023 Active Multivitamin Adult Oral Tablet Take by mouth. 0 Active hydrOXYzine HCl 25 MG Oral TabletIndications :Primary insomnia Take 1 Tablet by mouth every 6 hours as needed for Anxiety. 40 Tablet 2 2023 Active Mirtazapine 30 MG Oral Tablet (Remeron) Take 1 Tablet by mouth at bedtime. 30 Tablet 1 2023 Active Vortioxetine HBr 5 MG Oral Tablet (Trintellix) Take one tablet by mouth daily 60 Tablet 1 07/31/2023 Active amLODIPine Besylate 5 MG Oral Tablet (Norvasc) Take 1 Tablet by mouth in the morning. 90 Tablet 3 08/08/2023 Active Lisinopril 20 MG Oral Tablet (Prinivil) Take 1 Tablet by mouth in the morning. 90 Tablet 3 08/08/2023 Active amLODIPine Besylate 5 MG Oral Tablet (Norvasc) Take 1 Tablet by mouth in the morning. 90 Tablet 0 04/28/2023 08/07/2023 Discontinued( Refill) Lisinopril 20 MG Oral Tablet (Prinivil) Take 1 Tablet by mouth in the morning. 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 10/11/2013 documented as of this encounter (statuses as of 08/08/2023) Resolved Problems Problem Noted Date Diagnosed Date Resolved Date Food insecurity 12/28/2020 05/04/2023 Overview: Per [facility] Protocol documented as of this encounter (statuses as of 08/08/2023) Social History Tobacco Use Types Packs/Day Years [...] encounter Miscellaneous Notes * Telephone Encounter - Lo Montero RPh - 08/08/2023 8:30 AM EDTSigned Prescriptions: Disp Refills amLODIPine Besylate 5 MG Oral Tablet (Norv*90 Tab*3 Sig: Take 1 Tablet by mouth in the morning.Authorizing Provider: SANDRA CHIU User: LO MONTERO Lisinopril 20 MG Oral Tablet (Prinivil) 90 Tab*3 Sig: Take 1 Tablet by mouth in the morning.Authorizing Provider: SANDRA CHIU User: LO MONTERO documented in this encounter Plan of Treatment Upcoming Encounters Date Type Department Care Team (Late st Contact Info) Description 09/05/2023 2:00 PM EDT Telemedicine Psychiatry, [facility] [address] [place] [address] Luz Tellez CRNP [address] [place] [phone] 12/21/2023 2:00 PM EDT Office [facility] [place] [address] [place] [address] Sandra Chiu MD [address] [facility] [place] [address] Health Maintenance Due Date Last Done Comments HIV Screening 07/26/1987 Hepatitis C Screening 1990 DTaP,Tdap,and Td Vaccines (1 - Tdap) 07/26/1991 Hepatitis B (1 of 3 - 19+ 3-dose series) 07/26/1991 Zoster Vaccines (1 of 2) 2022 COVID-19 Vaccine (1 - 2022-24 season) 2023 Influenza Vaccine (FLU shot) (#1) [...] filedocumented as of this encounter Care Teams Pin Cleaner Relationship Specialty Start Date End Date Sandra Chiu MD [address] [place] [address] PCP - General Internal Medicine 02/06/23 documented as of this encounter
--- OUTSIDE RECORDS SUMMARY | 2023-08-26 04:21 | External Medical Summary ---
Author Name Unknown Address Unknown Organization K09:[id number] - [address] [place] [address] Laboratory Report Ordering Provider Test Date Status LESTER FLORES 2023 13:45:14 Final Observation Date Value Abnormality Reference (Units ) Status BUN 2023 13:45:14 29 Above high normal 6-20 (mg/dL) Final Creatinine 2023 13:45:14 1.4 Above high normal 0.6-1.2 (mg/dL) Final Glomerular filtration rate/1.73 sq M.predicted [Volume Rate/Area] in Serum, Plasma or Blood by Creatinine-based formula (CKD-EPI) 2023 13:45:14 59 Below low normal >=60 (mL/min) Final eGFR is calculated based on the CKD-EPI 2020 equation SODIUM 2023 13:45:14 137 135-146 (m mol/L) Final Potassium 2023 13:45:14 4.6 3.5-5.1 (m mol/L) Final Cl 2023 13:45:14 103 98-107 (mm ol/L) Final CO2 2023 13:45:14 18 Below low normal 22- 32 (mmol/L) Final Anion gap 2023 13:45:14 16 Above high normal 7- 15 (mmol/L) Final Glucose 2023 13:45:14 85 70-120 (mg /dL) Final Albumin 2023 13:45:14 4.3 3.8-5.0 (g /dL) Final AST (Aspartate aminotransferase) 2023 13:45:14 31 10-50 (U/L) Fin al Alk Phos 2023 13:45:14 98 35-130 (U/ L) Final Bilirubin, Total 2023 13:45:14 0.4 <=1 .2 (mg/dL) Final Calcium 2023 13:45:14 9.6 8.4-10.2 ( mg/dL) Final Protein 2023 13:45:14 6.8 6.0-8.3 (g /dL) Final ALT (Alanine aminotransferase) 2023 13:45:14 37 10-50 (U/L) Mauricio don Performing Location [facility] [address] [place] [address]
--- OUTSIDE RECORDS SUMMARY | 2023-08-26 04:21 | External Medical Summary | Summary of Care ---
Author Name Unknown Organization [facility] Address [address] [place] [address] Phone [phone] Care Team Providers Care Child And Adolescent Psychiatrist Name Role Phone Eufemia Chiu MD Primary Care Provider + Reason for Referral * Evaluate & Treat - Unlimited Visits (Within 10 days (routine)) - Pending Review Specialty Diagnoses / Procedures Referred By Khadijah shepherd Referred To Contact Psychology Diagnoses Major depressive disorder, recurrent severe without psychotic features (HCC) CHEPE (generalized anxiety disorder) Luz Tellez CRNP [address] [facility] [place] [address] Referral ID Status Reason Start Date Expiration Date Visits Requested Visits Authorized [id number] Pending Review Specialty Services Required [phone] Question Answer Referral Priority Within 10 days (routine) Where should this appointment be scheduled? [facility] Is this referral for medication management? No Reason for Referral: Depression/Anxiety/Bipolar Specific Condition? Depression Reason for Visit * Reason Comments Follow Up Encounter Details Date Type Department Care Team (Late st Contact Info) Description 2023 2:30 PM EST Office Visit Psychiatry, [facility] Moreno [address] [place] [address] Luz Tellez CRNP [address] [place] [address] Major depressive disorder, recurrent severe without psychotic features (HCC)*; Primary insomnia; CHEPE (generalized anxiety disorder); History of alcohol dependence (HCC); History of opioid abuse (HCC) Allergies Active Allergy Reactions Criticality [...] Oral Tablet Take by mouth. 0 Active Vortioxetine HBr 5 MG Oral Tablet (Trintellix) Take one tablet by mouth daily for one week, can then increase to two tablets by mouth daily 60 Tablet 1 2023 Active hydrOXYzine HCl 25 MG Oral TabletIndication s:Primary insomnia Take 1 Tablet by mouth every 6 hours as needed for Anxiety. 40 Tablet 2 2023 Active Mirtazapine 30 MG Oral Tablet (Remeron) Take 1 Tablet by mouth at bedtime. 30 Tablet 1 2023 Active Omeprazole Magnesium 20 MG Oral Tablet Delayed Release Take 1 Tablet by mouth in the morning. 0 4 Discontinued(Medi cation List Clean Up) hydrOXYzine HCl 25 MG Oral TabletIndication s:Primary insomnia Take 1 Tablet by mouth every 6 hours as needed for Anxiety. 40 Tablet 2 06/15/2023 4 Discontinued(Refi ll) Mirtazapine 15 MG Oral Tablet (Remeron)Indicat ions:Major depressive disorder in partial remission, unspecified whether recurrent (HCC) Take 1 Tablet by mouth at bedtime. 30 Tablet 3 06/29/2023 4 Discontinued documented as of this encounter (statuses as of 2023) Active Problems Problem Noted Date Diagnosed Date Food insecurity 07/03/2023 Overview: Per [facility] Protocol Depressive disorder 06/21/2023 CHEPE (generalized [...] on file documented as of this encounter Patient Instructions * Patient Instructions* Luz Tellez, LESVIA - 2023 4:49 PM EST Kevin Dumont, As discussed today, we are trying a new medication for treatment of depression and anxiety. This medication is called vortioxetine, brand name is Trintellix. This is a newer antidepressant. There is a chance a prior authorization is required before it is covered by your insurance. If that is required it may take a week or two before this medication can get filled. We discussed Trintellix a little bit today but for some information in writing, vortioxetine/Trintellix is a newer, multimodal antidepressant with diverse effects. It increases the release of severalneurotransmitters to include serotonin, dopamine, norepinephrine, glutamate, acetylcholine, and histamine. Side effects may include the risk of GI side effects such as nausea, vomiting, diarrhea, andpossibly constipation, however these side effects may resolve with time. In addition you might possibly notice an increase in anxiety at the start, as well as dry mouth, headache. There is also a risk of sexual side effects which may include ED or decreased libido, however this risk may be lower with trintellix when compared to other antidepressants. This medication has been started at a low dose, and we will titrate it based on how you tolerate it and how it works, however keep in mind it willtake a couple of weeks before you notice effectiveness. documented in this encounter Progress Notes * Luz Tellez CRNP - 2023 2:34 PM EST Outpatient Psychiatry Initial Evaluation Psychiatry [place] [address] Name: Tim Trent Age: [age] year old Date and Time: 07/25/23, 2:34 PM Luz LAKHANI History of Present Illness Referral Source: PCP Dr. Chiu Chief Complaint: new psychiatry evaluation The patient, Tim, is a 52 year old male with a past medical history of ulcerative colitis and hypertension and a psychiatric history of anxiety and depression as well as heavy alcohol use presenting to establish with psychiatry. Tim endorses social and emotional concerns that began in childhood. He reports social anxiety, poor self-esteem, frequent crying as a child. He shares that he experienced bullying as a child. He reports his parents called him "overly sensitive." He reports this led to increased poor self-esteem,social anxiety and self-consciousness which continued when he went to college and into adulthood. 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 He shares he has struggled with depression since 2021, for about two years, and feels like it has been getting worse. He endorses sadness, low motivation, low energy, not enjoying thing he previouslyenjoyed. He also reports insomnia, difficulty sleeping. He also endorses feelings of helplessness, hopelessness, feelings of despair. He denies passive thoughts of not wanting to be alive anymore, and he denies suicidal thoughts, however he does state that he "doesn't care" what happens to him. In addition, there is a history of substance use, to include opioid use as well as excessive alcohol use in 2022. He was hospitalized twice for detox in 2022 to come off of these substances. He is not drinking 4-5 drinks of vodka a week. He reports this is a significant decrease in what he was drinking. Tim explains that he does not feel that his current drinking is contributing to his anxiety and depression however he agrees it is not a healthy coping mechanism. He explains he has been unemployed for a year and he has a goal of returning to work but he hopes to achieve better control of anxiety prior to returning. He endorses feeling better in the last month or two, and he is unsure if this can be attributed to the addition of mirtazapine. This was started late last fall. He adheres to 15 mg at bedtime and finds this helpful. He is asking about other ,newer medications that he can use for depression and anxiety, in addition he inquires about possibly increasing mirtazapine. PSYCHIATRIC REVIEW OF SYMPTOMS: Depressive Episodes: There is a history of depressive symptoms including depressed mood, anhedonia,psychomotor changes, changes in sleep or appetite, changes in energy or concentration, feelings of guilt, worthlessness, hopelessness. SEE HPI Manic Episodes: There is no history of manic or hypomanic symptoms including expansive mood, irritability, reduced need for sleep, impulsivity, grandiosity, racing thoughts, pressured speech, or an increased in goal directed behaviors. While there is a history of obsessive, preoccupied thoughts, this can last weeks or months, during which he does endorse spending excessive amounts of money duringthose times. He denies that his sleep is affected during these times. He also denies an inflated self esteem or other irregular behaviors. The limited duration and intensity of these symptoms do not support a diagnosis of a bipolar affective syndrome at this time. Will continue to evaluate on a longitudinal basis. Anxiety, panic: There is a history of pathologic anxiety, generalized anxiety, social anxiety. See HPI Psychosis: There is no history of psychotic symptoms including delusions, hallucinations, thought disorganization, or paranoia. Disordered Eating Behaviors: There is no history of disordered eating behaviors including calorie restriction, binge eating, purging, or excessive concern with weight or body image. Trauma: There is a history of mild neglect as a child, at times a harsh upbringing, which he does report astraumatic PTSD: There is a history of symptoms consistent with PTSD including flashbacks, hypervigilance, visual memories, avoidance. Patient states "It feels like a lot of the time I am just trying to stay away from bad memories" OCD: There is no history of symptoms consistent with OCD including obsessions, compulsions, or ritualistic behaviors. There is a family history of OCD ADHD: There is no history of difficulty with school, trouble concentrating, trouble focusing, difficulty completing tasks Psychiatric History Outpatient treatment: history of outpatient psychiatry, 10+, first started receiving psychiatry treatment in [facility] Psychotherapy: first started psychotherapy in [facility] Inpatient treatment: There is no history of inpatient psychiatric hospitalizations. ED presentations for psychiatric concerns: There is no history of ED presentations for psychiatric concerns. Self-injurious behaviors: reports occasional self harm via punching objects Suicidal thoughts: endorses occasional suicidal thoughts when he was younger, but he denies recent suicidal thoughts or self harm thoughts, also reports he "doesn't really care if I live or ." Suicide attempts: There is no history of self-injury or a suicide attempt. Medication trials: Currently being treated with mirtazapine, hydroxyzine Prozac Luvox Lexapro - "felt strange", ineffective Wellbutrin Sertraline - GI distress Effexor - has tried multiple times, does endorse a positive response but also reports it "dulled" his emotions, also reports withdrawal effects Family History of Mental Illness: Family history of substance use - uncle was a heavy drinker Sister - from alcoholism, early age Brother - OCD Family, Social, and Personal History Current Living Situation: [facility], lives a lone Relationships: Marital status: never Children: no children Education: degree in electrical engineering Employment: not currently working Community: Leisure activities: [employer] videos , fishing Social support: family , parents, brother Pentecostal, spirituality: denies History: None Legal: There is no criminal history. Access to Guns: denies Substance Use Caffeine: occasional soda, tea Nicotine and tobacco: denies Supplements: daily multivitamin, iron supplement, vitamin D3, terry supplement, CBD, valerian root, Alcohol: reports history of alcohol dependence, was hospitalized in January of 2023 for detox, has a couple of glasses (4-5 ) each week of vodka Cannabis: medical marijuana card, uses daily, typically in evening Benzodiazepines: Denies Opiates (Heroin/Fentanyl/Kratom/Prescription): history of opium detox, drank tea of poppy pods, washospitalized for 2 weeks for detox in summer Stimulants (Cocaine/Crack/Prescription): Denies Amphetamines: Denies Hallucinogens (PCP/LSD/Psilocybin/Ecstasy/Mushrooms): Denies Other substances (Dextromethorphan/Barbiturates/Benzodiazepines): Denies Substance use treatment for any of the above: Hospitalized twice, once for opiate detox, once for alcohol detox Medical History Primary care provider: Eufemia Chiu MD Seizures: denies Head Injuries: denies Past Medical History: Past Medical History: Diagnosis Date Myopia Ulcerative colitis (HCC) Permanent ileostomy due to ulcerative colitis, hypertension Reviewed with patient Patient Active Problem List Diagnosis Code 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 Knight REMOVAL OF COLON/ILEOSTOMY 2009 Medications: Current Outpatient Medications Medication Instructions amLODIPine (NORVASC) 5 mg, Oral, Daily(AM) folic acid 1 mg, Oral, Daily(AM) hydrOXYzine HCl 25 mg, Oral, Q6H PRN Lisinopril (PRINIVIL) 20 mg, Oral, Daily(AM) Mirtazapine (REMERON) 15 mg, Oral, HS Multivitamin Adult Oral Tablet Oral Omeprazole Magnesium (PRILOSEC OTC) 20 mg, Oral, Daily(AM) RA Vitamin B-1 100 mg, Oral, Daily(AM) Reviewed with patient Allergies: Review of patient's allergies indicates: Allergen Reactions Dust MEDICAL REVIEW OF SYSTEMS: Constitutional: no weight loss, no weakness, and no fatigue Eyes: no recent worsening of vision, does have optometry follow up for vision deficits ENT: no congestion, no runny nose, no sore throat Resp: no cough, no sputum, no wheezing Cardiac: no chest pain, no orthopnea, and no dyspnea on exertion GI: no pain, no heartburn, no diarrhea, no constipation, no nausea, no vomiting Musculoskeletal: denies muscle or joint pain Neuro: no dizziness, headache, confusion, or falling Psych: see HPI Skin: no rash, no itching, and no new/changing skin lesions Review of systems including cardiac, pulmonary, constitutional, dermatologic, rheumatologic, GI, , MSK, psychiatric, and neurologic systems was negative except as in HPI OBJECTIVE DATA Mental Status Exam Appearance: well-groomed, casually dressed, and appearing their stated age Strength and tone: normal strength and tone Gait and Station: normal gait and station, denies subjective complaints Abnormal Movements: no abnormal movements Behavior: calm, cooperative, and appropriate Speech: normal in rate, rhythm, tone, and volume Mood: describes anxiety, depression Affect: dysthymic, constricted, blunted, and consistent with stated mood Thought Process: logical, linear, and goal directed Thought Content: no abnormal thought content Hallucinations: no perceptual disturbances Suicidal ideation: no suicidal ideation or passive wish Orientation: orientated to self, time, place, and circumstances Attention: appropriate Insight: fair Judgment: fair Diagnostics Recent Vitals, Weight, and BMI: There were no vitals filed for this visit. Wt Readings from Last 3 Encounters: 06/15/23 82.5 kg (181 lb 14.4 oz) 01/17/23 78.4 kg (172 lb 12.8 oz) 07/15/19 78.9 kg (174 lb) There is no height or weight on file to calculate BMI. CBC Results: Results for orders placed or performed in visit on 07/25/23 CBC Result Value Ref Range WBC 7.83 4.00 - 10.80 K/uL RBC 4.71 4.50 - 5.25 M/uL HGB 13.0 (L) 14.0 - 16.8 g/dL HCT 40.6 40.0 - 48.4 % MCV 86.2 82.0 - 99.5 fL MCH 27.6 27.0 - 34.0 pg MCHC 32.0 32.0 - 36.0 g/dL RDW 23.2 11.5 - 15.5 % PLT 340 140 - 400 K/uL MPV 8.8 6.6 - 11.1 fL Comprehensive Metabolic Panel Results: TSH Results: No results found for: "TSH" Lipid Panel Results: Results for orders placed or performed in visit on 07/16/19 LIPID PANEL WITH DIRECT LDL IF TRIGLYCERIDE IS ELEVATED Result Value Ref Range HOURS FASTING >8 HOURS hours Triglycerides 106 0 - 174 mg/dL Cholesterol 129 <200 mg/dL HDL Cholesterol 35 (L) >39 mg/dL NON-HDL CHOLESTEROL 94 0 - 159 mg/dL LDL Cholesterol 73 0 - 129 mg/dL LDL Cholesterol (Direct Measure) NOT APPLICABLE 0 - 129 mg/dL Hemoglobin AIC Results: No results found for: "HEMOGLOBIN A1C" Other Results: No results found for: "UIKB27VUJ5" No results found for: "FFMH38CXX5" No results found for: "[id number]" No results found for: "25OHVITAMIND" Vitamin D Level Interpretation deficient: <20 ng/ml insufficient: 20-30 ng/ml normal: 31-100 ng/ml No results found for: "CELIO" No results found for: "HIV" Risk Assessment [place]-SUICIDE SEVERITY RATING SCALE Frequent Screener [place] Suicide Severity Rating Scale Results 2023 14:55 [place] SUICIDE SEVERITY RATING SCALE (C-SSRS) Have you wished you were or wished you could go to sleep and not wake up? (In the Past Month or Since Last Visit) No Have you had any actual thoughts of killing yourself? (In the Past Month or Since Last Visit) No Have you been thinking about how you might do this? (In the Past Month or Since Last Visit) No Have you had thoughts and had some intention of acting on them? (In the Past Month or Since Last Visit) No Have you started to work out or worked out the details of how to kill yourself? Do you intend to carry out this plan? (In the Past Month or Since Last Visit) No Have you ever done anything, started to do anything, or prepared to do anything to end your life? (Lifetime) No Was this within the past 3 months? No Level of Risk No Risk Identified Protective Factors Hopeful attitude and or beliefs;Help-Seeking Behaviors;Future Plans;Willing to participate in less restrictive means of help;Social Support/Family;Access to appropriate services Risk Factors History of Depression;Anxiety;Substance use;History of Trauma;Physical illness/chronicpain Based on this assessment, the patient's safety risk is assessed to be: low acute risk and low chronic risk The least restrictive and most appropriate level of care for this patient at this time continues [facility] routine outpatient care. General Safety Plan Created with patient today. Reviewed coping mechanisms. Reviewed sources of support. Reviewed use of professional agencies Reviewed use of crisis numbers Professional agency numbers and crisis numbers provided to patient. Patient has access to her [employer] portal/Tiggly Plan Diagnoses: Major depressive disorder, recurrent, severe, without psychosis Generalized anxiety disorder Insomnia History of alcohol abuse History of opioid abuse Differential Diagnoses: Rule out PTSD Rule out bipolar disorder Medications: Increase mirtazapine to 30 mg q HS, patient has had a positive response so far Begin trintellix, 5 mg by mouth daily. Instructed to take 5 mg daily for one week and if tolerating, increase to 10 mg daily PDMP Review: I have reviewed the patients controlled substance dispensing history in the Prescription Drug Monitoring Program. No red flags identified. Diagnostics: None indicated at this time Lab monitoring: None indicated at this time, reviewed recent labs above Therapy: Referral placed for individual psychotherapy with [facility] on 07/25/23. Educatedon group therapy options, patient declined at this time. Referral: offered referral to addiction medicine for ongoing alcohol use, patient declined today Return: 4 weeks, sooner PRN Medication Education: -Education provided on vortioxetine today, including that vortioxetine is a newer multimodal antidepressant with diverse effects, side effects reviewed to include the risk of GI side effects such as nausea, vomiting, diarrhea, and constipation, as well as dry mouth, headache, there is a risk of sexual side effects which may include ED or decreased libido, however this risk may be lower with trintellix when compared to other antidepressants. Medication has been started at a low dose, will titrate based on tolerability and effectiveness. To start 5mg daily and increase after one week to 10 mg if patient tolerates. Health Maintenance: -Nutrition/exercise/sleep: Patient encouraged to continue incorporating healthy lifestyle choices, which include healthy food choices, limited caffeine consumption, optimal sleep hygiene, and routineexercise. -Educated on the consequences of alcohol use on both his physical and emotional health. Offered referral to addiction medicine for ongoing therapy. Offered naltrexone for alcohol cravings. Patient declined both today Treatment options and alternatives were reviewed with the patient and they agree with the above plan. Information about current medications was provided to the patient including risks, benefits, indications, and side-effects. The patient is making an informed decision to follow the recommendations outlined in this note.The treatment plan will be provided to the patient via [place]. We explicitly discussed the treatment plan and patient verbally agreed to participate in the plan. Crisis Planning I reviewed with the patient that in case of a psychiatric emergency they should call 911 or go to the nearest emergency room. The patient was able to verbalize understanding of the steps necessary toobtain help between appointments if needed, including requesting a phone call, requesting an appointment sooner, reaching clinic after hours, or accessing emergency mental health and medical serviceseither at a local emergency department or by activating mobile crisis teams and EMS. The patient was also provided with psychiatry emergency telephone numbers including crisis numbers, the text suicide hotline, and the suicide hotline. An individualized crisis plan will be reviewed at subsequent visits as necessary. GENERAL SAFETY PLAN Created with patient today. Reviewed coping mechanisms. Reviewed sources of support. Reviewed use of professional agencies Reviewed use of crisis numbers Professional agency numbers and crisis numbers provided to patient. Patient has access to his [employer] portal/Tiggly See attached documents and flowsheets Crisis Numbers by County: [place] - Crisis Services Outpatient Adult Psychiatry Treatment Plan Created today with patient Documented separate plan, sent the plan electronically to the patient and requested an e-signature. Time Spent on Visit: 60 minutes Billing code: [id number] [facility] [phone] 07/25/23 documented in this encounter Plan of Treatment Upcoming Encounters Date Type Department Care Team (Late st Contact Info) Description 09/05/2023 2:00 PM EDT Telemedicine Psychiatry, [facility] [place] [address] [facility] [place], [place] [address] Luz Tellez CRNP [address] [facility] [place] [id number] 12/21/2023 2:00 PM EDT Office Visit General Internal Medicine [facility] [place] [address] [facility] [place] [address] Eufemia Chiu MD [address] [facility] [place] [address] Scheduled Referrals Name Type Priority Associated Diagnoses Orde r Schedule ADULT/PEDS PSYCHOLOGY REFERRAL OP Referral Within 10 days (routine) Major depressive disorder, recurrent severe without psychotic features (HCC) CHEPE (generalized anxiety disorder) Ordered: 2023 Health Maintenance Due Date Last Done Comments [...] this encounter Visit Diagnoses Diagnosis Major depressive disorder, recurrent severe without psychotic features (HCC)- Primary Major depressive disorder, recurrent episode, severe, without mention of psychotic behavior Primary insomnia Persistent disorder of initiating or maintaining sleep CHEPE (generalized anxiety disorder) Generalized anxiety disorder History of alcohol dependence (HCC) Other and unspecified alcohol dependence, in remission History of opioid abuse (HCC) Opioid abuse, in remission documented in this encounter Care Teams Child And Adolescent Psychiatrist Relationship Specialty Start Date End Date Eufemia Chiu MD [address] [place] [address] [place] [address] PCP - General Internal Medicine 02/06/23 documented as of this encounter
--- OUTSIDE RECORDS SUMMARY | 2023-08-26 04:21 | External Medical Summary | Summary of Care ---
Author Name Unknown Organization [facility] Address [address] [facility] [place] [address] Phone [phone] Care Team Providers Care Director Of Corporate Real Estate Name Role Phone Eufemia Chiu MD Primary Care Provider + Reason for Referral * Ancillary Services (Within 30 days (routine)) - Pending Review Specialty Diagnoses / Procedures Referred By Contac t Referred To Contact Gastroenterology Diagnoses Iron deficiency anemia, unspecified iron deficiency anemia type Eufemia Chiu MD [address] [facility] [place] [address] Referral ID Status Reason Start Date Expiration Date Visits Requested Visits Authorized [id number] Pending Review Ancillary Services Required 08/03/[phone] Question Answer Referral Priority Within 30 days (routine) Where should this appointment be scheduled? [facility] Comments ALERT: Do not order for pediatric patients (18 years or younger). Cancel off screen and order PEDS GASTROENTEROLOGY CONSULT (Type: 1 visit only-Evaluate and Treat) The following Pt. Instructions are available: - Gastro Colonoscopy Prep Instructions [50056] - Gastro Colonoscopy Prep Instructions (Upper Sorbian Version) [48238] Go to the Pt. Instructions section within the Visit Navigator to access. Colonoscopy ASGE Guidelines: Iron deficiency anemia and Average risk screening (begin at age 50, 10 year intervals) ADDITIONAL INFORMATION 1. Is the patient on Coumadin? No 2. Is the patient on Pradaxa? No Reason for Visit * Reason Onset Date Comments Test Results 08/01/2023 Encounter Details Date Type Department Care Team ([facility] Contact Info) Description 08/01/2023 Telephone General Internal Medicine [facility] [place] [address] [place] [address] Eufemia Chiu MD [address] [facility] [place], [place] [address] Test Results Allergies Active Allergy Reactions Criticality [...] Telemedicine Psychiatry, Rubin Moreno [address] [place] [address] Luz Tellez CRNP [address] [place] [phone] 12/21/2023 2:00 PM EDT Office Visit General Internal Medicine Rubin Moreno [place] [address] [facility] [place] [address] Eufemia Chiu MD [address] [facility] [place] [address] Scheduled Referrals Name Type Priority Associated Diagnoses [...] Primary documented in this encounter Care Teams Director Of Corporate Real Estate Relationship Specialty Start Date End Date Eufemia Chiu MD [address] [facility] [place] [address] PCP - General Internal Medicine 02/06/23 documented as of this encounter
--- OUTSIDE RECORDS SUMMARY | 2023-08-26 04:21 | External Medical Summary | Summary of Care ---
Author Name Unknown Organization [facility] Address [address] [place] [address] Phone [phone] Care Team Providers Care Log Cut Off Sawyer Name Role Phone Eufemia Chiu MD Primary Care Provider + Reason for Referral * Ancillary Services (Within 30 days (routine)) - Pending Review Specialty Diagnoses / Procedures Referred By Contac t Referred To Contact Gastroenterology Diagnoses Iron deficiency anemia, unspecified iron deficiency anemia type Eufemia Chiu MD [address] [facility] [place] [address] Referral ID Status Reason Start Date Expiration Date Visits Requested Visits Authorized [id number] Pending Review Ancillary Services Required 08/03/[phone] Question Answer Referral Priority Within 30 days (routine) Where should this appointment be scheduled? [place] Comments ALERT: Do not order for pediatric patients (18 years or younger). Cancel off screen and order PEDS GASTROENTEROLOGY CONSULT (Type: 1 visit only-Evaluate and Treat) The following Pt. Instructions are available: - Gastro Colonoscopy Prep Instructions [[id number]] - Gastro Colonoscopy Prep Instructions (Greek Version) [[id number]] Go to the Pt. Instructions section within the Visit Navigator to access. Colonoscopy ASGE Guidelines: Iron deficiency anemia and Average risk screening (begin at age 50, 10 year intervals) ADDITIONAL INFORMATION 1. Is the patient on Coumadin? No 2. Is the patient on Pradaxa? No Reason for Visit * Reason Onset Date Comments Test Results 08/01/2023 Encounter Details Date Type Department Care Team ([facility] Contact Info) Description 08/01/2023 Telephone General Internal Medicine [facility] [place] [address] [place] [address] Eufemia Chiu MD [address] [facility] [place], [place] [address] Test Results Allergies Active Allergy Reactions Criticality Noted Date Comments Dust Low 07/15/2019 documented as of this encounter (statuses as of 08/11/2023) Medications Medication Sig Dispensed Refills Start Date [...] as of this encounter (statuses as of 08/11/2023) Active Problems Problem Noted Date Diagnosed Date Food insecurity 07/03/2023 Overview: Per [facility] Protocol Depressive disorder 06/21/2023 CHEPE (generalized anxiety disorder) 06/21/2023 Substance abuse 06/21/2023 Ulcerative colitis 06/15/2023 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 10/11/2013 documented as of this encounter (statuses as of 08/11/2023) Resolved Problems Problem Noted Date Diagnosed Date Resolved Date Food insecurity 12/28/2020 05/04/2023 Overview: Per [facility] Protocol documented as of this encounter (statuses as of 08/11/2023) Social History Tobacco Use Types Packs/Day Years [...] Description 09/05/2023 2:00 PM EDT Telemedicine Psychiatry, [address] [place] [address] Luz Tellez CRNP [address] [facility] [place] [address] 12/21/2023 2:00 PM EDT Office Visit General Internal Medicine [facility] [place] [address] [facility] [place] [address] Eufemia Chiu MD [address] [facility] [place] [address] Scheduled Referrals Name Type Priority Associated Diagnoses [...] of 2) 2022 COVID-19 Vaccine (1 - 24 season) 2023 Influenza Vaccine (FLU shot) (#1) [...] Primary documented in this encounter Care Teams Log Cut Off Sawyer Relationship Specialty Start Date End Date Eufemia Chiu MD [address] [place] [address] PCP - General Internal Medicine 02/06/23 documented as of this encounter
--- OUTSIDE RECORDS SUMMARY | 2023-08-26 04:21 | External Medical Summary | Summary of Care ---
Author Name Unknown Organization [facility] Address [address] [place] [address] Phone [phone] Care Team Providers Care Walking Dragline Operator Name Role Phone Eufemia Chiu MD Primary Care Provider + Reason for Visit * Reason Onset Date Comments Precert Approved 07/26/2023 TRINTELLIX 5 MG TABLET Encounter Details Date Type Department Care Team (Late st Contact Info) Description 07/26/2023 Telephone Psychiatry, [place] [address] [place], [place] [phone] Luz Tellez CRNP [address] [place] [address] Precert Approved (TRINTELLIX 5 MG TABLET) Allergies Active Allergy Reactions Criticality Noted Date Comments Dust Low 07/15/2019 documented as of this encounter (statuses as of 08/01/2023) Medications Medication Sig Dispensed Refills Start Date [...] as of this encounter (statuses as of 08/01/2023) Active Problems Problem Noted Date Diagnosed Date Food insecurity 07/03/2023 Overview: Per [facility] Protocol Depressive disorder 06/21/2023 CHEPE (generalized anxiety disorder) 06/21/2023 Substance abuse 06/21/2023 Ulcerative colitis 06/15/2023 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 * Telephone Encounter - Cheli Ch OSA - 07/31/2023 10:57 AM EDT [facility] Authorization Submission Submission Information: Medication: TRINTELLIX 5 MG TABLET Portal used: [facility] Insurance: [facility] family Authorization #/Denny: [id number] Cheli Ch Medication Vessel Manager [facility] 07/31/23,10:53 AM * Telephone Encounter - Estela Romero LPN - 07/26/2023 11:06 AM EST Psychiatry Pre-Cert Request Medication/Disease State Information: Medication: Vortioxetine (Trintellix)- take 10 mg [place] P [address] ;individual strength:5 mg tablet Diagnosis (including ICD-10): F33.2 Medication(s) Tried/Failed/Contraindicated: Prozac Luvox Lexapro - "felt strange", ineffective Wellbutrin Sertraline - GI distress Effexor - has tried multiple times, does endorse a positive response but also reports it "dulled" his emotions, also reports withdrawal effects See corresponding visit note(s) for additional supporting clinical information. Office Information: Prescriber: LESVIA Whatley [facility] [place]: [id number] SIG: take 1 tablet by mouth daily for one week, can then increase to two tablets by mouth daily documented in this encounter Plan of Treatment Upcoming Encounters Date Type Department Care Team (Late st Contact Info) Description 09/05/2023 2:00 PM EDT Telemedicine Psychiatry, [facility] [address] [place], [place] [address] Luz Tellez CRNP [address] [place] [address] [phone] 12/21/2023 2:00 PM EDT Office Visit General Internal Medicine State [place] [address] [place] [address] Eufemia Chiu MD [address] [place] [address] [address] Health Maintenance Due Date Last Done Comments HIV Screening 07/26/1987 Hepatitis C Screening 1990 DTaP,Tdap,and Td Vaccines (1 - Tdap) 07/26/1991 Hepatitis B (1 of 3 - 19+ 3-dose series) 07/26/1991 Zoster Vaccines (1 of 2) 2022 COVID-19 Vaccine (1 - season) 2023 Influenza Vaccine (FLU shot) (#1) [...] filedocumented as of this encounter Care Teams Walking Dragline Operator Relationship Specialty Start Date End Date Eufemia Chiu MD [address] [place] [address] [address] PCP - General Internal Medicine 02/06/23 documented as of this encounter
--- OUTSIDE RECORDS SUMMARY | 2023-08-26 04:21 | External Medical Summary ---
Author Name Unknown Address Unknown Organization K01:[facility] - [address] [place] [address] Laboratory Report Ordering Provider Test Date Status LESTER FLORES 2023 13:45:14 Final Observation Date Value Abnormality Reference (Units ) Status Vitamin B12 2023 13:45:14 [phone] (pg/mL) Final Performing Location [facility] - [address] [place] [address]
--- OUTSIDE RECORDS SUMMARY | 2023-08-26 04:21 | External Medical Summary | Summary of Care ---
Author Name Unknown Organization [facility] Address [address] [place] [address] Phone [phone] Care Team Providers Care Operator Cavity Pump Name Role Phone Eufemia Chiu MD Primary Care Provider + Reason for Visit * Reason Comments Anxiety Has tried various an xiety medications. Would like to explore some other options. * - Authorized Specialty Diagnoses / Procedures Referred By Khadijah t Referred To Contact Referral ID Status Reason Start Date Expiration Date V isits Requested Visits Authorized [id number] Authorized 05/22/2023 05/20/[phone] Encounter Details Date Type Department Care Team (Late st Contact Info) Description 06/21/2023 11:30 AM EST [facility] [place] [address] [place], [place] [phone] Karime Batista, [facility] [address] [place], [place] [phone] CRISTI (generalized anxiety disorder)*; Depressive disorder; Substance abuse (HCC) Allergies Active Allergy Reactions Criticality Noted Date Comments Dust Low 07/15/2019 documented as of this encounter (statuses as of 06/27/2023) Medications Medication Sig Dispensed Refills Start Date [...] as of this encounter (statuses as of 06/27/2023) Active Problems Problem Noted Date Diagnosed Date Depressive disorder 06/21/2023 CRISTI (generalized anxiety disorder) 06/21/2023 Substance abuse 06/21/2023 Ulcerative colitis 06/15/2023 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 After connecting through [facility], patient was verified with two unique identifiers. Patient (or authorized legal medical collections representative) was then informed that this was [...] . Detox about two months ago @ [facility] for alcohol. Last drink was last weekend. Denies any opioid use since his detox. Attempted inpatient stay for d/a but had issues with finding treatment due to medical issue of Ileostomy and staff being able to manage. Went to [facility] about 3/4 months-not a good fit. 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 Last job in 2020 @ [employer] had difficulty managingtime and completing tasks. Has [...] No Do you currently live in a mcfp or have no steady place to sleep [...] 988 Crisis Textline : Text "HOME" to 864571 to connect with a crisis counselor Crisis Numbers by [facility] [place]: [place] [facility] Services - Emergency Services Dominique (4047-2-YOU CAN) re:solve Crisis Network Paige & Areli . The Open Door - Crisis Intervention [place] [facility] Crisis Help-Line [facility] - Crisis Intervention Services [facility] Service Access [place]. - Crisis Intervention [place] Choose option [address] [place] [address] of Engineering Manager Electronics Licha De Dios & Abdi Crisis Intervention [place] [facility] - Mental Health Crisis Anguiano [facility] - Crisis Intervention Anchor [facility] - Crisis Intervention Kelsey Manzo Potter - Crisis Line Xu Herrera [place]ike - Mental Health Crisis Hotline [place] [facility] - Crisis Services [place] [facility] Crisis Center [place] Service Access Energie Etiche, [place]. - Crisis Intervention Gladys - Mental Health Crisis Intervention Services [place] [facility] MH/ID Program [place], [place], [place], [place] - Crisis System [facility] Human Services - Crisis Hotline Cathi (8-902-002-HELP) [facility] - Crisis Intervention Zana [facility] - Crisis Intervention Services [place] [facility] - Crisis Services Charbel [facility] - Crisis Center [place] 5-403-707 2013 [facility] - Crisis Hotline Kyle (8:30 am-5:00 pm) OR (after 5:00 pm, weekends & holidays) Silvia [facility] Crisis Intervention Program [place] [facility] Mental Health Crisis Line NianticSophia lai and Mcdonald [facility] Crisis Norris & Delilah [facility] - Crisis Intervention [place] [facility] - Mental Health Crisis Service [facility] - Crisis Intervention Mcdonough [facility] - Crisis Intervention [place] & [place]arton [facility] - Help Line [facility] MH/ID Program [facility] - Crisis Intervention [place] [facility] - Crisis Intervention [place] [facility] Emergency Services, [facility] - Crisis Intervention [place] [facility] Behavioral Health - Emergency Services [place] [facility] - Crisis Line [place] - DBHIDS - Suicide and Crisis Intervention Hotline [facility] - Crisis/ Emergency Services [place] [facility] - Emergency Contact Line [place] [facility] - Crisis Line Panchito ext. [address] [facility] Services [facility] Action - Crisis Intervention Hotline [place] [facility] Crisis Intervention Services documented in this encounter Plan of Treatment Upcoming Encounters Date Type Department Care Team (Late st Contact Info) Description 06/29/2023 3:00 PM EST Nurse Only Ancillary [facility] [place] [address] [facility] [place] [address] Nurse, Int Med [address] [place] [address] [address] 07/04/2023 9:00 AM EST Office Visit Psychiatry, [facility] [address] [place] [address] [address] Luz Tellez CRNP 200 [facility] [place] [phone] 07/20/2023 11:00 AM EST Office Visit Gastroenterology [place] [facility] [address] [facility] [place] [address] Brenda Reza MD [address] [place] [address] 07/20/2023 2:00 PM EST Laboratory Laboratory [facility] [place] [address] [facility] [place] [phone] [facility] Lab [place] [address] [address] 12/21/2023 2:00 PM EDT Office Visit General Internal Medicine [facility] [place] [address] [place] [address] Eufemia Chiu MD [address] [facility] [place] [address] Scheduled Referrals Name Type Priority Associated Diagnoses [...] unspecified documented in this encounter Care Teams Operator Cavity Pump Relationship Specialty Start Date End Date Eufemia Chiu MD [address] [place] [address] PCP - General Internal Medicine 02/06/23 documented as of this encounter
--- OUTSIDE RECORDS SUMMARY | 2023-08-26 04:21 | External Medical Summary ---
Author Name Unknown Address Unknown Organization K01:[facility] - [address] [facility] [address] Laboratory Report Ordering Provider Test Date Status LESTER FLORES 2023 13:45:14 Final Observation Date Value Abnormality Reference (Units ) Status Iron 2023 13:45:14 126 45-176 (ug /dL) Final Iron-binding capacity 2023 13:45:14 345 250-425 (ug/dL) Final Transferrin Sat % 2023 13:45:14 37 15 -55 (%) Final Performing Location [facility] - [address] [facility] [address]
--- OUTSIDE RECORDS SUMMARY | 2023-08-26 04:22 | External Medical Summary | Summary of Care ---
Author Name Unknown Organization [facility] Address [address] [facility] [place] [address] Phone [phone] Care Team Providers Care Social Worker Health Services Name Role Phone Eufemia Chiu MD Primary Care Provider + Reason for Visit * Reason Comments Physical-Exam The pt stated he is here for his annual physical and to discuss his hypertension Encounter Details Date Type Department Care Team (Late st Contact Info) Description 06/15/2023 2:00 PM EST Office Visit General Internal Medicine Rubin Moreno [place] [address] [place] [address] Eufemia Chiu MD [address] [place] [address] Routine medical exam*; Primary insomnia; Need for hepatitis B vaccination Allergies Active Allergy Reactions Criticality Noted Date Comments Dust Low 07/15/2019 documented as of this encounter (statuses as of 06/15/2023) Medications Medication Sig Dispensed Refills Start Date [...] 04/28/2023 Active Mirtazapine 15 MG Oral Tablet (Remeron)Indicatio ns:Major depressive disorder in partial remission, unspecified whether recurrent (HCC) Take 1 Tablet by mouth at bedtime. 30 Tablet 0 05/26/2023 Active Multivitamin Adult Oral Tablet Take by mouth. 0 Active hydrOXYzine HCl 25 MG Oral TabletIndications: Primary insomnia Take 1 Tablet by mouth every 6 hours as needed for Anxiety. 40 Tablet 2 06/15/2023 Active hydrOXYzine HCl 50 MG Tablet Take 1 Tab by mouth 3 times a day as needed for Anxiety. 30 Tab 2 11/13/2019 06/15/2023 Discontinued hydrOXYzine HCl 10 MG Oral Tablet (Atarax) Take 1 Tablet by mouth 4 times a day as needed for Anxiety. 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 10/11/2013 documented as of this encounter (statuses as of 06/15/2023) Resolved Problems Problem Noted Date Diagnosed Date Resolved Date Food insecurity 12/28/2020 05/04/2023 Overview: Per [facility] Protocol documented as of this encounter (statuses as of 06/15/2023) Social History Tobacco Use Types Packs/Day Years Used Date Smoking Tobacco: Never Smokeless Tobacco: Never Alcohol Use Standard Drinks/Week Comments Yes 0 (1 standard drink = 0.6 oz pur e alcohol) PHQ-2 Answer Date Recorded PHQ-2 Score 2 07/15/2019 Hunger Vital Sign Answer Date Recorded Within the past 12 months, y ou worried that your food would run out before you got the money to buy more. Never true 01/17/20 23 Within the past 12 months, t he food you bought just didn't last and you didn't have money to get more. Never true 01/16/2023 Sex and Gender Information Value Date Recorded Sex Assigned at Male 07/15/2019 11:58 AM EST Gender Identity Male 07/15/2019 11:58 AM EST Sexual Orientation Straight 01/14/2023 4: 02 PM EDT Job Start Date Occupation Industry Not on file Not on file Not on file documented as of this encounter Last Filed Vital Signs Vital Sign Reading Time Taken Comments Blood Pressure 106/84 06/15/2023 2:03 PM EST Pulse 92 06/15/2023 2:03 PM EST Temperature 37.1 C (98.7 F) 06/15/2023 2:03 PM ES T Respiratory Rate - - Oxygen Saturation 98% 06/15/2023 2:03 PM EST Inhaled Oxygen Concentration - - Weight 82.5 kg (181 lb 14.4 oz) 06/15/2023 2:03 PM EST Height 175.3 cm (5' 9") 06/15/2023 2:03 PM EST Body Mass Index 26.86 06/15/2023 2:03 PM EST documented in this encounter Progress Notes * Eufemia Chiu MD - 06/15/2023 2:14 PM EST HPI: Tim Trent is a 52 year old male with hx of ulcerative colitis, s/p total colectomy in 2007, HTN, who presents with: Chief Complaint Patient presents with Physical-Exam The pt stated he is here for his annual physical and to discuss his hypertension Patient is here for the physical. . Chart reviewed with the patient including current meds, last labs and HM. No acute event since we saw patient last time including no recent fall or injuries exceptsome weight gain lately. States can do better with diet and exercise. Discussed all HM. Denies any chestpain/sob/palpitation/swealling in the legs. Denies any cough/sob/wheezing/chestpain. Denies nausea,vomiting, diarrhoea, constipation, abdominal pain or blood in stool. Denies heart burn. Has good appetite. No urinary symptoms. Feels stable emotionally. Has issue with sleeping at night. Working on cutting and stopping alcohol. Pt had total proctocolectomy so doesn't need colonoscopy. Doesn't prefer any vaccine at this time. 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 90 Tablet 0 Lisinopril 20 MG Oral Tablet (Prinivil) Take 1 Tablet by mouth in the morning. 90 Tablet 0 Mirtazapine 15 MG Oral Tablet (Remeron) Take 1 Tablet by mouth at bedtime. 30 Tablet 0 Multivitamin Adult Oral Tablet Take by mouth. hydrOXYzine HCl 50 MG Tablet Take 1 Tab by mouth 3 times a day as needed for Anxiety. (Patient not taking: Reported on 01/16/2023) 30 Tab 2 hydrOXYzine HCl 10 MG Oral Tablet (Atarax) Take 1 Tablet by mouth 4 times a day as needed for Anxiety. Folic Acid 1 MG Oral Tablet Take 1 Tablet by mouth in the morning. Omeprazole Magnesium 20 MG Oral Tablet Delayed Release Take 1 Tablet by mouth in the morning. RA Vitamin B-1 100 MG Oral Tablet Take 1 Tablet by mouth in the morning. No current facility-administered medications for this visit. The patient's medication list was reviewed and updated as needed. Review of patient's allergies indicates: Allergen Reactions Dust Past Medical History: Diagnosis Date Myopia Social History Socioeconomic History Marital status: Single Tobacco Use Smoking status: Never Smokeless tobacco: Never Substance and Sexual Activity Alcohol use: Yes Drug use: No Social Determinants of Health Food Insecurity: No Food Insecurity (01/16/2023) Hunger Vital Sign Worried About Running Out of Food in the Last Year: Never true Ran Out of Food in the Last Year: Never true Family History Problem Relation Age of Onset Heart Disorder Father Lung Disorder Father COPD Stroke Grandfather (Paternal) Cancer None Diabetes None Thyroid Disorder None Eye Problems None patient denies hx AMD, glaucoma, retinal detachments or blindness OCD Brother Hypertension Mother Alcohol and Other Disorders Associated Sister Ultimately of associated issues Mental Disorder Brother OCD Eye Problems Brother Requires corrective lenses Eye Problems Sister Requires corrective lenses Gastro-intestinal disorder Sister Ulcerative colitis Obesity Sister All system negative except as per hpi. OBJECTIVE: BP 106/84 | Pulse 92 | Temp 37.1 C (98.7 F) | Ht 1.753 m (5' 9") | Wt 82.5 kg (181 lb 14.4 oz) | SpO2 98% | BMI 26.86 kg/m | BSA 2 m PHYSICAL EXAM: HEENT: PERRLA, EOMI, anicteric sclera, b/l tympanic membrane is pearly white, no erythema, no pharyngeal erythema, no lymphadenopathy, neck supple CVS: RRR, no murmurs, rubs or gallops, s1 s 2normal. RESP: clear to auscultation, no wheezing or crackles ABD: soft, NT/ND, ileostomy bag+ EXT: no edema, cyanosis, peripheral pulses palpable bilaterally No large joint swelling, no redness, range of motion normal. Skin normal. Gait normal. Mood stable No focal weakness ASSESSMENT AND PLAN: Routine medical exam (Primary) Regular diet and exercise discussed with the patient. Importance of doing exercise 3 times a week for 30 minutes discussed. Taking OTC vitamins and Calcium with vitamin D discussed with the patient. Pt does wear a seat belt and sees [employer] Dentist every year. Fall precautions advised to the patient. Importance of drinking more water atleast 6-8 glasses per day discussed with the patient. Primary insomnia - hydrOXYzine HCl 25 MG Oral Tablet; Take 1 Tablet by mouth every 6 hours as needed for Anxiety. Need for hepatitis B vaccination - HEPATITIS B SURFACE ANTIBODY; Future; Expected date: 06/15/2023 Eufemia Chiu MD documented in this encounter Nursing Notes * Trent Cruz LPN - 06/15/2023 2:02 PM EST Chief Complaint Patient presents with Physical-Exam The pt stated he is here for his annual physical and to discuss his hypertension documented in this encounter Plan of Treatment Upcoming Encounters Date Type Department Care Team (Late st Contact Info) Description 06/21/2023 11:30 AM EST Telemedicine [facility] [address] [place] [address] Karime Batista [facility] [address] [place] [address] 08/17/2023 2:00 PM EDT Office Visit Gastroenterology, [facility] [address] [place] [address] Rosibel Jones CRNP [address] [place] [address] Scheduled Orders Name Type Priority Associated Diagnoses Orde r Schedule HEPATITIS B SURFACE ANTIBODY Lab Routine Need for hepatitis B vaccination Expected: 06/15/2023 (Approximate), Expires: 06/14/2024 Health Maintenance Due Date Last Done Comments Hepatitis B (1 of 3 - 3-dose series) 1972 COVID-19 Vaccine (#1) 01/25/1973 HIV Screening 07/26/1987 Hepatitis C Screening 1990 DTaP,Tdap,and Td Vaccines (1 - Tdap) 07/26/1991 Depression Screening 07/15/2020 07/15/2019 Zoster Vaccines (1 of 2) 2022 Influenza Vaccine (FLU shot) (#1) 2023 Lipid Panel 07/16/2024 07/16/2019 Diabetes Screening 01/17/2026 01/17/2023, 07/16/2019 GARDASIL-HPV IMMUNIZATION SERIES Aged Out [...] as of this encounter Visit Diagnoses Diagnosis Routine medical exam- Primary Routine general medical examination at a health care facility Primary insomnia Persistent disorder of initiating or maintaining sleep Need for hepatitis B vaccination Need for prophylactic vaccination and inoculation against viral hepatitis documented in this encounter Care Teams Social Worker Health Services Relationship Specialty Start Date End Date Eufemia Chiu MD [address] [place] [address] PCP - General Internal Medicine 02/06/23 documented as of this encounter
--- OUTSIDE RECORDS SUMMARY | 2023-08-26 04:22 | External Medical Summary | Summary of Care ---
Author Name Unknown Organization [facility] Address [address] [facility] [place] [address] Phone [phone] Care Team Providers Care Carbon Paste Mixer Operator Name Role Phone Eufemia Chiu MD Primary Care Provider + Reason for Visit * Reason Onset Date Comments Test Results 06/20/2023 Encounter Details Date Type Department Care Team (Late st Contact Info) Description 06/20/2023 Telephone General Internal Medicine [facility] [address] [facility] [place] [address] Eufemia Chiu MD [address] [place] [facility] [place] [address] Test Results Allergies Active Allergy Reactions Criticality Noted Date Comments Dust Low 07/15/2019 documented as of this encounter (statuses as of 06/20/2023) Medications Medication Sig Dispensed Refills Start Date [...] as of this encounter (statuses as of 06/20/2023) Active Problems Problem Noted Date Diagnosed Date Ulcerative colitis 06/15/2023 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 Nurse visit and lab appts scheduled * Telephone Encounter - Alka Smith OSA - 06/20/2023 2:40 PM EST Reason for patient's call: Results Caller was transferred to [facility] at the nurse line. * Telephone Encounter - Trent Cruz LPN - 06/20/2023 2:27 PM EST Left message for patient to return call. * Telephone Encounter - Trent Cruz LPN - 06/20/2023 2:26 PM EST ----- Message from Eufemia Chiu MD sent at 06/19/2023 6:27 PM EST ----- Recent blood work shows no protective immunity against hepatitis-B and if he is agreeable he shouldcome to the clinic and start the hepatitis-B vaccine series which is 3 dosage Patient has mild anemia but he does have a history of colectomy for ulcerative colitis. Need to work on enough iron in his diet. Does have worsening kidney function, high calcium and high liver function. Need to work on balanceddiet, hydration, low-salt and do not take any calcium supplement. Need to get repeat blood work in a month from now in orders will be in. documented in this encounter Plan of Treatment Upcoming Encounters Date Type Department Care Team (Late st Contact Info) Description 06/21/2023 11:30 AM EST Telemedicine Psychology, [place] [address] [place] [address] Karime Batista, [facility] [address] [place] [address] 06/29/2023 3:00 PM EST Nurse Only Ancillary Rubin Moreno [place] [address] [place] [address] Nurse, Int Med [address] [facility] [place] [address] 07/27/2023 2:00 PM EST Laboratory Laboratory [facility] [address] [facility] [place] [address] Lashae Moreno [facility] [address] [facility] [place] [address] 08/17/2023 2:00 PM EDT Office Visit Gastroenterology, [facility] [address] [place] [address] Rosibel Jones CRNP [address] [place] [address] 12/21/2023 2:00 PM EDT Office Visit General Internal Medicine [facility] [place] [address] [place] [address] Eufemia Chiu MD [address] [place] [address] Health Maintenance Due Date Last Done Comments Hepatitis B (1 of 3 - 3-dose series) 1972 COVID-19 Vaccine (#1) 01/25/1973 HIV Screening 07/26/1987 Hepatitis C Screening 1990 DTaP,Tdap,and Td Vaccines (1 - Tdap) 07/26/1991 Depression Screening 07/15/2020 07/15/2019 Zoster Vaccines (1 of 2) 2022 Influenza Vaccine (FLU shot) (#1) 2023 Lipid Panel 07/16/2024 07/16/2019 Diabetes Screening 06/15/2026 [...] filedocumented as of this encounter Care Teams Carbon Paste Mixer Operator Relationship Specialty Start Date End Date Eufemia Chiu MD [address] [place] [address] PCP - General Internal Medicine 02/06/23 documented as of this encounter
--- OUTSIDE RECORDS SUMMARY | 2023-08-26 04:22 | External Medical Summary | Summary of Care ---
Author Name Unknown Organization [facility] Address [address] [facility] [place] [address] Phone [phone] Care Team Providers Care Library Technical Assistant Name Role Phone Eufemia Chiu MD Primary Care Provider + Encounter Details Date Type Department Care Team (Late st Contact Info) Description 06/21/2023 Orders Only PATIENT PORTAL DO NOT DELETE THIS DEPT USED BY [place] [address] Allergies Active Allergy Reactions Criticality Noted Date Comments Dust Low 07/15/2019 documented as of this encounter (statuses as of 06/21/2023) Medications Medication Sig Dispensed Refills Start Date [...] as of this encounter (statuses as of 06/21/2023) Active Problems Problem Noted Date Diagnosed Date Ulcerative colitis 06/15/2023 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 10/11/2013 documented as of this encounter (statuses as of 06/21/2023) Resolved Problems Problem Noted Date Diagnosed Date Resolved Date Food insecurity 12/28/2020 05/04/2023 Overview: Per [facility] Protocol documented as of this encounter (statuses as of 06/21/2023) Social History Tobacco Use Types Packs/Day Years [...] Description 06/21/2023 11:30 AM EST Telemedicine Psychology, [place] [address] [place] [address] Karime Batista, [facility] [address] [place] [address] 06/29/2023 3:00 PM EST Nurse Only Ancillary Rubin Moreno [place] [facility] [place] [address] Nurse, Int Med 200 [facility] [place] [address] 07/27/2023 2:00 PM EST Laboratory Laboratory [facility] [address] [place] [address] Lashae Moreno [facility] 200 [facility] [place] [address] 08/17/2023 2:00 PM EDT Office Visit Gastroenterology, [facility] [address] [place] [address] Rosibel Jones CRNP [address] [place] [address] 12/21/2023 2:00 PM EDT Office Visit General Internal Medicine [facility] [address] [place] [address] Eufemia Chiu MD [address] [facility] [place] [address] Health Maintenance Due Date Last Done Comments [...] filedocumented as of this encounter Care Teams Library Technical Assistant Relationship Specialty Start Date End Date Eufemia Chiu MD [address] [place] [address] PCP - General Internal Medicine 02/06/23 documented as of this encounter
--- OUTSIDE RECORDS SUMMARY | 2023-08-26 04:22 | External Medical Summary ---
Author Name Unknown Address Unknown Organization K01:LABORATORY [address] [place] [address] Laboratory Report Ordering Provider Test Date Status LESTER FLORES 06/15/2023 14:44:02 Final Observation Date Value Abnormality Reference (Units) Status Hepatitis B virus surface Ab [Units/volume] in Serum or Plasma by Immunoassay 06/15/2023 14:44:02 <3.5 (mIU/mL) Final Hepatitis B virus surface Ab [Presence] in Serum by Immunoassay 06/15/2023 14:44:02 Negative Final HEPATITIS B SURFACE ANTIBODY, INTERPRETATION 06/15/2023 14:44:02 NOT immune to Hepatitis B Virus Final POSITIVE: >=11.5 mIU/mL
INDETERMINATE: 8.5-<11.5 mIU/mL
NEGATIVE: <8.5 mIU/mL Performing Location LABORATORY [facility] - [address] [place], [place] [address] [place] [address]
--- OUTSIDE RECORDS SUMMARY | 2023-08-26 04:22 | External Medical Summary | Summary of Care ---
Author Name Unknown Organization [facility] Address [address] [place] [address] Phone [phone] Care Team Providers Care Paver Layer Name Role Phone Eufemia Chiu MD Primary Care Provider + Reason for Visit * Reason Onset Date Comments Referral 06/21/2023 Encounter Details Date Type Department Care Team ([facility] st Contact Info) Description 06/21/2023 [facility]phone [facility] [address] [facility] [place] [address] Quinn Mckeon MD [address] [place] [address] Referral Allergies Active Allergy Reactions Criticality Noted Date [...] encounter Miscellaneous Notes * Telephone Encounter - Maggie Rey LPN - 06/21/2023 12:12 PM EST Spoke with Tim Trent about MAT referral, not interested in coming to [place] at this time, believes it is too far of a drive right now, gave him our contact information and he is going to give it some thought. Seen by [facility] in [place] in the past, didn't get a good connection with them. Per pt's consent, referred him to [facility] S[facility]chez for [facility] family, he services [facility] and he may have some more additional support/ information for him. Dionicio is aware and will reach out. documented in this encounter Plan of Treatment Upcoming Encounters Date Type Department Care Team (Late st Contact Info) Description 06/29/2023 3:00 PM EST Nurse Only Ancillary [facility] [place] 200 [facility] [place] [address] Nurse, Int Med 200 [facility] [place] [address] 07/27/2023 2:00 PM EST Laboratory Laboratory [facility] [place] 200 [facility] [place] [phone] Tiffanie Lab [facility] [address] [facility] [place] [address] 08/17/2023 2:00 PM EDT Office Visit Gastroenterology, [facility] [address] [facility] [address] Rosibel Jones CRNP [address] [place] [address] 09/14/2023 9:00 AM EDT Telemedicine Psychiatry, [facility] [address] [place] [address] [address] Luz Tellez CRNP 200 [facility] [place] [id number] 12/21/2023 2:00 PM EDT Office Visit General Internal Medicine [facility] [place] [address] [place] [address] Eufemia Chiu MD [address] [facility] [place] [address] Health Maintenance Due Date Last Done Comments [...] filedocumented as of this encounter Care Teams Paver Layer Relationship Specialty Start Date End Date Eufemia Chiu MD 200 [facility] [place] [address] PCP - General Internal Medicine 02/06/23 documented as of this encounter
--- OUTSIDE RECORDS SUMMARY | 2023-08-26 04:22 | External Medical Summary | Summary of Care ---
Author Name Unknown Organization [facility] Address [address] [facility] [place] [address] Phone [phone] Care Team Providers Care Lap Runner Name Role Phone Eufemia Chiu MD Primary Care Provider + Encounter Details Date Type Department Care Team (Late st Contact Info) Description 06/19/2023 Orders Only General Internal [facility] 200 [place] [address] Eufemia Chiu MD 200 [place] [address] H/O total colectomy*; Iron deficiency anemia, unspecified iron deficiency anemia type; B12 deficiency; Vitamin D deficiency; Hypercalcemia Allergies Active Allergy Reactions Criticality Noted Date Comments Dust Low 07/15/2019 documented as of this encounter (statuses as of 06/19/2023) Medications Medication Sig Dispensed Refills Start Date [...] as of this encounter (statuses as of 06/19/2023) Active Problems Problem Noted Date Diagnosed Date Ulcerative colitis 06/15/2023 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 [address] [place] [address] 08/17/2023 2:00 PM EDT Office Visit Gastroenterology, [facility] [address] [place] [address] Rosibel Jones CRNP [address] [place] [address] 12/21/2023 2:00 PM EDT Office Visit [facility] [address] Eufemia Chiu MD [facility] [place] [address] Scheduled Orders Name Type Priority Associated Diagnoses Orde r Schedule COMPREHENSIVE METABOLIC PANEL Lab Routine H/O total colectomy Hypercalcemia Expected: 06/19/2023 (Approximate), Expires: 06/18/2024 CBC WITH WBC DIFFERENTIAL Lab Routine Iron deficiency anemia, unspecified iron deficiency anemia type Expected: 06/19/2023 (Approximate), Expires: 06/19/2024 FERRITIN Lab Routine Iron deficiency anemia, unspecified iron deficiency anemia type Expected: 06/19/2023 (Approximate), Expires: 06/18/2024 IRON SCREEN, INCLUDING TIBC Lab Routine Iron deficiency anemia, unspecified iron deficiency anemia type Expected: 06/19/2023 (Approximate), Expires: 06/18/2024 PTH Lab Routine Hypercalcemia Expected: 06/19/2023 (Approximate), Expires: 06/18/2024 VITAMIN B12 Lab Routine B12 deficiency Expected: 06/19/2023 (Approximate), Expires: 06/18/2024 25-HYDROXY VITAMIN D Lab Routine Vitamin D deficiency Expected: 06/19/2023 (Approximate), Expires: 06/18/2024 Health Maintenance Due Date Last Done Comments [...] this encounter Visit Diagnoses Diagnosis H/O total colectomy- Primary Other postprocedural status Iron deficiency anemia, unspecified iron deficiency anemia type B12 deficiency Other B-complex deficiencies Vitamin D deficiency Unspecified vitamin D deficiency Hypercalcemia documented in this encounter Care Teams Lap Runner Relationship Specialty Start Date End Date Eufemia Chiu MD 200 [place] [address] PCP - General Internal Medicine 02/06/23 documented as of this encounter
--- OUTSIDE RECORDS SUMMARY | 2023-08-26 04:22 | External Medical Summary | Summary of Care ---
Author Name Unknown Organization [facility] Address [address] [place] [address] Phone [phone] Care Team Providers Care Machine Operator Hay Stacker Name Role Phone Eufemia Chiu MD Primary Care Provider + Reason for Visit * Reason Onset Date Comments Appointment 06/21/2023 Encounter Details Date Type Department Care Team (Late st Contact Info) Description 06/21/2023 Telephone Psychiatry, [place] [address] [place], [place] [id number] Services, Scheduling [address] [place] [address] Appointment Allergies Active Allergy Reactions Criticality Noted Date [...] encounter Miscellaneous Notes * Telephone Encounter - Kaylah Jackson OSA - 06/21/2023 1:05 PM EST LMOM cancelling appt in August with Provider Rosalinda due to being a video patient doesn't have access. Please scheduled at dept [address] [place] [address] in person with Provider Rosalinda she had Jun appt available. Thank you documented in this encounter Plan of Treatment Upcoming Encounters Date Type Department Care Team (Late st Contact Info) Description 06/29/2023 3:00 PM EST Nurse Only Ancillary [facility] [address] [facility] [place] [address] Nurse, Int Med [address] [facility] [place] [address] 07/27/2023 2:00 PM EST Laboratory Laboratory [facility] [address] [facility] [place] [phone] [place], [facility] [address] [facility] [place] [address] 08/17/2023 2:00 PM EDT Office Visit Gastroenterology, [facility] [address] [place] [address] Rosibel Jones CRNP [address] [place] [address] 12/21/2023 2:00 PM EDT Office Visit General Internal Medicine [facility] [address] [facility] [place] [address] Eufemia Chiu MD [address] [facility] [place] [address] Health Maintenance Due Date Last Done Comments [...] filedocumented as of this encounter Care Teams Machine Operator Hay Stacker Relationship Specialty Start Date End Date Eufemia Chiu MD [address] [place] [address] PCP - General Internal Medicine 02/06/23 documented as of this encounter
--- OUTSIDE RECORDS SUMMARY | 2023-08-26 04:22 | External Medical Summary | Summary of Care ---
Author Name Unknown Organization [facility] Address [address] [facility] [place] [address] Phone [phone] Care Team Providers Care Transmitter Operator Name Role Phone Eufemia Chiu MD Primary Care Provider + Reason for Visit * Reason Comments Outpatient Testing Encounter Details Date Type Department Care Team (Late st Contact Info) Description 06/15/2023 2:50 PM EST Laboratory Laboratory [facility] [place] [address] [place] [address] [facility] [address] [place] [address] Electrolyte and fluid disorder; High blood hemoglobin F (HCC); Need for hepatitis B vaccination Allergies Active [...] Info) Description 06/21/2023 11:30 AM EST Telemedicine [facility] [place] [address] [place] [address] Karime Batista, [facility] [address] [place] [address] 08/17/2023 2:00 PM EDT Office Visit Gastroenterology, [facility] [address] [place] [address] Rosibel Jones CRNP [address] [place] [address] 12/21/2023 2:00 PM EDT Office Visit General Internal Medicine [facility] 200 [facility] [place] [address] Eufemia Chiu MD [address] [facility] [place] [address] Pending Results Name Type Priority Associated Diagnoses Date /Time CBC WITH WBC DIFFERENTIAL Lab Routine Electrolyte and fluid disorder High blood hemoglobin F (HCC) 06/15/2023 2:44 PM EST COMPREHENSIVE METABOLIC PANEL Lab Routine Electrolyte and fluid disorder 06/15/2023 2:44 PM EST HEPATITIS B SURFACE ANTIBODY Lab Routine Need for hepatitis B vaccination 06/15/2023 2:44 PM EST CBC Lab Routine Electrolyte and fluid disorder High blood hemoglobin F (HCC) 06/15/2023 2:44 PM EST DIFFERENTIAL, AUTOMATED Lab Routine Electrolyte and fluid disorder High blood hemoglobin F (HCC) 06/15/2023 2:44 PM EST Health Maintenance Due Date Last [...] as of this encounter Visit Diagnoses Diagnosis Electrolyte and fluid disorder Electrolyte and fluid disorders not elsewhere classified High blood hemoglobin F (HCC) Need for hepatitis B vaccination Need for prophylactic vaccination and inoculation against viral hepatitis documented in this encounter Care Teams Transmitter Operator Relationship Specialty Start Date End Date Eufemia Chiu MD 200 [facility] [place] [address] PCP - General Internal Medicine 02/06/23 documented as of this encounter
--- OUTSIDE RECORDS SUMMARY | 2023-08-26 04:22 | External Medical Summary ---
Author Name Unknown Address Unknown Organization [facility] [place] [address] Laboratory Report Ordering Provider Test Date Status LESTER FLORES 06/15/2023 14:44:02 Final Observation Date Value Abnormality Reference (Units ) Status SYNC LEUKOCYTES IN BLOOD BY AUTOMATED COUNT 06/15/2023 14:44:02 6.44 4.00-10.80 (K/uL) Final Segs 06/15/2023 14:44:02 60.0 40.0-75.0 (%) Final Lymphs % 06/15/2023 14:44:02 15.1 Below low normal 18.0-42.0 (%) Final Monos 06/15/2023 14:44:02 22.8 Above high normal 1.0-11.0 (%) Final Eosinophils 06/15/2023 14:44:02 1.6 0.0-6.0 (%) Final Basos 06/15/2023 14:44:02 0.5 0.0-2.0 (%) Final Absolute Segs 06/15/2023 14:44:02 3.87 1.80-7.70 (K/uL) Final Lymphs, absolute 06/15/2023 14:44:02 0.97 Below low normal 1.00-4.80 (K/ul) Final Monos, Abs 06/15/2023 14:44:02 1.47 Above high normal 0.00-1.10 (K/uL) Final Eos, Abs 06/15/2023 14:44:02 0.10 0.00-0.70 (K/uL) Final Basos, Abs 06/15/2023 14:44:02 0.03 0.00-0.20 (K/uL) Final Performing Location [facility] [place] [address]
--- OUTSIDE RECORDS SUMMARY | 2023-08-26 04:22 | External Medical Summary | Summary of Care ---
Author Name Unknown Organization [facility] Address [address] [facility] [place] [address] Phone [phone] Care Team Providers Care Getter Welder Name Role Phone Eufemia Chiu MD Primary Care Provider + Reason for Visit * Reason Comments Physical-Exam The pt stated he is here for his annual physical and to discuss his hypertension Encounter Details Date Type Department Care Team (Late st Contact Info) Description 06/15/2023 2:00 PM EST Office Visit General Internal Medicine [place] [address] [place] [address] Eufemia Chiu MD [address] [place] [address] Routine medical exam*; Primary insomnia; Need for [...] does wear a seat belt and sees Haz Tech and Dentist every year. Fall precautions advised [...] Info) Description 06/21/2023 11:30 AM EST Telemedicine [facility] [address] [place] [address] Karime Batista [facility] [address] [place] [address] 08/17/2023 2:00 PM EDT Office Visit Gastroenterology, [facility] [address] [place] [address] Rosibel Jones CRNP 132 [place] [address] Scheduled Orders Name Type Priority Associated Diagnoses [...] hepatitis documented in this encounter Care Teams Getter Welder Relationship Specialty Start Date End Date Eufemia Chiu MD 200 [facility] [place] [address] PCP - General Internal Medicine 02/06/23 documented as of this encounter
--- OUTSIDE RECORDS SUMMARY | 2023-08-26 04:22 | External Medical Summary | Summary of Care ---
Author Name Unknown Organization [facility] Address [address] [facility] [place] [address] Phone [phone] Care Team Providers Care Network Professional Name Role Phone Eufemia Chiu MD Primary Care Provider + Reason for Visit * Reason Comments Physical-Exam The pt stated he is here for his annual physical and to discuss his hypertension Encounter Details Date Type Department Care Team (Late st Contact Info) Description 06/15/2023 2:00 PM EST Office Visit General Internal Medicine [place] [address] [place] [address] Eufemia Chiu MD [address] [place] [address] Routine medical exam*; Primary insomnia; Need for [...] does wear a seat belt and sees Refinery Operator Crude Unit and Dentist every year. Fall precautions advised [...] Description 06/15/2023 2:50 PM EST Laboratory Laboratory [facility] [address] [place] [address] [place], Lab [address] [place] [address] Arrived 06/21/2023 11:30 AM EST Telemedicine Psychology, [place] [address] [place] [address] Karime Batista [facility] [address] [place] [address] 08/17/2023 2:00 PM EDT Office Visit Gastroenterology, [facility] 132 [facility] [place] [address] Rosibel Jones CRNP [address] [place] [address] 12/21/2023 2:00 PM EDT Office Visit General Internal Medicine [place] [address] [place] [address] Eufemia Chiu MD [address] [facility] [place] [address] Scheduled Orders Name Type Priority Associated Diagnoses [...] hepatitis documented in this encounter Care Teams Network Professional Relationship Specialty Start Date End Date Eufemia Chiu MD 200 [facility] [place] [address] PCP - General Internal Medicine 02/06/23 documented as of this encounter
--- OUTSIDE RECORDS SUMMARY | 2023-08-26 04:22 | External Medical Summary | Summary of Care ---
Author Name Unknown Organization [facility] Address [address] [place] [address] Phone [phone] Care Team Providers Care Litigation Specialist Name Role Phone Eufemia Chiu MD Primary Care Provider + Reason for Visit * Reason Onset Date Comments Appointment 06/21/2023 Encounter Details Date Type Department Care Team (Late st Contact Info) Description 06/21/2023 Telephone [facility] [place] [address] [place] [address] Karime Batista, [facility] [address] [place] [address] Appointment Allergies Active Allergy Reactions Criticality Noted [...] Encounter - Kaylah Jackson OSA - 06/21/2023 12:16 PM EST Referral Details after Behavioral Health Intake: Referral: Internal Psych Resource: Per Karime Batista [facility] recommendation for Psychiatry and Mat services.MAT sent off and Scheduled with Provider Rosalinda 09/13@9 documented in this encounter Plan of Treatment Upcoming Encounters Date Type Department Care Team (Late st Contact Info) Description 06/29/2023 3:00 PM EST Nurse Only Ancillary [facility] 200 [facility] [place] [address] Nurse, Int Med 200 [facility] [place] [address] 07/27/2023 2:00 PM EST Laboratory Laboratory [facility] [place] 200 [facility] [place] [phone] [place], Lab [facility] 200 [facility] [place] [address] 08/17/2023 2:00 PM EDT Office Visit Gastroenterology, [facility] [address] Rosibel Jones CRNP 132 [place] [address] 09/14/2023 9:00 AM EDT Telemedicine Psychiatry, [facility] 200 [facility] [place], [place] [address] Luz Tellez CRNP 200 [facility] [place] [id number] 12/21/2023 2:00 PM EDT Office Visit General Internal Medicine [facility] 200 [facility] [place] [address] Eufemia Chiu MD 200 [facility] [place], [place] [address] Health Maintenance Due Date Last Done Comments [...] filedocumented as of this encounter Care Teams Litigation Specialist Relationship Specialty Start Date End Date Eufemia Chiu MD 200 [facility] [place] [address] PCP - General Internal Medicine 02/06/23 documented as of this encounter
--- OUTSIDE RECORDS SUMMARY | 2023-08-26 04:22 | External Medical Summary | Summary of Care ---
Author Name Unknown Organization [facility] Address [address] [place] [address] Phone [phone] Care Team Providers Care Amortization Schedule Clerk Name Role Phone Eufemia Chiu MD Primary Care Provider + Reason for Visit * Reason Onset Date Comments Test Results 06/20/2023 Encounter Details Date Type Department Care Team (Late st Contact Info) Description 06/20/2023 Telephone General Internal Medicine [facility] 200 [facility] [place] [address] Eufemia Chiu MD [address] [place] [facility] [place] [address] Test Results Allergies Active Allergy Reactions Criticality [...] encounter Miscellaneous Notes * Telephone Encounter - Alka Smith OSA - 06/20/2023 2:40 PM EST Reason for patient's call: Results Caller was transferred to [facility] at the nurse line. * [...] Info) Description 06/21/2023 11:30 AM EST Telemedicine [facility] [address] [place] [address] Karime Batista, [facility] [address] [place] [address] 06/29/2023 3:00 PM EST Nurse Only Ancillary [facility] 200 [facility] [place] [address] Nurse, Int Med 200 [facility] [place] [address] 08/17/2023 2:00 PM EDT Office Visit Gastroenterology, [facility] 132 [place] [address] Rosibel Jones CRNP [address] [place] [address] 12/21/2023 2:00 PM EDT Office Visit General Internal Medicine [place] [address] [place] [address] Eufemia Chiu MD [address] [facility] [place] [address] Health Maintenance Due Date Last Done Comments [...] filedocumented as of this encounter Care Teams Amortization Schedule Clerk Relationship Specialty Start Date End Date Eufemia Chiu MD 200 [place] [address] PCP - General Internal Medicine 02/06/23 documented as of this encounter
--- OUTSIDE RECORDS SUMMARY | 2023-08-26 04:22 | External Medical Summary ---
Author Name Unknown Address Unknown Organization [facility] [place] [address] Laboratory Report Ordering Provider Test Date Status LESTER FLORES 06/15/2023 14:44:02 Final Observation Date Value Abnormality Reference (Units ) Status BUN 06/15/2023 14:44:02 18 6-20 (mg/dL) Final Creatinine 06/15/2023 14:44:02 1.5 Above high normal 0.6-1.2 (mg/dL) Final Glomerular filtration rate/1.73 sq M.predicted [Volume Rate/Area] in Serum, Plasma or Blood by Creatinine-based formula (CKD-EPI) 06/15/2023 14:44:02 55 Below low normal >=60 (mL/min) Final eGFR is calculated based on the CKD-EPI 2020 equation SODIUM 06/15/2023 14:44:02 135 135-146 (m mol/L) Final Potassium 06/15/2023 14:44:02 4.4 3.5-5.1 (m mol/L) Final Cl 06/15/2023 14:44:02 100 98-107 (mm ol/L) Final CO2 06/15/2023 14:44:02 24 22-32 (mmo l/L) Final Anion gap 06/15/2023 14:44:02 11 7-15 (mmol /L) Final Glucose 06/15/2023 14:44:02 87 70-120 (mg /dL) Final Albumin 06/15/2023 14:44:02 4.6 3.8-5.0 (g /dL) Final AST (Aspartate aminotransferase) 06/15/2023 14:44:02 44 10-50 (U/L) Fin al Alk Phos 06/15/2023 14:44:02 109 35-130 (U/ L) Final Bilirubin, Total 06/15/2023 14:44:02 0.5 <=1 .2 (mg/dL) Final Calcium 06/15/2023 14:44:02 10.7 Above high normal 8. 4-10.2 (mg/dL) Final Protein 06/15/2023 14:44:02 7.8 6.0-8.3 (g /dL) Final ALT (Alanine aminotransferase) 06/15/2023 14:44:02 71 Above high normal 10-50 (U/L) Final Performing Location [facility] [address] [place] [address]
--- OUTSIDE RECORDS SUMMARY | 2023-08-26 04:22 | External Medical Summary | Summary of Care ---
Author Name Unknown Organization [facility] Address [address] [place] [address] Phone [phone] Care Team Providers Care Admeasurer Name Role Phone Eufemia Chiu MD Primary Care Provider + Encounter Details Date Type Department Care Team (Late st Contact Info) Description 01/16/2023 Population Health External Data Unspecified Department Allergies Active Allergy Reactions Criticality Noted Date Comments Dust Low 07/15/2019 documented as of this encounter (statuses as of 04/03/2023) Medications Medication Sig Dispensed Refills Start Date End Date Status hydrOXYzine HCl 50 MG Tablet Take 1 Tab by mouth 3 times a day as needed for Anxiety. 30 Tab 2 11/13/2019 Active Additional Information Patient not taking.Reported on 01/16/2023 Lisinopril 20 MG Oral Tablet (Prinivil) Take 1 Tablet by mouth in the morning. 0 Active amLODIPine Besylate 5 MG Oral Tablet (Norvasc) Take 1 Tablet by mouth in the morning. 0 Active hydrOXYzine HCl 10 MG Oral Tablet (Atarax) Take 1 Tablet by mouth 4 times a day as needed for Anxiety. 0 Active Folic Acid 1 MG Oral Tablet Take 1 Tablet by mouth in the morning. 0 Active Omeprazole Magnesium 20 MG Oral Tablet Delayed Release Take 1 Tablet by mouth in the morning. 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/11/2013 documented as of this encounter (statuses as of 04/03/2023) Social History Tobacco Use Types Packs/Day Years Used Date Smoking Tobacco: Never Smokeless Tobacco: Never Alcohol Use Standard Drinks/Week Comments Yes 0 (1 standard drink = 0.6 oz pur e alcohol) PHQ-2 Answer Date Recorded PHQ-2 Score 2 07/15/2019 Hunger Vital Sign Answer Date Recorded Worried About Running Out of Food in the Last Ye ar Sometimes true 07/15/2019 Ran Out of Food in the Last Year Sometimes true 07/15/2019 Sex and Gender Information Value Date Recorded [...] Care Team (Late st Contact Info) Description 05/25/2023 8:00 AM EST Office Visit Gastroenterology, [facility] [address] [place] [address] Rosibel Jones CRNP [address] [place] [address] Health Maintenance Due Date Last Done Comments Hepatitis B (1 of 3 - 3-dose series) 1972 COVID-19 Vaccine (#1) 01/25/1973 HIV Screening 07/26/1987 Hepatitis C Screening 1990 DTaP,Tdap,and Td Vaccines (1 - Tdap) 07/26/1991 Cologuard 2017 Colonoscopy 2017 Colorectal Cancer Screening 2017 Fecal Occult Blood Test 2017 Sigmoidoscopy 2017 Depression Screening 07/15/2020 07/15/2019 Zoster Vaccines (1 [...] filedocumented as of this encounter Care Teams Admeasurer Relationship Specialty Start Date End Date Eufemia Chiu MD 200 [facility] [place] [address] PCP - General Internal Medicine 02/06/23 documented as of this encounter
--- OUTSIDE RECORDS SUMMARY | 2023-08-26 04:22 | External Medical Summary | Summary of Care ---
Author Name Unknown Organization [facility] Address [address] [facility] [place] [address] Phone [phone] Care Team Providers Care Conductor Orchestra Name Role Phone Eufemia Chiu MD Primary Care Provider + Reason for Visit * Reason Onset Date Comments Test Results 06/20/2023 Encounter Details Date Type Department Care Team (Late st Contact Info) Description 06/20/2023 Telephone General Internal Medicine [facility] 200 [place] [address] Eufemia Chiu MD [address] [place] [facility] [place] [address] Test Results Allergies Active Allergy Reactions Criticality [...] patient's call: Results Caller was transferred to [facility] at the nurse line. * Telephone [...] Info) Description 06/21/2023 11:30 AM EST Telemedicine [facility] [address] [place] [address] Karime Batista, [facility] [address] [place] [address] 08/17/2023 2:00 PM EDT Office Visit Gastroenterology, [facility] [address] [place] [address] Rosibel Jones CRNP [address] [place] [address] 12/21/2023 2:00 PM EDT Office Visit General Internal Medicine [facility] [place] [address] [place] [address] Eufemia Chiu MD [address] [place] [address] Health Maintenance Due Date Last Done Comments [...] filedocumented as of this encounter Care Teams Conductor Orchestra Relationship Specialty Start Date End Date Eufemia Chiu MD [address] [place] [address] PCP - General Internal Medicine 02/06/23 documented as of this encounter
--- OUTSIDE RECORDS SUMMARY | 2023-08-26 04:22 | External Medical Summary | Summary of Care ---
Author Name Unknown Organization [facility] Address [address] [place] [address] Phone [phone] Care Team Providers Care Surgical Aides Teacher Name Role Phone Eufemia Chiu MD Primary Care Provider + Reason for Visit * Reason Comments Anxiety Has tried various an xiety medications. Would like to explore some other options. * - Authorized Specialty Diagnoses / Procedures Referred By Khadijah t Referred To Contact Referral ID Status Reason Start Date Expiration Date V isits Requested Visits Authorized [id number] Authorized 05/22/2023 05/20/2024 [id number] Encounter Details Date Type Department Care Team (Late st Contact Info) Description 06/21/2023 11:30 AM EST [facility], [place] [address], [place] [id number] Karime Batista, [facility] [address], [place] [id number] CRISTI (generalized anxiety disorder)*; Depressive disorder; Substance [...] hospital or clinic location. After connecting through [employer], [employer], patient was verified with two unique identifiers. Patient (or authorized legal banking representative) was then informed that this was [...] . 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 Last drink was last weekend. Denies any opioid use since his detox. Attempted inpatient stay for d/a but had issues with finding treatment due to medical issue of Ileostomy and staff being able to manage. Went to [facility] about 3/4 months-not a good fit. 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 Last job in 2020 @ [employer] had difficulty managingtime and completing tasks. Has [...] No Do you currently live in a penitentiary or have no steady place to sleep [...] 988 Crisis Textline : Text "HOME" to 803919 to connect with a crisis counselor Crisis Numbers by [facility]: [place] Services - Emergency Services Dominique (7630-9-YOU CAN) re:solve Crisis Network Paige & Areli . The Open Door - Crisis Intervention Ermine [facility] Crisis Help-Line [facility] - Crisis Intervention Services [facility] Service Access [employer]. - Crisis Intervention [place] Choose option [address] [place] [address] of Barrel Charrer Helper Licha De Dios & Abdi Crisis Intervention [place] - Mental Health Crisis Anguiano [facility] - Crisis Intervention [place] [facility] - Crisis Intervention Kelsey Manzo Potter - Crisis Line Xu Herrera Pike - Mental Health Crisis Hotline [place] - Crisis Services [place] [facility] Crisis Center [place] Service Access [employer], VOYAA. - Crisis Intervention Gladys - Mental Health Crisis Intervention Services [facility] MH/ID Program [place], [place], Sanchez, [place] - Crisis System [place] [facility] - Crisis Hotline Cathi (4-365-695-HELP) [facility] - Crisis Intervention Zana [facility] - Crisis Intervention Services [place] [facility] - Crisis Services Char[facility] Health - Crisis Center [place] 7-823-712 3876 [facility] - Crisis Hotline Kyle (8:30 am-5:00 pm) OR (after 5:00 pm, weekends & holidays) Silvia [facility] Crisis Intervention Program [facility] Mental Health Crisis Line [place] Hyann[place]portSophia lai and Waller [facility] Crisis Norris & Delilah [facility] - Crisis Intervention [facility] - Mental Health Crisis Service [place] [facility] - Crisis Intervention Jolo [facility] - Crisis Intervention [place] & Pender [facility] - Help Line [facility] MH/ID Program [facility] - Crisis Intervention [place] - Crisis Intervention [place] [facility], [facility] - Crisis Intervention V[place]en [facility] Behavioral Health - Emergency Services Eros [facility] - Crisis Line [place] - DBHIDS - Suicide and Crisis Intervention Hotline [facility] - Crisis/ Emergency Services [place] [facility] - Emergency Contact Line [place] [facility] - Crisis Line Panchito ext. 1 [facility] Services Nick[facility] Action - Crisis Intervention Hotline Minetto [facility] Crisis Intervention Services documented in this encounter Plan of Treatment Upcoming Encounters Date Type Department Care Team (Late st Contact Info) Description 06/29/2023 3:00 PM EST Nurse Only Ancillary [facility] [place] [address] [facility] [place] [address] Nurse, Int Med [address] [facility] [place] [address] 07/04/2023 9:00 AM EST Office Visit Psychiatry, [facility] [address] [facility] [place] [address] Luz Tellez CRNP [address] [facility] [place] [phone] 07/27/2023 2:00 PM EST Laboratory Laboratory [facility] [place] [address] [facility] [place] [phone] [place], Lab [facility] [address] [facility] [place] [address] 08/17/2023 2:00 PM EDT Office Visit Gastroenterology, [facility] [address] [place] [address] Rosibel Jones CRNP [address] [place] [address] 12/21/2023 2:00 PM EDT Office Visit General Internal Medicine [facility] [address] [facility] [place] [address] Eufemia Chiu MD [address] [facility] [place] [address] Health Maintenance Due Date Last Done Comments [...] unspecified documented in this encounter Care Teams Surgical Aides Teacher Relationship Specialty Start Date End Date Eufemia Chiu MD [address] [facility] [place] [address] PCP - General Internal Medicine 02/06/23 documented as of this encounter
--- OUTSIDE RECORDS SUMMARY | 2023-08-26 04:22 | External Medical Summary ---
Author Name Unknown Address Unknown Organization K[facility] [place] [address] Laboratory Report Ordering Provider Test Date Status SANDRABATISTA 06/15/2023 14:44:02 Final Observation Date Value Abnormality Reference (Units ) Status Nucleated erythrocytes/100 leukocytes [Ratio] in Blood by Automated count 06/15/2023 14:44:02 Final Performing Location [facility] [place] [address]
--- OUTSIDE RECORDS SUMMARY | 2023-08-26 04:22 | External Medical Summary ---
Author Name Unknown Address Unknown Organization [facility] [place] [address] Laboratory Report Ordering Provider Test Date Status LESTER FLORES 06/15/2023 14:44:02 Final Observation Date Value Abnormality Reference (Units ) Status WBC, Total 06/15/2023 14:44:02 6.44 4.00-10.8 0 (K/uL) Final RBC 06/15/2023 14:44:02 5.28 4.50-5.25 (M/uL) Final Hemoglobin 06/15/2023 14:44:02 13.9 Below low normal 14 .0-16.8 (g/dL) Final HCT 06/15/2023 14:44:02 45.1 40.0-48.4 (%) Final MCV 06/15/2023 14:44:02 85.4 82.0-99.5 (fL) Final MCH 06/15/2023 14:44:02 26.3 27.0-34.0 (pg) Final MCHC 06/15/2023 14:44:02 30.8 32.0-36.0 (g/dL) Final RDW 06/15/2023 14:44:02 18.7 11.5-15.5 (%) Final Platelets 06/15/2023 14:44:02 336 140-400 (K /uL) Final MPV 06/15/2023 14:44:02 9.5 6.6-11.1 ( fL) Final Performing Location [facility] [place] [address]
--- OUTSIDE RECORDS SUMMARY | 2023-08-26 04:22 | External Medical Summary | Summary of Care ---
Author Name Unknown Organization [facility] Address [address] [facility] [place] [address] Phone [phone] Care Team Providers Care Clothing Room Supervisor Name Role Phone Eufemia Chiu MD Primary Care Provider + Reason for Visit * Reason Onset Date Comments Medication Refill 05/25/2023 Encounter Details Date Type Department Care Team (Late st Contact Info) Description 05/25/2023 Telephone General Internal Medicine [facility] 200 [facility] [place] [address] Eufemia Chiu MD [address] [facility] [place] [address] Medication Refill Allergies Active Allergy Reactions Criticality Noted Date Comments Dust Low 07/15/2019 documented as of this encounter (statuses as of 05/26/2023) Medications Medication Sig Dispensed Refills Start Date End Date Status hydrOXYzine HCl 50 MG Tablet Take 1 Tab by mouth 3 times a day as needed for Anxiety. 30 Tab 2 11/13/2019 Active Additional Information Patient not taking.Reported on 01/16/2023 hydrOXYzine HCl 10 MG Oral Tablet (Atarax) [...] 04/28/2023 Active Mirtazapine 15 MG Oral Tablet (Remeron)Indication s:Major depressive disorder in partial remission, unspecified whether recurrent (HCC) Take 1 Tablet by mouth at bedtime. 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 * Telephone Encounter - Tj Linder PA-C - 05/26/2023 1:12 PM EST 15 mg at bedtime was started at hospital. 30 day supply sent. * Telephone Encounter - Mabel Miranda CPhT - 05/25/2023 4:18 PM EST Pt calling stating when he was at the hospital on 03/20/23 he was prescribed Mirtazapine 50MG Sig: take 1 tablet by mouth at once daily at bedtime As I reviewed Pt chart Mirtazapine is not listed on med list. Pt stated he has appt with Dr. Chiu on 06/17/23. Pt is asking if doctor can send over a prescription for Mirtazapine 50MG To hold Pt until his appt visit . Caller can be reached at [phone] Thank you, Mabel Miranda CPhT Electronic Calibration Technician II [facility] ([facility]) (Formerly Telepharmacy) 05/25/2023,4:29 PM documented in this encounter Plan of Treatment Upcoming Encounters Date Type Department Care Team (Late st Contact Info) Description 06/06/2023 4:00 PM EST Office Visit General Internal Medicine [facility] [address] [place] [address] Eufemia Chiu MD [address] [place] [address] 06/21/2023 11:30 AM EST Telemedicine Psychology, [place] [address] [place] [address] Karime Batista, [facility] [address] [place] [address] 08/17/2023 2:00 PM EDT Office Visit Gastroenterology, [facility] [address] [place] [address] Rosibel Jones CRNP [address] [facility] [place] [address] Health Maintenance Due Date Last Done Comments [...] disorder in partial remission, unspecified whether recurrent (HCC)- Primary documented in this encounter Care Teams Clothing Room Supervisor Relationship Specialty Start Date End Date Eufemia Chiu MD [address] [facility] [place] [address] PCP - General Internal Medicine 02/06/23 documented as of this encounter
--- OUTSIDE RECORDS SUMMARY | 2023-08-26 04:22 | External Medical Summary | Summary of Care ---
Author Name Unknown Organization [facility] Address [address] [facility] [place] [address] Phone [phone] Care Team Providers Care Hose Inspector And Patcher Name Role Phone Sandra Chiu MD Primary Care Provider + Reason for Visit * Reason Onset Date Comments Medication Refill 04/28/2023 Encounter Details Date Type Department Care Team (Late st Contact Info) Description 04/28/2023 Refill General Internal Medicine [facility] [address] [facility] [place] [address] Sandra Chiu MD 200 [place] [address] Allergies Active Allergy Reactions Criticality Noted Date Comments Dust Low 07/15/2019 documented as of this encounter (statuses as of 04/28/2023) Medications Medication Sig Dispensed Refills Start Date [...] the morning. 90 Tablet 0 04/28/2023 Active amLODIPine Besylate 5 MG Oral Tablet (Norvasc) Take 1 Tablet by mouth in the morning. 30 Tablet 0 04/12/2023 04/28/2023 Discontinue d(Refill) Lisinopril 20 MG Oral Tablet (Prinivil) Take 1 Tablet by mouth in the morning. 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 Zero refills given until upcoming follow up appointment 06/06. Lo Best PharmD Clinical Pharmacist [facility] ([facility]) [phone] 04/28/2023, 9:43 AM * Telephone Encounter - Shanae Hendricks mimeographer - 04/28/2023 8:42 AM EST Patient is requesting a 90-day supply, pre-edited RXs as such. Please review and approve if appropriate. Pending Prescriptions: Disp Refills amLODIPine Besylate 5 MG Oral Tablet (Nor*90 Tab*1 Sig: Take 1 Tablet by mouth in the morning. Lisinopril 20 MG Oral Tablet (Prinivil) 90 Tab*1 Sig: Take 1 Tablet by mouth in the morning. Last Visit: 01/17/2023 (in office), Visit date not found (telemedicine) 06/06/2023 If no future appointments scheduled, and last appointment is greater than a year ago, please schedule patient for an appointment Last date the medication was ordered: 04/12/2023 Patient Phone Numbers Labs: Lab Results Component Value Date/Time CREAT 1.2 01/17/2023 03:24 PM CREAT 1.2 07/16/2019 12:58 PM POTASSIUM 5.0 01/17/2023 03:24 PM POTASSIUM 3.9 07/16/2019 12:58 PM LDLCALC 73 07/16/2019 12:58 PM LDLDIRECT NOT APPLICABLE 07/16/2019 12:58 PM ALT 97 (H) 01/17/2023 03:24 PM ALT 63 (H) 07/16/2019 12:58 PM documented in this encounter Plan of Treatment Upcoming Encounters Date Type Department Care Team (Late st Contact Info) Description 05/25/2023 8:00 AM EST Office Visit Gastroenterology, [facility] [address] [place] [address] Rosibel Jones CRNP [address] [place] [address] 06/06/2023 4:00 PM EST Office Visit General Internal Medicine [facility] [address] [facility] [place] [address] Sandra Chiu MD [address] [facility] [place] [address] Health Maintenance Due Date Last Done Comments [...] filedocumented as of this encounter Care Teams Hose Inspector And Patcher Relationship Specialty Start Date End Date Sandra Chiu MD [address] [facility] [address] PCP - General Internal Medicine 02/06/23 documented as of this encounter
--- OUTSIDE RECORDS SUMMARY | 2023-08-26 04:23 | External Medical Summary | Summary of Care ---
Author Name Unknown Organization [facility] Address [address] [place] [address] Phone [phone] Care Team Providers Care Hospitality Housekeeper Name Role Phone Eufemia Chiu MD Primary Care Provider + Reason for Visit * Reason Onset Date Comments case management 03/23/2023 Encounter Details Date Type Department Care Team (Late st Contact Info) Description 03/23/2023 Arborist Climber Telephone Care Coordination [address] [place] [address] Georgina Henderson LCSW case management Allergies Active Allergy Reactions Criticality Noted Date Comments Dust Low 07/15/2019 documented as of this encounter (statuses as of 03/23/2023) Medications Medication Sig Dispensed Refills Start Date [...] mouth in the morning. 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 10/11/2013 documented as of this encounter (statuses as of 03/23/2023) Social History Tobacco Use Types Packs/Day Years [...] encounter Miscellaneous Notes * Telephone Encounter - Georgina Henderson LCSW - 03/23/2023 1:12 PM EDT Goal Review [facility] Called [phone] Follow-up Post Discharge Attempted Phone Call Third Attempt Call Outcome Left Voicemail/Message Plan To attempt another outreach Electronic outreach (Secure EHR portal, Secure text, etc.) Georgina Henderson LCSW Behavioral Health Arborist Climber - [facility] [phone] [email or web address] documented in this encounter Plan of Treatment Upcoming Encounters Date Type Department Care Team (Late st Contact Info) Description 05/25/2023 8:00 AM EST Office Visit Gastroenterology, [facility] [address] [place] [address] Rosibel Jones CRNP [address] [place] [address] Health Maintenance Due Date Last Done Comments [...] filedocumented as of this encounter Care Teams Hospitality Housekeeper Relationship Specialty Start Date End Date Eufemia Chiu MD [address] [place] [address] PCP - General Internal Medicine 02/06/23 documented as of this encounter
--- OUTSIDE RECORDS SUMMARY | 2023-08-26 04:23 | External Medical Summary | Summary of Care ---
Author Name Unknown Organization [facility] Address [address] [place] [address] Phone [phone] Care Team Providers Care Hand Expansion Envelope Maker Name Role Phone Eufemia Chiu MD Primary Care Provider + Reason for Visit * Reason Onset Date Comments case management 03/01/2023 Encounter Details Date Type Department Care Team Description 03/01/2023 Secure Software Assessor Telephone Care Coordination [address] [place] [address] Georgina Henderson LCSW case management Allergies Active Allergy Reactions Severity Noted Date Comments Dust Low 07/15/2019 documented as of this encounter (statuses as of 03/01/2023) Medications Medication Sig Dispensed Refills Start Date [...] as of this encounter (statuses as of 03/01/2023) Active Problems Problem Noted Date Food insecurity 12/28/2020 Overview: Per [facility] Protocol 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 Sometimes true 2019 Within the past 12 months, t he food you bought just didn't last and you didn't have money to get more. Sometimes true Sex Assigned at Date Recorded Male 07/15/2019 11:58 AM EST Job Start Date Occupation Industry Not on file Not on file Not on file documented as of this encounter Miscellaneous Notes * Telephone Encounter - Georgina Henderson LCSW - 03/01/2023 4:44 PM EDT [facility] spoke with Willie at [facility]. Introduced self, role, and reason for call and explained permission given by patient to coordinate care with them. Willie states he spoke with his contact at [facility] and there is no waitlist at [facility] so they should be able to get him in there sooner there. He has not yet had contact with the patient but does have a call out to him and has spoken with his parents. [facility] provided additional background and contact information for continued coordination. Georgina Henderson LCSW Behavioral Health Secure Software Assessor - [facility] [phone] [email or web address] documented in this encounter Plan of Treatment Upcoming Encounters Date Type Specialty Care Team Description 03/20/2023 Office Visit Internal Medicine Tj Linder PA-C [address] [place] [address] 05/25/2023 Office Visit Gastroenterology Rosibel Jones CRNP [address] [place] [address] Health Maintenance Due Date Last Done Comments [...] filedocumented as of this encounter Care Teams Hand Expansion Envelope Maker Relationship Specialty Start Date End Date Eufemia Chiu MD 200 [facility] [place] [address] PCP - General Internal Medicine 02/06/23 documented as of this encounter
--- OUTSIDE RECORDS SUMMARY | 2023-08-26 04:23 | External Medical Summary | Summary of Care ---
Author Name Unknown Organization [facility] Address [address] [place] [address] Phone [phone] Care Team Providers Care Inside Sales Account Manager Name Role Phone Eufemia Chiu MD Primary Care Provider + Reason for Visit * Reason Onset Date Comments case management 03/20/2023 Encounter Details Date Type Department Care Team (Late st Contact Info) Description 03/20/2023 Crinkling Machine Operator Telephone Care Coordination and Integration [address] [place], [place] [phone] Georgina Henderson LCSW [address] [place], [place] [phone] case management Allergies Active Allergy Reactions Criticality Noted Date Comments Dust Low 07/15/2019 documented as of this encounter (statuses as of 03/20/2023) Medications Medication Sig Dispensed Refills Start Date [...] as of this encounter (statuses as of 03/20/2023) Active Problems Problem Noted Date Diagnosed Date Food insecurity 12/28/2020 Overview: Per [facility] Protocol 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 10/11/2013 documented as of this encounter (statuses as of 03/20/2023) Social History Tobacco Use Types Packs/Day Years [...] Telephone Encounter - Georgina Henderson LCSW - 03/20/2023 1:41 PM EDT [facility] Called [phone] Follow-up Post Discharge Attempted Phone Call First Attempt Call Outcome Left Voicemail/Message Plan To attempt another outreach Georgina Henderson LCSW Behavioral Health Crinkling Machine Operator - Float (she, her, hers) [facility] Behavioral Health [phone] documented in this encounter Plan of Treatment Upcoming Encounters Date Type Department Care Team (Late st Contact Info) Description 03/22/2023 11:00 AM EDT Office Visit General Internal Medicine [facility] [address] [place] [address] Moira Jaimes MD [address] [place] [address] 05/25/2023 8:00 AM EST Office Visit Gastroenterology, Josu[facility] Wilks [place] [address] [place] [address] Rosibel Jones CRNP [address] [place] [address] Health Maintenance Due Date Last Done Comments [...] filedocumented as of this encounter Care Teams Inside Sales Account Manager Relationship Specialty Start Date End Date Eufemia Chiu MD [address] [facility] [place] [address] PCP - General Internal Medicine 02/06/23 documented as of this encounter
--- OUTSIDE RECORDS SUMMARY | 2023-08-26 04:23 | External Medical Summary | Summary of Care ---
Author Name Unknown Organization [facility] Address [address] [facility] [facility] [place] [address] Phone [phone] Care Team Providers Care Industrial Furnace Fabricator Name Role Phone Eufemia Chiu MD Primary Care Provider + Reason for Visit * Reason Onset Date Comments Hospital Follow-Up 03/20/2023 Encounter Details Date Type Department Care Team (Late st Contact Info) Description 03/20/2023 Telephone General Internal Medicine [facility] [address] [facility] [place] [address] Eufemia Chiu MD [address] [place] [address] Hospital Follow-Up Allergies Active Allergy Reactions Criticality Noted Date Comments Dust Low 07/15/2019 documented as of this encounter (statuses as of 03/21/2023) Medications Medication Sig Dispensed Refills Start Date [...] as of this encounter (statuses as of 03/21/2023) Active Problems Problem Noted Date Diagnosed Date Food insecurity 12/28/2020 Overview: Per [facility] Protocol 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 Discharging physician feels that patient would benefit from an addiction medicine referral. Patient has follow up appointment 03/[address] Jaimes. Thank you documented in this encounter Plan of Treatment Upcoming Encounters Date Type Department Care Team (Late st Contact Info) Description 03/22/2023 11:00 AM EDT Office Visit General Internal Medicine [facility] [address] [facility] [place] [address] Moira Jaimes MD [address] [facility] [place] [address] 05/25/2023 8:00 AM EST Office Visit Gastroenterology, [facility] [address] [place] [address] Rosibel Jones CRNP [address] [place] [address] Health Maintenance Due Date Last Done Comments [...] as of this encounter Visit Diagnoses Diagnosis Medical home patient encounter- Primary Other specified examination documented in this encounter Care Teams Industrial Furnace Fabricator Relationship Specialty Start Date End Date Eufemia Chiu MD [address] [facility] [place] [address] PCP - General Internal Medicine 02/06/23 documented as of this encounter
--- OUTSIDE RECORDS SUMMARY | 2023-08-26 04:23 | External Medical Summary | Summary of Care ---
Author Name Unknown Organization [facility] Address [address] [place] [address] Phone [phone] Care Team Providers Care Sales Support Specialist Name Role Phone Eufemia Chiu MD Primary Care Provider + Reason for Visit * Reason Onset Date Comments case management 03/31/2023 Encounter Details Date Type Department Care Team (Late st Contact Info) Description 03/31/2023 Playground Official Telephone Care Coordination [address] [place] [address] Georgina Henderson LCSW [address] [place], [place] [phone] case management Allergies Active Allergy Reactions Criticality Noted Date Comments Dust Low 07/15/2019 documented as of this encounter (statuses as of 03/31/2023) Medications Medication Sig Dispensed Refills Start Date [...] as of this encounter (statuses as of 03/31/2023) Active Problems Problem Noted Date Diagnosed Date Food insecurity 12/28/2020 Overview: Per [facility] Protocol 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 RNCM already sent [facility] letter. Georgina Henderson LCSW Behavioral Health Playground Official - Float (she, her, hers) [facility] Behavioral Health [phone] documented in this encounter Plan of Treatment Upcoming Encounters Date Type Department Care Team (Late st Contact Info) Description 05/25/2023 8:00 AM EST Office Visit Gastroenterology, [address] [place] [address] Rosibel Jones CRNP [address] [place] [address] Health Maintenance Due Date Last Done Comments [...] filedocumented as of this encounter Care Teams Sales Support Specialist Relationship Specialty Start Date End Date Eufemia Chiu MD [address] [place] [address] PCP - General Internal Medicine 02/06/23 documented as of this encounter
--- OUTSIDE RECORDS SUMMARY | 2023-08-26 04:23 | External Medical Summary | Summary of Care ---
Author Name Unknown Organization [facility] Address [address] [facility] [place] [address] Phone [phone] Care Team Providers Care Pca Name Role Phone Eufemia Chiu MD Primary Care Provider + Encounter Details Date Type Department Care Team (Late st Contact Info) Description 03/20/2023 Stock ClerkCoil Shaper Practice [facility] [place] [address] [place] [address] Julieta [place], SALIMA Medical home patient encounter* Allergies Active Allergy Reactions Criticality Noted Date [...] as of this encounter Progress Notes * Julieta [place] RN - 03/20/2023 1:30 PM EDT CM call for [facility] Follow up Follow-up Post Discharge Attempted Phone Call First Attempt Call Outcome Left Voicemail/Message Plan To attempt another outreach documented in this encounter Plan of Treatment Upcoming Encounters Date Type Department Care Team (Late st Contact Info) Description 03/22/2023 11:00 AM EDT [facility] [address] [place] [address] Moira Jaimes MD [address] [place] [address] 05/25/2023 8:00 AM EST Office Visit Gastroenterology, [facility] [address] [place] [address] Rosibel Jones CRNP [address] [place] [address] Health Maintenance Due Date Last Done Comments [...] examination documented in this encounter Care Teams Pca Relationship Specialty Start Date End Date Eufemia Chiu MD [facility] [place] [address] PCP - General Internal Medicine 02/06/23 documented as of this encounter
--- OUTSIDE RECORDS SUMMARY | 2023-08-26 04:23 | External Medical Summary | Summary of Care ---
Author Name Unknown Organization [facility] Address [address] [facility] [address] Phone [phone] Care Team Providers Care Mitochondrial Disorders Counselor Name Role Phone Eufemia Chiu MD Primary Care Provider + Reason for Visit * Reason Onset Date Comments Hospital Follow-Up 03/20/2023 Encounter Details Date Type Department Care Team (Late st Contact Info) Description 03/20/2023 Telephone General Internal Medicine [facility] 200 [place] [address] Eufemia Chiu MD [address] [place] [place] [address] Hospital Follow-Up Allergies Active Allergy Reactions Criticality [...] encounter Miscellaneous Notes * Telephone Encounter - Julieta [place] RN - 03/20/2023 2:04 PM EDT Follow-up Post Discharge Attempted Phone Call First Attempt Call Outcome Left Voicemail/Message Plan To attempt another outreach * Telephone Encounter - London Valles RN - 03/20/2023 12:01 PM EDT Patient discharged today from [facility] after treatment for alcohol withdrawal. Discharging physician feels that patient would benefit from an addiction medicine referral. Patient has follow up appointment 03/[address] Jaimes. Thank you documented in this encounter Plan of Treatment Upcoming Encounters Date Type Department Care Team (Late st Contact Info) Description 03/22/2023 11:00 AM EDT Office Visit General Internal Medicine [place] [address] [facility] [place] [address] Moira Jaimes MD [address] [address] 05/25/2023 8:00 AM EST Office Visit Gastroenterology, [facility] [address] [place] [address] Rosibel Jones CRNP [address] [place] [address] Health Maintenance Due Date Last Done Comments [...] examination documented in this encounter Care Teams Mitochondrial Disorders Counselor Relationship Specialty Start Date End Date Eufemia Chiu MD [address] [place] [address] PCP - General Internal Medicine 02/06/23 documented as of this encounter
--- OUTSIDE RECORDS SUMMARY | 2023-08-26 04:23 | External Medical Summary | Summary of Care ---
Author Name Unknown Organization [facility] Address [address] [place] [address] Phone [phone] Care Team Providers Care Moisture Conditioner Operator Name Role Phone Eufemia Chiu MD Primary Care Provider + Encounter Details Date Type Department Care Team (Late st Contact Info) Description 03/22/2023 Postdoctoral Research AssociateRail Doweling Machine Operator Practice [facility] [address] [place] [address] Julieta [place], RN [address] [place] [address] Medical home patient encounter* Allergies Active Allergy Reactions Criticality Noted Date Comments Dust Low 07/15/2019 documented as of this encounter (statuses as of 03/22/2023) Medications Medication Sig Dispensed Refills Start Date [...] as of this encounter (statuses as of 03/22/2023) Active Problems Problem Noted Date Diagnosed Date Food insecurity 12/28/2020 Overview: Per [facility] Protocol 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 10/11/2013 documented as of this encounter (statuses as of 03/22/2023) Social History Tobacco Use Types Packs/Day Years [...] of this encounter Progress Notes * Julieta [place] RN - 03/22/2023 9:35 AM EDT Follow-up Routine Attempted Phone Call First Attempt Call Outcome Left Voicemail/Message Plan To attempt another outreach documented in this encounter Plan of Treatment Upcoming Encounters Date Type Department Care Team (Late st Contact Info) Description 05/25/2023 8:00 AM EST Office Visit Gastroenterology, [facility] [address] [place] [address] Rosibel Jones CRNP [address] [place] [address] Health Maintenance Due Date Last Done Comments [...] examination documented in this encounter Care Teams Moisture Conditioner Operator Relationship Specialty Start Date End Date Eufemia Chiu MD [address] [place] [address] PCP - General Internal Medicine 02/06/23 documented as of this encounter
--- OUTSIDE RECORDS SUMMARY | 2023-08-26 04:23 | External Medical Summary | Summary of Care ---
Author Name Unknown Organization [facility] Address [address] [place] [address] Phone [phone] Care Team Providers Care Offshore Wind Operations Manager Name Role Phone Eufemia Chiu MD Primary Care Provider + Reason for Visit * Reason Onset Date Comments FYI 03/27/2023 Encounter Details Date Type Department Care Team (Late st Contact Info) Description 03/27/2023 Hot Die Press Operator Telephone Family Practice [facility] [address] [place] [address] Julieta [place], RN [address] [place], [place] [phone] FYI Allergies Active Allergy Reactions Criticality Noted Date Comments Dust Low 07/15/2019 documented as of this encounter (statuses as of 03/27/2023) Medications Medication Sig Dispensed Refills Start Date [...] as of this encounter (statuses as of 03/27/2023) Active Problems Problem Noted Date Diagnosed Date Food insecurity 12/28/2020 Overview: Per [facility] Protocol 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 10/11/2013 documented as of this encounter (statuses as of 03/27/2023) Social History Tobacco Use Types Packs/Day Years [...] Miscellaneous Notes * Telephone Encounter - Julieta Castle RN - 03/27/2023 12:20 PM EST Follow-up Post Discharge Attempted Phone Call Third Attempt Call Outcome Left Voicemail/Message Plan To send letter documented in this encounter Plan of Treatment Upcoming Encounters Date Type Department Care Team (Late st Contact Info) Description 05/25/2023 8:00 AM EST Office Visit Gastroenterology, [facility] [address] [place] [address] Rosibel Jones CRNP [address] [place] [address] Health Maintenance Due Date Last Done Comments [...] examination documented in this encounter Care Teams Offshore Wind Operations Manager Relationship Specialty Start Date End Date Eufemia Chiu MD 200 [place] [address] PCP - General Internal Medicine 02/06/23 documented as of this encounter
--- OUTSIDE RECORDS SUMMARY | 2023-08-26 04:23 | External Medical Summary | Summary of Care ---
Author Name Unknown Organization [facility] Address [address] [place] [address] Phone [phone] Care Team Providers Care Specialty Cook Name Role Phone Eufemia Chiu MD Primary Care Provider + Reason for Visit * Reason Onset Date Comments case management 03/01/2023 Encounter Details Date Type Department Care Team Description 03/01/2023 Student Life Vice President Telephone Care Coordination [address] [place] [address] Georgina Henderson LCSW case management [...] encounter Miscellaneous Notes * Telephone Encounter - Georginaramirez Henderson, ALLEN - 03/01/2023 2:42 PM EDT Follow up S: [facility] spoke with patient today via phone. Pt reports he has been having some difficulties. Stateshe will get back to about the disability application. He has started the application process. Has been taking his blood pressure medication as prescribed. Pt then stated he has been having difficulties staying away from alcohol, has not had any opiates though. Drinking a couple bottles of vodka every couple of weeks, no withdrawal symptoms, states doesn't drink that often only when he gets really stressed out. He reports it has been causing issues with his family, when they try to helpit only makes it worse. Had an argument with them last week and that was the first time they reallydiscussed what is going on with him. Mom has been bringing him food every Andrea, feels his dad is a perfectionist and he cannot please him. Reports [facility] and [place] [facility]. He can't see [employer] until Mar 22 so [facility] is trying to help him get in there faster. Pt states he does not have a problem with alcohol, only uses it to deal with difficult times, then states maybe he does have a problem. Discussed the issues it's causing with his family and that itis his main coping mechanism for his depression but does not actually help him to get better. Pt notes his unemployment is a factor too. Attempted to discuss rehab - keeps going back to working with [employer] and [place] [facility] to try outpatient. Pt states he just doesn't know what they would tell him or do for him there that would help him change. Pt was denied from some rehab programs in the past due to his ostomy, those that would take him were too far away for his liking. Pt requested to see statistics about the effects of rehab and rates of recovery to help him decide if he should go. [facility] offered referral to [facility] for support and to discuss more about benefits of rehab. Pt discussedhis family history of alcoholism - sister by suicide after dx of cirrhosis, uncle was an alcoholic. [facility] provided processing support and discussed that patient is not doomed to his family history, he can choose to change. Pt became tearful and stated he had to go as he had something to do. He was agreeable to [facility] contacting [place] [facility] for coordination. O: Phone encounter. Pt intoxicated. Speech slurred, rambling at times. Tearful throughout call. A: Mood depressed, affect congruent. Seeking outpatient treatment and has outreached to [facility] for help as well. Adamantly denies SI, but states sometimes wishes he wouldn't wake up. Provided processing support and education regarding JESSICA and tx options. Reviewed crisis hotline and pt will use if needed. P: [facility] will reach out to [place] [facility] for coordination with patient's permission. Pt will continue communicating with them as well. [facility] will follow up with patient within 1-[address] referral for CRS support. Encouraged patient to reach out with any additional needs. Georgina Henderson LCSW Behavioral Health Student Life Vice President - [facility] [phone] [email or web address] documented in this encounter Plan of Treatment Upcoming Encounters Date Type Specialty Care Team Description 03/20/2023 Office Visit Internal Medicine Tj Linder PA-C [address] [place] [address] 05/25/2023 Office Visit Gastroenterology Rosibel Jones CRNP [address] [place] [address] Health Maintenance Due Date Last Done Comments [...] filedocumented as of this encounter Care Teams Specialty Cook Relationship Specialty Start Date End Date Eufemia Chiu MD [address] [place] [address] PCP - General Internal Medicine 02/06/23 documented as of this encounter
[2023-08-26 05:40] LABS: Hematocrit (blood only) 41.6 % (42.0-52.0); Mean Corpuscular Hgb Conc 33.7 g/dL (32.0-36.0); Mean Corpuscular Volume 89.3 fL (80.0-100.0); Mean Platelet Volume 9.2 fL (9.4-12.4); Platelet Count 296 K/uL (130-400); RDW Coefficient of Variation 18.9 % (11.5-14.5); RDW Standard Deviation 62.3 fL (36.4-46.3); Red Blood Count 4.66 M/uL (4.70-6.10); White Blood Count 9.16 K/ul (4.8-10.8)
[2023-08-26 05:56] LABS: Albumin Globulin Ratio 1.3 (0.9-2); Albumin Level 3.9 gm/dl (3.4-5.0); Bilirubin,Total 0.6 mg/dl (0.2-1.0); Calcium 8.1 mg/dl (8.6-10.3); Chol HDL Ratio 3.3 (0-5); Est GFR (African American) 68.7 ml/min; Est GFR (Non-African American) 59.3 ml/min; Globulin 2.9 gm/dl (2.5-4.0); Potassium 3.7 mmol/L (3.5-5.1); Total Protein 6.8 gm/dl (6.0-8.3)
[2023-08-26] MEDS: amLODIPine BESYLATE 5 MG TAB PO SCH (07:20)
[2023-08-26] MEDS: ENOXAPARIN INJ 40 MG/0.4 ML SYR SQ SCH (07:21)
--- NOTE | 2023-08-26 07:27 | Electrocardiogram Report ---
Test Reason : Blood Pressure : / mmHG Vent. Rate : 096 BPM Atrial Rate : 096 BPM P-R Int : 138 ms QRS Dur : 076 ms QT Int : 342 ms P-R-T Axes : 034 001 054 degrees QTc Int : 432 ms Normal sinus rhythm Possible Inferior infarct , age undetermined Cannot rule out Anterior infarct , age undetermined Abnormal ECG When compared with ECG of 05-DEC-2019 04:03, Vent. rate has increased BY 41 BPM Borderline criteria for Inferior infarct are now Present Confirmed by Jerome Liu ([id number] on 08/26/2023 7:26:49 AM Referred By: Confirmed By:Jerome Liu
--- NOTE | 2023-08-26 12:49 | Hospitalist Progress Note ---
Date of Service August 26, 2023 Assessment & Plan (1) Syncope: (2) Alcohol use disorder: (3) Ulcerative colitis: (4) H/O ileostomy: (5) Depression with anxiety: (6) HTN (hypertension): (7) Leukocytosis: Plan Mr. Trent is a 53-year-old male who presented to the ED after he experienced a syncopal episode this morning. He woke up this AM as usual and took his Amlodipine and Lisinopril as usual. His parents were visiting from out of town and they proceeded to go to lunch at the [employer]. He felt a little 'hot' in the car, but continued to feel ok. They arrived at the [employer] and sat down at a snow and ordered food. He started to feel "woozy" and slumped over to his left side. No aphagia or slurred speech leading up to this event. His parents, also at bedside, stated that he was 'out of it' for a few minutes, up to 4 minutes. He felt tired when he woke. No tremors, seizure like activity or concerns for stroke when he woke. He was able to walk afterwards as well on his feet. He states this has happened one time a few months ago; he did not seek medical attention. Past medical history includes ulcerative colitis s/p ileostomy 2007 @ [facility] s/p microperforation and peritonitis, HTN, anxiety and depression, history of substance use, to include opioid use as well as excessive alcohol use in 2022. He was hospitalized twice for detox in 2022 to come off of these substances. He denies tobacco use, drinks alcohol; initially he denied alcohol use; but I returned to his room later and he stated his last drink was last night; a liquor shot. Chest x-ray negative. Leukocytosis 16.57, creatinine 1.75, lactate and blood cultures pending. Troponin negative. Patient will be admitted for further evaluation of his syncope, unexplained leukocytosis, and KEYANNA. Will obtain ECHO given audible unknown murmur, blood cultures, lactate, stool and urinalysis, C-Diff, provide gentle fluid resuscitation, obtain an abdominal/pelvis CT without contrast, WOCN for management of ostomy and to evaluate the stoma growth, AWSS for ETOH withdrawl and check UDS. Will hold Lisinopril for KEYANNA. Syncope: Likely dehydration, meds Check orthostatics Echo, carotid ultrasound pending Antihypertensives held Received IV fluids Monitor on telemetry May need Zio patch as outpatient KEYANNA on CKD II--POA Reviewed CT abdomen Cr:1.7>1.4>1.3 Received IV fluids Lisinopril held for now Monitor renal function Avoid nephrotoxic agents as able Leukocytosis: Normal lactate, procalcitonin levels No clear source of infection Blood culture pending No indication for antibiotics currently Alcohol use disorder: Chronic Drinks a 4 oz shot of liquor most days; last drink last evening Monitor for withdrawal Continue thiamine, folic acid Ulcerative Colitis: S/P ileostomy Chronic 2007: [facility] s/p microperforations and peritonitis WOCN for changing ostomy liquid output; increased flatulence Stool studies negative Monitor HTN: Chronic Hold lisinopril KEYANNA Continue Amlodipine Monitor Depression and anxiety: Chronic Follows with psychiatry as outpatient Continue Remeron Code Status: Full code DVT Px: Lovenox SQ Admission and Anticipated Discharge Date Admission Date: August 25, 2023 Subjective Patient is seen and examined at bedside States feeling a lot better today Offers no new complaints Denies any chest pain, dyspnea, dizziness, nausea, vomiting, abdominal pain Renal function improved No other complaints Review of Systems Review of Systems: All systems reviewed & are unremarkable except as noted in Subjective Physical Exam Physical Exam: Physical Exam: Vitals signs as noted above General Appearance:Moderately built and nourished, no apparent distress Head: normocephalic, Atraumatic Eyes: normal inspection, EOMI Neck: supple, Trachea midline Respiratory/Chest: Normal breath sounds, CTA, No accessory muscle use Cardiovascular: S1, S2, No murmur Abdomen/GI:Soft, Non tender, +Ileostomy, Bowel sounds present Extremities/Musculoskeletal:normal inspection, no edema Neurologic/Psych:AAOX3, grossly no focal neurological deficits Skin: normal color, warm Results & Data Results & Data Vital Signs (Past 12 Hours) Vital Signs Temp Pulse Pulse Resp BP Pulse Ox O2 Del Method 08/26/23 11:39 36.7 C 79 16 138/91 98 Room Air 08/26/23 07:42 36.6 C 85 17 135/96 97 Room Air 08/26/23 07:00 88 08/26/23 04:48 36.6 C 86 20 139/94 100 Room Air Laboratory Results Short CBC 08/25/23 08/26/23 Range/Units 14:36 04:37 WBC 16.57 H 9.16 (4.8-10.8) K/ul Hgb 17.6 14.0 D (14.0-18.0) g/dl Hct 51.1 41.6 L (42.0-52.0) % Plt Count 408 H 296 (130-400) K/uL BMP 08/25/23 08/25/23 08/26/23 14:36 22:27 04:37 Sodium 133 L 134 L 134 L Potassium 4.1 4.4 3.7 Chloride 100 105 105 Carbon Dioxide 17 L 18 L 20 L BUN 21 25 H 26 H Creatinine 1.75 H 1.49 H 1.37 Glucose 107 H 109 H 100 H Calcium 10.2 8.4 L 8.1 L Liver Function 08/25/23 08/26/23 Range/Units 14:36 04:37 Total Bilirubin 0.7 0.6 (0.2-1.0) mg/dl AST 29 18 (13-39) U/L ALT 31 19 (7-52) U/L Alkaline Phosphatase 95 70 (34-104) U/L Albumin 5.1 H 3.9 (3.4-5.0) gm/dl Urine 08/25/23 Range/Units 19:47 Urine Color Yellow Urine Appearance Clear (Clear) Urine pH 5.5 (4.5-7.5) Ur Specific [place] 1.022 (1.000-1.030) Urine Protein Trace H (Negative) Urine Glucose (UA) Negative (Negative)
--- NOTE | 2023-08-26 15:51 | Ultrasound Report ---
ULTRASOUND OF THE CAROTID ARTERIES CLINICAL HISTORY: Syncope TECHNIQUE: Real-time, grayscale, and color Doppler sonography of the carotid arteries is performed. I mages are reviewed in the transverse and longitudinal planes. COMPARISON: None available at the time of this dictation. FINDINGS: The carotid arteries are patent bilaterally and demonstrate antegrade flow. There is minimal atherosc lerotic plaque on the right and minimal atherosclerotic plaque on the left. Normal doppler arterial w aveforms are seen throughout. Velocity measurements are listed below. Common carotid peak systolic velocity (cm/sec): RIGHT: 98 LEFT: 117 ICA peak systolic velocity (cm/sec): RIGHT: 69 LEFT: 60 ICA/CC peak systolic ratio: RIGHT: 0.7 LEFT: 0.51 Antegrade flow was shown in the vertebral arteries. The external carotid arteries are patent. IMPRESSION: 1. There is no sonographic evidence of hemodynamically significant stenosis in the right or left car otid arterial system. 2. Antegrade flow is shown in the vertebral arteries. Society of Radiologists in Ultrasound consensus guidelines: Normal: ICA PSV is <125 cm/sec and no plaque or intimal thickening is visible sonographically additional criteria include ICA/CCA PSV ratio <2.0 and ICA EDV <40 cm/sec <50% ICA stenosis: ICA PSV is <125 cm/sec and plaque or intimal thickening is visible sonographically additional criteria include ICA/CCA PSV ratio <2.0 and ICA EDV <40 cm/sec 50-69% ICA stenosis: ICA PSV is 125-230 cm/sec and plaque is visible sonographically additional criteria include ICA/CCA PSV ratio of 2.0-4.0 and ICA EDV of 40-100 cm/sec ?70% ICA stenosis but less than near occlusion: ICA PSV is >230 cm/sec and visible plaque and luminal narrowing are seen at leon-scale and color Dopp ler ultrasound (the higher the Doppler parameters lie above the threshold of 230 cm/sec, the greater the likelihood of severe disease) additional criteria include ICA/CCA PSV ratio >4 and ICA EDV >100 cm/sec ACT 112: Negative or not required by law. Electronically signed by: Jozef Carrasco M.D. 08/26/2023 3:49 PM
[2023-08-27 05:29] LABS: Hematocrit (blood only) 40.2 % (42.0-52.0); Hemoglobin 13.6 g/dl (14.0-18.0); Mean Corpuscular Hemoglobin 30.6 pg (25.0-34.0); Mean Corpuscular Hgb Conc 33.8 g/dL (32.0-36.0); Mean Corpuscular Volume 90.3 fL (80.0-100.0); Mean Platelet Volume 9.1 fL (9.4-12.4); Platelet Count 262 K/uL (130-400); RDW Coefficient of Variation 18.5 % (11.5-14.5); RDW Standard Deviation 61.6 fL (36.4-46.3); Red Blood Count 4.45 M/uL (4.70-6.10); White Blood Count 6.84 K/ul (4.8-10.8)
[2023-08-27 05:50] LABS: BUN Creatinine Ratio 15.8 (10-20); Calcium 8.4 mg/dl (8.6-10.3); Est GFR (African American) 67.5 ml/min; Est GFR (Non-African American) 58.3 ml/min; Magnesium 1.8 mg/dl (1.7-2.4); Potassium 3.6 mmol/L (3.5-5.1)
--- NOTE | 2023-08-27 12:15 | Hospitalist Progress Note ---
Date of Service August 27, 2023 Assessment & Plan (1) Syncope: (2) Alcohol use disorder: (3) Ulcerative colitis: (4) H/O ileostomy: (5) Depression with anxiety: (6) HTN (hypertension): (7) Leukocytosis: Plan Mr. Trent is a 53-year-old male who presented to the ED after he experienced a syncopal episode this morning. He woke up this AM as usual and took his Amlodipine and Lisinopril as usual. His parents were visiting from out of town and they proceeded to go to lunch at the [employer]. He felt a little 'hot' in the car, but continued to feel ok. They arrived at the [employer] and sat down at a snow and ordered food. He started to feel "woozy" and slumped over to his left side. No aphagia or slurred speech leading up to this event. His parents, also at bedside, stated that he was 'out of it' for a few minutes, up to 4 minutes. He felt tired when he woke. No tremors, seizure like activity or concerns for stroke when he woke. He was able to walk afterwards as well on his feet. He states this has happened one time a few months ago; he did not seek medical attention. Past medical history includes ulcerative colitis s/p ileostomy 2007 @ [facility] s/p microperforation and peritonitis, HTN, anxiety and depression, history of substance use, to include opioid use as well as excessive alcohol use in 2022. He was hospitalized twice for detox in 2022 to come off of these substances. He denies tobacco use, drinks alcohol; initially he denied alcohol use; but I returned to his room later and he stated his last drink was last night; a liquor shot. Chest x-ray negative. Leukocytosis 16.57, creatinine 1.75, lactate and blood cultures pending. Troponin negative. Patient will be admitted for further evaluation of his syncope, unexplained leukocytosis, and KEYANNA. Will obtain ECHO given audible unknown murmur, blood cultures, lactate, stool and urinalysis, C-Diff, provide gentle fluid resuscitation, obtain an abdominal/pelvis CT without contrast, WOCN for management of ostomy and to evaluate the stoma growth, AWSS for ETOH withdrawl and check UDS. Will hold Lisinopril for KEYANNA. Syncope: Likely dehydration, meds Carotid USD:There is no sonographic evidence of hemodynamically significant stenosis in the right or left carotid arterial system. Antegrade flow is shown in the vertebral arteries. Echo pending (reviewed old ECHO) Received IV fluids Monitor on telemetry--No issues May need Zio patch as outpatient KEYANNA on CKD II--POA Reviewed CT abdomen Cr:1.7>1.4>1.3 Received IV fluids Lisinopril held for now Monitor renal function Avoid nephrotoxic agents as able Leukocytosis:Resolved Normal lactate, procalcitonin levels No clear source of infection Blood culture: No growth to date No indication for antibiotics currently Alcohol use disorder: Chronic Drinks a 4 oz shot of liquor most days; last drink last evening Monitor for withdrawal Continue thiamine, folic acid Currently no signs of withdrawal Ulcerative Colitis: S/P ileostomy Chronic 2007: [facility] s/p microperforations and peritonitis WOCN for changing ostomy Stool studies negative Monitor HTN: Chronic Hold lisinopril KEYANNA Continue Amlodipine Monitor Depression and anxiety: Chronic Follows with psychiatry as outpatient Continue Remeron Code Status: Full code DVT Px: Lovenox SQ Disposition Home Admission and Anticipated Discharge Date Admission Date: August 25, 2023 Subjective Patient is seen and examined at bedside No new complaints Denies any chest pain, dyspnea, dizziness, nausea, vomiting, abdominal pain Plan to be discharged home today Review of Systems Review of Systems: All systems reviewed & are unremarkable except as noted in Subjective Physical Exam Physical Exam: Physical Exam: Vitals signs as noted above General Appearance:Moderately built and nourished, no apparent distress Head: normocephalic, Atraumatic Eyes: normal inspection, EOMI Neck: supple, Trachea midline Respiratory/Chest: Normal breath sounds, CTA, No accessory muscle use Cardiovascular: S1, S2, No murmur Abdomen/GI:Soft, Non tender, +Ileostomy, Bowel sounds present Extremities/Musculoskeletal:normal inspection, no edema Neurologic/Psych:AAOX3, grossly no focal neurological deficits Skin: normal color, warm Results & Data Results & Data Vital Signs (Past 12 Hours) Vital Signs Temp Pulse Pulse Resp BP BP Pulse Ox 08/27/23 11:19 36.7 C 80 18 153/99 H 98 08/27/23 07:51 36.5 C 80 19 136/95 96 08/27/23 07:00 86 08/27/23 04:24 36.8 C 78 20 145/95 H 97 O2 Del Method 08/27/23 11:19 Room Air 08/27/23 07:51 Room Air 08/27/23 07:00 08/27/23 04:24 Room Air Laboratory Results Short CBC 08/27/23 Range/Units 04:14 WBC 6.84 (4.8-10.8) K/ul Hgb 13.6 L (14.0-18.0) g/dl Hct 40.2 L (42.0-52.0) % Plt Count 262 (130-400) K/uL BMP 08/27/23 04:14 Sodium 135 L Potassium 3.6 Chloride 106 Carbon Dioxide 23 BUN 22 Creatinine 1.39 Glucose 83 Calcium 8.4 L
--- NOTE | 2023-08-27 12:18 | Discharge Summary ---
Date of Service August 27, 2023 Admission HPI Per Admitting Provider Mr. Trent is a 53-year-old male who presented to the ED after he experienced a syncopal episode this morning. He woke up this AM as usual and took his Amlodipine and Lisinopril as usual. His parents were visiting from out of town and they proceeded to go to lunch at the [employer]. He felt a little 'hot' in the car, but continued to feel ok. They arrived at the [employer] and sat down at a snow and ordered food. He started to feel "woozy" and slumped over to his left side. No aphagia or slurred speech leading up to this event. His parents, also at bedside, stated that he was 'out of it' for a few minutes, up to 4 minutes. He felt tired when he woke. No tremors, seizure like activity or concerns for stroke when he woke. He was able to walk afterwards as well on his feet. He states this has happened one time a few months ago; he did not seek medical attention. Past medical history includes ulcerative colitis s/p ileostomy 2007 @ [facility] s/p microperforation and peritonitis, HTN, anxiety and depression, history of substance use, to include opioid use as well as excessive alcohol use in 2022. He was hospitalized twice for detox in 2022 to come off of these substances.. He denies tobacco use, drinks alcohol; initially he denied alcohol use; but I returned to his room later and he stated his last drink was last night; a liquor shot. Chest x-ray negative. Leukocytosis 16.57, creatinine 1.75, lactate and blood cultures pending. Troponin negative. Patient will be admitted for further evaluation of his syncope, unexplained leukocytosis, and KEYANNA. Will obtain ECHO given audible unknown murmer, blood cultures, lactate, stool and urinalysis, C-Diff, provide gentle fluid resuscitation, obtain an abdominal/pelvis CT without contrast, WOCN for management of ostomy and to evaluate the stoma growth, AWSS for ETOH withdrawl and check UDS. Will hold Lisinopril for KEYANNA. Admission Exam Per Admitting Provider Neuro: AAOx4, PERRLA, no aphagia, memory changes, CNII-XII grossly intact HEENT: head normocephalic, moist mucus membranes CV: S1/S2, (-) M/G/R, (-) edema, cap refill < 3 seconds Resp: Lungs CTA in all perea. On RA GI: Abdomen tender mid abdomen on palpation, soft and not distended. ileostomy with beefy red stoma with growth noted on medial aspect of stoma, liquid dark output mixed with urine, S/ND, Ax4 bowel sounds, (-) CVA tenderness Musculoskeletal: 5/5 B/L UE strength, 5/5 B/L LE strength. No gait disturbance Skin: (-) rashes , (-) erythema. Psych: euthymic yet depressive mood Principal Diagnosis Syncope Acute kidney injury Discharge Data Allergies Allergy/AdvReac Type Severity Reaction Status Date / Time No Known Allergies Allergy Unverified 08/25/23 17:12 Consultations 08/25/23 16:56 ED Decision to Admit Stat Procedures Performed Short CBC 08/27/23 Range/Units 04:14 WBC 6.84 (4.8-10.8) K/ul Hgb 13.6 L (14.0-18.0) g/dl Hct 40.2 L (42.0-52.0) % Plt Count 262 (130-400) K/uL BMP 08/27/23 04:14 Sodium 135 L Potassium 3.6 Chloride 106 Carbon Dioxide 23 BUN 22 Creatinine 1.39 Glucose 83 Calcium 8.4 L Ordered Studies 08/25/23 17:52 CT abdomen wo con Routine 08/26/23 11:32 Carotid duplex [US carotid doppler BI] Routine Hospital Course (1) Syncope: (2) Alcohol use disorder: (3) Ulcerative colitis: (4) H/O ileostomy: (5) Depression with anxiety: (6) HTN (hypertension): (7) Leukocytosis: Plan Mr. Trent is a 53-year-old male who presented to the ED after he experienced a syncopal episode this morning. He woke up this AM as usual and took his Amlodipine and Lisinopril as usual. His parents were visiting from out of town and they proceeded to go to lunch at the [employer]. He felt a little 'hot' in the car, but continued to feel ok. They arrived at the [employer] and sat down at a snow and ordered food. He started to feel "woozy" and slumped over to his left side. No aphagia or slurred speech leading up to this event. His parents, also at bedside, stated that he was 'out of it' for a few minutes, up to 4 minutes. He felt tired when he woke. No tremors, seizure like activity or concerns for stroke when he woke. He was able to walk afterwards as well on his feet. He states this has happened one time a few months ago; he did not seek medical attention. Past medical history includes ulcerative colitis s/p ileostomy 2007 @ [facility] s/p microperforation and peritonitis, HTN, anxiety and depression, history of substance use, to include opioid use as well as excessive alcohol use in 2022. He was hospitalized twice for detox in 2022 to come off of these substances. He denies tobacco use, drinks alcohol; initially he denied alcohol use; but I returned to his room later and he stated his last drink was last night; a liquor shot. Chest x-ray negative. Leukocytosis 16.57, creatinine 1.75, lactate and blood cultures pending. Troponin negative. Patient will be admitted for further evaluation of his syncope, unexplained leukocytosis, and KEYANNA. Will obtain ECHO given audible unknown murmur, blood cultures, lactate, stool and urinalysis, C-Diff, provide gentle fluid resuscitation, obtain an abdominal/pelvis CT without contrast, WOCN for management of ostomy and to evaluate the stoma growth, AWSS for ETOH withdrawl and check UDS. Will hold Lisinopril for KEYANNA. Syncope: Likely dehydration, meds Carotid USD:There is no sonographic evidence of hemodynamically significant stenosis in the right or left carotid arterial system. Antegrade flow is shown in the vertebral arteries. Echo pending (reviewed old ECHO) Received IV fluids Monitor on telemetry--No issues May need Zio patch as outpatient KEYANNA on CKD II--POA Reviewed CT abdomen Cr:1.7>1.4>1.3 Received IV fluids Lisinopril held for now Monitor renal function Avoid nephrotoxic agents as able Leukocytosis:Resolved Normal lactate, procalcitonin levels No clear source of infection Blood culture: No growth to date No indication for antibiotics currently Alcohol use disorder: Chronic Drinks a 4 oz shot of liquor most days; last drink last evening Monitor for withdrawal Continue thiamine, folic acid Currently no signs of withdrawal Ulcerative Colitis: S/P ileostomy Chronic 2008: [facility] s/p microperforations and peritonitis WOCN for changing ostomy Stool studies negative Monitor HTN: Chronic Hold lisinopril KEYANNA Continue Amlodipine Monitor Depression and anxiety: Chronic Follows with psychiatry as outpatient Continue Remeron Code Status: Full code DVT Px: Lovenox SQ Disposition Home Total Time Total Time Spent Total Time Spent (In Minutes): 59 minutes Discharge Plan Discharge Items Patient Disposition: Home - Self-Care Reason For Visit: SYNCOPE Discharge Diagnosis: Syncope Acute kidney injury Activity: Per Instructions section Exercise/Sports: Gradually increase as tolerated Non-emergency contact: Primary Care Provider Call non-emergency contact if: you have any medication questions, your symptoms worsen, your pain is concerning for you and you have a fever Follow-up/Referrals: Eufemia Chiu MD [Primary Care Provider] - Diet: Heart Healthy Addtl Attending Provider Instructions: Follow-up with your primary care physician Dr. Eufemia Chiu in 1 week --- Discussed with the physician for further need of ZIO monitor to rule out arrhythmias as advised. -- New ECHO result is pending at the time of discharge. Please follow-up with your physician for results -- Quit drinking alcohol and using Marijuana as able. -- Increase oral fluid intake to keep hydrated. Seek immediate medical attention if your symptoms reoccur or worsen Please take all medications as instructed on discharge list below. Please call if you have any questions or problems. You can reach a [facility] hospitalist on duty at [facility] 24 hours a day by calling [phone] Pending Studies at Discharge: No Stand-Alone Forms: My [facility], Smoking Cessation Medications and DC Order Prescriptions: Continued lisinopril 20 mg Tablet 20 mg PO QAM Qty: 30 1RF amlodipine [Norvasc] 5 mg Tablet 5 mg PO QAM Qty: 30 1RF multivitamin Tablet 1 tab PO DAILY thiamine HCl (vitamin B1) 100 mg Tablet 100 mg PO QAM Qty: 30 0RF mirtazapine 30 mg tablet 30 mg PO HS hydroxyzine HCl 25 mg tablet 25 mg PO Q6H PRN (Reason: Anxiety) Trintellix 5 mg tablet 5 mg PO DAILY Discharge Orders: Discharge Order (Routine); Ordered 08/27/23 Ordered By: Jc Tesfaye Admission Data Admit Date/Time: 08/25/23 16:58 Attending Provider: Jc Tesfaye Admit Provider: Max Solomon Primary Care Provider: Eufemia Chiu Other Providers: Max Solomon
--- NOTE | 2023-08-27 16:21 | Communication Note ---
Date of Service: August 27, 2023 Updated echo results to patient over the phone. Advised close monitoring of blood pressure and discussing with primary care physician for adjustment of med ications given LVH on echo. Patient understands and agrees to follow-up.
[2023-08-28 10:32] LABS: Marijuana Quant, GCMS Urine 173 ng/mL (<5)
== END 2023-08-27 13:44 | disposition home or self-care (01) | DRG 641 ==
LOC: ED 14:04 → 2W 16:58 → SUATTDRO 16:58 → 2W 23:06

== ENCOUNTER 2024-03-28 14:37 | Inpatient (IN) ==
[2024-03-28] MEDS: ONDANSETRON INJ 2 MG/ML 2 ML VIAL IV STA (15:16)
[2024-03-28 15:48] LABS: Basophils # (auto) 0.03 K/uL (0.00-0.20); Basophils % (auto) 0.4 %; Eosinophils # (auto) 0.03 K/uL (0.00-0.50); Eosinophils % (auto) 0.4 %; Hematocrit (blood only) 49.2 % (42.0-52.0); Hemoglobin 17.5 g/dl (14.0-18.0); Immature Granulocytes # (auto) 0.03 K/uL (0.01-0.20); Immature Granulocytes % (auto) 0.4 %; Lymphocytes # (auto) 0.48 K/uL (1.20-3.40); Lymphocytes % (auto) 5.9 %; Mean Corpuscular Hemoglobin 33.7 pg (25.0-34.0); Mean Corpuscular Hgb Conc 35.6 g/dL (32.0-36.0); Mean Corpuscular Volume 94.8 fL (80.0-100.0); Mean Platelet Volume 8.9 fL (9.4-12.4); Monocytes # (auto) 0.85 K/uL (0.11-0.59); Monocytes % (auto) 10.5 %; Neutrophils # (auto) 6.69 K/uL (1.40-6.50); Neutrophils % (auto) 82.4 %; Platelet Count 217 K/uL (130-400); RDW Standard Deviation 48.2 fL (36.4-46.3); Red Blood Count 5.19 M/uL (4.70-6.10); White Blood Count 8.11 K/ul (4.8-10.8)
[2024-03-28 16:01] LABS: Albumin Globulin Ratio 1.3 (0.9-2); Albumin Level 4.2 gm/dl (3.4-5.0); BUN Creatinine Ratio 8.8 (10-20); Bilirubin,Total 0.9 mg/dl (0.2-1.0); Calcium 10.2 mg/dl (8.6-10.3); Creatinine Clr Calc Pharmacy 57.8 ml/min; Globulin 3.3 gm/dl (2.5-4.0); Potassium 3.3 mmol/L (3.5-5.1); Total Protein 7.5 gm/dl (6.0-8.3)
--- NOTE | 2024-03-28 16:18 | Emergency Department Note ---
Impression & Plan Acute cholecystitis, Hypertension, Pancreatitis ED Provider Note Name: ABILIO COREAS Age: 53 Sex: Male Arrives Via: Walk-In Informant: Patient ED Provider: Suad Jackson MD Chief Complaint: Abdominal pain Impression: As per impressions above Medical Decision Making: Pleasant 53-year-old gentleman with a history of depression/anxiety, hypertension, alcohol abuse, ileostomy and ulcerative colitis arrives for evaluation of worsening upper abdominal pain. Patient is a bit hypertensive and mildly tremulous but relates this due to pain. Patient does have a history of alcohol abuse but states she is not drinking regularly though did drink some this weekend. Laboratory workup reveals mildly elevated LFTs along with mildly elevated lipase but normal bilirubin. CT of the abdomen pelvis does reveal acute pancreatitis though concern for possible cholecystitis. Ultrasound does reveal evidence of cholecystitis and a dilated bile duct. Discussed this with on-call general surgery who feels this must be treated as gallstone pancreatitis and will need advanced GI (ERCP) for further management. As we do not have that at this facility currently plan will be to transfer to higher level of care. I discussed this with [facility] acute surgical services and they have accepted to their facility. Due to lack of beds at their facility though patient will need to be hospitalized at our facility until bed becomes available. Discussed this with patient and he is agreeable to this plan. Hospitalist consulted. Of note patient becoming a bit more tremulous with increasing hypertension. He was given some labetalol however after discussing with hospitalist I do note that I am a bit worried that he is starting withdrawal despite his adamant that he has not been drinking heavily or frequently recently. Hospitalist notes they have placed orders for Ativan as well as some Dilaudid for pain control. I think this is reasonable and patient is comfortable with the plan as well. Patient is not septic he is breathing comfortably neurologically intact. Triage/Nursing Notes reviewed by Me External Chart Review by me: Reviewed discharge summary from 08/27/2023 discussing his previous hospitalization for KEYANNA and significant dehydration Differential: aortic pathology, ACS, PE, biliary pathology, cholecystitis, pancreatitis, bowel obstruction, perforation, ischemia amongst many other pathologies considered Vital Signs: reviewed and remarkable for hypertension Interventions: Normal saline bolus 1 L IV, Dilaudid IV, Mefoxin IV Labs:ED labs Reviewed by me and remarkable for mildly elevated AST/ALT. Elevated lipase. Imaging:CT of the abdomen pelvis without contrast as per my informal interpretation does show some stranding around the head of the pancreas consistent with pancreatitis. Questionable gallbladder wall thickening. Radiologist also notes elevated CBD size. Advised ultrasound of gallbladder. Ultrasound gallbladder as per radiologist thickened gallbladder wall and elevated CBD size. Concerning for acute cholecystitis and possible obstructing bile duct stone. Cardiac/Tele Monitoring: Cardiac Monitoring: An Order was placed for continuous cardiac monitoring. The monitor shows a rate of 80 with a normal sinus rhythm. Consults:Discussed with Dr. Fields of the [facility]ist service will bring in for further management. Discussed with [facility] general surgery at acute care services who accepts to their facility though pending bed availability. Plan: Disposition:Hospitalization with plan to transfer to higher level care once bed becomes available Condition: Good History of Present Illness: 53-year-old gentleman arrives for evaluation of abdominal pain. Patient notes several days of increasing epigastric left upper quadrant abdominal pain. Worse when he eats. Better with rest. Associate with nausea. Not episodes of vomiting. No radiation of pain to back. Denies any blood or significant diarrhea into his ostomy which she has had for about 15 years. Has had normal bowel movements the last several days. No urinary burning or frequency. No back pain, flank pain, chest pain, shortness of breath, passing out, leg swelling or other concerning signs or symptoms. Admits he feels a bit dehydrated due to his loose stools that he always has not not been able to tolerate oral intake without getting pain and nausea. Denies any falls, trauma, injuries. Does note a history of what he believes was pancreatitis in the past but is not completely sure. Does admit a history of alcohol abuse and notes he did drink some alcohol over the weekend but nothing in the last few days patient notes that he has been using Tums last few days for discomfort without much improvement.. No blood in his stool. Past Medical History:See Below Home Medications:See Below Allergies:nkda Vitals:Blood Pressure: 177/132, Pulse 80, RR 20, T 36.9C, O2 100% on RA Physical Exam: GENERAL: Patient is uncomfortable/dehydrated appearing and in moderate distress. RESPIRATORY: No dyspnea. Clear to auscultation and equal bilaterally. CARDIOVASCULAR: Regular rate and rhythm.No murmur appreciated. GASTROINTESTINAL: Diffuse upper abdominal tenderness palpation without hyperactive bowel sounds or true peritonitis. Ostomy right lower abdomen EXTREMITIES: Normal motion all extremities, no cyanosis, no edema. NEUROLOGIC: Alert and oriented. No focal neurologic deficits appreciated SKIN: No rash, no jaundice, no diaphoresis. PSYCH: Appropriate GCS: 15 ED Course: Times/Reassessments: Patient to get a bit tremulous as the stay went on with increasing hypertension. Heart rate did not go up. Otherwise stating he feels well. Discussed with hospitalist who will further management and monitor for signs of alcohol withdrawal. Saud Jackson MD Past Med/Surg History Problem List (Updated 03/29/24 @ 10:26 by Saud Jackson MD) Pancreatitis (Acute) Hypertension (Acute) Acute cholecystitis (Acute) Asymptomatic hypertensive urgency Acute on chronic renal insufficiency (Acute) Acute dehydration (Acute) Syncope and collapse (Acute) Leukocytosis Alcohol use disorder Alcohol withdrawal (Acute) Alcohol withdrawal Transaminitis (Acute) Headache (Acute) Opioid use with withdrawal (Acute) hx Encounter for pre-operative examination Abdominal pain Ileus (Acute) Nausea & vomiting (Acute) Intractable abdominal pain (Acute) HTN (hypertension) Syncope treated at [facility] emergency room 08/25/23 r/t dehydration Depression with anxiety H/O ileostomy (Chronic) permenant ileostomy (2007) Ulcerative colitis (Chronic 2007) Surgical History (Updated 09/14/23 @ 11:51 by Shabnam Jones RN) History of esophagogastroduodenoscopy (EGD) (2019) S/P colon resection total procto colectomy with ileostomy (2007 at [facility], Dr Ryne [place]) S/P laparotomy multiple for debridement of infection s/p jejunostomy S/P jejunostomy unsuccessful History of colonoscopy Family History (Updated 09/14/23 @ 11:45 by Shabnam Jones RN) Other Alcoholism Asthma Depression No family history of adverse response to anesthesia Social History Smoking Status: Never smoker Tobacco Type: E-cigarettes / Vaping Second Hand Exposure: No; Do You Dip or Chew Tobacco: No; Tobacco Cessation Education Requested by Patient: No Hx Alcohol Use: Yes Alcohol type: beer Hx Substance Use: Yes Last Used Substance: Days (ago) Last Used Substance Other:: marijuana daily. Substance Use Type Other:: medical marijuana Preferred Language: [place]ore[place] Communication Ability: Effective Graduate Teaching Assistant Required: No Beliefs That Will Affect Care: None Current Living Situation: Alone Other Information That Helps Us Care for You: No Feels Safe at Home: Yes Safety Concerns: Feels Safe At This Time Assistive Devices: None Allergies Allergies Allergy/AdvReac Type Severity Reaction Status Date / Time No Known Allergies Allergy Verified 09/14/23 11:36 Home Meds Home Medications Medication Instructions Recorded Confirmed multivitamin 1 tab PO DAILY 03/17/23 03/28/24 hydroxyzine HCl 25 mg tablet 25 mg PO Q6H PRN Anxiety 08/25/23 03/28/24 mirtazapine 30 mg tablet 30 mg PO HS 08/25/23 03/28/24 ferrous sulfate 325 mg (65 mg 325 mg PO .Q OTHER DAY 09/14/23 03/28/24 iron) tablet lisinopril 20 mg tablet 20 mg PO UD 03/28/24 03/28/24 Previous Rx's Medication Instructions Recorded amlodipine 5 mg tablet (Norvasc) 5 mg PO QAM #30 tabs 01/13/23 Results & Data (ED) Vital Signs Vital Signs - 24 hr 03/28/24 14:49 03/28/24 16:03 03/28/24 18:27 Temperature 36.9 C Temperature Source Temporal Artery Scan Pulse Rate 107 H Pulse Rate [Left Finger] 80 101 H Respiratory Rate 18 20 20 Respiratory Effort / Characteristics Non-Labored Spontaneous Respiratory Depth Normal Blood Pressure 178/120 H Blood Pressure [Right Arm] 177/132 H 195/133 H Blood Pressure Mean 139 Blood Pressure Mean [Right Arm] 147 153 Blood Pressure Position Sitting Blood Pressure Position [Right Arm] Sitting Pulse Oximetry 99 100 97 Oxygen Delivery Method Room Air Room Air Sepsis Recent Fever Within 48 Hours No Sepsis New/Unexplained Change in Mental Status N/A Sepsis Action Taken by Nursing No Action Required 03/28/24 19:37 03/28/24 19:50 Temperature Temperature Source Pulse Rate 95 H 100 H Pulse Rate [Left Finger] Respiratory Rate 20 Respiratory Effort / Characteristics Respiratory Depth Blood Pressure 184/135 H Blood Pressure [Right Arm] Blood Pressure Mean 151 Blood Pressure Mean [Right Arm] Blood Pressure Position Blood Pressure Position [Right Arm] Pulse Oximetry 98 Oxygen Delivery Method Sepsis Recent Fever Within 48 Hours Sepsis New/Unexplained Change in Mental Status Sepsis Action Taken by Nursing Laboratory Data 03/29/24 06:01 03/29/24 06:01 Lab Results 03/28/24 03/28/24 Range/Units 15:19 16:04 WBC 8.11 (4.8-10.8) K/ul RBC 5.19 (4.70-6.10) M/uL Hgb 17.5 (14.0-18.0) g/dl Hct 49.2 (42.0-52.0) % MCV 94.8 (80.0-100.0) fL MCH 33.7 (25.0-34.0) pg MCHC 35.6 (32.0-36.0) g/dL RDW Std Deviation 48.2 H (36.4-46.3) fL RDW Coeff of Denise 14.0 (11.5-14.5) % Plt Count 217 (130-400) K/uL MPV 8.9 L (9.4-12.4) fL Immature Gran % (Auto) 0.4 % Neut % (Auto) 82.4 % Lymph % (Auto) 5.9 % Hamblen % (Auto) 10.5 % Eos % (Auto) 0.4 % Baso % (Auto) 0.4 % Neut # (Auto) 6.69 H (1.40-6.50) K/uL Lymph # (Auto) 0.48 L (1.20-3.40) K/uL Hamblen # (Auto) 0.85 H (0.11-0.59) K/uL Eos # (Auto) 0.03 (0.00-0.50) K/uL Baso # (Auto) 0.03 (0.00-0.20) K/uL Immature Gran # (Auto) 0.03 (0.01-0.20) K/uL Sodium 138 (136-145) mmol/L Potassium 3.3 L (3.5-5.1) mmol/L Chloride 98 (98-107) mmol/L Carbon Dioxide 27 (21-32) mmol/L Anion Gap 13 H (3-11) BUN 14 (6-23) mg/dl Creatinine 1.59 H (0.6-1.4) mg/dl Est Cr Clr Drug Dosing 57.8 ml/min eGFR 52.23 BUN/Creatinine Ratio 8.8 L (10-20) Glucose 95 (70-99(Fasting)) mg/dl Calcium 10.2 (8.6-10.3) mg/dl Magnesium 1.2 L (1.7-2.4) mg/dl Total Bilirubin 0.9 (0.2-1.0) mg/dl AST 73 H (13-39) U/L ALT 73 H (7-52) U/L Alkaline Phosphatase 99 (34-104) U/L Total Protein 7.5 (6.0-8.3) gm/dl Albumin 4.2 (3.4-5.0) gm/dl Globulin 3.3 (2.5-4.0) gm/dl Albumin/Globulin Ratio 1.3 (0.9-2) Lipase 156 H (11-82) U/L TSH 3.337 (0.300-4.500) uIu/ml Urine Color Dark Yellow Urine Appearance Clear (Clear) Urine pH 5.5 (4.5-7.5) Ur Specific [place] > 1.045 H (1.000-1.030) Urine Protein 1+ H (Negative) Urine Glucose (UA) Negative (Negative) Urine Ketones 1+ H (Negative) Urine Blood Negative (Negative) Urine Nitrite Negative (Negative) Urine Bilirubin 1+ H (Negative) Urine Urobilinogen Negative (Negative) Ur Leukocyte Esterase Trace H (Negative) Urine WBC (Auto) 0-5 (0-5) /hpf Urine RBC (Auto) 0-2 (0-2) /hpf U Hyaline Cast (Auto) 3-5 H (0-2) /lpf U Epithel Cells (Auto) 0-2 (0-2) /hpf Urine Bacteria (Auto) None Seen (None Seen) Administered Medications Ferrous Sulfate (Ferrous Sulfate 325 Mg Tab) 325 mg PO Q2D@2100 [facility] Stop: 04/27/24 20:59 Last Admin: 03/28/24 22:58 Dose: 325 mg Documented By: FERNY Folic Acid (Folic Acid 1 Mg Tab) 1 mg PO QAM FAUSTINO Stop: 04/28/24 08:59 Last Admin: 03/29/24 09:09 Dose: 1 mg Documented By: NEVIN Heparin Sodium (Porcine) (Heparin Sod 5,000 Unit/0.5 Ml Vial) 5,000 units SQ Q8 FAUSTINO Stop: 04/27/24 21:59 Last Admin: 03/29/24 05:51 Dose: 5,000 units Documented By: Admin: 03/28/24 22:52 Dose: 5,000 units Documented By: FERNY Hydromorphone HCl (Hydromorphone Inj 0.5 Mg/0.5 Ml Syr) 0.5 mg IV Q4H PRN PRN Reason: Pain Stop: 04/11/24 20:48 Last Admin: 03/29/24 03:16 Dose: 0.5 mg Documented By: Admin: 03/28/24 22:58 Dose: 0.5 mg Documented By: FERNY Piperacillin Sod/Tazobactam Sod (Zosyn) 4.5 gm in 100 mls @ 25 mls/hr IV Q8H FAUSTINO; Protocol Stop: 04/08/24 03:59 Last Infusion: 03/29/24 07:23 Dose: Infused Documented By: Admin: 03/29/24 03:23 Dose: 25 mls/hr Documented By: FERNY Promethazine HCl (Phenergan) 6.25 mg in 50.25 mls @ 201 mls/hr IV Q6H PRN PRN Reason: Nausea And Vomiting Stop: 04/27/24 20:48 Last Infusion: 03/28/24 23:53 Dose: Infused Documented By: Admin: 03/28/24 23:38 Dose: 201 mls/hr Documented By: FERNY Potassium Chloride 20 meq/ (Lactated Ringer's) 1,010 mls @ 100 mls/hr IV .Q10H6M FAUSTINO Stop: 03/30/24 01:59 Last Admin: 03/29/24 02:23 Dose: 100 mls/hr Documented By: FERNY Mirtazapine (Mirtazapine Tab 15 Mg Tab) 30 mg PO HS FAUSTINO Stop: 04/27/24 21:29 Last Admin: 03/28/24 22:58 Dose: 30 mg Documented By: FERNY Multivitamins (Multivitamin Tab) 1 tab PO DAILY FAUSTINO Stop: 04/28/24 08:59 Last Admin: 03/29/24 09:09 Dose: 1 tab Documented By: NEVIN Oxycodone HCl (Oxycodone Hcl Ir 5 Mg Tab (Immediate Release)) 5 - 10 mg PO QID PRN PRN Reason: Pain Stop: 04/11/24 20:48 Last Admin: 03/29/24 05:51 Dose: 10 mg Documented By: FERNY Discontinued Medications Amlodipine Besylate (Amlodipine Besylate 5 Mg Tab) 2.5 mg PO NOW ONE Stop: 03/28/24 21:47 Last Admin: 03/28/24 22:50 Dose: 2.5 mg Documented By: FERNY Amlodipine Besylate (Amlodipine Besylate 5 Mg Tab) 5 mg PO NOW ONE Stop: 03/29/24 03:05 Last Admin: 03/29/24 03:24 Dose: 5 mg Documented By: FERNY Hydromorphone HCl (Hydromorphone Inj 1 Mg/Ml Syringe) 1 mg IV NOW STA Stop: 03/28/24 16:16 Last Admin: 03/28/24 16:20 Dose: 1 mg Documented By: RENA Sodium Chloride (Nss) 1,000 mls @ 999 mls/hr IV .Q1H1M ONE Stop: 03/28/24 17:15 Last Infusion: 03/28/24 19:00 Dose: Infused Documented By: Admin: 03/28/24 16:20 Dose: 999 mls/hr Documented By: RENA Cefoxitin Sodium (Mefoxin) 2,000 mg in 60 mls @ 100 mls/hr IV NOW STA Stop: 03/28/24 19:46 Last Infusion: 03/28/24 20:08 Dose: Infused Documented By: Admin: 03/28/24 19:32 Dose: 100 mls/hr Documented By: CHASE Potassium Chloride 20 meq/ (Lactated Ringer's) 1,010 mls @ 200 mls/hr IV .Q5H3M ONE Stop: 03/29/24 02:02 Last Infusion: 03/29/24 02:27 Dose: Infused Documented By: Admin: 03/28/24 21:24 Dose: 200 mls/hr Documented By: CHASE Magnesium Sulfate/Dextrose (Magnesium Sulfate / D5w) 1 gm in 100 mls @ 50 mls/hr IV Q2H FAUSTINO Stop: 03/29/24 03:19 Last Infusion: 03/29/24 04:33 Dose: Infused Documented By: Admin: 03/29/24 02:21 Dose: 50 mls/hr Documented By: Infusion: 03/29/24 02:21 Dose: Infused Documented By: Admin: 03/29/24 00:23 Dose: 50 mls/hr Documented By: Infusion: 03/29/24 00:23 Dose: Infused Documented By: Admin: 03/28/24 22:49 Dose: 50 mls/hr Documented By: FERNY Thiamine HCl 100 mg/ Syringe 10 mls @ 2 mls/min IV NOW STA Stop: 03/29/24 05:51 Last Admin: 03/29/24 06:10 Dose: 2 mls/min Documented By: FERNY Labetalol HCl (Labetalol Hcl Iv 5 Mg/Ml 20ml) 10 mg IV NOW STA Stop: 03/28/24 19:38 Last Admin: 03/28/24 19:52 Dose: 10 mg Documented By: CHASE Lorazepam (Lorazepam 2 Mg/1 Ml Vial) 0.5 mg IV NOW STA Stop: 03/28/24 21:47 Last Admin: 03/28/24 22:32 Dose: 0.5 mg Documented By: FERNY Ondansetron HCl (Ondansetron Inj 2 Mg/Ml 2 Ml Vial) 4 mg IV NOW STA Stop: 03/28/24 14:54 Last Admin: 03/28/24 15:16 Dose: 4 mg Documented By: WELLINGTON Potassium Chloride (Potassium Chloride Crtab 20 Meq Tabcr) 40 meq PO NOW STA Stop: 03/28/24 19:56 Last Admin: 03/28/24 20:11 Dose: 40 meq Documented By: CHASE Discharge Plan Visit Data Chief Complaint: Abdominal Pain Stated Complaint: ABD PAIN, NAUSEA, VOMITING ED Provider: Saud Jackson Discharge Problem: Acute cholecystitis, Hypertension, Pancreatitis Patient Disposition: Admitted As Inpatient Discharge Instructions Interventions: ED Discharge Assessment Last Done: 03/28/24 21:59 Discharge Problem: Hypertension Qualifiers: Hypertension type: unspecified Qualified Code(s): I10 - Essential (primary) hypertension Pancreatitis Qualifiers: Chronicity: acute Pancreatitis type: biliary Acute pancreatitis complication: n o infection or necrosis Qualified Code(s): K85.10 - Biliary acute pancreatitis without necrosis or infection
[2024-03-28] MEDS: SODIUM CHLORIDE 0.9% 1,000 ML IV ONE (16:20)
[2024-03-28] MEDS: HYDROmorphone INJ 1 MG/ML SYRINGE IV STA (16:20)
[2024-03-28 16:41] LABS: Appearance Urine Clear (Clear); Bacteria Urine Automated None Seen (None Seen); Bilirubin Urine 1+ (Negative); Blood Urine Negative (Negative); Color Urine Dark Yellow; Epithelial Cell Urine Auto 0-2 /hpf (0-2); Glucose Urine UA Negative (Negative); Ketones Urine 1+ (Negative); Leukocyte Esterase Urine Trace (Negative); Nitrite Urine Negative (Negative); Protein Urine 1+ (Negative); RBC Urine Automated 0-2 /hpf (0-2); Specific Gravity Urine > 1.045 (1.000-1.030); Urobilinogen Urine Negative (Negative); WBC Urine Automated 0-5 /hpf (0-5); pH Urine 5.5 (4.5-7.5)
--- NOTE | 2024-03-28 17:29 | CT Scan Report ---
EXAM: CT Abdomen and Pelvis Without Intravenous Contrast INDICATION: Upper abdominal pain. History of pancreatitis. TECHNIQUE: Axial computed tomography images of the abdomen and pelvis without intravenous contrast. Sagittal and coronal reformatted images were created and reviewed. This CT exam was performed using one or more of the following dose reduction techniques: automated exposure control, adjustment of the mA and/or kV according to patient size, and/or use of iterative reconstruction technique. Oral contrast was administered. COMPARISON: CT abdomen pelvis 01/08/[address] abdomen 08/25/2023 FINDINGS: Limitations: None. Lung bases: No abnormality noted. Pleural space: No visualized pleural effusion or pneumothorax. Heart: No abnormality noted. Mediastinum: No abnormality noted. ABDOMEN: Liver: Normal size and contour. Hypodense typical of steatosis. No mass or ductal dilation. Gallbladder and bile ducts: The common bile duct is dilated in the interval from 4 to 8 mm. No ductal stone noted. No calcified gallstone or ductal stone. No biliary gas. Pancreas: There is mild stranding about the pancreatic head. The pancreas otherwise appears normal. No pancreatic fluid or gas. No ductal dilatation. Impr. Spleen: No significant abnormality noted. Adrenals: No significant abnormality noted. Kidneys and ureters: No abnormality noted. No stones. No hydronephrosis. No significant perinephric fluid. Stomach and bowel: Colectomy with right lower quadrant patent ileostomy. No intestinal obstruction. No thickening or mesenteric inflammation. PELVIS: Appendix: Appendectomy. Bladder: The bladder is incompletely distended and grossly unremarkable. Reproductive: No abnormalities noted. ABDOMEN and PELVIS: Intraperitoneal space: No free air. No significant fluid collection. Bones/joints: No acute changes. Soft tissues: There are small bilateral fat containing inguinal hernias. Vasculature: No abdominal aortic aneurysm. Lymph nodes: No pathologically enlarged lymph nodes. IMPRESSION: 1. Mild acute pancreatitis of the pancreatic head. 2. Mild dilatation of the common bile duct since the prior exam. Consider gallbladder ultrasound to assess for gallstone pancreatitis. ACT 112: Positive. There are findings on this exam that require communication between the performing entity and the patient following Patient Test Result Information Act ([place] ACT 112) guidelines. Electronically signed by Hanny Gale 03-28-2024 5:28 PM
--- NOTE | 2024-03-28 18:29 | Ultrasound Report ---
Clinical history: Acute pancreatitis Technique: Sonography was performed of the right upper quadrant of the abdomen Comparison is made to the CT obtained earlier today Findings: There is mild fatty infiltration of the liver. No definite liver mass is seen Multiple gallstones are present. The gallbladder wall appears thickened, measuring approximately 5 mm. No definite sonographic Lester sign was detected, though this could be due to pain medication. The common bile duct is slightly dilated, measuring up to 7.5 mm. No clear obstructing lesion is seen The right kidney measures 9.7 cm in length. There is no hydronephrosis. No definite renal calculus or mass is seen Impression: 1. Cholelithiasis with possible acute cholecystitis 2. Mild bile duct dilatation 3. Fatty infiltration of the liver Electronically signed by Tripp Augustine 03-28-2024 6:29 PM
[2024-03-28] MEDS: cefOXitin 2,000 MG/60 ML BAG IV STA (19:32)
[2024-03-28] MEDS: LABETALOL HCL IV 5 MG/ML 20ML IV STA (19:52)
--- NOTE | 2024-03-28 20:01 | History & Physical Report ---
Date of Service March 28, 2024 Assessment & Plan (1) Asymptomatic hypertensive urgency: Plan: acute calculous cholecystitis/choledocholithiasis Gallstone pancreatitis secondary to above ulcerative colitis status post surgery ([facility] 2009) CRI, creatinine at baseline chronic anemia, hemoglobin at baseline anxiety/mood disorder, patient anxious during exam alcohol abuse Admit to medical telemetry given hypertensive urgency IV Lopressor 1 dose now IVF, Zosyn N.p.o. Transfer to [facility] once bed available. (Patient kindly accepted by Dr. Pollard of General Surgery as per ED provider. Transfer paperwork already completed at the ER.) JOHNATHAN S at risk protocol, DT precautions DVT prophylaxis with Heparin subcu Full code Text document was generated using [employer] voice recognition software. It may contain grammatical or spelling errors. Kindly contact undersigned for clarification of any documentation item in question. History of Present Illness Chief Complaint: Abdominal pain Primary Care Provider: Eufemia Chiu MD History obtained from patient and records. Medical history significant for hypertension, ulcerative colitis status post surgery ([facility] 2009), CRI (patient creatinine 1.4-1.5,)chronic anemia (baseline hemoglobin of 13), anxiety/mood disorder, alcohol abuse. Last confinement August 2023 for syncope, ARF, and alcohol abuse. Few days history of achy upper abdominal pain with nausea emesis. No chest pain, no SOB, no headache symptoms. Discomfort worse with eating. No fever, no chills. Occasional EtOH intake as per patient. Highest SBP of 190s upon arrival at the ER. Cefoxitin given for cholecystitis/choledocholithiasis. General surgeon on-call recommended [facility] transfer for ERCP services. Patient accepted for transfer by [facility] general surgery pending bed availability. Medical History as above Surgical History : Eye surgery, colectomy/ileostomy Family History : IBD, alcoholism, OCD Personal/Social history : non-smoker, alcohol abuse as per records, admits to cannabis intake at home Allergies Allergy/AdvReac Type Severity Reaction Status Date / Time No Known Allergies Allergy Verified 09/14/23 11:36 Home Medications Medication Instructions Recorded Confirmed Type amlodipine 5 mg tablet (Norvasc) 5 mg PO QAM #30 tabs 01/13/23 03/28/24 Rx multivitamin 1 tab PO DAILY 03/17/23 03/28/24 History hydroxyzine HCl 25 mg tablet 25 mg PO Q6H PRN Anxiety 08/25/23 03/28/24 History mirtazapine 30 mg tablet 30 mg PO HS 08/25/23 03/28/24 History ferrous sulfate 325 mg (65 mg 325 mg PO .Q OTHER DAY 09/14/23 03/28/24 History iron) tablet lisinopril 20 mg tablet 20 mg PO UD 03/28/24 03/28/24 History Past Med/Surg History Problem List (Updated 03/29/24 @ 05:34 by Quinn Fields MD) Asymptomatic hypertensive urgency Acute on chronic renal insufficiency (Acute) Acute dehydration (Acute) Syncope and collapse (Acute) Leukocytosis Alcohol use disorder Alcohol withdrawal (Acute) Alcohol withdrawal Transaminitis (Acute) Headache (Acute) Opioid use with withdrawal (Acute) hx Encounter for pre-operative examination Abdominal pain Ileus (Acute) Nausea & vomiting (Acute) Intractable abdominal pain (Acute) HTN (hypertension) Syncope treated at [facility] emergency room 08/25/23 r/t dehydration Depression with anxiety H/O ileostomy (Chronic) permenant ileostomy (2007) Ulcerative colitis (Chronic 2007) Surgical History (Updated 09/14/23 @ 11:51 by Shabnam Jones RN) History of esophagogastroduodenoscopy (EGD) (2019) S/P colon resection total procto colectomy with ileostomy (2007 at [facility], Dr [place]ne [place]) S/P laparotomy multiple for debridement of infection s/p jejunostomy S/P jejunostomy unsuccessful History of colonoscopy Family History (Updated 09/14/23 @ 11:45 by Shabnam Jones RN) Other Alcoholism Asthma Depression No family history of adverse response to anesthesia Social History Smoking Status: Never smoker Tobacco Type: E-cigarettes / Vaping Second Hand Exposure: No; Do You Dip or Chew Tobacco: No; Tobacco Cessation Education Requested by Patient: No Hx Alcohol Use: Yes Alcohol type: beer Hx Substance Use: Yes Last Used Substance: Days (ago) Last Used Substance Other:: marijuana daily. Substance Use Type Other:: medical marijuana Preferred Language: Welsh Communication Ability: Effective Fun[employer] Home Associate Required: No Beliefs That Will Affect Care: None Current Living Situation: Alone Other Information That Helps Us Care for You: No Feels Safe at Home: Yes Safety Concerns: Feels Safe At This Time Assistive Devices: None Review of Systems Review of Systems: As per HPI, all other systems reviewed and negative Physical Exam Physical Exam: GENERAL: Slightly uncomfortable, slightly anxious, no respiratory distress SKIN: Pallor, warm HEENT: Alopecia, pale palpebral conjunctivae, no ptosis, dry buccal mucosa NECK : Supple, no tenderness CHEST : CTA, no tenderness HEART : Tachycardic, no obvious murmurs ABDOMEN: Some distention, epigastric tenderness EXTREMITIES : No LE swelling/tenderness, no other conspicuous deformities noted NEUROLOGIC : Coherent, no facial asymmetry, no other gross focality Results & Data Results & Data Vital Signs (Past 12 Hours) Vital Signs Temp Pulse Pulse Resp BP BP Pulse Ox 03/28/24 19:50 100 H 20 184/135 H 98 03/28/24 18:27 101 H 20 195/133 H 97 03/28/24 16:03 80 20 177/132 H 100 03/28/24 14:49 36.9 C 107 H 18 178/120 H 99 O2 Del Method 03/28/24 19:50 03/28/24 18:27 03/28/24 16:03 Room Air 03/28/24 14:49 Room Air Laboratory Results Laboratory Results WBC 8.11 K/ul (4.8-10.8) 03/28/24 15:19 RBC 5.19 M/uL (4.70-6.10) 03/28/24 15:19 Hgb 17.5 g/dl (14.0-18.0) 03/28/24 15:19 Hct 49.2 % (42.0-52.0) 03/28/24 15:19 MCV 94.8 fL (80.0-100.0) 03/28/24 15:19 MCH 33.7 pg (25.0-34.0) 03/28/24 15:19 MCHC 35.6 g/dL (32.0-36.0) 03/28/24 15:19 RDW Std Deviation 48.2 fL (36.4-46.3) H 03/28/24 15:19 RDW Coeff of Denise 14.0 % (11.5-14.5) 03/28/24 15:19 Plt Count 217 K/uL (130-400) 03/28/24 15:19 MPV 8.9 fL (9.4-12.4) L 03/28/24 15:19 Immature Gran % (Auto) 0.4 % 03/28/24 15:19 Neut % (Auto) 82.4 % 03/28/24 15:19 Lymph % (Auto) 5.9 % 03/28/24 15:19 Marshall % (Auto) 10.5 % 03/28/24 15:19 Eos % (Auto) 0.4 % 03/28/24 15:19 Baso % (Auto) 0.4 % 03/28/24 15:19 Neut # (Auto) 6.69 K/uL (1.40-6.50) H 03/28/24 15:19 Lymph # (Auto) 0.48 K/uL (1.20-3.40) L 03/28/24 15:19 Marshall # (Auto) 0.85 K/uL (0.11-0.59) H 03/28/24 15:19 Eos # (Auto) 0.03 K/uL (0.00-0.50) 03/28/24 15:19 Baso # (Auto) 0.03 K/uL (0.00-0.20) 03/28/24 15:19 Immature Gran # (Auto) 0.03 K/uL (0.01-0.20) 03/28/24 15:19 Sodium 138 mmol/L (136-145) 03/28/24 15:19 Potassium 3.3 mmol/L (3.5-5.1) L 03/28/24 15:19 Chloride 98 mmol/L (98-107) 03/28/24 15:19 Carbon Dioxide 27 mmol/L (21-32) 03/28/24 15:19 Anion Gap 13 (3-11) H 03/28/24 15:19 BUN 14 mg/dl (6-23) 03/28/24 15:19 Creatinine 1.59 mg/dl (0.6-1.4) H 03/28/24 15:19 Est Cr Clr Drug Dosing 57.8 ml/min 03/28/24 15:19 eGFR 52.23 03/28/24 15:19 BUN/Creatinine Ratio 8.8 (10-20) L 03/28/24 15:19 Glucose 95 mg/dl (70-99(Fasting)) 03/28/24 15:19 Calcium 10.2 mg/dl (8.6-10.3) 03/28/24 15:19 Total Bilirubin 0.9 mg/dl (0.2-1.0) 03/28/24 15:19 AST 73 U/L (13-39) H 03/28/24 15:19 ALT 73 U/L (7-52) H 03/28/24 15:19 Alkaline Phosphatase 99 U/L (34-104) 03/28/24 15:19 Total Protein 7.5 gm/dl (6.0-8.3) 03/28/24 15:19 Albumin 4.2 gm/dl (3.4-5.0) 03/28/24 15:19 Globulin 3.3 gm/dl (2.5-4.0) 03/28/24 15:19 Albumin/Globulin Ratio 1.3 (0.9-2) 03/28/24 15:19 Lipase 156 U/L (11-82) H 03/28/24 15:19 Urine Color Dark Yellow 03/28/24 16:04 Urine Appearance Clear (Clear) 03/28/24 16:04 Urine pH 5.5 (4.5-7.5) 03/28/24 16:04 Ur Specific [place] > 1.045 (1.000-1.030) H 03/28/24 16:04 Urine Protein 1+ (Negative) H 03/28/24 16:04 Urine Glucose (UA) Negative (Negative) 03/28/24 16:04 Urine Ketones 1+ (Negative) H 03/28/24 16:04 Urine Blood Negative (Negative) 03/28/24 16:04 Urine Nitrite Negative (Negative) 03/28/24 16:04 Urine Bilirubin 1+ (Negative) H 03/28/24 16:04 Urine Urobilinogen Negative (Negative) 03/28/24 16:04 Ur Leukocyte Esterase Trace (Negative) H 03/28/24 16:04 Urine WBC (Auto) 0-5 /hpf (0-5) 03/28/24 16:04 Urine RBC (Auto) 0-2 /hpf (0-2) 03/28/24 16:04 U Hyaline Cast (Auto) 3-5 /lpf (0-2) H 03/28/24 16:04 U Epithel Cells (Auto) 0-2 /hpf (0-2) 03/28/24 16:04 Urine Bacteria (Auto) None Seen (None Seen) 03/28/24 16:04 Impressions Abdomen/Pelvis CT 03/28/24 16:15 EXAM: CT Abdomen and Pelvis Without Intravenous Contrast INDICATION: Upper abdominal pain. History of pancreatitis. TECHNIQUE: Axial computed tomography images of the abdomen and pelvis without intravenous contrast. Sagittal and coronal reformatted images were created and reviewed. This CT exam was performed using one or more of the following dose reduction techniques: automated exposure control, adjustment of the mA and/or kV according to patient size, and/or use of iterative reconstruction technique. Oral contrast was administered. COMPARISON: CT abdomen pelvis 01/08/[address] abdomen 08/25/2023 FINDINGS: Limitations: None. Lung bases: No abnormality noted. Pleural space: No visualized pleural effusion or pneumothorax. Heart: No abnormality noted. Mediastinum: No abnormality noted. ABDOMEN: Liver: Normal size and contour. Hypodense typical of steatosis. No mass or ductal dilation. Gallbladder and bile ducts: The common bile duct is dilated in the interval from 4 to 8 mm. No ductal stone noted. No calcified gallstone or ductal stone. No biliary gas. Pancreas: There is mild stranding about the pancreatic head. The pancreas otherwise appears normal. No pancreatic fluid or gas. No ductal dilatation. Impr. Spleen: No significant abnormality noted. Adrenals: No significant abnormality noted. Kidneys and ureters: No abnormality noted. No stones. No hydronephrosis. No significant perinephric fluid. Stomach and bowel: Colectomy with right lower quadrant patent ileostomy. No intestinal obstruction. No thickening or mesenteric inflammation. PELVIS: Appendix: Appendectomy. Bladder: The bladder is incompletely distended and grossly unremarkable. Reproductive: No abnormalities noted. ABDOMEN and PELVIS: Intraperitoneal space: No free air. No significant fluid collection. Bones/joints: No acute changes. Soft tissues: There are small bilateral fat containing inguinal hernias. Vasculature: No abdominal aortic aneurysm. Lymph nodes: No pathologically enlarged lymph nodes. IMPRESSION: 1. Mild acute pancreatitis of the pancreatic head. 2. Mild dilatation of the common bile duct since the prior exam. Consider gallbladder ultrasound to assess for gallstone pancreatitis. ACT 112: Positive. There are findings on this exam that require communication between the performing entity and the patient following Patient Test Result Information Act ([place] ACT 112) guidelines. Electronically signed by Hanny Gale 03-28-2024 5:28 PM Gallbladder Ultrasound 03/28/24 17:29 Clinical history: Acute pancreatitis Technique: Sonography was performed of the right upper quadrant of the abdomen Comparison is made to the CT obtained earlier today Findings: There is mild fatty infiltration of the liver. No definite liver mass is seen Multiple gallstones are present. The gallbladder wall appears thickened, measuring approximately 5 mm. No definite sonographic Lester sign was detected, though this could be due to pain medication. The common bile duct is slightly dilated, measuring up to 7.5 mm. No clear obstructing lesion is seen The right kidney measures 9.7 cm in length. There is no hydronephrosis. No definite renal calculus or mass is seen Impression: 1. Cholelithiasis with possible acute cholecystitis 2. Mild bile duct dilatation 3. Fatty infiltration of the liver Electronically signed by Tripp Augustine 03-28-2024 6:29 PM
[2024-03-28] MEDS: POTASSIUM CHLORIDE CRTAB 20 MEQ TABCR PO STA (20:11)
[2024-03-28 20:22] LABS: Magnesium 1.2 mg/dl (1.7-2.4)
[2024-03-28 20:43] LABS: Thyroid Stimulating Hormone 3.337 uIu/ml (0.300-4.500)
[2024-03-28] MEDS ORDERED: LORazepam 0.5 MG TAB PO PRN (20:49)
[2024-03-28] MEDS ORDERED: ACETAMINOPHEN 500 MG TAB PO PRN (20:49)
[2024-03-28] MEDS ORDERED: NON-FORMULARY MEDICATION (Ferrous Sulfate 325 mg (65 mg iron) Tablet) PO SCH (21:00)
[2024-03-28] MEDS: POTASSIUM CHLORIDE 20 MEQ in LACTATED RINGER'S 1,000 ML IV ONE (21:24)
[2024-03-28] MEDS: LORazepam 2 MG/1 ML VIAL IV STA (22:32)
[2024-03-28] MEDS: MAGNESIUM SULFATE / D5W 1 GM/100 ML BAG IV SCH (22:49)
[2024-03-28] MEDS: amLODIPine BESYLATE 5 MG TAB PO ONE (22:50)
[2024-03-28] MEDS: HEPARIN SOD 5,000 UNIT/0.5 ML VIAL SQ SCH (22:52)
[2024-03-28] MEDS: FERROUS SULFATE 325 MG TAB PO SCH (22:58)
[2024-03-28] MEDS: MIRTAZAPINE TAB 15 MG TAB PO SCH (22:58)
[2024-03-28] MEDS: HYDROmorphone INJ 0.5 MG/0.5 ML SYR IV PRN (22:58)
[2024-03-28] MEDS: PROMETHAZINE 6.25 MG/50.25 ML BAG IV PRN (23:38)
[2024-03-29] MEDS: POTASSIUM CHLORIDE 20 MEQ in LACTATED RINGER'S 1,000 ML IV SCH (02:23)
[2024-03-29] MEDS: PIPERACILLIN/TAZOBACTAM 4.5 GM/100 ML BAG IV SCH (03:23)
[2024-03-29] MEDS: amLODIPine BESYLATE 5 MG TAB PO ONE (03:24)
--- OUTSIDE RECORDS SUMMARY | 2024-03-29 05:17 | External Medical Summary | Summary of Care ---
Author Name Unknown Organization [facility] Address [address] 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 Name Role Phone Eufemia Chiu MD Primary Care Provider + Reason for Visit * Reason Onset Date Comments Preop Pt Assessment 02/19/2024 Encounter Details Date Type Department Care Team (Late st Contact Info) Description 02/19/2024 Telephone Pre Surgery Center, [facility] [address] [place] [address] Marquez Garsia DO [address] [place] [id number] Preop Pt Assessment Allergies Active Allergy Reactions Criticality Noted Date Comments Dust Low 07/15/2019 documented as of this encounter (statuses as of 02/19/2024) Medications Medication Sig Dispensed Refills Start Date End Date Status Folic Acid 1 MG Oral Tablet Take 1 Tablet by mouth in the morning. Active RA Vitamin B-1 100 MG Oral Tablet Take 1 Tablet by mouth in the morning. 01/13/2023 Active Multivitamin Adult Oral Tablet Take by mouth. Active amLODIPine Besylate 5 MG Oral Tablet (Norvasc) Take 1 Tablet by mouth in the morning. 90 Tablet 3 08/08/2023 Active Lisinopril 20 MG Oral Tablet (Prinivil) Take 1 Tablet by mouth in the morning. 90 Tablet 3 08/08/2023 Active Vortioxetine HBr 10 MG Oral Tablet (Trintellix) Take one tablet by mouth in the morning with the 5 mg tablet for a total of 15 mg daily 30 Tablet 2 09/05/2023 Active Additional Information Patient not taking.Reported on 02/19/2024 Vortioxetine HBr 5 MG Oral Tablet (Trintellix) Take one tablet by mouth daily with the 10 mg tablet for a total of 15 mg daily 30 Tablet 2 09/05/2023 Active Mirtazapine 30 MG Oral Tablet (Remeron) Take 1 Tablet by mouth at bedtime. 30 Tablet 01/19/2024 Active hydrOXYzine HCl 25 MG Oral TabletIndications:P rimary insomnia Take 1 Tablet by mouth every 6 hours as needed for Anxiety. 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/11/2013 documented as of this encounter (statuses as of 02/19/2024) Resolved Problems Problem Noted Date Diagnosed Date Resolved Date Food insecurity 12/28/2020 05/04/2023 Overview: Per [facility] Protocol documented as of this encounter (statuses as of 02/19/2024) Social History Tobacco Use Types Packs/Day Years Used Date Smoking Tobacco: Never Smokeless Tobacco: Never Alcohol Use Standard Drinks/Week Comments Yes 0 (1 standard drink = 0.6 oz pur e alcohol) PHQ-2 Answer Date Recorded PHQ Adult Total Score 16 09/01/2023 Hunger Vital Sign Answer Date Recorded Within the past 12 months, y ou worried that your food would run out before you got the money to buy more. Sometimes true Within the past 12 months, t he food you bought just didn't last and you didn't have money to get more. Never true Childcare Answer Date Recorded Do you feel overwhelmed with taking care of a child, family member or friend? No 06/21/2023 Does your family need help f inding childcare? (Household - for ages 0-17 years) Not on file 06/21/2023 Clothing Answer Date Recorded Have you been unable to get clothing when it was really needed? No 06/21/2023 Is your family able to get c lothes or diapers when needed? (Household - for ages 0-17 years) Not on file 06/21/2023 Personal Safety Answer Date Recorded Do you feel unsafe or have concerns for your saf ety? No 06/21/2023 Do you have concerns for you r family's safety? (Household - for ages 0-17 years) Not on file 06/21/2023 Utilities Answer Date Recorded Do you have trouble paying y our heating, water, or electric bill? No 06/21/2023 Is your family able to pay t he heat, water, or electric bill? (Household - for ages 0-17 years) Not on file 06/21/2023 Does your family have access to good internet? (Household - for ages 0-17 years) Not on file 06/21/2023 Employment Status Answer Date Recorded Are you unemployed or without regular income? Ye s 06/21/2023 Does the household have a [facility] [place] source of income? (Household - for ages 0-17 years) Not on file 06/21/2023 Social Connections Answer Date Recorded How often do you feel lonely or isolated from th ose around you? Often 06/21/2023 Financial Resource Strain Answer Date R ecorded Do you have any trouble payi ng for your medications, or do you think you might in the future? No 06/21/2023 Does your family have troubl e paying for medicine? (Household - for ages 0-17 years) Not on file 06/21/2023 Transportation Needs Answer Date Record ed READ ONLY Do you have troubl e getting a ride to medical visits or work? Sometimes True 06/21/2023 Does your family have a hard time getting a ride to doctors visits? (Household - for ages 0-17 years) Not on file 06/21/2023 Has lack of transportation k ept you from medical appointments, meetings, work, or from getting things needed for daily living? Check all that apply. (Adult - for ages 18 years and over) Not on file 06/21/2023 Do you (or your family) have trouble finding or paying for a ride (transportation)? (Household - for ages 0-17 years) Not on file 06/21/2023 Housing Stability Answer Date Recorded Do you currently live in a s helter or have no steady place to sleep at night? No 06/21/2023 READ ONLY Do you think you a re at risk of becoming homeless? Yes 06/21/2023 Does your family worry about paying for your home or becoming homeless? (Household - for ages 0-17 years) Not on file 0 06/21/2023 Are you homeless or worried that you might be in the future? (Adult - for ages 18 years and over) Not on file Are you (or your family) el eless or worried that you might be in the future? (Household - for ages 0-17 years) Not on file Food Insecurity Answer Date Recorded Do you need food for this week? No 06/21/2023 Are you able to get enough f ood for your family? (Household - for ages 0-17 years) Not on file 06/21/2023 Does your family need food t his week? (Household - for ages 0-17 years) Not on file 06/21/2023 Do you always have enough fo od for your family? (Household - for ages 0-17 years) Not on file 06/21/2023 Sex and Gender Information Value Date Recorded Sex Assigned at Male 07/15/2019 11:58 AM EST Gender Identity Male 07/15/2019 11:58 AM EST Sexual Orientation Straight 01/14/2023 4: 02 PM EDT Job Start Date Occupation Industry Not on file Not on file Not on file documented as of this encounter Plan of Treatment Upcoming Encounters Date Type Department Care Team (Latest Contact Info) Description 02/22/2024 1:00 PM EDT Hospital Encounter [facility]O [facility], Endoscopy Room [facility] [address] [place] [id number] Marquez Garsia, [address] [place] [address] 02/22/2024 1:00 PM EDT - 02/22/2024 1:30 PM EDT Surgery ENDO [facility], Endoscopy Room [facility] [address] [place] [id number] Marquez Garsia, DO [address] [place] [address] COLONOSCOPY FLEXIBLE PROXIMAL DIAGNOSTIC 02/29/2024 3:20 PM EDT Office Visit General Internal Medicine [facility] [address] [facility] [place] [address] Eufemia Chiu MD [address] [facility] [place] [address] Scheduled Procedures Name Priority Associated Diagnoses Date/Ti me COLONOSCOPY FLEXIBLE PROXIMAL DIAGNOSTIC Iron deficiency anemia, unspecified iron deficiency anemia type 02/22/2024 1:00 PM EDT Health Maintenance Due Date Last Done Comments HIV Screening 07/26/1987 Hepatitis C Screening 1990 DTap/Tdap Vaccines (1 - Tdap) 07/26/1991 Hepatitis B Vaccine (1 of 3 - 19+ 3-dose series) 07/26/1991 Zoster Vaccines (1 of 2) 2022 COVID-19 Vaccine (1 - season) 2024 Influenza Vaccine (FLU shot) (#1) 2024 Lipid Panel 07/16/2024 07/16/2019 Depression Monitoring 08/31/2024 09/01/2023 Diabetes Screening 07/24/2026 2023, 0 06/15/2023, 01/17/2023, Additional history exists Colonoscopy Discontinued HPV (Gardasil) Vaccine Aged Out No lo nger eligible based on patient's age to complete [...] filedocumented as of this encounter Care Teams Late[employer] 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
--- OUTSIDE RECORDS SUMMARY | 2024-03-29 05:17 | External Medical Summary | Summary of Care ---
Author Name Unknown Organization [facility] Address [address] [place] [address] Phone [phone] Care Team Providers Care Knowledge Manager Name Role Phone Eufemia Chiu MD Primary Care Provider + Reason for Visit * Reason Comments Follow Up Wants to discuss Lis inopril Encounter Details Date Type Department Care Team (Late st Contact Info) Description 02/29/2024 3:20 PM EDT Office Visit General Internal Medicine [facility] [address] [facility] [place] [address] Eufemia Chiu MD [address] [place] [address] Ulcerative colitis with complication, unspecified location (HCC)*; HTN, goal below 130/80; Current moderate episode of major depressive disorder without prior episode (HCC) Allergies Active Allergy Reactions Criticality Noted Date Comments Dust Low 07/15/2019 documented as of this encounter (statuses as of 02/29/2024) Medications Medication Sig Dispensed Refills Start Date [...] Active Additional Information Patient not taking.Reported on 02/29/2024 Mirtazapine 30 MG Oral Tablet (Remeron) Take 1 Tablet by mouth at bedtime. 30 Tablet 01/19/2024 Active hydrOXYzine HCl 25 MG Oral TabletIndication s:Primary insomnia Take 1 Tablet by mouth every 6 hours as needed for Anxiety. 40 Tablet 2 01/19/2024 Active Iron 325 (65 Fe) MG Oral Tablet Take by mouth every morning. Active diphenhydrAMINE HCl 25 MG Oral Tablet (Benadryl Allergy) Take 1 Tablet by mouth at bedtime. Active Lisinopril 10 MG Oral Tablet (Prinivil)Indica tions:HTN, goal below 130/80 Take 1 Tablet by mouth in the morning. 02/29/2024 Active Lisinopril 20 MG Oral Tablet (Prinivil) Take 1 Tablet by mouth in the morning. 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 (Household - for ages [...] Sign Reading Time Taken Comments Blood Pressure 118/80 02/29/2024 3:11 PM EDT Pulse 88 02/29/2024 3:11 PM EDT Temperature 36.9 C (98.4 F) 02/29/2024 3:11 PM ED T Respiratory Rate 16 02/29/2024 3:11 PM EDT Oxygen Saturation - - Inhaled Oxygen Concentration - - Weight 86.6 kg (191 lb) 02/29/2024 3:11 PM EDT Height 175.3 cm (5' 9") 02/29/2024 3:11 PM EDT Body Mass Index 28.21 02/29/2024 3:11 PM EDT documented in this encounter Progress Notes * Eufemia Chiu MD - 02/29/2024 3:27 PM EDT HPI: Tim Trent is a 53 year old male who presents with: Chief Complaint Patient presents with Follow Up Wants to discuss Lisinopril Patient is here for the recheck. Chart reviewed with the patient including current meds, last labs and HM. No acute event since we saw patient last time including no recent fall or injuries. Reviewed colonoscopy and biopsy report. States mirtazapine helps. Feels okay emotionally. No GI or issues. Denies any chestpain/sob/palpitation/swealling in the legs. Denies any cough/sob/wheezing/chestpain. Doesn't prefer any vaccines. Looking at renal penl, doesn't prefer seeing nephrology and discussed hydration, low salt diet. Discussed avoidance of NSAIDS. Patient Active Problem List Diagnosis Lattice degeneration Retinal defect Ulcerative colitis (HCC) Depressive disorder CHEPE (generalized anxiety disorder) Substance abuse (HCC) Food insecurity Current Outpatient Medications Medication Sig Dispense Refill Multivitamin Adult Oral Tablet Take by mouth. amLODIPine Besylate 5 MG Oral Tablet (Norvasc) Take 1 Tablet by mouth in the morning. 90 Tablet 3 Lisinopril 20 MG Oral Tablet (Prinivil) Take 1 Tablet by mouth in the morning. 90 Tablet 3 Mirtazapine 30 MG Oral Tablet (Remeron) Take 1 Tablet by mouth at bedtime. 30 Tablet 0 hydrOXYzine HCl 25 MG Oral Tablet Take 1 Tablet by mouth every 6 hours as needed for Anxiety. 40 Tablet 2 Iron 325 (65 Fe) MG Oral Tablet Take by mouth every morning. diphenhydrAMINE HCl 25 MG Oral Tablet (Benadryl Allergy) Take 1 Tablet by mouth at bedtime. Folic Acid 1 MG Oral Tablet Take 1 Tablet by mouth in the morning. (Patient not taking: Reported on02/19/2024) RA Vitamin B-1 100 MG Oral Tablet Take 1 Tablet by mouth in the morning. (Patient not taking: Reported on 02/22/2024) Vortioxetine HBr 10 MG Oral Tablet (Trintellix) Take one tablet by mouth in the morning with the 5 mg tablet for a total of 15 mg daily (Patient not taking: Reported on 02/19/2024) 30 Tablet 2 Vortioxetine HBr 5 MG Oral Tablet (Trintellix) Take one tablet by mouth daily with the 10 mg tabletfor a total of 15 mg daily (Patient not taking: Reported on 02/29/2024) 30 Tablet 2 No current facility-administered medications for this visit. The patient's medication list was reviewed and updated as needed. Review of patient's allergies indicates: Allergen Reactions Dust Past Medical History: Diagnosis Date Myopia Ulcerative colitis (HCC) Social History Socioeconomic History Marital status: Single Tobacco Use Smoking status: Never Smokeless tobacco: Never Substance and Sexual Activity Alcohol use: Yes Drug use: No Social Determinants of Health Financial Resource Strain: Low Risk (06/21/2023) Financial Resource Strain Do you have any trouble paying for your medications, or do you think you might in the future? (Adult - for ages 18 years and over): No Food Insecurity: No Food Insecurity (06/21/2023) Food Insecurity Do you need food for this week? (Adult - for ages 18 years and over): No Recent Concern: Food Insecurity - Food Insecurity Present (06/21/2023) Hunger Vital Sign Worried About Running Out of Food in the Last Year: Sometimes true Ran Out of Food in the Last Year: Never true Transportation Needs: Unmet Transportation Needs (06/21/2023) Transportation Needs Do you have trouble getting a ride to medical visits or work? (Adult - for ages 18 years and over):Sometimes True Social Connections: Socially Isolated (06/21/2023) Social Connections How often do you feel lonely or isolated from those around you? (Adult - for ages 18 years and over): Often Housing Stability: High Risk (06/21/2023) Housing Stability Do you currently live in a care home or have no steady place to sleep at night? (Adult - for ages 18 years and over): No Do you think you are at risk of becoming homeless? (Adult - for ages 18 years and over): Yes Family History Problem Relation Name Age of Onset Heart Disorder Father Tim Trent Lung Disorder Father Tim Trent COPD Stroke Grandfather (Paternal) Tim Trent Cancer None Diabetes None Thyroid Disorder None Eye Problems None patient denies hx AMD, glaucoma, retinal detachments or blindness OCD Brother Hypertension Mother Evelyne Trent Alcohol and Other Disorders Associated Sister Luana Trent Ultimately of associated issues Mental Disorder Brother Harvey Trent OCD Eye Problems Brother Harvey Trent Requires corrective lenses Eye Problems Sister Gale Trent Requires corrective lenses Gastro-intestinal disorder Sister Gale Trent Ulcerative colitis Obesity Sister Gale Trent All system negative except as per hpi. OBJECTIVE: BP 118/80 | Pulse 88 | Temp 36.9 C (98.4 F) | Resp 16 | Ht 1.753 m (5' 9") | Wt 86.6 kg (191 lb) | BMI 28.21 kg/m | BSA 2.05 m PHYSICAL EXAM: HEENT: PERRLA, EOMI, anicteric sclera, b/l tympanic membrane is pearly white, no erythema, no pharyngeal erythema, no lymphadenopathy, neck supple CVS: RRR, no murmurs, rubs or gallops, s1 s 2normal. RESP: clear to auscultation, no wheezing or crackles ABD: soft, NT/ND EXT: no edema, cyanosis, peripheral pulses palpable bilaterally No large joint swelling, no redness, range of motion normal. Skin normal. Gait normal. Mood stable No focal weakness ASSESSMENT AND PLAN: Ulcerative colitis with complication, unspecified location (HCC) (Primary) Will be seeing colorectal surgery for possible reversal of osteomy. Reviewed colonoscopy. HTN, goal below 130/80 Stable and at times low. Cut down lisinopril to 10 mg daily. Continue hydration and low salt. Current moderate episode of major depressive disorder without prior episode (HCC) On Remeron. Helps. Eufemia Chiu MD documented in this encounter Nursing Notes * Danisha Sorto LPN - 02/29/2024 3:11 PM EDT The patient has been properly identified by confirmation of name and date of . Chief Complaint Patient presents with Follow Up Wants to discuss Lisinopril documented in this encounter Plan of Treatment Upcoming Encounters Date Type Department Care Team (Late st Contact Info) Description 03/27/2024 9:00 AM EST Office Visit General Surgery, [facility] [address] [place] [address] Milly Amador, DO [address] [facility] [id number] Health Maintenance Due Date Last Done Comments [...] 06/15/2023, 01/17/2023, Additional history exists Colonoscopy Discontinued 02/22/2024, 02/22/2024 HPV (Gardasil) Vaccine Aged Out No lo [...] as of this encounter Visit Diagnoses Diagnosis Ulcerative colitis with complication, unspecified location (HCC)- Primary HTN, goal below 130/80 Unspecified essential hypertension Current moderate episode of major depressive disorder without prior episode (HCC) documented in this encounter Care Teams Knowledge Manager Relationship Specialty Start Date End Date Eufemia Chiu MD [address] [place] [address] PCP - General Internal Medicine 02/07/24 documented as of this encounter
--- OUTSIDE RECORDS SUMMARY | 2024-03-29 05:17 | External Medical Summary | Summary of Care ---
Author Name Unknown Organization [facility] Address [address] [facility] [place] [address] Phone [phone] Care Team Providers Care Packing Shed Supervisor Name Role Phone Eufemia Chiu MD Primary Care Provider + Reason for Referral * Evaluate & Treat - Unlimited Visits (Within 10 days (routine)) - Pending Review Specialty Diagnoses / Procedures Referred By Khadijah shepherd Referred To Contact Colon and Rectal Surgery / General Surgery Diagnoses Attention to ileostomy (HCC) Marquez Garsia DO [address] [place] [address] Referral ID Status Reason Start Date Expiration Date Visits Requested Visits Authorized [id number] Pending Review Specialty Services Required 02/22/[phone] Question Answer What condition is the patient being seen for? IBD/Crohns Referral Priority Within 10 days (routine) Where should this appointment be scheduled? [facility] Comments Patient with nodularity and a previously placed stoma site, biopsies taken. Reason for Visit * Reason Onset Date Comments Advice 02/22/2024 Encounter Details Date Type Department Care Team (Late st Contact Info) Description 02/22/2024 Telephone Gastroenterology, [facility] [address] [place] [address] Marquez Garsia DO [address] [place] [address] Advice Allergies Active Allergy Reactions Criticality Noted Date Comments Dust Low 07/15/2019 documented as of this encounter (statuses as of 02/22/2024) Medications Medication Sig Dispensed Refills Start Date End Date Status Folic Acid 1 MG Oral Tablet Take 1 Tablet by mouth in the morning. Suspended RA Vitamin B-1 100 MG Oral Tablet Take 1 Tablet by mouth in the morning. 01/13/2023 Suspended Multivitamin Adult Oral Tablet Take by mouth. Kelsey pended amLODIPine Besylate 5 MG Oral Tablet (Norvasc) Take 1 Tablet by mouth in the morning. 90 Tablet 3 08/08/2023 Suspended Additional Information Lisinopril 20 MG Oral Tablet (Prinivil) Take 1 Tablet by mouth in the morning. 90 Tablet 3 08/08/2023 Suspended Additional Information Vortioxetine HBr 10 MG Oral Tablet (Trintellix) Take one tablet by mouth in the morning with the 5 mg tablet for a total of 15 mg daily 30 Tablet 2 09/05/2023 Suspended Additional Information Patient not taking.Reported on 02/19/2024 Vortioxetine HBr 5 MG Oral Tablet (Trintellix) Take one tablet by mouth daily with the 10 mg tablet for a total of 15 mg daily 30 Tablet 2 09/05/2023 Suspended Additional Information Mirtazapine 30 MG Oral Tablet (Remeron) Take 1 Tablet by mouth at bedtime. 30 Tablet 01/19/2024 Suspended Additional Information hydrOXYzine HCl 25 MG Oral TabletIndications :Primary insomnia Take 1 Tablet by mouth every 6 hours as needed for Anxiety. 40 Tablet 2 01/19/2024 Suspended Additional Information Iron 325 (65 Fe) MG Oral Tablet Take by mouth every morning. Suspended diphenhydrAMINE HCl 25 MG Oral Tablet (Benadryl Allergy) Take 1 Tablet by mouth at bedtime. 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 The patient has a history of ulcerative colitis and underwent a procto colectomy over 15 years ago in [place]. The patient's stoma appears to have nodularity on the outside, biopsies were taken I would like thepatient to be seen by Colorectal surgery for further evaluation. documented in this encounter Plan of Treatment Upcoming Encounters Date Type Department Care Team (Late st Contact Info) Description 02/29/2024 3:20 PM EDT Office Visit General Internal Medicine [address] [place] [address] [place] [address] Eufemia Chiu MD [address] [facility] [place] [address] Scheduled Procedures Name Priority Associated Diagnoses Date/Ti me COLONOSCOPY FLEXIBLE PROXIMAL DIAGNOSTIC Iron deficiency anemia, unspecified iron deficiency anemia type 02/22/2024 12:57 PM EDT Scheduled Referrals Name Type Priority Associated Diagnoses Orde r Schedule COLORECTAL SURGERY REFERRAL OP Referral Within 10 days (routine) Attention to ileostomy (HCC) Ordered: 02/22/2024 Health Maintenance Due Date Last Done Comments HIV Screening 07/26/1987 Hepatitis C Screening 1990 DTap/Tdap Vaccines (1 - Tdap) 07/26/1991 Hepatitis B Vaccine (1 of 3 - 19+ 3-dose series) 07/26/1991 Zoster Vaccines (1 of 2) 2022 COVID-19 Vaccine (1 - 2023- season) 2024 Influenza Vaccine (FLU shot) (#1) 2024 Lipid Panel 07/16/2024 07/16/2019 Depression Monitoring 08/31/2024 09/01/2023 Diabetes Screening 07/24/2026 2023, 0 06/15/2023, 01/17/2023, Additional history exists Colonoscopy Discontinued 02/22/2024 HPV (Gardasil) Vaccine Aged Out No [...] as of this encounter Visit Diagnoses Diagnosis Attention to ileostomy (HCC)- Primary Attention to ileostomy documented in this encounter Care Teams Packing Shed Supervisor Relationship Specialty Start Date End Date Eufemia Chiu MD [address] [place] [address] PCP - General Internal Medicine 02/07/24 documented as of this encounter
--- OUTSIDE RECORDS SUMMARY | 2024-03-29 05:17 | External Medical Summary | Summary of Care ---
Author Name Unknown Organization [facility] Address [address] [place] [address] Phone [phone] Care Team Providers Care Rn Faculty Name Role Phone Eufemia Chiu MD Primary Care Provider + Reason for Visit * Reason Onset Date Comments Medication Refill 01/19/2024 Encounter Details Date Type Department Care Team (Late st Contact Info) Description 01/19/2024 Refill Psychiatry, [facility] [address] [place] [address] Anant Rojas MD [address] [place] [address] Primary insomnia Allergies Active Allergy Reactions Criticality Noted Date Comments Dust Low 07/15/2019 documented as of this encounter (statuses as of 01/19/2024) Medications Medication Sig Dispensed Refills Start Date End Date Status Folic Acid 1 MG Oral Tablet Take 1 Tablet by mouth in the morning. Active RA Vitamin B-1 100 MG Oral Tablet Take 1 Tablet by mouth in the morning. 01/13/2023 Active Multivitamin Adult Oral Tablet Take by mouth. Act oscar amLODIPine Besylate 5 MG Oral Tablet (Norvasc) [...] mg daily 30 Tablet 2 09/05/2023 Active Vortioxetine HBr 5 MG Oral Tablet (Trintellix) Take one tablet by mouth daily with the 10 mg tablet for a total of 15 mg daily 30 Tablet 2 09/05/2023 Active Mirtazapine 30 MG Oral Tablet (Remeron) Take 1 Tablet by mouth at bedtime. 30 Tablet 01/19/2024 Active hydrOXYzine HCl 25 MG Oral TabletIndications :Primary insomnia Take 1 Tablet by mouth every 6 hours as needed for Anxiety. 40 Tablet 2 01/19/2024 Active Mirtazapine 30 MG Oral Tablet (Remeron) Take 1 Tablet by mouth at bedtime. 30 Tablet 12/26/2023 01/19/2024 Discontinued (Refill) hydrOXYzine HCl 25 MG Oral TabletIndications :Primary insomnia Take 1 Tablet by mouth every 6 hours as needed for Anxiety. 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 10/11/2013 documented as of this encounter (statuses as of 01/19/2024) Resolved Problems Problem Noted Date Diagnosed Date Resolved Date Food insecurity 12/28/2020 05/04/2023 Overview: Per [facility] Protocol documented as of this encounter (statuses as of 01/19/2024) Social History Tobacco Use Types Packs/Day Years [...] encounter Miscellaneous Notes * Telephone Encounter - Ramya Reed MD - 01/19/2024 3:56 PM EDTSigned Prescriptions: Disp Refills Mirtazapine 30 MG Oral Tablet (Remeron) 30 Tab*0 Sig: Take 1 Tablet by mouth at bedtime.Authorizing Provider: RAMYA REED hydrOXYzine HCl 25 MG Oral Huyrvo28 Tab*2 Sig: Take 1 Tablet by mouth every 6 hours as needed for Anxiety.Authorizing Provider: RAMYA REED * Telephone Encounter - Cristela Graf LPN - 01/19/2024 9:39 AM EDT Pending Prescriptions: Disp Refills Mirtazapine 30 MG Oral Tablet (Remeron) 30 Tab*0 Sig: Take 1 Tablet by mouth at bedtime. hydrOXYzine HCl 25 MG Oral Tablet 40 Tab*2 Sig: Take 1 Tablet by mouth every 6 hours as needed for Anxiety. * Telephone Encounter - Cristela Graf LPN - 01/19/2024 9:36 AM EDT Refill request from patient ([facility]) for Remeron. Medication last filled on 12/26/2023 with 0 refills.Patient last seen on 09/05/2023 with return appointment scheduled for needs appt. Patient had 3 cancelled appointments and 0 NO SHOW appointments. documented in this encounter Plan of Treatment Upcoming Encounters Date Type Department Care Team (Latest Contact Info) Description 02/22/2024 1:00 PM EDT Hospital Encounter ENDO [facility], Endoscopy Room [address] [place] [address] Marquez Garsia, DO [address] [place] [address] 02/22/2024 1:00 PM EDT - 02/22/2024 1:30 PM EDT Surgery ENDO [facility], Endoscopy Room [facility] [address] [place] [address] Marquez Garsia, DO [address] [place] [address] COLONOSCOPY FLEXIBLE PROXIMAL DIAGNOSTIC 02/29/2024 3:20 PM EDT Office Visit General Internal Medicine [address] [place] [address] [facility] [place] [address] Eufemia Chiu MD [address] [place] [address] Scheduled Procedures Name Priority Associated Diagnoses Date/Ti [...] season) 2023 Influenza Vaccine (FLU shot) (#1) 2024 Lipid [...] as of this encounter Visit Diagnoses Diagnosis Primary insomnia Persistent disorder of initiating or maintaining sleep Iron deficiency anemia, unspecified iron deficiency anemia type documented in this encounter Care Teams Rn Faculty Relationship Specialty Start Date End Date Eufemia Chiu MD [address] [facility] [place] [address] PCP - General Internal Medicine 02/06/23 documented as of this encounter
--- OUTSIDE RECORDS SUMMARY | 2024-03-29 05:17 | External Medical Summary | Summary of Care ---
Author Name Unknown Organization [facility] Address [address] [facility] [place] [address] Phone [phone] Care Team Providers Care Clinical Editor Name Role Phone Eufemia Chiu MD Primary Care Provider + Reason for Visit * Auth/Cert Specialty Diagnoses / Procedures Referred By Khadijah shepherd Referred To Contact Diagnoses Iron deficiency anemia, unspecified iron deficiency anemia type Iron deficiency anemia, unspecified iron deficiency anemia type [D50.9] Procedures COLONOSCOPY, DIAGNOSTIC (RECTUM) COLONOSCOPY FLEXIBLE PROXIMAL DIAGNOSTIC Marquez Garsia DO [address] [place] [address] [facility] [address] [place] [address] Referral ID Status Reason Start Date Expiration Date Visits Re quested Visits Authorized [id number] [phone] Encounter Details Date Type Department Care Team (Latest Contact Info) Description 02/22/2024 11:54 AM EDT - 02/22/2024 1:58 PM EDT Hospital Encounter [facility], Endoscopy Room [facility] [address] [place] [address] Marquez Garsia DO [address] [place] [address] Colonoscopy Discharge Disposition: Home - Self Care Allergies Active Allergy Reactions Criticality Noted Date Comments Dust Low 07/15/2019 documented as of this encounter (statuses as of 02/23/2024) Medications Medication Sig Dispensed Refills Start Date [...] 1 Tablet by mouth at bedtime. 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 10/11/2013 documented as of this encounter (statuses as of 02/23/2024) Resolved Problems Problem Noted Date Diagnosed Date Resolved Date Food insecurity 12/28/2020 05/04/2023 Overview: Per [facility] Protocol documented as of this encounter (statuses as of 02/23/2024) Social History Tobacco Use Types Packs/Day Years [...] Sign Reading Time Taken Comments Blood Pressure 148/98 02/22/2024 1:24 PM EDT Pulse 86 02/22/2024 1:24 PM EDT Temperature 36.2 C (97.1 F) 02/22/2024 1:24 PM ED T Respiratory Rate 15 02/22/2024 1:24 PM EDT Oxygen Saturation 95% 02/22/2024 1:24 PM EDT Inhaled Oxygen Concentration - - Weight 90.7 kg (200 lb) 02/22/2024 12:40 PM EDT Height 175.3 cm (5' 9") 02/22/2024 12:40 PM EDT Body Mass Index 29.53 02/22/2024 12:40 PM EDT documented in this encounter H&P Notes * Marquez Garsia DO - 02/22/2024 12:53 PM EDT Endoscopy Pre-Procedure Assessment Name: Tim Trent Date: 02/22/2024 Time: 12:53 PM Procedure(s): Ileoscopy (prior history of a total proctocolectomy for ulcerative colitis over 15 years) Endoscopy Pre-Procedure Assessment: Prior to the procedure, the patient is identified. The patient's history, medications and allergieshave been reviewed. The patient is competent. The risks and benefits of the proposed procedure and the planned sedation have been discussed with the patient. All questions have been answered and informed consent for the procedure has been obtained. Prior to Admission medications Medication Sig Last Dose Discont. diphenhydrAMINE HCl 25 MG Oral Tablet (Benadryl Allergy) Take 1 Tablet by mouth at bedtime. Past Month Iron 325 (65 Fe) MG Oral Tablet Take by mouth every morning. Past Month hydrOXYzine HCl 25 MG Oral Tablet Take 1 Tablet by mouth every 6 hours as needed for Anxiety. Past Week Mirtazapine 30 MG Oral Tablet (Remeron) Take 1 Tablet by mouth at bedtime. 02/21/2024 amLODIPine Besylate 5 MG Oral Tablet (Norvasc) Take 1 Tablet by mouth in the morning. 02/22/2024 Lisinopril 20 MG Oral Tablet (Prinivil) Take 1 Tablet by mouth in the morning. Past Week Multivitamin Adult Oral Tablet Take by mouth. Past Month Vortioxetine HBr 10 MG Oral Tablet (Trintellix) Take one tablet by mouth in the morning with the 5 mg tablet for a total of 15 mg daily Patient not taking: Reported on 02/19/2024 Over 30 Days Vortioxetine HBr 5 MG Oral Tablet (Trintellix) Take one tablet by mouth daily with the 10 mg tabletfor a total of 15 mg daily Over 30 Days RA Vitamin B-1 100 MG Oral Tablet Take 1 Tablet by mouth in the morning. Patient not taking: Reported on 02/22/2024 Not Taking Folic Acid 1 MG Oral Tablet Take 1 Tablet by mouth in the morning. Patient not taking: Reported on 02/19/2024 Not Taking Review of patient's allergies indicates: Allergen Reactions Dust BP 146/103 | Pulse 108 | Temp 37.1 C (98.7 F) (Tympanic) | Resp 16 | Ht 1.753 m (5' 9") | Wt 90.7 kg (200 lb) | SpO2 98% | BMI 29.53 kg/m | BSA 2.1 m Physical Exam: Mental Status Examination: alert and oriented. Airway Examination: normal oropharyngeal airway and neck mobility. Respiratory Examination: clear to auscultation. CV Examination: regular rate and rhythm. ASA Grade: III - A patient with severe systemic disease. Abdomen: nontender This patient has undergone a preprocedural evaluation. A determination has been made to proceed with the planned procedure under [facility] procedural guidelines and the [facility] Non-Emergent, Elective Medical Services and Treatment Recommendations (published on 08-27-19). The community and hospital prevalence of COVID-19 has been discussed as well as this patient's specific risks associated with SARS-CoV-19 infection. Based upon the clinical acuity and patient-specific care considerations, this procedure is deemed a Tier II - Intermediate acuity treatment or service with either progression or the threat of progressive disease related to the delay in treatment. Not providing the service has the potential for increasing morbidity or mortality. After reviewing the risks and benefits, the patient is deemed in satisfactory condition to undergo the procedure. The anesthesia plan is to use general anesthesia. We discussed the risks of ileoscopyto bleeding infection perforation pain in the need for follow-up studies should the patient be found to have a specific or mechanical problem with his ileostomy ite he may need referral to a colorectal specialist for further evaluation. Marquez Garsia DO 02/22/2024 documented in this encounter Procedure Notes * Eufemia Chiu MD - 02/22/2024 12:54 PM EDTAssociated Order(s): COLONOSCOPY [facility] Patient Name: Tim Trent Procedure Date: 02/22/2024 12:54 PM Date of : 1970 Admit Type: Outpatient Note Status: Finalized Date of : 1970 Admit Type: Outpatient Age: 53 Room: Endo 3 Gender: Male Note Status: Finalized Procedure: Colonoscopy Indications: Personal history of ulcerative colitis Providers: Marquez Garsia DO (Doctor) Referring MD: Eufemia Chiu MD (Referring MD) Medicines: General Anesthesia Complications: No immediate complications. Estimated blood loss: Minimal. Procedure: Pre-Anesthesia Assessment: - Prior to the procedure, a History and Physical was performed, and patient medications, allergies and sensitivities were reviewed. The patient's tolerance of previous anesthesia was reviewed. - The risks and benefits of the procedure and the sedation options and risks were discussed with the patient. All questions were answered and informed consent was obtained. - Patient identification and proposed procedure were verified prior to the procedure by the physician, the nurse and the metal sprayer protective coating. The procedure was verified in the procedure room. - Pre-procedure physical examination revealed no contraindications to sedation. - ASA Grade Assessment: II - A patient with mild systemic disease. - After reviewing the risks and benefits, the patient was deemed in satisfactory condition to undergo the procedure. - The anesthesia plan was to use general anesthesia. - Immediately prior to administration of medications, the patient was re- assessed for adequacy to receive sedatives. - The heart rate, respiratory rate, oxygen saturations, blood pressure, adequacy of pulmonary ventilation, and response to care were monitored throughout the procedure. - The physical status of the patient was re-assessed after the procedure. After I obtained informed consent, the scope was passed under direct vision. All instruments were visually inspected immediately before and after removal from the patient to ensure they are fully intact. Throughout the procedure, the patient's blood pressure, pulse, and oxygen saturations were monitored continuously. The [id number] Endoscope ([id number]) was introduced through the ileostomy and advanced to the terminal ileum. The colonoscopy was performed without difficulty. The patient tolerated the procedure well. The quality of the bowel preparation was good. Findings & Specimens: A localized area of mucosa in the ileostomy was nodular and firm to palpation. Biopsies were taken with a cold forceps for histology. The pathology specimen was placed into Bottle Number 1. Estimated blood loss was minimal. The sofía-terminal ileum appeared normal, this was traversed to 40 cm beyond the ostomy opening. Impression: - Nodular ileal mucosa at the ostomy site. Biopsied. - The examined portion of the ileum was normal. Recommendation: - The patient will be observed post-procedure, until all discharge criteria are met. - Advance diet as tolerated today. - Await pathology results. - Refer to a colo-rectal surgeon at appointment to be scheduled. - Check stool for Clostridium difficile toxin. Marquez Garsia DO 02/22/2024 1:16:08 PM This report has been signed electronically. documented in this encounter Nursing Notes * Kristen Romero RN - 02/22/2024 1:55 PM EDT Patient is alert, pain free, passing flatus and tolerating po fluids prior to discharge. Patient has been visited by Dr. Marquez Garsia. Patient has received and demonstrates understanding of discharge instructions. Patient is transported via ambulated to private auto accompanied by endo staff. * Kristen Romero RN - 02/22/2024 1:09 PM EDT Patient transferred to pacu 2 status post Colonoscopy. Patient is quietly sleeping Denies pain and respirations are even and unlabored on room air. Abdomen soft and non distended. Vital signs stable.Report was received from MANAGER DRILLING. RN at bedside. Call coronado is available to the patient. * Bird Funez RN - 02/22/2024 1:08 PM EDT No abdominal pressure given See anesthesia record for medication administered during procedure. Bird Funez RN Pre cleaning of scope at the bedside started by criminalist technician. * Renu Linda RN - 02/22/2024 12:39 PM EDT Pt is prepped and ready for procedure. Call coronado in reach and monitor alarms audible. * Renu Linda RN - 02/22/2024 12:35 PM EDT The following pt discharge instructions reviewed with pt prior to prodedure: No driving today. No alcohol today. No signing of legal documents. Rest as much as possible today and can return to normal activities tomorrow. No operating any heavy equipment today. Diet as tolerated. Pt verbalized understanding. documented in this encounter Plan of Treatment Upcoming Encounters Date Type Department Care Team (Late st Contact Info) Description 02/29/2024 3:20 PM EDT Office Visit General Internal Medicine [address] [place] [address] [place], [place] [address] Eufemia Chiu MD [address] [place], [place] [address] Pending Results Name Type Priority Associated Diagnoses Date /Time SURGICAL PATHOLOGY Pathology Routine Iron deficiency anemia, unspecified iron deficiency anemia type 02/22/2024 1:08 PM EDT Scheduled Orders Name Type Priority Associated Diagnoses Orde r Schedule SURGICAL PATHOLOGY Pathology Routine Iron deficiency anemia, unspecified iron deficiency anemia type Release Upon Ordering for 1 Occurrences starting 02/22/2024, 1 completed Health Maintenance Due Date Last Done Comments [...] Not on filedocumented as of this encounter Procedures Procedure Name Priority Date/Time Associated Diagnosis Comments COLONOSCOPY 02/22/2024 12:54 PM EDT documented in this encounter Results * COLONOSCOPY (02/22/2024 12:54 PM EDT) 02/22/2024 12:5 4 PM EDT Narrative Procedure Note Eufemia Chiu MD - 02/22/2024 12:54 PM EDT [facility] Patient Name: Tim Trent Procedure Date: 02/22/2024 12:54 PM Date of : 1970 Admit Type: Outpatient Note Status:Finalized Date of : 1970 Admit Type: Outpatient Age: 53 Room: [facility] 3 Gender: Male Note Status: Finalized Procedure: Colonoscopy Indications: Personal history of ulcerative colitis Providers: Marquez Garsia DO (Doctor) Referring MD: Eufemia Chiu MD (Referring MD) Medicines: General Anesthesia Complications: No immediate complications. Estimated blood loss:Minimal. Procedure: Pre-Anesthesia Assessment: - Prior to the procedure, a History and Physicalwas performed, and patient medications, allergies and sensitivities werereviewed. The patient's tolerance of previous anesthesia was reviewed. - The risks and benefits of the procedure and thesedation options and risks were discussed with the patient. All questions wereanswered and informed consent was obtained. - Patient identification and proposed procedurewere verified prior to the procedure by the physician, the nurse and the metal sprayer protective coating.The procedure was verified in the procedure room. - Pre-procedure physical examination revealed nocontraindications to sedation. - ASA Grade Assessment: II - A patient with mildsystemic disease. - After reviewing the risks and benefits, thepatient was deemed in satisfactory condition to undergo the procedure. - The anesthesia plan was to use generalanesthesia. - Immediately prior to administration ofmedications, the patient was re-assessed for adequacy to receive sedatives. - The heart rate, respiratory rate, oxygensaturations, blood pressure, adequacy of pulmonary ventilation, and response to care weremonitored throughout the procedure. - The physical status of the patient wasre-assessed after the procedure. After I obtained informed consent, the scope waspassed under direct vision. All instruments were visually inspected immediatelybefore and after removal from the patient to ensure they are fully intact. Throughout the procedure, the patient's bloodpressure, pulse, and oxygen saturations were monitored continuously. The [id number] ([id number]) was introduced through the ileostomy and advanced to the terminal ileum.The colonoscopy was performed without difficulty. The patient tolerated theprocedure well. The quality of the bowel preparation was good. Findings & Specimens: A localized area of mucosa in the ileostomy was nodular and firm topalpation. Biopsies were taken with a cold forceps for histology. The pathology specimen was placed intoBottle Number 1. Estimated blood loss was minimal. The sofía-terminal ileum appeared normal, this was traversed to 40 cmbeyond the ostomy opening. Impression: - Nodular ileal mucosa at the ostomy site.Biopsied. - The examined portion of the ileum was normal. Recommendation: - The patient will be observed post-procedure,until all discharge criteria are met. - Advance diet as tolerated today. - Await pathology results. - Refer to a colo-rectal surgeon at appointment [place] scheduled. - Check stool for Clostridium difficile toxin. Marquez Charles Garsia DO 02/22/2024 1:16:08 PM This report has been signed electronically. Eufemia Chiu MD [facility] documented in this encounter Visit Diagnoses Diagnosis Iron deficiency anemia, unspecified iron deficiency anemia type documented in this encounter Administered Medications Inactive Administered Medications - up to 3 most recent administrations Medication Order MAR Action Action Date Dose Rate Site isolyte-S pH 7.4 infusion Intravenous, at 100 mL/hr, Plasma-LYTE 148, isolyte-S, and isolyte-S pH 7.4 are considered equivalent - including for MAR barcode scanning., CONTINUOUS, Starting on Urvashi 02/22/24 at 1300, Until Urvashi 02/22/24 at 1759, Pre-Op Restarted 02/22/2024 1:12 PM EDT Continue from Pre-Op 02/22/2024 12:54 PM EDT 10 0 mL/hr New Bag 02/22/2024 12:38 PM EDT 100 mL/hr documented in this encounter Active and Recently Administered Medications Times are shown in EDT. Continuous Medication Order 02/20/2024 02/21/2024 02/22/2024 isolyte-S pH 7.4 infusion Intravenous, at 100 mL/hr, Plasma-LYTE 148, isolyte-S, and isolyte-S pH 7.4 are considered equivalent - including for MAR barcode scanning., CONTINUOUS, Starting on Urvashi 02/22/24 at 1300, Until Urvashi 02/22/24 at 1759, Pre-Op 1238 (New Bag - Prov ider: Renu Linda RN)1254 (Continue from Pre-Op - Provider: Rachel Jackson CRNA)1311 (Paused - Provider: Rachel Jackson CRNA - Comment: Switch to gravity)1312 (Restarted - Provider: Rachel Jackson CRNA) documented in this encounter Care Teams Clinical Editor Relationship Specialty Start Date End Date Eufemia Chiu MD [address] [place] [address] PCP - General Internal Medicine 02/07/24 documented as of this encounter
--- OUTSIDE RECORDS SUMMARY | 2024-03-29 05:17 | External Medical Summary | Summary of Care ---
Author Name Unknown Organization [facility] Address [address] [place] [address] Phone [phone] Care Team Providers Care Ventilation Equipment Tender Name Role Phone Eufemia Chiu MD Primary Care Provider + Reason for Visit * Reason Onset Date Comments Medication Refill 03/14/2024 Encounter Details Date Type Department Care Team (Late st Contact Info) Description 03/14/2024 Refill Psychiatry, [facility] [address] [place] [address] Ramya [place] MD [address] [place] [address] Allergies Active Allergy Reactions Criticality Noted Date Comments Dust Low 07/15/2019 documented as of this encounter (statuses as of 03/18/2024) Medications Medication Sig Dispensed Refills Start Date [...] Additional Information Patient not taking.Reported on 02/29/2024 hydrOXYzine HCl 25 MG Oral TabletIndication s:Primary [...] by mouth in the morning. 02/29/2024 Active Mirtazapine 30 MG Oral Tablet (Remeron) Take 1 Tablet by mouth at bedtime. 90 Tablet 1 03/18/2024 Active Mirtazapine 30 MG Oral Tablet (Remeron) Take 1 Tablet by mouth at bedtime. 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 * Telephone Encounter - Trina Dean LPN - 03/14/2024 2:04 PM EDTPending Prescriptions: Disp Refills Mirtazapine 30 MG Oral Tablet (Remeron) 30 Tab*0 Sig: Take 1 Tablet by mouth at bedtime. * Telephone Encounter - Trina Dean LPN - 03/14/2024 2:03 PM EDT Refill request from patient (Shaun) for Remeron. Medication last filled on 01/19/24 with 0 refills. Patient last seen on 09/05/23 with return appointment scheduled for needs appointment. Patient had 3 cancelled appointments and 0 NO SHOW appointments. documented in this encounter Plan of Treatment Upcoming Encounters Date Type Department Care Team (Late st Contact Info) Description 03/27/2024 9:00 AM EST Office Visit General Surgery, [address] [place] [address] Milly Amador, DO [address] [facility] [address] Health Maintenance Due Date Last Done Comments [...] filedocumented as of this encounter Care Teams Ventilation Equipment Tender Relationship Specialty Start Date End Date Eufemia Chiu MD [address] [place] [address] PCP - General Internal Medicine 02/07/24 documented as of this encounter
--- OUTSIDE RECORDS SUMMARY | 2024-03-29 05:17 | External Medical Summary | Summary of Care ---
Author Name Unknown Organization [facility] Address [address] [facility] [place] [address] Phone [phone] Care Team Providers Care International Specialist Name Role Phone Eufemia Chiu MD Primary Care Provider + Reason for Referral * Evaluate & Treat - Unlimited Visits (Within 10 days (routine)) - Authorized Specialty Diagnoses / Procedures Referred By Khadijah shepherd Referred To Contact Colon and Rectal Surgery / General Surgery Diagnoses Attention to ileostomy (HCC) Marquez Garsia DO [address] [place] [address] Referral ID Status Reason Start Date Expiration Date Visits Requested Visits Authorized [id number] Authorized Specialty Services Required 02/22/2024 02/21/[phone] Question Answer What condition is the patient being seen for? IBD/Crohns Referral Priority Within 10 days (routine) Where should this appointment be scheduled? [facility] Comments Patient with nodularity and a previously placed stoma site, biopsies taken. Reason for Visit * Reason Onset Date Comments Advice 02/22/2024 Encounter Details Date Type Department Care Team (Late st Contact Info) Description 02/22/2024 Telephone Gastroenterology, [facility] [address] [place] [address] Marquez Garsia DO [address] [place] [address] Advice Allergies Active Allergy Reactions Criticality Noted Date Comments Dust Low 07/15/2019 documented as of this encounter (statuses as of 02/26/2024) Medications Medication Sig Dispensed Refills Start Date [...] as of this encounter (statuses as of 02/26/2024) Active Problems Problem Noted Date Diagnosed Date Food insecurity 07/03/2023 Overview: Per [facility] Protocol Depressive disorder 06/21/2023 CHEPE (generalized anxiety disorder) 06/21/2023 Substance abuse 06/21/2023 Ulcerative colitis 06/15/2023 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 Thanks. * Telephone Encounter - Marquez Garsia DO - 02/22/2024 1:06 PM EDT The patient underwent an ileoscopy this afternoon as an open access referral. The patient has a history of ulcerative colitis and underwent a procto colectomy over 15 years ago in [place]. The patient's stoma appears to have nodularity on the outside, biopsies were taken I would like thepatient to be seen by Colorectal surgery for further evaluation. documented in this encounter Plan of Treatment Upcoming Encounters Date Type Department Care Team (Late st Contact Info) Description 02/29/2024 3:20 PM EDT Office Visit General Internal Medicine [address] [place] [address] [place] [address] Eufemia Chiu MD [address] [facility] [place] [address] Scheduled Referrals Name Type Priority Associated Diagnoses [...] ileostomy documented in this encounter Care Teams International Specialist Relationship Specialty Start Date End Date Eufemia Chiu MD [address] [facility] [place] [address] PCP - General Internal Medicine 02/07/24 documented as of this encounter
--- OUTSIDE RECORDS SUMMARY | 2024-03-29 05:17 | External Medical Summary | Summary of Care ---
Author Name Unknown Organization [facility] Address [address] [facility] [place] [address] Phone [phone] Care Team Providers Care Tour Director Name Role Phone Eufemia Chiu MD Primary Care Provider + Reason for Referral * Evaluate & Treat - Unlimited Visits (Within 10 days (routine)) - Pending Review Specialty Diagnoses / Procedures Referred By Khadijah shepherd Referred To Contact Colon and Rectal Surgery / General Surgery Diagnoses Attention to ileostomy (HCC) Marquez Garsia DO [address] [place] [id number] Referral ID Status Reason Start Date Expiration Date Visits Requested Visits Authorized [id number] Pending Review Specialty Services Required 02/22/2024 999 [...] st Contact Info) Description 02/22/2024 Telephone Gastroenterology, [facility] [address] [place] [address] Marquez Garsia DO [address] [place] [id number] Advice Allergies Active Allergy Reactions Criticality Noted [...] Diagnosed Date Food insecurity 07/03/2023 Overview: [facility] Protocol Depressive disorder 06/21/2023 CHEPE (generalized [...] procto colectomy over 15 years ago in [place]. The patient's stoma appears to have nodularity on the outside, biopsies were taken I would like thepatient to be seen by Colorectal surgery for further evaluation. documented in this encounter Plan of Treatment Upcoming Encounters Date Type Department Care Team (Late st Contact Info) Description 02/29/2024 3:20 PM EDT Office Visit General Internal Medicine [facility] [address] [facility] [place] [address] Eufemia Chiu MD [address] [facility] [place] [address] Scheduled Procedures Name Priority Associated Diagnoses Date/Ti [...] Vaccines (1 of 2) 2022 COVID-19 Vaccine ( - 2023- season) 2024 Influenza Vaccine (FLU [...] ileostomy documented in this encounter Care Teams Tour Director Relationship Specialty Start Date End Date Eufemia Chiu MD [address] [place] [address] PCP - General Internal Medicine 02/07/24 documented as of this encounter
--- OUTSIDE RECORDS SUMMARY | 2024-03-29 05:18 | External Medical Summary | Summary of Care ---
Author Name Unknown Organization [facility] Address [address] [place] [address] Phone [phone] Care Team Providers Care Medical Technologist Generalist Name Role Phone Eufemia Chiu MD Primary Care Provider + Reason for Visit * Reason Comments Medication Refill Encounter Details Date Type Department Care Team (Late st Contact Info) Description 12/26/2023 Refill Psychiatry, [address] [address] Elenita Jules MD [address] [place] [address] Allergies Active Allergy Reactions Criticality Noted Date Comments Dust Low 07/15/2019 documented as of this encounter (statuses as of 12/26/2023) Medications Medication Sig Dispensed Refills Start Date End Date Status Folic Acid 1 MG Oral Tablet Take 1 Tablet by mouth in the morning. Active RA Vitamin B-1 100 MG Oral Tablet Take 1 Tablet by mouth in the morning. 01/13/2023 Active Multivitamin Adult Oral Tablet Take by mouth. Act oscar hydrOXYzine HCl 25 MG Oral TabletIndications :Primary insomnia Take 1 Tablet by mouth every 6 hours as needed for Anxiety. 40 Tablet 2 2023 Active amLODIPine Besylate 5 MG Oral Tablet [...] by mouth at bedtime. 30 Tablet 12/26/2023 Active Mirtazapine 30 MG Oral Tablet (Remeron) Take 1 Tablet by mouth at bedtime. 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 (Household - for ages [...] encounter Miscellaneous Notes * Telephone Encounter - Anant Skinner MD - 12/26/2023 3:55 PM EDTSigned Prescriptions: Disp Refills Mirtazapine 30 MG Oral Tablet (Remeron) 30 Tab*0 Sig: Take 1 Tablet by mouth at bedtime.Authorizing Provider: ANANT SKINNER documented in this encounter Plan of Treatment Upcoming Encounters Date Type Department Care Team (Latest Contact Info) Description 01/23/2024 3:20 PM EDT Office Visit General Internal Medicine [facility] [place] [address] [place] [address] Eufemia Chiu MD [address] [facility] [place] [address] 02/22/2024 1:00 PM EDT Hospital Encounter [facility], Endoscopy Room [facility] [address] [place] [phone] Marquez Garsia, DO [address] [place] [address] 02/22/2024 1:00 PM EDT - 02/22/2024 1:30 PM EDT Surgery ENDO [facility], Endoscopy Room [facility] [address] [place] [phone] Marquez Garsia, DO [address] [place] [address] COLONOSCOPY FLEXIBLE PROXIMAL DIAGNOSTIC Scheduled Procedures Name Priority Associated Diagnoses Date/Ti [...] filedocumented as of this encounter Care Teams Medical Technologist Generalist Relationship Specialty Start Date End Date Eufemia Chiu MD [address] [place] [address] PCP - General Internal Medicine 02/06/23 documented as of this encounter
[2024-03-29] MEDS ORDERED: LORazepam 2 MG/1 ML VIAL IV PRN (05:42)
[2024-03-29] MEDS: oxyCODONE HCL IR 5 MG TAB (IMMEDIATE RELEASE) PO PRN (05:51)
[2024-03-29] MEDS: THIAMINE HCL 100 MG in SYRINGE 9 ML IV STA (06:10)
[2024-03-29 06:50] LABS: Basophils # (auto) 0.02 K/uL (0.00-0.20); Basophils % (auto) 0.4 %; Eosinophils # (auto) 0.17 K/uL (0.00-0.50); Hematocrit (blood only) 44.1 % (42.0-52.0); Hemoglobin 15.7 g/dl (14.0-18.0); Immature Granulocytes # (auto) 0.03 K/uL (0.01-0.20); Immature Granulocytes % (auto) 0.5 %; Lymphocytes # (auto) 1.12 K/uL (1.20-3.40); Mean Corpuscular Hgb Conc 35.6 g/dL (32.0-36.0); Mean Corpuscular Volume 95.5 fL (80.0-100.0); Mean Platelet Volume 8.9 fL (9.4-12.4); Monocytes # (auto) 0.71 K/uL (0.11-0.59); Monocytes % (auto) 12.7 %; Neutrophils # (auto) 3.56 K/uL (1.40-6.50); Neutrophils % (auto) 63.4 %; Platelet Count 148 K/uL (130-400); RDW Coefficient of Variation 14.2 % (11.5-14.5); RDW Standard Deviation 49.1 fL (36.4-46.3); Red Blood Count 4.62 M/uL (4.70-6.10); White Blood Count 5.61 K/ul (4.8-10.8)
[2024-03-29 07:13] LABS: Albumin Globulin Ratio 1.3 (0.9-2); Albumin Level 3.6 gm/dl (3.4-5.0); BUN Creatinine Ratio 10.8 (10-20); Bilirubin,Total 0.9 mg/dl (0.2-1.0); Calcium 8.3 mg/dl (8.6-10.3); Creatinine Clr Calc Pharmacy 62.9 ml/min; Globulin 2.7 gm/dl (2.5-4.0); Magnesium 2.1 mg/dl (1.7-2.4); Potassium 3.2 mmol/L (3.5-5.1); Total Protein 6.3 gm/dl (6.0-8.3)
[2024-03-29 07:40] VITALS: RESP 18
[2024-03-29] MEDS ORDERED: amLODIPine BESYLATE 5 MG TAB PO SCH (09:00)
[2024-03-29] MEDS: MULTIVITAMIN TAB PO SCH (09:09)
[2024-03-29] MEDS: FOLIC ACID 1 MG TAB PO SCH (09:09)
[2024-03-29 16:39] VITALS: BP 152/106; PULSE 84; TEMP 97.9; O2SAT 98
--- NOTE | 2024-03-29 17:38 | Discharge Summary ---
Date of Service March 29, 2024 Admission HPI Per Admitting Provider History obtained from patient and records. Medical history significant for hypertension, ulcerative colitis status post surgery ([facility] [place] 2009), CRI (patient creatinine 1.4-1.5,)chronic anemia (baseline hemoglobin of 13), anxiety/mood disorder, alcohol abuse. Last confinement August 2023 for syncope, ARF, and alcohol abuse. Few days history of achy upper abdominal pain with nausea emesis. No chest pain, no SOB, no headache symptoms. Discomfort worse with eating. No fever, no chills. Occasional EtOH intake as per patient. Highest SBP of 190s upon arrival at the ER. Cefoxitin given for cholecystitis/choledocholithiasis. General surgeon on-call recommended [facility] transfer for ERCP services. Patient accepted for transfer by [facility] general surgery pending bed availability. Medical History as above Surgical History : Eye surgery, colectomy/ileostomy Family History : IBD, alcoholism, OCD Personal/Social history : non-smoker, alcohol abuse as per records, admits to cannabis intake at home Admission Exam Per Admitting Provider GENERAL: Slightly uncomfortable, slightly anxious, no respiratory distress SKIN: Pallor, warm HEENT: Alopecia, pale palpebral conjunctivae, no ptosis, dry buccal mucosa NECK : Supple, no tenderness CHEST : CTA, no tenderness HEART : Tachycardic, no obvious murmurs ABDOMEN: Some distention, epigastric tenderness EXTREMITIES : No LE swelling/tenderness, no other conspicuous deformities noted NEUROLOGIC : Coherent, no facial asymmetry, no other gross focality Principal Diagnosis Acute calculous cholecystitis/choledocholithiasis Gallstone pancreatitis secondary to above hypertensive urgency Discharge Exam GENERAL: WD/WN M in NAD HEENT: NC/AT, Alopecia, EOMI NECK : Supple, no tenderness CHEST : CTA, no tenderness HEART : rrr, no obvious murmurs ABDOMEN: Some distention, epigastric tenderness EXTREMITIES : No LE swelling/tenderness, moves extremities NEUROLOGIC : awake, alert, answers appropriately, speech fluent, no facial asymmetry, moves extremities SKIN: warm, dry Discharge Data Allergies Allergy/AdvReac Type Severity Reaction Status Date / Time No Known Allergies Allergy Verified 09/14/23 11:36 Consultations 03/28/24 19:51 ED Decision to Admit Stat Ordered Studies 03/28/24 16:15 CT abd pelvis wo con Stat FINDINGS: Limitations: None. Lung bases: No abnormality noted. Pleural space: No visualized pleural effusion or pneumothorax. Heart: No abnormality noted. Mediastinum: No abnormality noted. ABDOMEN: Liver: Normal size and contour. Hypodense typical of steatosis. No mass or ductal dilation. Gallbladder and bile ducts: The common bile duct is dilated in the interval from 4 to 8 mm. No ductal stone noted. No calcified gallstone or ductal stone. No biliary gas. Pancreas: There is mild stranding about the pancreatic head. The pancreas otherwise appears normal. No pancreatic fluid or gas. No ductal dilatation. Impr. Spleen: No significant abnormality noted. Adrenals: No significant abnormality noted. Kidneys and ureters: No abnormality noted. No stones. No hydronephrosis. No significant perinephric fluid. Stomach and bowel: Colectomy with right lower quadrant patent ileostomy. No intestinal obstruction. No thickening or mesenteric inflammation. PELVIS: Appendix: Appendectomy. Bladder: The bladder is incompletely distended and grossly unremarkable. Reproductive: No abnormalities noted. ABDOMEN and PELVIS: Intraperitoneal space: No free air. No significant fluid collection. Bones/joints: No acute changes. Soft tissues: There are small bilateral fat containing inguinal hernias. Vasculature: No abdominal aortic aneurysm. Lymph nodes: No pathologically enlarged lymph nodes. IMPRESSION: 1. Mild acute pancreatitis of the pancreatic head. 2. Mild dilatation of the common bile duct since the prior exam. Consider gallbladder ultrasound to assess for gallstone pancreatitis. ACT 112: Positive. There are findings on this exam that require communication between the performing entity and the patient following Patient Test Result Information Act ([place] ACT 112) guidelines. 03/28/24 17:29 US gallbladder Stat Findings: There is mild fatty infiltration of the liver. No definite liver mass is seen Multiple gallstones are present. The gallbladder wall appears thickened, measuring approximately 5 mm. No definite sonographic Lester sign was detected, though this could be due to pain medication. The common bile duct is slightly dilated, measuring up to 7.5 mm. No clear obstructing lesion is seen The right kidney measures 9.7 cm in length. There is no hydronephrosis. No definite renal calculus or mass is seen Impression: 1. Cholelithiasis with possible acute cholecystitis 2. Mild bile duct dilatation 3. Fatty infiltration of the liver Hospital Course (1) Asymptomatic hypertensive urgency: Acute calculous cholecystitis/choledocholithiasis Gallstone pancreatitis secondary to above Admitted to medical telemetry given hypertensive urgency IV Lopressor given on admission amlodipine IVF, Zosyn N.p.o. ED provider discussed w/ surgeon insulation hoseman, Given need for ERCP -> to transfer to [facility] Transfer to [facility] once bed available. - plan to transfer around 5.30 pm (Patient kindly accepted by Dr. Pollard of General Surgery as per ED provider. Transfer paperwork already completed at the ER.) Hypokalemia - replace and monitor Chronic conditions ulcerative colitis status post surgery ([facility] 2009) CRI, creatinine at baseline chronic anemia, hemoglobin at baseline anxiety/mood disorder alcohol abuse, JOHNATHAN S at risk protocol, DT precautions DVT prophylaxis with Heparin subcu Full code Total Time Total Time Spent Total Time Spent (In Minutes): 40 Discharge Plan Discharge Items Patient Disposition: Transfer Acute Care Hospital Reason For Visit: HTN URG, CHOLECYSTITIS Discharge Diagnosis: Acute calculous cholecystitis/choledocholithiasis Gallstone pancreatitis secondary to above hypertensive urgency Activity: Per Instructions section Non-emergency contact: Hospitalist, Surgeon and Certified Massage Therapist Call non-emergency contact if: you have any medication questions and your sympto ms worsen Follow-up/Referrals: Eufemia Chiu MD [Primary Care Provider] - Diet: Nothing by Mouth Addtl Attending Provider Instructions: Patient to be transferred to [facility] in [place] for further care. Pending Studies at Discharge: No Stand-Alone Forms: My [facility] Skilled Items Patient informed of condition?: Yes DNR: No Discharge Level of Care: Other Communicable Disease: No Discharge Prognosis: Other Lines: Peripheral IV Urinary Catheter: No Medications and DC Order Prescriptions: Continued amlodipine [Norvasc] 5 mg Tablet 5 mg PO QAM Qty: 30 1RF multivitamin Tablet 1 tab PO DAILY mirtazapine 30 mg tablet 30 mg PO HS hydroxyzine HCl 25 mg tablet 25 mg PO Q6H PRN (Reason: Anxiety) lisinopril 20 mg tablet 20 mg PO UD Rx Instructions: 20 mg po qam. Per patient, his provider was to drop dose down to 10 mg due to him having reactions to 20 mg. No new prescription for 10 mg listed in fill history ferrous sulfate 325 mg (65 mg iron) Tablet 325 mg PO .Q OTHER DAY Discharge Orders: Discharge Order (Routine); Ordered 03/29/24 Ordered By: Blake Ivey Admission Data Admit Date/Time: 03/28/24 20:02 Attending Provider: Blake Ivey Admit Provider: Quinn Fields Primary Care Provider: Eufemia Chiu Other Providers: Quinn Fields Other Interventions: Discharge Summary Assessment (RN) Last Done: 03/29/24 17:23
[2024-03-30] MEDS ORDERED: amLODIPine BESYLATE 5 MG TAB PO SCH (09:00)
[2024-03-30] MEDS ORDERED: THIAMINE HCL 100 MG TAB PO SCH (09:00)
== END 2024-03-29 18:07 | disposition short-term general hospital (02) | DRG 444 ==
LOC: ED 14:37 → 2N 20:02
DX: K85.10 Biliary acute pancreatitis without necrosis or infection; K51.90 Ulcerative colitis, unspecified, without complications; F17.290 Nicotine dependence, other tobacco product, uncomplicated; K80.62 Calculus of gallbladder and bile duct with acute cholecystitis without obstruction; F41.9 Anxiety disorder, unspecified; Z81.1 Family history of alcohol abuse and dependence; I12.9 Hypertensive chronic kidney disease with stage 1 through stage 4 chronic kidney disease, or unspecified chronic kidney disease; Z93.2 Ileostomy status; U07.0 Vaping-related disorder; I16.0 Hypertensive urgency; N18.9 Chronic kidney disease, unspecified; E87.6 Hypokalemia; F39 Unspecified mood [affective] disorder; F12.90 Cannabis use, unspecified, uncomplicated; F10.10 Alcohol abuse, uncomplicated